=== PATIENT | male | born 1955 | race Caucasian/White ===

== ENCOUNTER → 2016-12-30 | Outpatient (CLI) | payer MEDICARE ==
[~2016-12-30] MED LIST: ACHYD1T PO; CEFD300C3 PO; CEPH500C PO; CIPR500T4 PO; CIPR500T78 PO; CITA20TA4; CITA20TA4 PO; CLIN-81 PO; CYAN10006 PO; GABA-486 PO; GLIP10TA13 PO; GLIP5TAB13 PO; HYOS0.1216 PO; IBUP200C PO; LACT1CAP62 PO; LEVO500T2 PO; LISI-556 PO; LISI5TAB PO; MELO-195 PO; MELO15TA39 PO; METF-380 PO; METF1000 PO; NITR-33 PO; ONDA4TAB11 PO; OXYC-12 PO; OXYC1TAB25 PO; PHEN200T27 PO; POTA10CA43 PO; POTA10TA17 PO; TMSL.4C PO
--- NOTE | 2016-12-30 12:54 | Diagnostic Imaging Report ---
INDICATION: Feels a bulge medial to a stoma in the right lower quadrant with pain when lifting. TECHNIQUE: Multiple real time werner scale sonographic images were obtained of the abdominal wall. CORRELATION STUDY: None FINDINGS: Imaging of the abdominal wall in and around the area of concern and stoma was performed. There does appear to be a focal defect in the abdominal wall approximately 4 cm medial to the stoma. There is presence of omental fat. No definitive bowel echotexture. IMPRESSION: Findings suggestive of a peristomal hernia which currently contains fat. No definitive bowel involvement at this time. Dictated by: Dictated on workstation # [id number]
== END ==
LOC: RAD 11:24
PROVIDERS: ATTEND Nurse Practitioner Family
DX: K43.5 Parastomal hernia without obstruction or gangrene (principal)
CPT/HCPCS: 76705

== ENCOUNTER → 2017-05-30 | Outpatient (CLI) | payer MEDICARE ==
[~2017-05-30] MED LIST changes: +IOHEXOL 350 MG/ML 100 ML (OMNIPAQUE 350) VIAL IV ONE; +NS 100 ML (IVPB) BAG IV ONE
[2017-05-30 11:20] LABS: CREATININE SERUM 1.38 MG/DL (0.60-1.30)
--- NOTE | 2017-05-30 12:02 | Diagnostic Imaging Report ---
PROCEDURE: CT abdomen and pelvis with contrast. TECHNIQUE: Multiple contiguous axial images were obtained through the abdomen and pelvis after administration of intravenous contrast. INDICATION: Abdominal wall hernia. Patient has history of bladder carcinoma. Comparison is made with prior CT from 06/21/2015. FINDINGS: The lung bases are clear. The liver demonstrates diffuse low density consistent with hepatic steatosis. No discrete liver mass is identified. The gallbladder is unremarkable. Pancreas and spleen are unremarkable. No adrenal mass is seen. The kidneys appear stable with left renal atrophy similar to prior exam. The aorta is nonaneurysmal. Postsurgical changes of cystectomy and prostatectomy are again noted. Patient does have an ileal conduit with right lower quadrant ileostomy, similar to prior exam. The degree of fat at the ostomy site is stable when compared to prior study. Bowel loops are normal caliber. No obstruction is seen. There is no ascites. No inflammatory process is seen. IMPRESSION: Stable CT of the abdomen and pelvis when compared with prior CT from 06/21/2015. No acute feature is detected. Dictated by: Dictated on workstation # [id number]
== END ==
LOC: RAD 10:54
PROVIDERS: ATTEND Surgery
DX: K43.9 Ventral hernia without obstruction or gangrene (principal); Z85.51 Personal history of malignant neoplasm of bladder
CPT/HCPCS: 36415; 74177; 82565; 84520

== ENCOUNTER 2017-06-09 10:09 | Outpatient (CLI) | payer MEDICARE ==
[~2017-06-09] VITALS: Ht 165.1 cm; Wt 78.9 kg
[~2017-06-09 10:09] MED LIST changes: -IOHEXOL 350 MG/ML 100 ML (OMNIPAQUE 350) VIAL IV ONE; -NS 100 ML (IVPB) BAG IV ONE
[2017-06-09 10:19] VITALS: BP 128/78
[2017-06-09 10:43] LABS: BASOPHILS % (AUTO) 0 % (0-10); EOSINOPHILS # (AUTO) 0.1 10^3/uL (0.0-0.3); EOSINOPHILS % (AUTO) 3 % (0-10); HEMATOCRIT 34 % (40-54); HEMOGLOBIN 11.2 G/DL (13.3-17.7); LYMPHOCYTES # (AUTO) 1.1 X 10^3 (1.0-4.0); LYMPHOCYTES % (AUTO) 26 % (12-44); MEAN CORPUSCULAR HEMOGLOBIN 28 PG (25-34); MEAN CORPUSCULAR HGB CONC 33 G/DL (32-36); MEAN CORPUSCULAR VOLUME 85 FL (80-99); MEAN PLATELET VOLUME 10.5 FL (7.4-10.4); MONOCYTES # (AUTO) 0.3 X 10^3 (0.0-1.0); MONOCYTES % (AUTO) 7 % (0-12); NEUTROPHILS # (AUTO) 2.6 X 10^3 (1.8-7.8); NEUTROPHILS % (AUTO) 63 % (42-75); PLATELET COUNT 198 10^3/uL (130-400); RED CELL DISTRIBUTION WIDTH 14.2 % (10.0-14.5); WHITE BLOOD COUNT 4.1 10^3/uL (4.3-11.0)
[2017-06-09] MEDS ORDERED: METF1000 PO ×2 (10:48)
[2017-06-09] MEDS ORDERED: GLIP10TA13 PO (10:48)
[2017-06-09] MEDS ORDERED: LISI-556 PO (10:48)
[2017-06-09] MEDS ORDERED: BUSP15TA60 PO (10:48)
[2017-06-09] MEDS ORDERED: ATOR20TA66 PO (10:48)
[2017-06-09] MEDS ORDERED: CETI10TA17 PO (10:48)
[2017-06-09] MEDS ORDERED: DICL50TA6 PO (10:48)
[2017-06-09] MEDS ORDERED: GABA-486 PO (10:48)
[2017-06-09] MEDS ORDERED: CITA40TA11 PO (10:48)
[2017-06-09 11:00] LABS: CALCIUM 8.8 MG/DL (8.5-10.1); CREATININE SERUM 1.34 MG/DL (0.60-1.30); POTASSIUM 5.2 MMOL/L (3.6-5.0)
== END 2017-06-09 10:35 | disposition home or self-care (01) ==
LOC: PREOP 10:09
PROVIDERS: ATTEND Surgery
DX: Z01.812 Encounter for preprocedural laboratory examination (principal); Z11.2 Encounter for screening for other bacterial diseases; K43.5 Parastomal hernia without obstruction or gangrene
CPT/HCPCS: 36415; 80048; 85025; 87081

== ENCOUNTER 2017-06-16 06:00 | Day surgery (SDC) | payer MEDICARE ==
[~2017-06-16] VITALS: Ht 165.1 cm; Wt 78.9 kg
[~2017-06-16 06:00] MED LIST changes: +ATOR20TA66 PO; +BUSP15TA60 PO; +CETI10TA17 PO; +CITA40TA11 PO; +DICL50TA6 PO
[2017-06-16 06:20] VITALS: BP 133/92
[2017-06-16] MEDS: LACTATED RINGERS 1,000 ML IV PRN ×2 (06:20→09:08)
[2017-06-16] MEDS ORDERED: FAMOTIDINE 20MG/2ML IV (PEPCID) IV ONE (06:45)
[2017-06-16] MEDS ORDERED: ceFAZolin 2 GM IV Premixed 50 ML IV ONE (06:45)
[2017-06-16] MEDS ORDERED: LIDOCAINE/EPI 1%-1:200,000 (XYLOCAINE) 10 ML VIAL ONE (06:59)
[2017-06-16] MEDS ORDERED: fentaNYL INJECTION 100 MCG/2 ML AMP ONE ×2 (07:14→10:37)
[2017-06-16] MEDS ORDERED: MIDAZOLAM 2 MG/2 ML (VERSED) VIAL ONE (07:14)
[2017-06-16] MEDS ORDERED: ONDANSETRON 4 MG/2 ML (SDV) Z0FRAN ONE (07:14)
[2017-06-16] MEDS ORDERED: SEVOFLURANE (ULTANE) 15 ML INHAL SOLN ONE ×8 (07:14→10:19)
[2017-06-16] MEDS ORDERED: ROCURONIUM 10 MG/ML 5 ML SYRINGE IV ONE ×2 (07:14→09:45)
--- NOTE | 2017-06-16 08:11 | Progress Note-Pre Operative ---
Pre-Operative Progress Note H&P Reviewed The H&P was reviewed, patient examined and no changes noted. Time Seen by Provider: 08:01 Date H&P Reviewed: Jun 16, 2017 Time H&P Reviewed: 08:04 Pre-Operative Diagnosis: Parastomal hernia, incarcerated ALLISON MACEDO DO Jun 16, 2017 08:10
[2017-06-16] MEDS ORDERED: LIDOCAINE PF 2% 5 ML (XYLOCAINE) VIAL ONE (08:41)
[2017-06-16] MEDS ORDERED: proPOfol 200 MG/20 ML (DIPRIVAN) VIAL IV ONE (08:41)
[2017-06-16] MEDS ORDERED: PHENYLEPHRINE INJ 10 MG/ML (NEO-SYNEPHRINE 1%) ONE (08:42)
[2017-06-16] MEDS ORDERED: PHENYLEPHRINE 100 MCG/ML 10 ML (ANESTHESIA) SYR ONE (08:42)
[2017-06-16] MEDS ORDERED: GLYCOPYRROLATE 0.2 MG/ML (ROBINUL) 2 ML VIAL ONE (10:10)
[2017-06-16] MEDS ORDERED: NEOSTIGMINE (BLOXIVERZ ) 1 MG/1ML 10 ML VIAL ONE (10:10)
--- NOTE | 2017-06-16 10:25 | Progress Note-Post Operative ---
Post-Operative Progess Note Surgeon (s)/Fire Control Officer (s) Surgeon ALLISON MACEDO DO Fire Control Officer: [place] Pre-Operative Diagnosis Parastomal hernia, incarcerated Post-Operative Diagnosis Same Procedure & Operative Findings Date of Procedure 06/16/17 Procedure Performed/Findings Parastomal hernia repair with mesh placement Anesthesia Type GET Estimated Blood Loss Estimated blood loss (mL): less than 10ml Specimens/Packing Specimens Removed none ALLISON MACEDO DO Jun 16, 2017 10:25
[2017-06-16] MEDS ORDERED: HYDR-3820 PO (10:26)
--- NOTE | 2017-06-16 10:28 | Discharge Inst-Surgical ---
Discharge Inst-Surgical Depart Medication/Instructions New, Converted or Re-Newed RX: RX Given to Pt/Family Patient Instructions Follow up Appt: Make appointment for 1 week. Instructions: No lifting greater than 10 pounds. No strenuous activity. May shower in 24 hours, no tub bath or soaking. Use incentive spirometer at home as directed. No Smoking Skin/Wound Care: May remove bandages. You need to leave the Dermabond on over incision it will fall off on its own. Symptoms to Report: Appetite Changes, Extremity Discoloration, Numbness/Tingling, Swelling Increased , Bleeding Excessive, Eyesight Changes, Pain Increased, Urine Color Change, Constipation(Persistent), Fever over 101 degree F, Pain/Pressure in chest, Urinating Difficulty, Cough Up/Vomit Blood, Heart Beat Irreg/Pounding, Pain/ Pressure in jaw, Cramps in feet or legs, Lightheadedness, Pain/Pressure in shoulder, Diarrhea(Persistent), Memory Changes Suddenly, Questions/Concerns, Weight gain consecutive days, Dizziness/Fainting, Nausea/Vomiting, Shortness of Breath, Weight gain over 2 pounds If questions or concerns contact your physician Or seek help at emergency department. Activity Activity Instructions: Avoid Pulling & Pushing Driving Instructions: No Driving/Refer to Dr. Jaquez Discharge Diet: No Restrictions Diet After 24 Hours: Clear Liquid if Nauseous If Any Problems/Questions/Issu: Contact Your Physician, Go to Emergency Room Skin/Wound Care Infection Signs and Symptoms: Increased Redness, Foul Odor of Wound, Increased Drainage, Skin Itchy or Has a Rash, Increased Swelling, Temperature Above 101 F Bathing Instructions: Shower Stitches/[place]/Dermabond Dis: Dermabond Ice Pack: Ice On and Off Site ALLISON MACEDO DO Jun 16, 2017 10:28
[2017-06-16 11:40] VITALS: BP 147/92
[2017-06-16] MEDS ORDERED: HYDROcodone/APAP 10 MG/325 MG (LORTAB) TAB PO ONE ×2 (11:40→12:00)
[2017-06-16 12:10] VITALS: BP 149/93
[2017-06-16 12:40] VITALS: BP 148/97
[2017-06-16 13:30] VITALS: BP 148/97
--- NOTE | 2017-06-16 14:26 | Anesthesia-General Post-Op ---
General Patient Condition Mental Status/LOC: Same as Preop Cardiovascular: Satisfactory Nausea/Vomiting: Absent Respiratory: Satisfactory Pain: Controlled Complications: Absent Post Op Complications Complications None Follow Up Care/Instructions Patient Instructions None needed. Anesthesia/Patient Condition Patient Condition Patient was doing well prior to discharge. He had minimal nausea but was tolerating crackers, stable vital signs, no apparent adverse anesthesia problems. ADELAIDE BUSTILLO DO Jun 16, 2017 14:26
--- NOTE | 2017-06-17 05:07 | OPERATIVE REPORT ---
DATE OF SERVICE: PREOPERATIVE DIAGNOSIS: Incarcerated parastomal hernia. POSTOPERATIVE DIAGNOSIS: Incarcerated parastomal hernia. PROCEDURE: Parastomal hernia repair with mesh placement. SURGEON: Dr. White. LANDSCAPE ARTIST: Dr. Dahl. ANESTHESIA: General endotracheal tube. SPECIMENS: None. BLOOD LOSS: Less than 10 mL. FLUIDS: Per anesthesia. POSTOPERATIVE CONDITION: Stable. INDICATION FOR PROCEDURE: The patient is a 61-year-old male who has a bulging around the urostomy and had a CAT scan performed, which had diagnosed incarcerated parastomal hernia. FINDINGS: The patient had an incarcerated parastomal hernia just with some fat in there removed and then repaired. PROCEDURE NOTE: After informed consent was obtained, the patient was brought to the operating room, placed in supine position, slightly bumped on the left and the bed was broken a little bit. After sterilely prepping and draping the patient, we made an incision in left upper quadrant for making a first infiltrating the skin with local and then made incision with #11 blade, carried down through skin into the subcutaneous tissue, then deepened down through subcutaneous tissue with Bovie electrocautery down to the fascia. Fascia incised with electrocautery and then moved the muscle out of the way, went to the posterior fascia and then again move muscle and then able to grasp the peritoneum with hemostats, cut with Metzenbaum scissors and then placed the 11 mm trocar port held in place the balloon. Pneumoperitoneum was created. Then placed 2 more 8 mm ports about 10 cm away from this left upper quadrant, one more laterally and then one down towards the ASIS. Using local lidocaine, 11 blade for stab incision and then advancing the trocar under direct visualization. Once this was done, we then docked the robot and placed one more port in between the left upper quadrant and the midline one. With a #11 blade, local lidocaine, a stab incision and the VersaStep system, all done under direct visualization. Able to see some adhesions from previous surgery and the parastomal area. Took down, there were some adhesions on the left side. These were taken down with Bovie electrocautery and scissors. Then, went over to the stoma and started taking the omentum that was incarcerated in this area out carefully pulling and then using the Bovie scissors to cauterize and remove attachments in a careful stepwise fashion, continuing to pull the omentum out finally, able to get all the omentum out of this opening. Once it was freed up circumferentially around the stoma, I made sure to stay very far away from this urostomy. Then noted adhesions from his previous umbilical hernia repair, could actually see some exposed mesh from this hernia repair. These adhesions were also taken down with blunt dissection as well as with the Bovie electrocautery and the scissors. Once everything was taken down then elected to close the fascial defect with an 0 Vicryl V-Loc absorbable suture, suturing just superiorly to the urostomy and ileal conduit going through the fascia with a V-Loc and then tightened this down, but not too tight, so that the ileal conduit easily moved in and out and then tightened this in closing this fascial defect. Once this fascial defect was then closed then we elected to use a Phasix ST mesh, cut a keyhole in it. A 5 cm proximal to the distal edge, we then placed this into the abdomen, then able to pull this mesh around the parastomal and then using a secure strap tacking just proximal to the ileal conduit on the fascia tacking this close to close this incision that we used to be able to get around the stoma thereby then closing this, so that was just in a circular opening and then tacking around the edges of the mesh with the SecureStrap at 0.5 cm to 1 cm distance. Going all the way around and then tacked in the middle to hold the mesh up. Once this was done, appear to be in good position. There was no bleeding at the end of the case. There was a little bit of bleeding from one of the SecureStrap tacks and then from some of the omentum, but less than 10 mL and no active bleeding at the end of the case placed the mesh and sutured with little bit less insufflation to be able to close this. It closed nicely. At this point, then removed all ports under direct visualization allowed pneumoperitoneum to escape. Closed the left upper quadrant incision, closing the peritoneum with a 3-0 Vicryl hghzsa-mj-cebal suture then closed the fascia with 0 Vicryl jhymuz-jk-gdnle suture. Incisions were then carefully irrigated with normal saline and dried and then closed all incisions with 4-0 undyed Monocryl subcuticular stitches on the left upper quadrant incision. The two 8 mm incisions were closed with 2 interrupted 4-0 undyed Monocryl subcuticular stitches and small 5 mm incision was closed with a single interrupted 4-0 undyed Monocryl subcuticular stitch. Area was cleaned and dried and Dermabond placed. The patient tolerated this procedure well. Sponge, instruments and needle count correct at the end of the case. Dr. Dahl assisted in this case with making incisions helping to identify anatomy, helping to hold tissue and some intestine out of the way and then helped to closed all the incisions. Job ID: [id number] DocumentID: [id number] Dictated Date: 06/16/2017 18:16:59 Power Originator Date: 06/17/2017 05:06:28 Dictated By: ALLISON WHITE DO
== END 2017-06-16 13:40 | disposition home or self-care (01) ==
LOC: SDC 06:00
PROVIDERS: ATTEND Surgery
DX: K43.3 Parastomal hernia with obstruction, without gangrene (principal); I10 Essential (primary) hypertension; E78.5 Hyperlipidemia, unspecified; F41.9 Anxiety disorder, unspecified; F32.9 Major depressive disorder, single episode, unspecified; E11.40 Type 2 diabetes mellitus with diabetic neuropathy, unspecified; E66.9 Obesity, unspecified; K21.9 Gastro-esophageal reflux disease without esophagitis; Z79.899 Other long term (current) drug therapy; Z85.51 Personal history of malignant neoplasm of bladder
CPT/HCPCS: 82962; 94664

== ENCOUNTER → 2017-07-25 | Outpatient (CLI) | payer MEDICARE, OTHER ==
[~2017-07-25] MED LIST changes: +CATHETER FLUSH 10 ML SYR IV PRN; +HYDR-3820 PO; +IOHEXOL 350 MG/ML 100 ML (OMNIPAQUE 350) VIAL IV ONE; +METF10002 PO; +NS 250 ML (IVPB) BAG IV ONE; +RECEIVED CONTRAST (Hold Metformin) IV SCH
[2017-07-25 14:07] LABS: CREATININE SERUM 1.31 MG/DL (0.60-1.30)
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
== END ==
LOC: RAD 13:41
PROVIDERS: ATTEND Surgery
DX: C67.9 Malignant neoplasm of bladder, unspecified (principal); K76.0 Fatty (change of) liver, not elsewhere classified; Z93.2 Ileostomy status
CPT/HCPCS: 36415; 74160; 82565; 84520

== ENCOUNTER → 2017-10-13 | Outpatient (CLI) | payer MEDICARE ==
[~2017-10-13] MED LIST changes: -CATHETER FLUSH 10 ML SYR IV PRN; -IOHEXOL 350 MG/ML 100 ML (OMNIPAQUE 350) VIAL IV ONE; -NS 250 ML (IVPB) BAG IV ONE; -RECEIVED CONTRAST (Hold Metformin) IV SCH
--- NOTE | 2017-10-13 10:40 | Diagnostic Imaging Report ---
PROCEDURE: US carotid duplex, bilateral. TECHNIQUE: Multiple real-time grayscale images were obtained over the carotid arteries in various projections, bilaterally. Additional duplex Doppler and color Doppler images were also obtained. DATE: October 13, 2017. INDICATION: 62-year-old male, syncope and collapse. COMPARISON: None. FINDINGS: Peak systolic velocity in the left mid common carotid artery measures 61 cm/s. Peak systolic velocity in the left proximal internal carotid artery measures 42 cm/s, 57 cm/s in the mid left internal carotid artery, and 48 cm/s distally. Peak systolic velocity in the left external carotid artery measures 57 cm/s. There is patent antegrade flow in the left vertebral artery. Peak systolic velocity in the right mid common carotid artery measures 78 cm/s. Peak systolic velocity in the right proximal internal carotid artery measures 79 cm/s, 79 cm/s in the mid right internal carotid artery, and 63 cm/s distally. Peak systolic velocity in the right external carotid artery measures 80 cm/s. There is patent antegrade flow in the right vertebral artery. There is plaque formation in the right and left proximal internal carotid arteries. IMPRESSION: 1. Negative for hemodynamically significant right or left internal carotid artery stenosis. 2. Patent antegrade flow in the bilateral vertebral arteries. Parameters based on the consensus panel Richardson-Scale and Doppler ultrasound criteria published February 2003, Radiology, Volume 229. DOPPLER (peak systolic velocity M/S Right Left CCA .78 .61 ICA Proximal .79 .42 ICA Mid .79 .57 ICA Distal .63 .48 RATIO 1.0 .9 ECA .80 .57 VERT .36 .48 Dictated by: Dictated on workstation # [id number]
--- NOTE | 2017-10-13 11:12 | Diagnostic Imaging Report ---
INDICATION: Syncope, atherosclerosis Abdominal aortic ultrasound. Duplex ultrasound of the abdominal aorta was done with grayscale and color Doppler flow analysis. Proximal abdominal aorta is obscured by bowel gas. The mid abdominal aorta measures 16 x 20 mm. Distal abdominal aorta is obscured by bowel gas. Right iliac artery measures 8 x 9 mm. Left iliac artery measures 7 x 9 mm. IMPRESSION: Limited visualization of the abdominal aorta because of overlying bowel gas. No aneurysm seen in the visualized segment. Dictated by: Dictated on workstation # [id number]
== END ==
LOC: RAD 08:55
PROVIDERS: ATTEND Nurse Practitioner Family
DX: R55 Syncope and collapse (principal); I70.0 Atherosclerosis of aorta
CPT/HCPCS: 76775; 93880

== ENCOUNTER 2017-11-19 05:38 | Outpatient (CLI) | payer MEDICARE ==
[~2017-11-19] VITALS: Ht 165.1 cm; Wt 74.4 kg
[2017-11-19] MEDS ORDERED: HYDR-3820 PO (14:15)
== END 2017-11-19 14:48 ==
LOC: PREOP 05:38
PROVIDERS: ATTEND Surgery
DX: Z01.818 Encounter for other preprocedural examination (principal); Z12.11 Encounter for screening for malignant neoplasm of colon

== ENCOUNTER 2017-11-26 12:09 | Day surgery (SDC) | payer MEDICARE ==
[~2017-11-26] VITALS: Ht 165.1 cm; Wt 74.4 kg
--- OUTSIDE RECORDS SUMMARY | 2017-11-26 12:13 | XMS REPORT | Clinical Summary ---
Author Author [facility] Organization [facility] Address Unknown Phone Unavailable Care Team Providers Care News Intern Name Role Phone John Zuleta NP PCP Efrain Garber MD Unavailable Unavailable Mildred Zhang RN Unavailable Unavailable Ben Bocanegra MD Unavailable Christina Rosado RN Unavailable Unavailable Rachael Leah Unavailable Bib Still PA-C Unavailable Source Comments Some departments are not documenting in the electronic medical record. If you do not see the information that you expected, contact Release of Information in the Health Information Management department at [phone] for further assistance in locating additional records.[facility] Allergies No Known Allergies Current Medications Prescription Sig. Disp. Refills Start End Date Status Date tamsulosin (FLOMAX) 0.4 Take 0.4 mg by mouth Active mg capsule daily. lisinopril (PRINIVIL; Take 5 mg by mouth daily. Active ZESTRIL) 5 mg tablet glipiZIDE (GLUCOTROL) 5 Take 2.5 mg by mouth Active mg tablet twice daily with meals. citalopram (CELEXA) 20 mg Take 40 mg by mouth Active tablet daily. potassium citrate(+) Take 10 mEq by mouth Active (UROCIT-K) 10 mEq tablet daily. metformin-ER(+) Take 1,000 mg by mouth Active (FORTAMET) 1,000 mg twice daily. tablet cyanocobalamin (vitamin Place 5,000 mcg under Active B-12) (VITAMIN B-12) tongue daily. 5,000 mcg subl fish oil /omega-3 fatty Take 1 Cap by mouth Active acids (SEA-OMEGA) daily. 340/1000 mg capsule HYDROcodone/acetaminophen Take 1 Tab by mouth every Active (+) (VICODIN 10/650) 6 hours as needed. 10/650 mg tablet Yezelhntwyhcf-Lpvikszp-Xx Take 1 Tab by mouth Active tein (CENTRUM SILVER) tab daily. polyethylene glycol 3350 Take 17 g by mouth daily. 3 Bottle 0 Active (GLYCOLAX; MIRALAX) 17 14 gram/dose powder tadalafil (CIALIS) 20 mg 1/2 - 1 tab po prn 1 - 4 10 Tab 11 01/15/20 Active tablet hrs prior to sexual 14 activity Vacuum Erection Device Use as directed prn ED. 1 Kit 0 06/10/19 Active System kitIndications: 15 Erectile dysfunction Active Problems Problem Noted Date Erectile dysfunction 06/10/2014 Overview: 06/10/2014: Post-[facility] ED. No improvement with Cialis. L ast Assessment & Plan: Plan: 1. Alprostadil injections prescribed today for ED 2. Teaching done in clinic. S/P ileal conduit (HCC) 09/21/2013 Bladder cancer (HCC) 07/20/2013 Overview: TURBT -- 07/20/2013; cT2, high grade; Dr. Zamorano. Radical Cystoprostatectomy w/ Ileal Conduit -- 09/21/2013; Dr. Bocanegra. pTis N0 Mx 01/14/2014: no evidence of recurrence on imaging - patient doing well 06/10/2014: KAITLYN on imaging today. Doing well. 06/16/15: KAITLYN on our review of imaging today. Final radiology reads pending. Cr. and Hgb stable. Bothered by parastomal hernia. L ast Assessment & Plan: No evidence of recurrence on our review of imaging today. Labs are stable. He is bothered by his parastomal hernia. - Continue surveillance. Return to clinic one year with CXR and labs. - Will try hernia belt for his parastomal hernia. - Will discuss checking testosterone with his PCP. Family History Medical History Relation Name Comments Cancer-Prostate Father Asthma Stroke Relation Name Status Comments Father Social History Tobacco Use Types Packs/Day Years Used Date Never Smoker Smokeless Tobacco: Never Used Alcohol Use Drinks/Week oz/Week Comments Yes 6 Cans of 3.6 6 per week beer Sex Assigned at Date Recorded Not on file Last Filed Vital Signs Vital Sign Reading Time Taken Blood Pressure 158/92 06/16/2015 1:05 PM EMERGENCY MEDICAL SERVICE COORDINATOR Pulse 92 06/16/2015 1:05 PM EMERGENCY MEDICAL SERVICE COORDINATOR Temperature 36.9 C (98.4 F) 09/25/2013 7:23 AM CDT Respiratory Rate - - Oxygen Saturation 97% 09/25/2013 7:23 AM CDT Inhaled Oxygen - - Concentration Weight 81.6 kg (180 lb) 06/16/2015 1:05 PM EMERGENCY MEDICAL SERVICE COORDINATOR Height 162.6 cm (5' 4") 06/16/2015 1:05 PM EMERGENCY MEDICAL SERVICE COORDINATOR Body Mass Index 30.9 06/16/2015 1:05 PM EMERGENCY MEDICAL SERVICE COORDINATOR Plan of Treatment Health Maintenance Due Date Last Done Comments HEPATITIS C SCREENING 1955 PHYSICAL (COMPREHENSIVE) 07/07/1962 EXAM PERTUSSIS VACCINE 07/07/1966 HIV SCREENING 07/07/1970 TETANUS VACCINE 07/07/1972 COLORECTAL CANCER 07/07/2005 SCREENING SHINGLES RECOMBINANT 07/07/2005 VACCINE (1 of 2) INFLUENZA VACCINE 01/12/2018 Results Not on filefrom Last 3 Months
--- OUTSIDE RECORDS SUMMARY | 2017-11-26 12:14 | XMS REPORT ---
Author Author ERIN MAYES [facility] eClinicalWorks Address Unknown Phone Unavailable Care Team Providers Care Mainstreaming Facilitator Name Role Phone ERIN MAYES CP Unavailable Allergies, Adverse Reactions, Alerts Substance Reaction Event Type Cefdinir dizziness, clammy, trouble breathing Drug Allergy Bactrim caused blood in urine Drug Allergy Problems Problem Type Condition Code Onset Dates Condition Status Problem 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 Problem Diabetes mellitus without mention of complication, type II or unspecified type, uncontrolled 250.02 Active Problem 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 Problem DM w/o complication type II E11.9 Active Problem Hyperkalemia 276.7 Active Problem Depressive disorder, not elsewhere classified F32.9 Active Problem DM (diabetes mellitus) type II controlled, neurological manifestation 250.60 Active Problem Depressive disorder, not elsewhere classified 311 Active Problem Gout 274.9 Active Problem UTI (urinary tract infection) 599.0 Active Assessment Acute gout of right ankle, unspecified cause M10.9 Active Problem Unspecified arthropathy, site unspecified 716.90 Active Problem Diabetes mellitus without mention of complication, type II or unspecified type, not stated as uncontrolled 250.00 Active Medications Medication Code System Code Instructions Start Date End Date Status Dosage Allopurinol [facility] [address]-88 100 MG Orally Once a day Nov 24, 2014 1 tablet Viagra [facility] [address]-08 50 mg Dec 16, 2012 0.5-1 tablet by Oral route 1 time per day take 30-45 m before intercourse GlipiZIDE [facility] [address]-87 10 MG Orally 2 times a day 1 tab with AM meal, 1 /2 tab with pm meal June 16, 2014 1 tablet Indomethacin [facility] [address]-52 50 MG Orally Twice a day Apr 05, 2015 1 capsule with food or milk Gabapentin [facility] [address]-26 100 MG Orally Three times a day November 03, 2014 1 tablet Vitamin B-12 [facility] 54043-[address]148 Jun 07, 2013 by oral route Take one tablet daily metformin [facility] [address]-58 1,000 mg June 16, 2014 take 1 tablet by Oral route with morning and evening meals 2 times per day citalopram NDC 0 20 mg June 16, 2014 Take 1 tablet by Oral route 1 time per day Procedures Procedure Coding System Code Date Office Visit, Est Pt., Level 3 CPT-4 71526 Apr 05, 2015 VENIPUNCT, ROUTINE* CPT-4 71692 Apr 05, 2015 ASSAY OF BLOOD/URIC ACID CPT-4 79425 Apr 05, 2015 Vital Signs Date/Time: Apr 05, 2015 Temperature 98.2 F Weight 184 lbs Height 65 in BMI 30.62 Index Blood Pressure Diastolic 70 mmHg Blood Pressure Systolic 130 mmHg Cardiac Monitoring Heart Rate 102 bpm Results Name Result Date Reference Range Unit Abnormality Flag ROUTINE VENIPUNCTURE URIC ACID, SERUM ----Uric Acid, Serum 5.7 [id number] 3.7-8.6 mg/dL Summary Purpose eClinicalWorks Submission
--- OUTSIDE RECORDS SUMMARY | 2017-11-26 12:14 | XMS REPORT ---
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 [address]-26 500 MG Orally Twice a day October 31, 2015 November 07, 2015 1 tablet Results No Known Results Summary Purpose eClinicalWorks Submission
--- OUTSIDE RECORDS SUMMARY | 2017-11-26 12:14 | XMS REPORT ---
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 Problem Unspecified arthropathy, site unspecified 716.90 Active Problem Diabetes mellitus without mention of complication, type II or unspecified type, not stated as uncontrolled 250.00 Active Problem DM w/o complication type II E11.9 Active Problem Hyperkalemia 276.7 Active Problem Depressive disorder, not elsewhere classified F32.9 Active Problem DM (diabetes mellitus) type II controlled, 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
--- OUTSIDE RECORDS SUMMARY | 2017-11-26 12:14 | XMS REPORT ---
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 Problem Diabetes mellitus without mention of complication, type II or unspecified type, not stated as uncontrolled 250.00 Active Problem Gout 274.9 Active Problem UTI (urinary tract infection) 599.0 Active Problem Hyperkalemia 276.7 Active Problem Diabetes mellitus without mention of complication, type II or unspecified type, uncontrolled 250.02 Active Problem 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
--- OUTSIDE RECORDS SUMMARY | 2017-11-26 12:14 | XMS REPORT ---
Author Author ERIN MAYES Organization [employer] Address Unknown Phone Unavailable Care Team Providers Care Brake Operator Helper Name Role Phone ERIN MAYES CP Unavailable [...] disorder, not elsewhere classified 311 Active Medications Medication Code System Code Instructions Start Date End Date Status Dosage Meloxicam [facility] [address]-00 15 MG Orally 2 times a day Apr 25, 2014 take .5 tablet by Oral route 2 times per day anti-inflammatory med Results No Known Results Summary Purpose [employer] Submission
--- OUTSIDE RECORDS SUMMARY | 2017-11-26 12:14 | XMS REPORT ---
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 615148572838660 Problem 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, 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 Active 86522874 Problem History of gout Z87.39 Active 928151985 Problem Arthropathy M12.9 Active 707975386 Problem Depressive disorder, not elsewhere classified F32.9 Active 05382750 Problem Shoulder bursitis, right M75.51 Active 746465954 Problem Urinary tract infection, site not specified N39.0 Active 92432379 ALLERGIES Substance Reaction Event Type Date Status Cefdinir dizziness, clammy, trouble breathing Drug Allergy Mar, Active Bactrim caused blood in urine Drug Allergy Mar, Active SOCIAL HISTORY No smoking Hx information available PLAN OF CARE VITAL SIGNS Height 65 in 2016-03-21 Weight 173.6 lbs 2016-03-21 Heart Rate 97 bpm 2016-03-21 Respiratory Rate 18 2016-03-21 BMI 28.89 kg/m2 2016-03-21 Blood pressure systolic 116 mmHg 2016-03-21 Blood pressure diastolic 58 mmHg 2016-03-21 MEDICATIONS Medication Instructions Dosage Frequency Start Date End Date Duration Status metformin 1,000 mg by oral route 2 times a day take 1 tablet in am 1.5 pm 12h Jun, Active GlipiZIDE 10 mg Orally 2 times a day 2 tab 12h Active Gabapentin 100 MG Orally Three times a day 1 tablet 8h Active Albuterol Sulfate HFA 108 MCG/ACT Inhalation 4 times a day prn 2 puffs as needed Mar, Active Allopurinol 100 MG Orally Once a day 1.5 tablet 24h Active Promethazine-Codeine 6.25-10 MG/5ML Orally 2 times a day severe cough 5 ml as needed Mar, Active citalopram 40 mg orally Once a day Take 1 table 24h Jun, Active Diclofenac Sodium 50 mg Orally 2 times a day 1 tablet with food or milk 12h Jan, Active Lisinopril 5 MG TAKE ONE (1) TABLET BY MOUTH DAILY... Active Benzonatate 100 MG Orally Three times a day 1 capsule as needed 8h Mar, Active Cipro 500 MG Orally Twice a day 1 tablet 12h Mar, Mar, 10 day(s) Active Atorvastatin Calcium 20 mg Orally Once a day 1 tablet 24h Jan, Active RESULTS Name Result Date Reference Range UA LONG DIP (IN HOUSE) 2016-03-21 Lot # [id number] Exp date 03/29 Clarity cloudy Color yellow Odor yes GLU neg CL neg KET trace SG 1.025 BLO 3+ pH 6.0 Protein 2+ URO 0.2 NIT positive SOFIYA 3+ Lot # Exp date PROCEDURES Procedure Date Ordered Related Diagnosis Body Site Office Visit, Est Pt., Level 3 Mar 21, 2016 URINALYSIS, AUTO, W/O SCOPE Mar 21, 2016 IMMUNIZATIONS No Known Immunizations
--- OUTSIDE RECORDS SUMMARY | 2017-11-26 12:14 | XMS REPORT ---
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 Active 17605662 Problem Pain in right shoulder M25.511 Active 35953866 Problem 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, 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 Active 36942350 Problem History of gout Z87.39 Active 884843030 Problem Non-seasonal allergic rhinitis due to other allergic trigger J30.89 Active 53565684 Problem Flexural eczema L20.82 Active 50774664 Problem Hyperkalemia 276.7 Active 27363850 Problem Gout 274.9 Active 21408798 Problem 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 [id number] Problem DM w/o complication type II E11.9 Active 57251339 Problem 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 19810793 Problem Depressive disorder, not elsewhere classified F32.9 Active 60203376 ALLERGIES No Information ENCOUNTERS Encounter Location Date Diagnosis [facility] [address] [facility] [id number][place] [id number] Jul, [facility] [address] [facility] [id number], [place] [id number] Sep, DM w/o complication type II E11.9 and Arthrosis of shoulder region, 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 [facility] [address] [facility] [id number] LAKES[place] [address]50[address] August, [place] [id number] [place] [address] [id number] August, [place] [id number] [place] [address] [id number] August, DM w/o complication type II E11.9 and Pain in right shoulder M25.511 [place] [id number] [place] [address] [id number] Jul, DM w/o complication type II E11.[address] [id number] Jun, Non-seasonal allergic rhinitis due to other allergic trigger J30.89 and Bronchitis J40 [address] [id number] Apr, Acute pharyngitis due to other specified organisms J02.8 ; 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, subsequent encounter T83.510D and Urinary tract infection, site not specified N39.0 [place] [id number] [place] [address] [phone] Apr, DM w/o complication type II E11.9 ; Bronchitis J40 and Flexural eczema L20.82 [place] [address] [place] [address] [phone] Mar, Upper respiratory tract infection, unspecified type J06.9 and 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, 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 [place] [address] [place] [address] [id number] Jan, DM w/o complication type II E11.9 ; History of gout Z87.39 and Arthropathy M12.[address] [place] [address] [id number] Jan, DM w/o complication type II E11.9 ; Hx of gout Z87.39 and Screening for prostate cancer Z12.5 [place] [address] [place] [id number] [place] [address] [id number] Dec, DM w/o complication type II E11.9 ; Depressive disorder, not elsewhere classified F32.9 and Hx of gout Z87.39 [id number] [id number] Oct, Encounter for immunization Z23 [facility] [place] [place] [address] [place] [id number], [place] [id number] Oct, [facility] [place] [id number] [place] [address] [id number] August, DM w/o complication type II E11.9 [facility] [place] [id number] [place] [address] [id number] August, DM w/o complication type II E11.9 ; Shoulder bursitis, right M75.51 and Urinary tract infection, site not specified N39.0 [facility] [place] [id number] [place] [address] [id number] Jul, Urinary tract infection N39.0 [facility] [address] [place] [id number] [place] [address] [id number] Jun, Infection and inflammatory reaction due to indwelling urinary catheter, subsequent encounter T83.51XD [facility] [place] [place] [id number] [place] [address] [id number] Jun, Infection and inflammatory reaction due to indwelling urinary catheter, subsequent encounter T83.51XD ; DM w/o complication type II E11.9 and Acute gout of foot, unspecified cause, unspecified laterality M10.9 [facility] [place] [id number], [place] [id number] May, DM w/o complication type II E11.9 ; Depressive disorder, not elsewhere classified F32.9 and Acute upper respiratory infection, unspecified J06.9 [facility] [address] [facility] [id number], [place] [id number] May, Dental caries, unspecified K02.9 [facility] [address] [id number][place] [id number] Apr, Dental examination Z01.20 [facility] [id number] [place] [address] [id number] Apr, DM w/o complication type II E11.9 ; Depressive disorder, not elsewhere classified F32.9 and Arthropathy M12.9 [facility] [place] [address] [id number] Apr, Ankle pain, right M25.571 and Left elbow pain M25.522 [place] [address] [place] [address] [id number] Mar, Acute gout of right ankle, unspecified cause M10.9 [place] [address] [facility] [id number], [place] [phone] Feb, [place] [address] [place] [address] [id number] Jan, Depressive disorder, not elsewhere classified F32.9 ; Encounter for immunization Z23 and DM w/o complication type II E11.9 [facility] [address] [address] Jan, [place] [address] [place] [address] [id number] Nov, Hyperkalemia 276.7 ; Diabetes mellitus without mention of complication, type II or unspecified type, uncontrolled 250.02 and Gout 274.9 [facility] [address] [address] Nov, [address] [id number] Oct, Pelvic pain in male 789.09 and Hyperkalemia 276.7 [place] [address] [place] [address] [id number] Oct, [place] [address] [place] [address] [id number] Oct, [place] [address] [place] [address] [id number] Oct, UTI (urinary tract infection) 599.0 and DM (diabetes mellitus) type II controlled, neurological manifestation 250.60 [place] [address] [place] [address] [id number] Oct, Diabetes mellitus without mention of complication, type II or unspecified type, not stated as uncontrolled 250.00 [place] [address] [place] [address] [id number] Sep, [facility] [address] [id number], [place] [id number] Sep, [facility] [address] [id number], [place] [id number] Sep, Diabetes mellitus without mention of complication, type II or unspecified type, not stated as uncontrolled 250.00 and Unspecified arthropathy, site unspecified 716.90 [facility] [place] [address] [id number], [place] [id number] August, Dental examination V72.2 [facility] [place] [address] [id number], [place] [phone] August, [facility] [address] [id number], [place] [phone] August, [facility] [address] [id number], [place] [id number] August, Urinary tract infection, site not specified 599.0 and Abdominal pain 789.00 [facility] [place] [address] [id number], [place] [id number] August, [facility] [place] [address] [id number], [place] [phone] August, [facility] [place] [address] [facility] [id number], [place] [id number] August, Dental examination V72.2 [facility] [place] [address] [id number], [place] [phone] August, [facility] [place] [address] [id number], [place] [id number] August, Dental examination V72.2 [facility] [place] [address] [id number], [place] [id number] Jul, Dental examination V72.2 [facility] [place] [address] [id number], [place] [id number] Jul, Encounter for dental examination V72.2 [facility] [place] [address] [id number], [place] [id number] Jul, [facility] [place] [address] [id number], [place] [id number] Jul, Urinary tract infection, site not specified 599.0 [facility] [place] [facility] [address] [facility] [id number] [place] [address] Jul, [facility] [place] [facility] [address] [facility] [id number] [place] [address] Jul, [facility] [place] [facility] [address] [facility] [id number] [place] [address] Jun, [facility] [place] [facility] [address] [facility] [id number] [place] [address] Jun, [facility] [place] [address] [facility] [id number], [place] [id number] Jun, [facility] [place] [address] [facility] [id number], [place] [id number] Jun, [facility] [place] [facility] [address]00565100[place] [address] Jun, [facility] [place] [facility] [address] [facility] [id number] [place] [address]- [address] Jun, [facility] [place] [address] [facility] [id number], [place] [id number] Apr, [facility] [place] [address] [facility] [id number], [place] [id number] Apr, [facility] [place] [facility] [address]00565100[place] [address] Apr, [facility] [place] [facility] [address] [facility] [id number] [place] [address]- [address] Apr, [facility] [address] [facility] [id number], [place] [id number] Apr, [facility] [place] [facility] [address] [facility] [id number] [place] [address]60[place]- [address] Apr, [facility] [place] [facility] [address] [place] [id number] [address] Apr, [facility] [place] [facility] [address] [facility] [id number] [place] [address]- [address] Apr, [facility] [address] [id number] [place] [id number] Mar, [facility] [place] [facility] [address] [facility] [id number] [place] [address]- [address] Mar, [facility] [address] [id number] [place] [id number] Mar, [facility] [place] [facility] [address] [facility] [id number] [place] [address] Mar, [facility] [address] [id number] [place] [id number] Mar, [facility] [place] [facility] [address] [facility] [id number] [place] [address]- [address] Mar, [facility] [address] [facility] [id number], [place] [id number] Mar, [facility] [place] [facility] [address]00565100[place] [address] Mar, [facility] [address] [facility] [id number], [place] [id number] Mar, [facility] [place] [facility] [address] [facility] [id number] [place] [address] Mar, [facility] [address] [facility] [id number], [place] 679281482 Feb, [facility] [place] [facility] [address] [facility] [id number] [place] [address] Feb, [facility] [address] [facility] [id number], [place] [id number] Jan, [facility] [place] [facility] [address] [facility] [id number] [place] [address] Jan, [facility] [address] [id number], [place] 858171892 Dec, [facility] [place] [facility] [address] [facility] [id number] [place] [address]- [address] Dec, [facility] [address] [id number], [place] 9940136[address] Nov, [facility] [address] [id number] [place] [address]- [address] Nov, [facility] [address] [id number] [place] [id number] Nov, [facility] [place] [facility] [address] [facility] [id number] [place] [address]- 164[address] Nov, [facility] [place] [facility] [address] [id number] [place] [address]- 9266 Nov, [facility] [place] [facility] [address] [id number] [place] [address]- 5[address] Nov, [facility] [address] [facility] [id number] [place] [id number] Oct, [facility] [place] [facility] [address] [facility] [id number] [place] [address]- 1499 Oct, [facility] [address] [facility] [id number], [place] [id number] Oct, [facility] [place] [facility] [address] [facility] [id number] [place] [address]- 28[address] Oct, [facility] [address] [facility] [id number], [place] [id number] Sep, [facility] [place] [facility] [address] [facility] [id number] [place] [address]- 59[address] Sep, [facility] [place] [facility] [address] [facility] [id number] [place] [address]- 2846 August, [facility] [place] [facility] [address] [id number] [place] [address]- 7[address] August, [facility] [place] [address] [id number] [place] [id number] August, [facility] [place] [facility] [address] [id number] [place] [address]- 6[address] August, [facility] [address] [facility] [id number], [place] [id number] Jul, [facility] [place] [facility] [address] [facility] [id number] [place] [address]- [address] Jul, [facility] [address] [facility] [id number], [place] [id number] Jun, [facility] [place] [facility] [address] [facility] [id number] [place] [address]- 3[address] Jun, [facility] [address] [facility] [id number], [place] [id number] Jun, [facility] [place] [facility] [address] [facility] [id number] [place] [address]- 39[address] Jun, [facility] [place] [facility] [address] [facility] [id number] [place] [address]- 9[address] Jun, [facility] [address] [facility] [id number], [place] [id number] Jun, [facility] [place] [facility] [address]00565100[place] [address] Jun, [facility] [address] [facility] [id number], [place] 155620751 Jun, [facility] [place] [facility] [address] [facility] [id number] [place] [address]- 12[address] Jun, [facility] [address] [facility] [id number], [place] 169950348 Jun, [facility] [place] [facility] [address] [facility] [id number] [place] [address]- 5[address] Jun, [facility] [address] [facility] [id number], [place] 650235816 Jun, [facility] [place] [facility] [address] [facility] [id number] [place] [address]- 59[address] Jun, [facility] [address] [facility] [id number], [place] 895253550 May, [facility] [place] [facility] [address] [facility] [id number] [place] [address]- 12[address] May, [facility] [address] [facility] [id number], [place] 990376987 May, [facility] [address] [facility] [id number] [place] [address]- [address] May, [facility] [address] [id number] [place] [id number] Apr, [facility] [address] [facility] [id number] [place] [address]- 78[address] Apr, [facility] [address] [id number] [place] [id number] Mar, [facility] [address] [facility] [id number] [place] [address]- 1342 Mar, [facility] [address] [id number], [place] 802995310 Mar, [facility] [address]00565100[place] [address]- [address] Mar, [facility] [address] [id number], [place] [id number] Mar, [facility] [address]00565100[place] [address]- 38[address] Mar, [facility] [place] [address] [id number], [place] [id number] Feb, [facility] [address] [place] [id number] [address]- 1036 Feb, [facility] [place] [address] [id number], [place] [id number] Jan, [facility] [address] [facility] [id number] [place] [address]- 7726 Jan, [facility] [place] [address] [id number] [place] [id number] Jan, [facility] [address] [id number] [place] [id number] Dec, [facility] [address] [id number] [place] [id number] Dec, [facility] [address] [id number], [place] 3[address]26308 Nov, [facility] [address] [id number] [place] [address] Nov, [facility] 120 [facility] [id number], [place] [address]7 Oct, [facility] [address] [facility] [id number] [place] [address]- [address] Oct, [facility] 120 [facility] [id number], [place] 086209726 Oct, [facility] [address] [facility] [id number] [place] [address] Oct, [address] [id number], [place] [address]80738178 Oct, IMMUNIZATIONS No Known Immunizations SOCIAL HISTORY Never Assessed REASON FOR VISIT scheduling an appt PLAN OF CARE VITAL SIGNS MEDICATIONS Unknown Medications RESULTS No Results PROCEDURES No Known procedures INSTRUCTIONS MEDICATIONS ADMINISTERED No Known Medications MEDICAL (GENERAL) HISTORY Type Description Date Medical History hypertension Medical History hernia Medical History type II diabetes Medical History 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
--- OUTSIDE RECORDS SUMMARY | 2017-11-26 12:14 | XMS REPORT ---
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 421848303473749 Assessment Hx of gout Z87.39 Dec, Active 615496250 Assessment DM w/o complication type II E11.9 Dec, Active 837142908 Problem Shoulder bursitis, right M75.51 Active 005800572 Problem Urinary tract infection, site not specified N39.0 Active 73428706 Problem DM w/o complication type II E11.9 Active 02710248 Problem Hyperkalemia 276.7 Active 68554731 Problem Arthropathy M12.9 Active 113231495 Problem Depressive disorder, not elsewhere classified F32.9 Active 23016921 ALLERGIES Substance Reaction Event Type Date Status Cefdinir dizziness, clammy, trouble breathing Drug Allergy Dec, Active Bactrim caused blood in urine Drug Allergy Dec, Active SOCIAL HISTORY No smoking Hx information available PLAN OF CARE VITAL SIGNS Height 65 in 2015-12-21 Weight 173.0 lbs 2015-12-21 Heart Rate 100 bpm 2015-12-21 Respiratory Rate 12 2015-12-21 BMI 28.79 kg/m2 2015-12-21 Blood pressure systolic 110 mmHg 2015-12-21 Blood pressure diastolic 70 mmHg 2015-12-21 MEDICATIONS Medication Instructions Dosage Frequency Start Date End Date Duration Status Ibuprofen 800 MG Orally Three times a day 1 tablet 8h Jun, Active Gabapentin 100 MG Orally Three times a day 1 tablet 8h Active Lisinopril 5 MG Orally Once a day 1 tablet 24h Active Allopurinol 100 MG Orally Once a day 1 tablet 24h Active GlipiZIDE 10 mg Orally 2 times a day 2 tab 12h Active metformin 1,000 mg by oral route 2 times a day take 1 tablet in am 1.5 pm 12h Jun, Active citalopram 40 mg orally Once a day Take 1 table 24h Jun, Active RESULTS Name Result Date Reference Range A1C (IN HOUSE) 2015-12-21 A1C IN HOUSE 7.9 4.3 - 5.6 % Previous A1c 8.4 Lot [id number] Exp date 09/29 PROCEDURES Procedure Date Ordered Related Diagnosis Body Site GLYCATED HEMOGLOBIN TEST Dec 21, 2015 Office Visit, Est Pt., Level 3 Dec 21, 2015 IMMUNIZATIONS No Known Immunizations
--- OUTSIDE RECORDS SUMMARY | 2017-11-26 12:15 | XMS REPORT ---
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 Active 54928439 Problem Pain in right shoulder M25.511 Active 30441140 Problem 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, 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 Active 33593686 Problem History of gout Z87.39 Active 041258379 Problem Non-seasonal allergic rhinitis due to other allergic trigger J30.89 Active 66105461 Problem Flexural eczema L20.82 Active 16504441 Problem Hyperkalemia 276.7 Active 99965854 Problem Gout 274.9 Active 93818713 Problem 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 [id number] Problem DM w/o complication type II E11.9 Active 81596136 Problem 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 73549216 Problem Depressive disorder, not elsewhere classified F32.9 Active 32596552 ALLERGIES No Information SOCIAL HISTORY Never Assessed PLAN OF CARE VITAL SIGNS MEDICATIONS Medication Instructions Dosage Frequency Start Date End Date Duration Status Nitrofurantoin Monohyd Macro 100 mg Orally every 12 hrs 1 capsule with food 12h August, August, 7 day(s) Active RESULTS No Results PROCEDURES No Known procedures IMMUNIZATIONS No Known Immunizations MEDICAL (GENERAL) HISTORY Type Description Date Medical History hypertension Medical History hernia Medical History type II diabetes Medical History urologic disorder -- blader removed 08/25 permanent urostomy Medical History psychiatric disorders -- depression Surgical History Genito - urinary tract --- bladder/ prostate removed, permanent urostomy 08/2013 Surgical History Kidney stones 04/2012 Hospitalization History pancreatitis, acute renal failure 08/2014 Hospitalization History [facility] for dehydration and UTI when he went for his urostomy check 06/2015
--- OUTSIDE RECORDS SUMMARY | 2017-11-26 12:15 | XMS REPORT ---
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 Problem Shoulder bursitis, right M75.51 Active Problem Urinary tract infection, site not specified N39.0 Active Problem History of gout Z87.39 Active Problem DM w/o complication type II E11.9 Active Problem Hyperkalemia 276.7 Active Problem Arthropathy M12.9 Active Problem Depressive disorder, not elsewhere classified F32.9 Active Assessment Screening for prostate cancer Z12.5 Active Assessment Hx of gout Z87.39 Active Assessment DM w/o complication type II E11.9 Active Medications No Known Medications Procedures Procedure Coding System Code Date ASSAY THYROID STIM HORMONE CPT-4 56513 Jan 15, 2016 COMPLETE CBC W/AUTO DIFF WBC CPT-4 38015 Jan 15, 2016 ASSAY OF BLOOD/URIC ACID CPT-4 86854 Jan 15, 2016 COMPREHEN METABOLIC PANEL CPT-4 50123 Jan 15, 2016 LIPID PANEL CPT-4 61544 Jan 15, 2016 VENIPUNCT, ROUTINE* CPT-4 17282 Jan 15, 2016 ASSAY OF PSA, TOTAL CPT-4 03978 Jan 15, 2016 Results Name Result Date Reference Range Unit Abnormality Flag TSH ----TSH 1.840 [id number] 0.450-4.500 uIU/mL CBC ----Basos 0 72445431 % ----MCV 84 86867299 79-97 fL ----Hematocrit 35.8 51780560 37.5-51.0 % L ----Eos 2 14022985 % ----MCHC 33.0 07255489 31.5-35.7 g/dL ----Monocytes 6 05055594 % ----MCH 27.8 77430735 26.6-33.0 pg ----Lymphs 18 02042232 % ----Eos (Absolute) 0.1 12882389 0.0-0.4 x10E3/uL ----WBC 6.4 00028522 3.4-10.8 x10E3/uL ----Monocytes(Absolute) 0.4 [id number] 0.1-0.9 x10E3/uL ----Lymphs (Absolute) 1.2 82715125 0.7-3.1 x10E3/uL ----Hemoglobin 11.8 12574289 12.6-17.7 g/dL L ----Neutrophils (Absolute) 4.7 [id number] 1.4-7.0 x10E3/uL ----RBC 4.24 80670551 4.14-5.80 x10E6/uL ----Immature Grans (Abs) 0.0 79920854 0.0-0.1 x10E3/uL ----Immature Granulocytes 0 02477316 % ----Neutrophils 74 78455111 % ----Baso (Absolute) 0.0 10431884 0.0-0.2 x10E3/uL ----RDW 14.2 82048661 12.3-15.4 % ----Platelets 237 [id number] 150-379 x10E3/uL ROUTINE VENIPUNCTURE URIC ACID, SERUM ----Uric Acid, Serum 7.3 23941361 3.7-8.6 mg/dL CMP ----BUN/Creatinine Ratio 16 20160115-22 ----eGFR If Africn Am 66 [id number] >59 mL/min/1.73 ----eGFR If NonAfricn Am 57 44229465 >59 mL/min/1.73 L ----Creatinine, Serum 1.35 76595147 0.76-1.27 mg/dL H ----Chloride, Serum 101 05844013 97-108 mmol/L ----Potassium, Serum 5.0 89398514 3.5-5.2 mmol/L ----Sodium, Serum 139 16421518 134-144 mmol/L ----Protein, Total, Serum 7.0 05070042 6.0-8.5 g/dL ----Albumin, Serum 4.6 66529268 3.6-4.8 g/dL ----Globulin, Total 2.4 82448773 1.5-4.5 g/dL ----A/G Ratio 1.9 41725753 1.1-2.5 ----BUN 22 09646152 8-27 mg/dL ----Glucose, Serum 170 75773530 65-99 mg/dL H ----Carbon Dioxide, Total 21 70133402 18-29 mmol/L ----Calcium, Serum 9.3 73317227 8.6-10.2 mg/dL ----AST (SGOT) 32 84392803 0-40 IU/L ----ALT (SGPT) 47 65549924 0-44 IU/L H ----Bilirubin, Total 0.6 63453504 0.0-1.2 mg/dL ----Alkaline Phosphatase, S 47 46704655 39-117 IU/L PSA ----Prostate Specific Ag, Serum <0.1 14685770 0.0-4.0 ng/mL LIPID PANEL ----HDL Cholesterol 33 47127002 >39 mg/dL L ----Triglycerides 359 71747641 0-149 mg/dL H ----LDL Cholesterol Calc 90 75554008 0-99 mg/dL ----VLDL Cholesterol Mark 72 73232553 5-40 mg/dL H ----Cholesterol, Total 195 65135473 100-199 mg/dL Summary Purpose eClinicalWorks Submission
--- OUTSIDE RECORDS SUMMARY | 2017-11-26 12:15 | XMS REPORT ---
Author Author ERIN MAYES Organization eClinicalWorks Address Unknown Phone Unavailable Care Team Providers Care Rubber Compounder Name Role Phone ERIN MAYES CP Unavailable Allergies No Known Allergies Problems Problem Type Condition Code Onset Dates Condition Status Assessment Encounter for immunization Z23 Active Problem Psychosexual dysfunction with inhibited sexual [...] Medications Procedures Procedure Coding System Code Date SINGLE IMMUNIZATION ADMIN CPT-4 36027 November 02, 2015 TDAP (BOOSTRIX) CPT-4 88456 November 02, 2015 Results No Known Results Immunizations Vaccine Administration Date TDAP (BOOSTRIX) November 02, 2015 Summary Purpose eClinicalWorks Submission
--- OUTSIDE RECORDS SUMMARY | 2017-11-26 12:15 | XMS REPORT ---
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 Problem Depressive disorder, not elsewhere classified 311 Active Problem Diabetes mellitus without mention of complication, type II or unspecified type, uncontrolled 250.02 Active Problem Depressive disorder, not elsewhere classified F32.9 Active Problem DM w/o complication type II E11.9 Active Problem Arthropathy M12.9 Active Problem UTI (urinary tract infection) 599.0 Active Problem DM (diabetes mellitus) type II controlled, neurological manifestation 250.60 Active Problem Hyperkalemia 276.7 Active Problem Gout 274.9 Active Assessment DM w/o complication type II E11.9 Active Problem Unspecified arthropathy, site unspecified 716.90 Active Assessment Arthropathy M12.9 Active Problem Diabetes mellitus without mention of complication, type II or unspecified type, not stated as uncontrolled 250.00 Active Assessment Depressive disorder, not elsewhere classified F32.9 Active Problem 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 Medications Medication Code System Code Instructions Start Date End Date Status Dosage Gabapentin [facility] [address]-44 100 MG Orally Three times a day November 03, 2014 2 tablet GlipiZIDE [facility] [address]-74 10 MG Orally 2 times a day June 16, 2014 1.5 tab am .5 tab pm citalopram [facility] 0 40 mg orally Once a day June 16, 2014 Take 1 table Ibuprofen [facility] [address]-99 800 MG Orally Three times a day Apr 19, 2015 1 tablet Lisinopril [facility] [address]-37 5 MG Orally Once a day May 09, 2015 1 tablet Acetaminophen [facility] [address]-64 500 MG Orally 3 times a day May 09, 2015 1-2 capsule as needed Allopurinol [facility] [address]-16 100 MG Orally Once a day Nov 24, 2014 1 tablet metformin [facility] [address]-88 1,000 mg June 16, 2014 take 1 tablet by Oral route with morning and evening meals 2 times per day Procedures Procedure Coding System Code Date Office Visit, Est Pt., Level 3 CPT-4 10195 May 09, 2015 GLYCATED HEMOGLOBIN TEST CPT-4 36324 May 09, 2015 Vital Signs Date/Time: May 09, 2015 Temperature 96.7 F Weight 179.2 lbs Height 65 in BMI 29.82 Index Blood Pressure Diastolic 82 mmHg Blood Pressure Systolic 134 mmHg Cardiac Monitoring Heart Rate 91 bpm Results Name Result Date Reference Range Unit Abnormality Flag A1C (IN HOUSE) ----A1C IN HOUSE 8.4 [id number] 4.3 - 5.6 % ----Previous A1c 6.8 20150509 ----Lot [id number] ----Exp date [id number] Summary Purpose eClinicalWorks Submission
--- OUTSIDE RECORDS SUMMARY | 2017-11-26 12:15 | XMS REPORT ---
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 Active 07818383 Problem Pain in right shoulder M25.511 Active 55575695 Problem 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, 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 Active 86335488 Problem History of gout Z87.39 Active 867621771 Problem Non-seasonal allergic rhinitis due to other allergic trigger J30.89 Active 41333007 Problem Flexural eczema L20.82 Active 81042974 Problem Hyperkalemia 276.7 Active 90216554 Problem Gout 274.9 Active 68416753 Problem 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 889420088516105 Problem DM w/o complication type II E11.9 Active 59537667 Problem 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 15984901 Problem Depressive disorder, not elsewhere classified F32.9 Active 47419348 ALLERGIES Substance Reaction Event Type Date Status Cefdinir dizziness, clammy, trouble breathing Drug Allergy Apr, Active Bactrim caused blood in urine Drug Allergy Apr, Active SOCIAL HISTORY No smoking Hx information available PLAN OF CARE Activity Details Follow Up 2 - 3 Days with PCP Reason:if s/s not improving VITAL SIGNS Height 65 in 2016-05-07 Weight 171.4 lbs 2016-05-07 Temperature 98.5 degrees Fahrenheit 2016-05-07 Heart Rate 92 bpm 2016-05-07 Respiratory Rate 16 2016-05-07 BMI 28.52 kg/m2 2016-05-07 Blood pressure systolic 130 mmHg 2016-05-07 Blood pressure diastolic 76 mmHg 2016-05-07 MEDICATIONS Medication Instructions Dosage Frequency Start Date End Date Duration Status citalopram 40 mg orally Once a day Take 1 table 24h Jun, Active Gabapentin 100 MG Orally Three times a day 1 tablet 8h Active GlipiZIDE 10 mg Orally 2 times a day 2 tab 12h Active Cetirizine HCl 10 mg Orally Once a day 1 tablet 24h Apr, Apr, 0 days Active Augmentin 875-125 MG Orally every 12 hrs 1 tablet 12h Apr, May, 10 day(s) Active Lisinopril 5 MG TAKE ONE (1) TABLET BY MOUTH DAILY... Active Albuterol Sulfate HFA 108 MCG/ACT Inhalation 4 times a day prn 2 puffs as needed Mar, Active Benzonatate 100 MG Orally Three times a day 1 capsule as needed 8h Apr, Active Atorvastatin Calcium 20 mg Orally Once a day 1 tablet 24h Jan, Active Diclofenac Sodium 50 mg Orally 2 times a day 1 tablet with food or milk 12h Jan, Active metformin 1,000 mg by oral route 2 times a day take 1 tablet in am 1.5 pm 12h Jun, Active Triamcinolone Acetonide 0.1 % Externally Twice a day 1 application to affected area 12h Apr, Active Allopurinol 100 MG Orally Once a day 1.5 tablet 24h Active RESULTS Name Result Date Reference Range UA LONG DIP (IN HOUSE) 2016-05-07 Lot # [id number] Exp date 02/2017 Clarity cloudy Color yellow Odor no GLU trace CL neg KET neg SG 1.020 BLO 3+ pH 5.0 Protein 1+ URO 0.2 NIT psoitive SOFIYA 1+ Lot # Exp date CULTURE, URINE 2016-05-07 Urine Culture, Routine Final report Result 1 Escherichia coli Antimicrobial Susceptibility PROCEDURES Procedure Date Ordered Related Diagnosis Body Site Office Visit, Est Pt., Level 3 May 07, 2016 URINE CULTURE/COLONY COUNT May 07, 2016 URINALYSIS, AUTO, W/O SCOPE May 07, 2016 IMMUNIZATIONS No Known Immunizations
--- OUTSIDE RECORDS SUMMARY | 2017-11-26 12:15 | XMS REPORT ---
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 Active 28957055 Problem Pain in right shoulder M25.511 Active 51265467 Problem 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, 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 Active 50978218 Problem History of gout Z87.39 Active 586539950 Problem Non-seasonal allergic rhinitis due to other allergic trigger J30.89 Active 01524850 Problem Flexural eczema L20.82 Active 04949461 Problem Hyperkalemia 276.7 Active 69833399 Problem Gout 274.9 Active 23728132 Problem 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 627242299043250 Problem DM w/o complication type II E11.9 Active 02246377 Problem 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 50828531 Problem Depressive disorder, not elsewhere classified F32.9 Active 49931650 ALLERGIES Substance Reaction Event Type Date Status Cefdinir dizziness, clammy, trouble breathing Drug Allergy Apr, Active Bactrim caused blood in urine Drug Allergy Apr, Active SOCIAL HISTORY No smoking Hx information available PLAN OF CARE Activity Details Follow Up 3 Months Reason:dm VITAL SIGNS Height 65 in 2016-04-17 Weight 177.2 lbs 2016-04-17 Heart Rate 78 bpm 2016-04-17 Respiratory Rate 18 2016-04-17 BMI 29.48 kg/m2 2016-04-17 Blood pressure systolic 120 mmHg 2016-04-17 Blood pressure diastolic 60 mmHg 2016-04-17 MEDICATIONS Medication Instructions Dosage Frequency Start Date End Date Duration Status Albuterol Sulfate HFA 108 MCG/ACT Inhalation 4 times a day prn 2 puffs as needed Mar, Active Lisinopril 5 MG TAKE ONE (1) TABLET BY MOUTH DAILY... Active Diclofenac Sodium 50 mg Orally 2 times a day 1 tablet with food or milk 12h Jan, Active Gabapentin 100 MG Orally Three times a day 1 tablet 8h Active PredniSONE 10 MG Orally 2 per day 1 tablet with food or milk Apr, Apr, 05 days Active GlipiZIDE 10 mg Orally 2 times a day 2 tab 12h Active metformin 1,000 mg by oral route 2 times a day take 1 tablet in am 1.5 pm 12h Jun, Active Allopurinol 100 MG Orally Once a day 1.5 tablet 24h Active Atorvastatin Calcium 20 mg Orally Once a day 1 tablet 24h Jan, Active citalopram 40 mg orally Once a day Take 1 table 24h Jun, Active Triamcinolone Acetonide 0.1 % Externally Twice a day 1 application to affected area 12h Apr, Active Benzonatate 100 MG Orally Three times a day 1 capsule as needed 8h Apr, Active RESULTS Name Result Date Reference Range A1C (IN HOUSE) 2016-04-17 A1C IN HOUSE 8.1 4.3 - 5.6 % Previous A1c 7.9 Lot [id number] Exp date 01/29 PROCEDURES Procedure Date Ordered Related Diagnosis Body Site GLYCATED HEMOGLOBIN TEST Apr 17, 2016 Office Visit, Est Pt., Level 3 Apr 17, 2016 IMMUNIZATIONS No Known Immunizations
--- OUTSIDE RECORDS SUMMARY | 2017-11-26 12:15 | XMS REPORT ---
Author Author ERIN MAYES 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 Active 35803122 Problem Pain in right shoulder M25.511 Active 23943486 Problem 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, 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 Active 29076552 Problem History of gout Z87.39 Active 575296168 Problem Non-seasonal allergic rhinitis due to other allergic trigger J30.89 Active 86091850 Problem Flexural eczema L20.82 Active 87604382 Problem Hyperkalemia 276.7 Active 64211502 Problem Gout 274.9 Active 61875259 Problem 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
--- OUTSIDE RECORDS SUMMARY | 2017-11-26 12:15 | XMS REPORT ---
Author Author ERIN MAYES [facility] eClinicalWorks Address Unknown Phone Unavailable Care Team Providers Care Rotary Planer Set Up Operator Name Role Phone ERIN MAYES CP [...] UTI (urinary tract infection) 599.0 Active Assessment Encounter for immunization Z23 Active Assessment Depressive disorder, not elsewhere classified F32.9 Active Problem Unspecified arthropathy, site unspecified 716.90 Active Assessment DM w/o complication type II E11.9 Active Problem Diabetes mellitus without mention of complication, type II or unspecified type, not stated as uncontrolled 250.00 Active Medications Medication Code System Code Instructions Start Date End Date Status Dosage Meloxicam [facility] [address]-44 15 MG Orally 2 times a day Apr 25, 2014May take .5 tablet by Oral route 2 times per day anti-inflammatory med Viagra [facility] [address]-33 50 mg Dec 16, 2012 0.5-1 tablet by Oral route 1 time per day take 30-45 m before intercourse Allopurinol [facility] [address]-11 100 MG Orally Once a day Nov 24, 2014 1 tablet citalopram [place] 0 20 mg June 16, 2014 Take 1 tablet by Oral route 1 time per day Gabapentin [facility] [address]-68 100 MG Orally Three times a day November 03, 2014 1 tablet GlipiZIDE [facility] [address]-54 10 MG Orally 2 times a day 1 tab with AM meal, 1 /2 tab with pm meal June 16, 2014 1 tablet metformin [facility] [address]-24 1,000 mg June 16, 2014 take 1 tablet by Oral route with morning and evening meals 2 times per day Vitamin B-12 [facility] [address] Jun 07, 2013 by oral route Take one tablet daily Procedures Procedure Coding System Code Date GLYCATED HEMOGLOBIN TEST CPT-4 51587 Feb 06, 2015 FLUARIX QUAD (3 & UP)-GSK-2014 CPT-4 52023 Feb 06, 2015 Office Visit, Est Pt., Level 3 CPT-4 88446 Feb 06, 2015 SINGLE IMMUNIZATION ADMIN CPT-4 46434 Feb 06, 2015 Vital Signs Date/Time: Feb 06, 2015 Temperature 98 F Weight 167 lbs Height 65 in BMI 27.79 Index Blood Pressure Diastolic 70 mmHg Blood Pressure Systolic 120 mmHg Cardiac Monitoring Heart Rate 70 bpm Results Name Result Date Reference Range Unit Abnormality Flag A1C (IN HOUSE) Immunizations Vaccine Administration Date FLUARIX QUAD (3 & UP)-GSK-2014Feb 06, 2015 Summary Purpose eClinicalWorks Submission
--- OUTSIDE RECORDS SUMMARY | 2017-11-26 12:15 | XMS REPORT ---
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 Medications Medication Code System Code Instructions Start Date End Date Status Dosage Amoxicillin [facility] [address]-74 500 MG Orally Three times a day May 11, 2015 May 18, 2015 1 capsule citalopram [facility] 0 40 mg orally Once a day June 16, 2014 Take 1 table Ibuprofen [facility] [address]-30 800 MG Orally Three times a day Apr 19, 2015 1 tablet Acetaminophen [facility] [address]-68 500 MG Orally 3 times a day May 09, 2015 1-2 capsule as needed GlipiZIDE [facility] [address]-40 10 MG Orally 2 times a day June 16, 2014 1.5 tab am .5 tab pm Gabapentin [facility] [address]-21 100 MG Orally Three times a day November 03, 2014 2 tablet Lisinopril [facility] [address]-33 5 MG Orally Once a day May 09, 2015 1 tablet Allopurinol [facility] [address]-73 100 MG Orally Once a day Nov 24, 2014 1 tablet metformin [facility] [address]-95 1,000 mg June 16, 2014 take 1 tablet by Oral route with morning and evening meals 2 times per day [place] [facility] [address]-73 5-325 MG Orally every 6 hrs May 11, 2015 1 tablet as needed Procedures Procedure Coding System Code Date INTRAORL-PERIAPICAL 1 FILM 98414 CPT-4 D0220 May 11, 2015 LTD ORAL EVALUATION - PROBLEM FOCUS CPT-4 D0140 May 11, 2015 Vital Signs Date/Time: May 11, 2015 Blood Pressure Diastolic 80 mmHg Blood Pressure Systolic 128 mmHg Results No Known Results Summary Purpose eClinicalWorks Submission
--- OUTSIDE RECORDS SUMMARY | 2017-11-26 12:15 | XMS REPORT ---
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 Active 49419913 Problem Pain in right shoulder M25.511 Active 89557750 Problem 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, 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 Active 81622436 Problem History of gout Z87.39 Active 115128413 Problem Non-seasonal allergic rhinitis due to other allergic trigger J30.89 Active 50719513 Problem Flexural eczema L20.82 Active 15926406 Problem Hyperkalemia 276.7 Active 58227682 Problem Gout 274.9 Active 10616316 Problem 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 111840780093884 Problem DM w/o complication type II E11.9 Active 25835251 Problem 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 84036512 Problem Depressive disorder, not elsewhere classified F32.9 Active 67056107 ALLERGIES Substance Reaction Event Type Date Status Cefdinir dizziness, clammy, trouble breathing Drug Allergy August, Active Bactrim caused blood in urine Drug Allergy August, Active SOCIAL HISTORY Never Assessed PLAN OF CARE Activity Details Follow Up 4 Weeks Reason:dm VITAL SIGNS Height 65 in 2016-08-15 Weight 171.1 lbs 2016-08-15 Temperature 98.0 degrees Fahrenheit 2016-08-15 Heart Rate 82 bpm 2016-08-15 Respiratory Rate 16 2016-08-15 BMI 28.47 kg/m2 2016-08-15 Blood pressure systolic 128 mmHg 2016-08-15 Blood pressure diastolic 70 mmHg 2016-08-15 MEDICATIONS Medication Instructions Dosage Frequency Start Date End Date Duration Status Albuterol Sulfate HFA 108 MCG/ACT Inhalation 4 times a day prn 2 puffs as needed Mar, Active Diclofenac Sodium 50 mg Orally 2 times a day 1 tablet with food or milk 12h 10 Jan, 2016 Active ZyrTEC 10 mg Orally Once a day 1 tablet 24h Jun, Active GlipiZIDE 10 mg Orally 2 times a day 2 tab 12h Active Trulicity 0.75 MG/0.5ML Subcutaneous once weekly 0.5 ml August, Sep, 30 day(s) Active Allopurinol 100 MG Orally Once a day 1.5 tablet 24h Active Lisinopril 5 MG TAKE ONE (1) TABLET BY MOUTH DAILY... Active Test strips ... as directed 24h August, Active metformin 1,000 mg by oral route 2 times a day take 1 tablet in am 1.5 pm 12h Jun, Active Gabapentin 100 MG Orally Three times a day 1 tablet 8h Active Flonase 50 MCG/DOSE Nasally twice a day 2 spray in each nostril 12h Jun Active Atorvastatin Calcium 20 mg Orally Once a day 1 tablet 24h Jan, Active citalopram 40 mg orally Once a day Take 1 table 24h Jun, Active RESULTS Name Result Date Reference Range GLUCOSE FINGERSTICK (IN HOUSE) 2016-08-15 GLU FINGERSTICK 403 PC Lot # [id number] Exp date 12/20/06 PROCEDURES Procedure Date Ordered Result Body Site [facility] VISIT ESTABLISHED PATIENT August 15, 2016 GLUCOSE BLOOD TEST August 15, 2016 IMMUNIZATIONS No Known Immunizations MEDICAL (GENERAL) HISTORY [...]
--- OUTSIDE RECORDS SUMMARY | 2017-11-26 12:15 | XMS REPORT ---
Author Author ERIN MAYES [facility] eClinicalWorks Address Unknown Phone Unavailable Care Team Providers Care Personnel Adviser Name Role Phone ERIN MAYES CP Unavailable [...] disorder, not elsewhere classified F32.9 Active Assessment Arthropathy M12.9 Active Assessment History of gout Z87.39 Active Assessment DM w/o complication type II E11.9 Active Medications Medication Code System Code Instructions Start Date End Date Status Dosage Gabapentin [facility] 10593913926 100 MG Orally Three times a day 1 tablet GlipiZIDE [facility] [address]-28 10 mg Orally 2 times a day 2 tab citalopram [facility] 0 40 mg orally Once a day June 16, 2014 Take 1 table Allopurinol [facility] 76056615109 100 MG Orally Once a day 1.5 tablet metformin [facility] [address]-36 1,000 mg by oral route 2 times a day June 16, 2014 take 1 tablet in am 1.5 pm Lisinopril [facility] 05465902577 5 MG Orally Once a day 1 tablet Atorvastatin Calcium [facility] [address]-43 20 mg Orally Once a day Jan 22, 2016 1 tablet Celexa [facility] 45190488369 40 MG TAKE ONE (1) TABLET BY MOUTH ONCE DAILY... Diclofenac Sodium [facility] [address]-48 50 mg Orally 2 times a day Jan 22, 2016 1 tablet with food or milk Procedures Procedure Coding System Code Date Office Visit, Est Pt., Level 3 CPT-4 46390 Jan 22, 2016 Vital Signs Date/Time: Jan 22, 2016 Cardiac Monitoring Heart Rate 99 bpm Weight 172.6 lbs Height 65 in BMI 28.72 Index Blood Pressure Diastolic 70 mmHg Blood Pressure Systolic 112 mmHg Results No Known Results Summary Purpose eClinicalWorks Submission
--- OUTSIDE RECORDS SUMMARY | 2017-11-26 12:16 | XMS REPORT ---
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 Active 05212271 Problem Pain in right shoulder M25.511 Active 04814114 Problem 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, 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 Active 42586607 Problem History of gout Z87.39 Active 593424897 Problem Non-seasonal allergic rhinitis due to other allergic trigger J30.89 Active 04973282 Problem Flexural eczema L20.82 Active 79422974 Problem Hyperkalemia 276.7 Active 33335806 Problem Gout 274.9 Active 93270227 Problem 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 688655798445344 Problem DM w/o complication type II E11.9 Active 46482426 Problem 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 24231580 Problem Depressive disorder, not elsewhere classified F32.9 Active 62503565 ALLERGIES Substance Reaction Event Type Date Status Cefdinir dizziness, clammy, trouble breathing Drug Allergy Jun, Active Bactrim caused blood in urine Drug Allergy Jun, Active SOCIAL HISTORY Never Assessed PLAN OF CARE Activity Details Follow Up as schd Reason:dm VITAL SIGNS Height 65 in 2016-06-27 Weight 176.1 lbs 2016-06-27 Temperature 98.3 degrees Fahrenheit 2016-06-27 Heart Rate 80 bpm 2016-06-27 Respiratory Rate 16 2016-06-27 BMI 29.30 kg/m2 2016-06-27 Blood pressure systolic 126 mmHg 2016-06-27 Blood pressure diastolic 70 mmHg 2016-06-27 MEDICATIONS Medication Instructions Dosage Frequency Start Date End Date Duration Status Diclofenac Sodium 50 mg Orally 2 times a day 1 tablet with food or milk 12h Active Lisinopril 5 MG TAKE ONE (1) TABLET BY MOUTH DAILY... Active Albuterol Sulfate HFA 108 MCG/ACT Inhalation 4 times a day prn 2 puffs as needed Mar, Active ZyrTEC 10 mg Orally Once a day 1 tablet 24h Jun, Active Allopurinol 100 MG Orally Once a day 1.5 tablet 24h Active GlipiZIDE 10 mg Orally 2 times a day 2 tab 12h Active Flonase 50 MCG/DOSE Nasally twice a day 2 spray in each nostril 12h Jun Active Diclofenac Sodium 50 mg Orally 2 times a day 1 tablet with food or milk 12h Jan, Active Gabapentin 100 MG Orally Three times a day 1 tablet 8h Active metformin 1,000 mg by oral route 2 times a day take 1 tablet in am 1.5 pm 12h Jun, Active citalopram 40 mg orally Once a day Take 1 table 24h Jun, Active Atorvastatin Calcium 20 mg Orally Once a day 1 tablet 24h Jan, Active RESULTS No Results PROCEDURES No Known [...]
--- OUTSIDE RECORDS SUMMARY | 2017-11-26 12:16 | XMS REPORT ---
Author Author ERIN MAYES [facility] eClinicalWorks Address Unknown Phone Unavailable Care Team Providers Care Fire Regulator Name Role Phone ERIN MAYES CP Unavailable [...] UTI (urinary tract infection) 599.0 Active Assessment Left elbow pain M25.522 Active Assessment Ankle pain, right M25.571 Active Problem Unspecified arthropathy, site unspecified 716.90 Active Problem Diabetes mellitus without mention of complication, type II or unspecified type, not stated as uncontrolled 250.00 Active Medications Medication Code System Code Instructions Start Date End Date Status Dosage Gabapentin [facility] [address]-59 100 MG Orally Three times a day November 03, 2014 1 tablet Ibuprofen [facility] [address]-95 800 MG Orally Three times a day Apr 19, 2015 1 tablet Allopurinol [facility] [address]-00 100 MG Orally Once a day Nov 24, 2014 1 tablet metformin [facility] [address]-58 1,000 mg June 16, 2014 take 1 tablet by Oral route with morning and evening meals 2 times per day citalopram [facility] 0 20 mg June 16, 2014 Take 1 tablet by Oral route 1 time per day GlipiZIDE [facility] [address]-10 10 MG Orally 2 times a day 1 tab with AM meal, 1 /2 tab with pm meal June 16, 2014 1 tablet Procedures Procedure Coding System Code Date Office Visit, Est Pt., Level 3 CPT-4 97693 Apr 19, 2015 Vital Signs Date/Time: Apr 19, 2015 Temperature 97.9 F Weight 180.0 lbs Height 65 in BMI 29.95 Index Blood Pressure Diastolic 88 mmHg Blood Pressure Systolic 128 mmHg Cardiac Monitoring Heart Rate 96 bpm Results No Known Results Summary Purpose eClinicalWorks Submission
--- OUTSIDE RECORDS SUMMARY | 2017-11-26 12:17 | XMS REPORT | Continuity of Care Document ---
Author Author Formerly [facility], Later [facility] Address Unknown Phone Unavailable Allergies Active Description Code Type Severity Reaction Onset Reported/Identified Relationship to Patient Clinical Status Yes Bactrim Drug Allergy N/A N/A 06/16/2013 Yes No Known Drug Allergies [id number] Drug Allergy Unknown N/A 12/21/2014 Medications There is no data. Problems Date Dx Coded Attending Type Code Diagnosis Diagnosed By 10/12/2012 250.02 DIABETES II UNCONTROLLED (UNCOMPLICATED) 10/12/2012 311 DEPRESSIVE DISORDER NOS 10/12/2012 250.02 DIABETES II UNCONTROLLED (UNCOMPLICATED) 10/12/2012 311 DEPRESSIVE DISORDER NOS 10/12/2012 ERIN MAYES APRN 250.02 DIABETES II UNCONTROLLED (UNCOMPLICATED) 10/12/2012 ERIN MAYES APRN 311 DEPRESSIVE DISORDER NOS 10/12/2012 ANABEL MCDANIEL DO 250.02 DIABETES II UNCONTROLLED (UNCOMPLICATED) 10/12/2012 ANABEL MCDANIEL DO 311 DEPRESSIVE DISORDER NOS 10/12/2012 ANABEL MCDANIEL DO 250.02 DIABETES II UNCONTROLLED (UNCOMPLICATED) 10/12/2012 ANABEL MCDANIEL DO 311 DEPRESSIVE DISORDER NOS 10/12/2012 MY MCDANIEL DOA K 250.02 DIABETES II UNCONTROLLED (UNCOMPLICATED) 10/12/2012 ANABEL MCDANIEL DO K 311 DEPRESSIVE DISORDER NOS 10/12/2012 ANABEL MCDANIEL DO K 250.02 DIABETES II UNCONTROLLED (UNCOMPLICATED) 10/12/2012 MY MCDANIEL DOA K 311 DEPRESSIVE DISORDER NOS 10/12/2012 MY MCDANIEL DOA K 250.02 DIABETES II UNCONTROLLED (UNCOMPLICATED) 10/12/2012 ANABEL MCDANIEL DO 311 DEPRESSIVE DISORDER NOS 10/12/2012 ANABEL MCDANIEL DO K 250.02 DIABETES II UNCONTROLLED (UNCOMPLICATED) 10/12/2012 ANABEL MCDANIEL DO 311 DEPRESSIVE DISORDER NOS 10/12/2012 HELEN LOUISE MD 250.02 DIABETES II UNCONTROLLED (UNCOMPLICATED) 10/12/2012 HELEN LOUISE MD 311 DEPRESSIVE DISORDER NOS 10/12/2012 MCDANIEL DO, ANABEL K 250.02 DIABETES II UNCONTROLLED (UNCOMPLICATED) 10/12/2012 MCDANIEL DO, ANABEL K 311 DEPRESSIVE DISORDER NOS 10/12/2012 MCDANIEL DO, ANABEL K 250.02 DIABETES II UNCONTROLLED (UNCOMPLICATED) 10/12/2012 MCDANIEL DO, ANABEL K 311 DEPRESSIVE DISORDER NOS 10/12/2012 ERIN MAYES APRN 250.02 DIABETES II UNCONTROLLED (UNCOMPLICATED) 10/12/2012 ERIN MAYES APRN 311 DEPRESSIVE DISORDER NOS 10/12/2012 MCDANIEL DO, ANABEL K 250.02 DIABETES II UNCONTROLLED (UNCOMPLICATED) 10/12/2012 MDCANIEL DO, ANABEL K 311 DEPRESSIVE DISORDER NOS 10/12/2012 MCDANIEL DO, ANABEL K 250.02 DIABETES II UNCONTROLLED (UNCOMPLICATED) 10/12/2012 MCDANIEL DO, ANABEL K 311 DEPRESSIVE DISORDER NOS 10/12/2012 ERIN MAYES APRN 250.02 DIABETES II UNCONTROLLED (UNCOMPLICATED) 10/12/2012 ERIN MAYES APRN 311 DEPRESSIVE DISORDER NOS 10/12/2012 MCDANIEL DO, ANABEL K 250.02 DIABETES II UNCONTROLLED (UNCOMPLICATED) 10/12/2012 MCDANIEL DO, ANABEL K 311 DEPRESSIVE DISORDER NOS 10/12/2012 MCDANIEL DO, ANABEL K 250.02 DIABETES II UNCONTROLLED (UNCOMPLICATED) 10/12/2012 MCDANIEL DO, ANABEL K 311 DEPRESSIVE DISORDER NOS 10/12/2012 MCDANIEL DO, ANABEL K 250.02 DIABETES II UNCONTROLLED (UNCOMPLICATED) 10/12/2012 MCDANIEL DO, ANABEL K 311 DEPRESSIVE DISORDER NOS 10/12/2012 MCDANIEL DO, ANABEL K 250.02 DIABETES II UNCONTROLLED (UNCOMPLICATED) 10/12/2012 MCDANIEL DO, ANABEL K 311 DEPRESSIVE DISORDER NOS 10/12/2012 MÓNICA HAWTHORNE APRN 250.02 DIABETES II UNCONTROLLED (UNCOMPLICATED) 10/12/2012 MÓNICA HAWTHORNE APRN 311 DEPRESSIVE DISORDER NOS 10/28/2012 250.00 DIABETES MELLITUS TYPE 2 10/28/2012 250.00 DIABETES MELLITUS TYPE 2 10/28/2012 ERIN MAYES APRN 250.00 DIABETES MELLITUS TYPE 2 10/28/2012 MCDANIEL DO, ANABEL K 250.00 DIABETES MELLITUS TYPE 2 10/28/2012 MCDANIEL DO, ANABEL K 250.00 DIABETES MELLITUS TYPE 2 10/28/2012 MCDANIEL DO, ANABEL K 250.00 DIABETES MELLITUS TYPE 2 10/28/2012 MCDANIEL DO, ANABEL K 250.00 DIABETES MELLITUS TYPE 2 10/28/2012 MCDANIEL DO, ANABEL K 250.00 DIABETES MELLITUS TYPE 2 10/28/2012 MCDANIEL DO, ANABEL K 250.00 DIABETES MELLITUS TYPE 2 10/28/2012 HELEN LOUISE MD 250.00 DIABETES MELLITUS TYPE 2 10/28/2012 MCDANIEL DO, ANABEL K 250.00 DIABETES MELLITUS TYPE 2 10/28/2012 MCDANIEL DO, ANABEL K 250.00 DIABETES MELLITUS TYPE 2 10/28/2012 ERIN MAYES APRN 250.00 DIABETES MELLITUS TYPE 2 10/28/2012 MCDANIEL DO, ANABEL K 250.00 DIABETES MELLITUS TYPE 2 10/28/2012 MCDANIEL DO, ANABEL K 250.00 DIABETES MELLITUS TYPE 2 10/28/2012 ERIN MAYES APRN 250.00 DIABETES MELLITUS TYPE 2 10/28/2012 MCDANIEL DO, ANABEL K 250.00 DIABETES MELLITUS TYPE 2 10/28/2012 MCDANIEL DO, ANABEL K 250.00 DIABETES MELLITUS TYPE 2 10/28/2012 MCDANIEL DO, ANABEL K 250.00 DIABETES MELLITUS TYPE 2 10/28/2012 MCDANIEL DO, ANABEL K 250.00 DIABETES MELLITUS TYPE 2 10/28/2012 MÓNICA HAWTHORNE APRN 250.00 DIABETES MELLITUS TYPE 2 12/02/2012 599.70 HEMATURIA 12/02/2012 ERIN MAYES APRN 599.70 HEMATURIA 12/02/2012 MCDANIEL DO, ANABEL K 599.70 HEMATURIA 12/02/2012 MCDANIEL DO, ANABEL K 599.70 HEMATURIA 12/02/2012 MCDANIEL DO, ANABEL K 599.70 HEMATURIA 12/02/2012 MCDANIEL DO, ANABEL K 599.70 HEMATURIA 12/02/2012 MCDANIEL DO, ANABEL K 599.70 HEMATURIA 12/02/2012 MCDANIEL DO, ANABEL K 599.70 HEMATURIA 12/02/2012 HELEN LOUISE MD 599.70 HEMATURIA 12/02/2012 MCDANIEL DO, ANABEL K 599.70 HEMATURIA 12/02/2012 MCDANIEL DO, ANABEL K 599.70 HEMATURIA 12/02/2012 ERIN MAYES APRN 599.70 HEMATURIA 12/02/2012 MCDANIEL DO, ANABEL K 599.70 HEMATURIA 12/02/2012 MCDANIEL DO, ANABEL K 599.70 HEMATURIA 12/02/2012 ERIN MAYES APRN 599.70 HEMATURIA 12/02/2012 MDCANIEL DO, ANABEL K 599.70 HEMATURIA 12/02/2012 MCDANIEL DO, ANABEL K 599.70 HEMATURIA 12/02/2012 MCDANIEL DO, ANABEL K 599.70 HEMATURIA 12/02/2012 MCDANIEL DO, ANABEL K 599.70 HEMATURIA 12/02/2012 MÓNICA HAWTHORNE APRN 599.70 HEMATURIA 12/16/2012 302.72 ERECTILE DISORDER 12/16/2012 ERIN MAYES APRN 302.72 ERECTILE DISORDER 12/16/2012 MCDANIEL DO, ANABEL K 302.72 ERECTILE DISORDER 12/16/2012 MCDANIEL DO, ANABEL K 302.72 ERECTILE DISORDER 12/16/2012 MCDANIEL DO, ANABEL K 302.72 ERECTILE DISORDER 12/16/2012 MCDANIEL DO, ANABEL K 302.72 ERECTILE DISORDER 12/16/2012 MCDANIEL DO, ANABEL K 302.72 ERECTILE DISORDER 12/16/2012 MCDANIEL DO, ANABEL K 302.72 ERECTILE DISORDER 12/16/2012 DANI URIARTE, HELEN 302.72 ERECTILE DISORDER 12/16/2012 MCDANIEL DO, ANABEL K 302.72 ERECTILE DISORDER 12/16/2012 MCDANIEL DO, ANABEL K 302.72 ERECTILE DISORDER 12/16/2012 ERIN MAYES APRN 302.72 ERECTILE DISORDER 12/16/2012 MCDANIEL DO, ANABEL K 302.72 ERECTILE DISORDER 12/16/2012 MCDANIEL DO, ANABEL K 302.72 ERECTILE DISORDER 12/16/2012 ERIN MAYES APRN 302.72 ERECTILE DISORDER 12/16/2012 MCDANIEL DO, ANABEL K 302.72 ERECTILE DISORDER 12/16/2012 MCDANIEL DO, ANABEL K 302.72 ERECTILE DISORDER 12/16/2012 MCDANIEL DO, ANABEL K 302.72 ERECTILE DISORDER 12/16/2012 MCDANIEL DO, ANABEL K 302.72 ERECTILE DISORDER 12/16/2012 MÓNICA HAWTHORNE APRN 302.72 ERECTILE DISORDER 04/01/2013 MCDANIEL DO, ANABEL K 008.8 INTESTINAL INFECTION DUE TO OTHER ORGANISM NOT ELSEWHERE CLASSIFIED 04/01/2013 MCDANIEL DO, ANABEL K 373.11 HORDEOLUM EXTERNUM 04/01/2013 MCDANIEL DO, ANABEL K 008.8 INTESTINAL INFECTION DUE TO OTHER ORGANISM NOT ELSEWHERE CLASSIFIED 04/01/2013 MCDANIEL DO, ANABEL K 373.11 HORDEOLUM EXTERNUM 04/01/2013 MCDANIEL DO, ANABEL K 008.8 INTESTINAL INFECTION DUE TO OTHER ORGANISM NOT ELSEWHERE CLASSIFIED 04/01/2013 MCDANIEL DO, ANABEL K 373.11 HORDEOLUM EXTERNUM 04/01/2013 MCDANIEL DO, ANABEL K 008.8 INTESTINAL INFECTION DUE TO OTHER ORGANISM NOT ELSEWHERE CLASSIFIED 04/01/2013 MCDANIEL DO, ANABEL K 373.11 HORDEOLUM EXTERNUM 04/01/2013 MCDANIEL DO, ANABEL K 008.8 INTESTINAL INFECTION DUE TO OTHER ORGANISM NOT ELSEWHERE CLASSIFIED 04/01/2013 MCDANIEL DO, ANABEL K 373.11 HORDEOLUM EXTERNUM 04/01/2013 HELEN LOUISE MD 008.8 INTESTINAL INFECTION DUE TO OTHER ORGANISM NOT ELSEWHERE CLASSIFIED 04/01/2013 HELEN LOUISE MD 373.11 HORDEOLUM EXTERNUM 04/01/2013 MCDANIEL DO, ANABEL K 008.8 INTESTINAL INFECTION DUE TO OTHER ORGANISM NOT ELSEWHERE CLASSIFIED 04/01/2013 MCDANIEL DO, ANABEL K 373.11 HORDEOLUM EXTERNUM 04/01/2013 MCDANIEL DO, ANABEL K 008.8 INTESTINAL INFECTION DUE TO OTHER ORGANISM NOT ELSEWHERE CLASSIFIED 04/01/2013 MCDANIEL DO, ANABEL K 373.11 HORDEOLUM EXTERNUM 04/01/2013 ERIN MAYES APRN 008.8 INTESTINAL INFECTION DUE TO OTHER ORGANISM NOT ELSEWHERE CLASSIFIED 04/01/2013 ERIN MAYES APRN 373.11 HORDEOLUM EXTERNUM 04/01/2013 MCDANIEL DO, ANABEL K 008.8 INTESTINAL INFECTION DUE TO OTHER ORGANISM NOT ELSEWHERE CLASSIFIED 04/01/2013 MCDANIEL DO, ANABEL K 373.11 HORDEOLUM EXTERNUM 04/01/2013 MCDANIEL DO, ANABEL K 008.8 INTESTINAL INFECTION DUE TO OTHER ORGANISM NOT ELSEWHERE CLASSIFIED 04/01/2013 MCDANIEL DO, ANABEL K 373.11 HORDEOLUM EXTERNUM 04/01/2013 ERIN MAYES APRN 008.8 INTESTINAL INFECTION DUE TO OTHER ORGANISM NOT ELSEWHERE CLASSIFIED 04/01/2013 ERIN MAYES APRN 373.11 HORDEOLUM EXTERNUM 04/01/2013 MCDANIEL DO, ANABEL K 008.8 INTESTINAL INFECTION DUE TO OTHER ORGANISM NOT ELSEWHERE CLASSIFIED 04/01/2013 MCDANIEL DO, ANABEL K 373.11 HORDEOLUM EXTERNUM 04/01/2013 MCDANIEL DO, ANABEL K 008.8 INTESTINAL INFECTION DUE TO OTHER ORGANISM NOT ELSEWHERE CLASSIFIED 04/01/2013 MCDANIEL DO, ANABEL K 373.11 HORDEOLUM EXTERNUM 04/01/2013 MCDANIEL DO, ANABEL K 008.8 INTESTINAL INFECTION DUE TO OTHER ORGANISM NOT ELSEWHERE CLASSIFIED 04/01/2013 MCDANIEL DO, ANABEL K 373.11 HORDEOLUM EXTERNUM 04/01/2013 MCDANIEL DO, ANABEL K 008.8 INTESTINAL INFECTION DUE TO OTHER ORGANISM NOT ELSEWHERE CLASSIFIED 04/01/2013 MCDANIEL DO, ANABEL K 373.11 HORDEOLUM EXTERNUM 04/01/2013 EATON OUTDOOR FITNESS TRAINERMÓNICA Merrill L 008.8 INTESTINAL INFECTION DUE TO OTHER ORGANISM NOT ELSEWHERE CLASSIFIED 04/01/2013 EAT[employer] FITNESS TRAINERMÓNICA Merrill L 373.11 HORDEOLUM EXTERNUM 06/01/2013 MCDANIEL DO, ANABEL K 682.9 CELLULITIS AND ABSCESS OF UNSPECIFIED SITES 06/01/2013 MCDANIEL DO, ANABEL K 682.9 CELLULITIS AND ABSCESS OF UNSPECIFIED SITES 06/01/2013 MCDANIEL DO, ANABEL K 682.9 CELLULITIS AND ABSCESS OF UNSPECIFIED SITES 06/01/2013 MCDANIEL DO, ANABEL K 682.9 CELLULITIS AND ABSCESS OF UNSPECIFIED SITES 06/01/2013 HELEN LOUISE MD 682.9 CELLULITIS AND ABSCESS OF UNSPECIFIED SITES 06/01/2013 MCDANIEL DO, ANABEL K 682.9 CELLULITIS AND ABSCESS OF UNSPECIFIED SITES 06/01/2013 MCDANIEL DO, ANABEL K 682.9 CELLULITIS AND ABSCESS OF UNSPECIFIED SITES 06/01/2013 ERIN MAYES APRN 682.9 CELLULITIS AND ABSCESS OF UNSPECIFIED SITES 06/01/2013 MCDANIEL DO, ANABEL K 682.9 CELLULITIS AND ABSCESS OF UNSPECIFIED SITES 06/01/2013 MCDANIEL DO, ANABEL K 682.9 CELLULITIS AND ABSCESS OF UNSPECIFIED SITES 06/01/2013 ERIN MAYES APRN 682.9 CELLULITIS AND ABSCESS OF UNSPECIFIED SITES 06/01/2013 MCDANIEL DO, ANABEL K 682.9 CELLULITIS AND ABSCESS OF UNSPECIFIED SITES 06/01/2013 MCDANIEL DO, ANABEL K 682.9 CELLULITIS AND ABSCESS OF UNSPECIFIED SITES 06/01/2013 MCDANIEL DO, ANABEL K 682.9 CELLULITIS AND ABSCESS OF UNSPECIFIED SITES 06/01/2013 MCDANIEL DO, ANABEL K 682.9 CELLULITIS AND ABSCESS OF UNSPECIFIED SITES 06/01/2013 MÓNICA HAWTHORNE APRN 682.9 CELLULITIS AND ABSCESS OF UNSPECIFIED SITES 06/07/2013 MCDANIEL DO, ANABEL K 599.0 URINARY TRACT INFECTION 06/07/2013 MCDANIEL DO, ANABEL K 599.0 URINARY TRACT INFECTION 06/07/2013 MCDANIEL DO, ANABEL K 599.0 URINARY TRACT INFECTION 06/07/2013 HELEN LOUISE MD 599.0 URINARY TRACT INFECTION 06/07/2013 MCDANIEL DO, ANABEL K 599.0 URINARY TRACT INFECTION 06/07/2013 MCDANIEL DO, ANABEL K 599.0 URINARY TRACT INFECTION 06/07/2013 ERIN MAYES APRN 599.0 URINARY TRACT INFECTION 06/07/2013 MCDANIEL DO, ANABEL K 599.0 URINARY TRACT INFECTION 06/07/2013 MCDANIEL DO, ANABEL K 599.0 URINARY TRACT INFECTION 06/07/2013 MAYESERIN COOK APRN 599.0 URINARY TRACT INFECTION 06/07/2013 MCDANIEL DO, ANABEL K 599.0 URINARY TRACT INFECTION 06/07/2013 MCDANIEL DO, ANABEL K 599.0 URINARY TRACT INFECTION 06/07/2013 MCDANIEL DO, ANABEL K 599.0 URINARY TRACT INFECTION 06/07/2013 MCDANIEL DO, ANABEL K 599.0 URINARY TRACT INFECTION 06/07/2013 MÓNICA HAWTHORNE APRN 599.0 URINARY TRACT INFECTION 07/02/2013 MALCOLM ZHU MD Ot 599.70 HEMATURIA, UNSPECIFIED 07/02/2013 MALCOLM ZHU MD Ot 788.20 RETENTION OF URINE NOS 07/04/2013 HELEN LOUISE MD Ot 250.00 DIAB GRETCHEN WO COMPL, TYPE II OR UNSPEC TY 07/04/2013 HELEN LOUISE MD Ot 401.9 HYPERTENSION NOS 07/04/2013 HELEN LOUISE MD Ot 592.0 CALCULUS OF KIDNEY 07/04/2013 HELEN LOUISE MD Ot 592.1 CALCULUS OF URETER 07/04/2013 HELEN LOUISE MD Ot 596.7 BLADDER WALL HEMORRHAGE 07/04/2013 HELEN LOUISE MD Ot 600.01 HYPERTROPHY (BENIGN) OF PROSTATE W URINA 07/04/2013 HELEN LOUISE MD Ot 788.20 RETENTION OF URINE NOS 07/20/2013 MAI URIARTE, JESSEE Mahoney Ot 188.9 MALIG NATY BLADDER NOS 07/20/2013 MAI URIARTE, JESSEE Mahoney Ot 596.7 BLADDER WALL HEMORRHAGE 07/20/2013 MAI URIARTE, JESSEE Mahoney Ot 599.71 GROSS HEMATURIA 07/20/2013 JESSEE ONEILL MD Ot 600.00 HYPERTROPHY (BENIGN) OF PROSTATE W/O URI 10/26/2013 MCDANIEL DO, ANABEL K 233.7 CARCINOMA IN SITU OF BLADDER 10/26/2013 MCDANIEL DO, ANABEL K 233.7 CARCINOMA IN SITU OF BLADDER 10/26/2013 ERIN MAYES APRN 233.7 CARCINOMA IN SITU OF BLADDER 10/26/2013 MCDANIEL DO, ANABEL K 233.7 CARCINOMA IN SITU OF BLADDER 10/26/2013 MCDANIEL DO, ANABEL K 233.7 CARCINOMA IN SITU OF BLADDER 10/26/2013 ERIN MAYES APRN 233.7 CARCINOMA IN SITU OF BLADDER 10/26/2013 MCDANIEL DO, ANABEL K 233.7 CARCINOMA IN SITU OF BLADDER 10/26/2013 MCDANIEL DO, ANABEL K 233.7 CARCINOMA IN SITU OF BLADDER 10/26/2013 MCDANIEL DO, ANABEL K 233.7 CARCINOMA IN SITU OF BLADDER 10/26/2013 MCDANIEL DO, ANABEL K 233.7 CARCINOMA IN SITU OF BLADDER 10/26/2013 MÓNICA HAWTHORNE APRN 233.7 CARCINOMA IN SITU OF BLADDER 11/09/2013 MCDANIEL DO, ANABEL K 716.90 ARTHRITIS/ ARTHROPATHY, UNSPECIFIED 11/09/2013 ERIN MAYES APRN 716.90 ARTHRITIS/ ARTHROPATHY, UNSPECIFIED 11/09/2013 MCDANIEL DO, ANABEL K 716.90 ARTHRITIS/ ARTHROPATHY, UNSPECIFIED 11/09/2013 MCDANIEL DO, ANABEL K 716.90 ARTHRITIS/ ARTHROPATHY, UNSPECIFIED 11/09/2013 ERIN MAYES APRN 716.90 ARTHRITIS/ ARTHROPATHY, UNSPECIFIED 11/09/2013 MCDANIEL DO, ANABEL K 716.90 ARTHRITIS/ ARTHROPATHY, UNSPECIFIED 11/09/2013 MCDANIEL DO, ANABEL K 716.90 ARTHRITIS/ ARTHROPATHY, UNSPECIFIED 11/09/2013 MCDANIEL DO, ANABEL K 716.90 ARTHRITIS/ ARTHROPATHY, UNSPECIFIED 11/09/2013 MCDANIEL DO, ANABEL K 716.90 ARTHRITIS/ ARTHROPATHY, UNSPECIFIED 11/09/2013 MÓNICA HAWTHORNE APRN L 716.90 ARTHRITIS/ ARTHROPATHY, UNSPECIFIED 04/04/2014 MAYESERIN COOK APRN 079.99 VIRAL SYNDROME 04/04/2014 MCDANIEL DO, ANABEL K 079.99 VIRAL SYNDROME 04/04/2014 MCDANIEL DO, ANABEL K 079.99 VIRAL SYNDROME 04/04/2014 MCDANIEL DO, ANABEL K 079.99 VIRAL SYNDROME 04/04/2014 MCDANIEL DO, ANABEL K 079.99 VIRAL SYNDROME 04/04/2014 CHRISTOPH ROMERO, MÓNICA L 079.99 VIRAL SYNDROME 04/11/2014 MCADNIEL DO, ANABEL K 466.0 BRONCHITIS, ACUTE 04/11/2014 MCDANIEL DO, ANABEL K 466.0 BRONCHITIS, ACUTE 04/11/2014 MCDANIEL DO, ANABEL K 466.0 BRONCHITIS, ACUTE 04/11/2014 MCDANIEL DO, ANABEL K 466.0 BRONCHITIS, ACUTE 04/11/2014 CHRISTOPH NARANJON, MÓNICA L 466.0 BRONCHITIS, ACUTE 07/09/2014 MCDANIEL DO, ANABEL K 787.91 DIARRHEA 07/09/2014 MCDANIEL DO, ANABEL K 787.91 DIARRHEA 07/09/2014 CIPRIANO HAWTHORNE APRNSON L 787.91 DIARRHEA 08/24/2014 ERIN MAYES CFNP Ot 587 08/24/2014 ERIN MAYES CFNP Ot 592.0 08/24/2014 ERIN MAYES CFNP Ot 599.70 08/24/2014 MAI URIARTE, JESSEE Mahoney Ot 239.4 08/24/2014 MAI URIARTE, JESSEE A Ot V72.61 08/24/2014 MAI URIARTE, JESSEE A Ot V72.63 08/24/2014 MAI URIARTE, JESSEE A Ot V72.83 08/24/2014 MAI URIARTE, JESSEE A Ot V72.84 08/24/2014 MAI URIARTE, JESSEE A Ot 185 08/24/2014 MAI URIARTE, JESSEE A Ot 793.5 08/24/2014 GENNY URIARTE, JOSE CARLOS Bender Ot V72.84 08/27/2014 DANI URIARTE, HELEN Goldberg Ot 250.00 DIAB GRETCHEN WO COMPL, TYPE II OR UNSPEC TY 08/27/2014 DANI URIARTE, HELEN Goldberg Ot 272.0 PURE HYPERCHOLESTEROLEM 08/27/2014 HELEN LOUISE MD Ot 276.1 HYPOSMOLALITY 08/27/2014 HELEN LOUISE MD Ot 276.52 HYPOVOLEMIA 08/27/2014 HELEN LOUISE MD Ot 276.7 HYPERPOTASSEMIA 08/27/2014 HELEN LOUISE MD Ot 303.91 ALCOH DEP NEC/NOS-CONTIN 08/27/2014 HELEN LOUISE MD Ot 401.9 HYPERTENSION NOS 08/27/2014 HELEN LOUISE MD Ot 577.0 ACUTE PANCREATITIS 08/27/2014 HELEN LOUISE MD Ot 584.9 ACUTE RENAL FAILURE, UNSPECIFIED 08/27/2014 HELEN LOUISE MD Ot E947.8 ADV EFF MEDICINAL NEC 08/27/2014 HELEN LOUISE MD Ot V10.51 HX OF BLADDER MALIGNANCY 08/27/2014 HELEN LOUISE MD Ot V44.6 URINOSTOMY STATUS NEC 10/31/2014 JOSE MANUEL RUSS MD Ot 276.51 DEHYDRATION 10/31/2014 JOSE MANUEL RUSS MD Ot 599.0 URIN TRACT INFECTION NOS 10/31/2014 JEB URIARTE, JOSE MANUEL Garcia Ot 787.01 NAUSEA WITH VOMITING 11/08/2014 VIOLETA RHODES, ANABEL K Ot 250.00 DIAB GRETCHEN WO COMPL, TYPE II OR UNSPEC TY 11/08/2014 VIOLETA RHODES ANABEL K Ot 272.0 PURE HYPERCHOLESTEROLEM 11/08/2014 MCDANIEL , ANABEL K Ot 274.9 GOUT NOS 11/08/2014 VIOLETA RHODES ANABEL K Ot 276.7 HYPERPOTASSEMIA 11/08/2014 VIOLETA RHODES ANABEL K Ot 285.9 ANEMIA NOS 11/08/2014 VIOLETA RHODES ANABEL K Ot 300.00 ANXIETY STATE NOS 11/08/2014 MCDANIEL , NAABEL K Ot 311 DEPRESSIVE DISORDER NEC 11/08/2014 VIOLETA RHODES ANABEL K Ot 401.9 HYPERTENSION NOS 11/08/2014 VIOLETA RHODES ANABEL K Ot 567.22 PERITONEAL ABSCESS 11/08/2014 VIOLETA RHODES ANABEL K Ot 584.9 ACUTE RENAL FAILURE, UNSPECIFIED 11/08/2014 MCDANIEL DO ANABEL K Ot 599.0 URIN TRACT INFECTION NOS 11/08/2014 VIOLETA RHODES ANABEL K Ot 998.13 SEROMA COMPLICAT A PROC 11/08/2014 MCDANIEL ANABEL Gautam Ot V12.79 PERSONAL HISTORY OTH SPEC DIGESTIVE SYST 11/08/2014 ANABEL MCDANIEL DO Gautam Ot V13.01 PERSONAL HISTORY OF URINARY CALCULI 12/21/2014 JAYME URIARTE, LUIS Ot 455.0 INT HEMORRHOID W/O COMPL 12/21/2014 JAYME URIARTE, LUIS Ot 562.10 DIVERTICULOSIS COLON (W/O MENT OF HEMORR 06/21/2015 ERIN MAYES CFNP Ot 587 06/21/2015 ERIN MAYES CFNP Ot 592.0 06/21/2015 ERIN MAYES CFNP Ot 599.70 06/21/2015 MAI URIARTE, JESSEE A Ot 239.4 06/21/2015 MAI URIARTE, JESSEE A Ot V72.61 06/21/2015 MAI URIARTE, JESSEE A Ot V72.63 06/21/2015 MIA URIARTE, JESSEE A Ot V72.83 06/21/2015 MAI URIARTE, JESSEE A Ot V72.84 06/21/2015 MAI URIARTE, JESSEE A Ot 185 06/21/2015 MAI URIARTE, JESSEE A Ot 793.5 06/21/2015 GENNY URIARTE, JOSE CARLOS Bender Ot V72.84 06/21/2015 JAYME URIARTE, LUIS Ot 562.11 06/21/2015 JAYME URIARTE, LUIS Ot V72.84 06/21/2015 RODDY WRIGHT DO Ot E11.9 TYPE 2 DIABETES MELLITUS WITHOUT COMPLIC 06/21/2015 RODDY WRIGHT DO Ot N39.0 URINARY TRACT INFECTION, SITE NOT SPECIF 06/21/2015 RODDY WRIGHT DO Ot R11.2 NAUSEA WITH VOMITING, UNSPECIFIED 06/21/2015 RODDY WRIGHT DO Ot R19.7 DIARRHEA, UNSPECIFIED 06/21/2015 RODDY WRIGHT DO Ot Z79.899 OTHER LONGTERM (CURRENT) DRUG THERAPY 06/21/2015 RODDY WRIGHT DO Ot Z85.51 PERSONAL HISTORY OF MALIGNANT NEOPLASM O 06/21/2015 RODDY WRIGHT DO Ot Z93.6 OTHER ARTIFICIAL OPENINGS OF URINARY TRA 07/19/2015 RODDY WRIGHT DO Ot E11.9 07/19/2015 ADRIANA DO, RODDY Florez Ot N39.0 07/19/2015 ADRIANA DO, RODDY Florez Ot R11.2 07/19/2015 ADRIANA DO, RODDY K Ot R19.7 07/19/2015 ADRIANA DO, RODDY Florez Ot Z79.899 07/19/2015 ADRIANA DO, RODDY K Ot Z85.51 07/19/2015 ADRIANA DO, RODDY K Ot Z93.6 12/27/2016 ERIN MAYES CFNP Ot 587 RENAL SCLEROSIS NOS 12/27/2016 ERIN MAYES CFNP Ot 592.0 CALCULUS OF KIDNEY 12/27/2016 ERIN MAYES CFNP Ot 599.70 HEMATURIA, UNSPECIFIED 12/27/2016 JESSEE ONEILL MD Ot 239.4 BLADDER NEOPLASM NOS 12/27/2016 JESSEE ONEILL MD Ot V72.61 ANTIBODY RESPONSE EXAMINATION 12/27/2016 JESSEE ONEILL MD Ot V72.63 PRE-PROCEDURAL LABORATORY EXAMINATION 12/27/2016 JESSEE ONEILL MD Ot V72.83 EXAM PRE-OPERATIVE NEC 12/27/2016 JESSEE ONEILL MD Ot V72.84 EXAM PRE-OPERATIVE NOS 12/27/2016 JESSEE ONEILL MD Ot 185 MALIGN NEOPL PROSTATE 12/27/2016 JESSEE ONEILL MD Ot 793.5 NOSP (ABN) FINDINGS ON RADIOLOGICAL OT 12/27/2016 GENNY URIARTE, JOSE CARLOS Bender Ot V72.84 EXAM PRE-OPERATIVE NOS 12/27/2016 LUIS DELACRUZ MD Ot 562.11 DIVERTICULITIS COLON (W/O MENT OF HEMORR 12/27/2016 LUIS DELACRUZ MD Ot V72.84 EXAM PRE-OPERATIVE NOS 12/30/2016 ERIN MAYES CFNP Ot 587 RENAL SCLEROSIS NOS 12/30/2016 ERIN MAYES CFNP Ot 592.0 CALCULUS OF KIDNEY 12/30/2016 ERIN MAYES CFNP Ot 599.70 HEMATURIA, UNSPECIFIED 12/30/2016 JESSEE ONEILL MD Ot 239.4 BLADDER NEOPLASM NOS 12/30/2016 JESSEE ONEILL MD, Ot V72.61 ANTIBODY RESPONSE EXAMINATION 12/30/2016 MAI URIARTE, JESSEE Mahoney Ot V72.63 PRE-PROCEDURAL LABORATORY EXAMINATION 12/30/2016 MAI URIARTE, JESSEE Mahoney Ot V72.83 EXAM PRE-OPERATIVE NEC 12/30/2016 MAI URIARTE, JESSEE Mahoney Ot V72.84 EXAM PRE-OPERATIVE NOS 12/30/2016 MAI URIARTE, JESSEE Mahoney Ot 185 MALIGN NEOPL PROSTATE 12/30/2016 MAI URIARTE, JESSEE Mahoney Ot 793.5 NOSP (ABN) FINDINGS ON RADIOLOGICAL OT 12/30/2016 GENNY URIARTE, JOSE CARLOS Bender Ot V72.84 EXAM PRE-OPERATIVE NOS 12/30/2016 JAYME URIARTE, LUIS Ot 562.11 DIVERTICULITIS COLON (W/O MENT OF HEMORR 12/30/2016 LUIS DELACRUZ MD Ot V72.84 EXAM PRE-OPERATIVE NOS 12/31/2016 GAEL MILLER OUTDOOR FITNESS TRAINER Ot K43.5 PARASTOMAL HERNIA WITHOUT OBSTRUCTION OR 01/23/2017 GAEL MILLER OUTDOOR FITNESS TRAINER Ot K43.5 PARASTOMAL HERNIA WITHOUT OBSTRUCTION OR 06/02/2017 HELLEN DO, ALLISON B Ot K43.9 VENTRAL HERNIA WITHOUT OBSTRUCTION OR GA 06/02/2017 HELLEN RHODES ALLISON B Ot Z85.51 PERSONAL HISTORY OF MALIGNANT NEOPLASM O 06/09/2017 HELLEN DO ALLISON B Ot K43.5 PARASTOMAL HERNIA WITHOUT OBSTRUCTION OR 06/09/2017 HELLEN DO, ALLISON B Ot Z01.812 ENCOUNTER FOR PREPROCEDURAL LABORATORY E 06/09/2017 HELLEN RHDOES ALLISON B Ot Z11.2 ENCOUNTER FOR SCREENING FOR OTHER BACTER 06/10/2017 HELLEN DO, ALLISON B Ot K43.5 PARASTOMAL HERNIA WITHOUT OBSTRUCTION OR 06/10/2017 DELELISHA DO, ALLISON B Ot Z01.812 ENCOUNTER FOR PREPROCEDURAL LABORATORY E 06/10/2017 HELLEN RHODES ALLISON B Ot Z11.2 ENCOUNTER FOR SCREENING FOR OTHER BACTER 06/12/2017 GAEL MILLER OUTDOOR FITNESS TRAINER Ot K43.5 PARASTOMAL HERNIA WITHOUT OBSTRUCTION OR 06/12/2017 HELLEN DO, ALLISON B Ot K43.9 VENTRAL HERNIA WITHOUT OBSTRUCTION OR GA 06/12/2017 HELLEN RHODES ALLISON B Ot Z85.51 PERSONAL HISTORY OF MALIGNANT NEOPLASM O 06/12/2017 ERIN MAYES KUN Ot 587 RENAL SCLEROSIS NOS 06/12/2017 ERIN MAYES KUN Ot 592.0 CALCULUS OF KIDNEY 06/12/2017 ERIN MAYES KUN Ot 599.70 HEMATURIA, UNSPECIFIED 06/12/2017 MAI URIARTE, JESSEE Mahoney Ot 239.4 BLADDER NEOPLASM NOS 06/12/2017 MAI URIARTE, JESSEE Mahoney Ot V72.61 ANTIBODY RESPONSE EXAMINATION 06/12/2017 MAI URIARTE, JESSEE Mahoney Ot V72.63 PRE-PROCEDURAL LABORATORY EXAMINATION 06/12/2017 JESSEE ONEILL MD Ot V72.83 EXAM PRE-OPERATIVE NEC 06/12/2017 MAI URIARTE, JESSEE Mahoney Ot V72.84 EXAM PRE-OPERATIVE NOS 06/12/2017 MAI URIARTE, JESSEE Mahoney Ot 185 MALIGN NEOPL PROSTATE 06/12/2017 JESSEE ONEILL MD Ot 793.5 NOSP (ABN) FINDINGS ON RADIOLOGICAL OT 06/12/2017 GENNY URIARTE, JOSE CARLOS Bender Ot V72.84 EXAM PRE-OPERATIVE NOS 06/12/2017 JAYME URIARTE, LUIS Ot 562.11 DIVERTICULITIS COLON (W/O MENT OF HEMORR 06/12/2017 LUIS DELACRUZ MD Ot V72.84 EXAM PRE-OPERATIVE NOS 06/12/2017 GAEL MILLER APRN Ot K43.5 PARASTOMAL HERNIA WITHOUT OBSTRUCTION OR 06/12/2017 ALLISON MACEDO DO Ot K43.9 VENTRAL HERNIA WITHOUT OBSTRUCTION OR GA 06/12/2017 ALLISON MACEDO DO Ot Z85.51 PERSONAL HISTORY OF MALIGNANT NEOPLASM O 06/16/2017 ALLISON MACEDO DO Ot E11.40 TYPE 2 DIABETES MELLITUS WITH DIABETIC N 06/16/2017 ALLISON MACEDO DO Ot E66.9 OBESITY, UNSPECIFIED 06/16/2017 ALLISON MACEDO DO Ot E78.5 HYPERLIPIDEMIA, UNSPECIFIED 06/16/2017 ALLISON MACEDO DO Ot F32.9 MAJOR DEPRESSIVE DISORDER, SINGLE EPISOD 06/16/2017 ALLISON MACEDO DO Ot F41.9 ANXIETY DISORDER, UNSPECIFIED 06/16/2017 ALLISON MACEDO DO Ot I10 ESSENTIAL (PRIMARY) HYPERTENSION 06/16/2017 HELLEN DO, ALLISON B Ot K21.9 GASTRO-ESOPHAGEAL REFLUX DISEASE WITHOUT 06/16/2017 DELMAN DO, ALLISON B Ot K43.3 PARASTOMAL HERNIA WITH OBSTRUCTION, WITH 06/16/2017 DELELISHA DO, ALLISON B Ot Z79.899 OTHER MEDIA OPERATOR (CURRENT) DRUG THERAPY 06/16/2017 DELELISHA DO, ALLISON B Ot Z85.51 PERSONAL HISTORY OF MALIGNANT NEOPLASM O 06/17/2017 HELLEN DO, ALLISON B Ot E11.40 TYPE 2 DIABETES MELLITUS WITH DIABETIC N 06/17/2017 HELLEN DO, ALLISON B Ot E66.9 OBESITY, UNSPECIFIED 06/17/2017 DELELISHA DO, ALLISON B Ot E78.5 HYPERLIPIDEMIA, UNSPECIFIED 06/17/2017 DELELISHA DO, ALLISON B Ot F32.9 MAJOR DEPRESSIVE DISORDER, SINGLE EPISOD 06/17/2017 HELLEN DO, ALLISON B Ot F41.9 ANXIETY DISORDER, UNSPECIFIED 06/17/2017 DELELISHA DO, ALLISON B Ot I10 ESSENTIAL (PRIMARY) HYPERTENSION 06/17/2017 HELLEN DO, ALLISON B Ot K21.9 GASTRO-ESOPHAGEAL REFLUX DISEASE WITHOUT 06/17/2017 DELMAN DO, ALLISON B Ot K43.3 PARASTOMAL HERNIA WITH OBSTRUCTION, WITH 06/17/2017 DELELISHA DO, ALLISON B Ot Z79.899 OTHER MEDIA OPERATOR (CURRENT) DRUG THERAPY 06/17/2017 DELELISHA DO, ALLISON B Ot Z85.51 PERSONAL HISTORY OF MALIGNANT NEOPLASM O 06/19/2017 HELLEN DO, ALLISON B Ot K43.9 VENTRAL HERNIA WITHOUT OBSTRUCTION OR GA 06/19/2017 DELELISHA RHODES, ALLISON B Ot Z85.51 PERSONAL HISTORY OF MALIGNANT NEOPLASM O 07/23/2017 ERIN MAYES CFNP Ot 587 RENAL SCLEROSIS NOS 07/23/2017 ERIN MAYES CFNP Ot 592.0 CALCULUS OF KIDNEY 07/23/2017 ERIN MAYES CFNP Ot 599.70 HEMATURIA, UNSPECIFIED 07/23/2017 MAI URIARTE, JESSEE Mahoney Ot 239.4 BLADDER NEOPLASM NOS 07/23/2017 MAI URIARTE, JESSEE Mahoney Ot V72.61 ANTIBODY RESPONSE EXAMINATION 07/23/2017 JESSEE ONEILL MD, Ot V72.63 PRE-PROCEDURAL LABORATORY EXAMINATION 07/23/2017 JESSEE ONEILL MD Ot V72.83 EXAM PRE-OPERATIVE NEC 07/23/2017 JESSEE ONEILL MD Ot V72.84 EXAM PRE-OPERATIVE NOS 07/23/2017 JESSEE ONEILL MD Ot 185 MALIGN NEOPL PROSTATE 07/23/2017 JESSEE ONEILL MD Ot 793.5 NOSP (ABN) FINDINGS ON RADIOLOGICAL OT 07/23/2017 JOSE CARLOS ROYAL MD Ot V72.84 EXAM PRE-OPERATIVE NOS 07/23/2017 LUIS DELACRUZ MD Ot 562.11 DIVERTICULITIS COLON (W/O MENT OF HEMORR 07/23/2017 LUIS DELACRUZ MD Ot V72.84 EXAM PRE-OPERATIVE NOS 07/23/2017 GAEL MILLER APRN Ot K43.5 PARASTOMAL HERNIA WITHOUT OBSTRUCTION OR 07/23/2017 ALLISON MACEDO DO Ot K43.9 VENTRAL HERNIA WITHOUT OBSTRUCTION OR GA 07/23/2017 ALLISON MACEDO DO Ot Z85.51 PERSONAL HISTORY OF MALIGNANT NEOPLASM O 07/23/2017 ERIN MAYES CFNP Ot 587 RENAL SCLEROSIS NOS 07/23/2017 ERIN MAYES CFNP Ot 592.0 CALCULUS OF KIDNEY 07/23/2017 ERIN MAYES CFNP Ot 599.70 HEMATURIA, UNSPECIFIED 07/23/2017 JESSEE ONEILL MD Ot 239.4 BLADDER NEOPLASM NOS 07/23/2017 JESSEE ONEILL MD Ot V72.61 ANTIBODY RESPONSE EXAMINATION 07/23/2017 JESSEE ONEILL MD Ot V72.63 PRE-PROCEDURAL LABORATORY EXAMINATION 07/23/2017 JESSEE ONEILL MD Ot V72.83 EXAM PRE-OPERATIVE NEC 07/23/2017 JESSEE ONEILL MD Ot V72.84 EXAM PRE-OPERATIVE NOS 07/23/2017 JESSEE ONEILL MD Ot 185 MALIGN NEOPL PROSTATE 07/23/2017 JESSEE ONEILL MD Ot 793.5 NOSP (ABN) FINDINGS ON RADIOLOGICAL OT 07/23/2017 JOSE CARLOS ROYAL MD Ot V72.84 EXAM PRE-OPERATIVE NOS 07/23/2017 LUIS DELACRUZ MD Ot 562.11 DIVERTICULITIS COLON (W/O MENT OF HEMORR 07/23/2017 JAYME URIARTE, LUIS Ot V72.84 EXAM PRE-OPERATIVE NOS 07/23/2017 GAEL MILLER OUTDOOR FITNESS TRAINER Ot K43.5 PARASTOMAL HERNIA WITHOUT OBSTRUCTION OR 07/23/2017 ALLISON MACEDO DO B Ot K43.9 VENTRAL HERNIA WITHOUT OBSTRUCTION OR GA 07/23/2017 HELLEN RHODES ALLISON B Ot Z85.51 PERSONAL HISTORY OF MALIGNANT NEOPLASM O 07/25/2017 MAYESERIN COOK CFNP Ot 587 RENAL SCLEROSIS NOS 07/25/2017 MAYESERIN COOK CFNP Ot 592.0 CALCULUS OF KIDNEY 07/25/2017 MAYES, ERIN Mata CFNP Ot 599.70 HEMATURIA, UNSPECIFIED 07/25/2017 MAI URIARTE, JESSEE Mahoney Ot 239.4 BLADDER NEOPLASM NOS 07/25/2017 JESSEE ONEILL MD Ot V72.61 ANTIBODY RESPONSE EXAMINATION 07/25/2017 JESSEE ONEILL MD Ot V72.63 PRE-PROCEDURAL LABORATORY EXAMINATION 07/25/2017 JESSEE ONELIL MD Ot V72.83 EXAM PRE-OPERATIVE NEC 07/25/2017 JESSEE ONEILL MD Ot V72.84 EXAM PRE-OPERATIVE NOS 07/25/2017 JESSEE ONEILL MD Ot 185 MALIGN NEOPL PROSTATE 07/25/2017 JESSEE ONEILL MD Ot 793.5 NOSP (ABN) FINDINGS ON RADIOLOGICAL OT 07/25/2017 GENNY URIARTE, JOSE CARLOS Bender Ot V72.84 EXAM PRE-OPERATIVE NOS 07/25/2017 JAYME URIARTE, LUIS Ot 562.11 DIVERTICULITIS COLON (W/O MENT OF HEMORR 07/25/2017 LUIS DELACRUZ MD Ot V72.84 EXAM PRE-OPERATIVE NOS 07/25/2017 GAEL MILLER APRN Ot K43.5 PARASTOMAL HERNIA WITHOUT OBSTRUCTION OR 07/25/2017 ALLISON MACEDO DO B Ot K43.9 VENTRAL HERNIA WITHOUT OBSTRUCTION OR GA 07/25/2017 BECKA MACEDO DOIC B Ot Z85.51 PERSONAL HISTORY OF MALIGNANT NEOPLASM O 07/28/2017 HELLEN DO ALLISON B Ot C67.9 MALIGNANT NEOPLASM OF BLADDER, UNSPECIFI 07/28/2017 BECKA MACEDO DOIC B Ot K76.0 FATTY (CHANGE OF) LIVER, NOT ELSEWHERE C 07/28/2017 HELLEN DO, ALLISON B Ot Z93.2 ILEOSTOMY STATUS 08/06/2017 HELLEN RHODES, ALLISON B Ot C67.9 MALIGNANT NEOPLASM OF BLADDER, UNSPECIFI 08/06/2017 BECKA MACEDO DOIC B Ot K76.0 FATTY (CHANGE OF) LIVER, NOT ELSEWHERE C 08/06/2017 HELLEN DOBECKAIC B Ot Z93.2 ILEOSTOMY STATUS 08/07/2017 HELLEN DO, ALLISON B Ot K43.9 VENTRAL HERNIA WITHOUT OBSTRUCTION OR GA 08/07/2017 HELLEN DO, ALLISON B Ot Z85.51 PERSONAL HISTORY OF MALIGNANT NEOPLASM O 08/07/2017 ERIN MAYES CFNP Ot 587 RENAL SCLEROSIS NOS 08/07/2017 ERIN MAYES CFNP Ot 592.0 CALCULUS OF KIDNEY 08/07/2017 ERIN MAYES CFNP Ot 599.70 HEMATURIA, UNSPECIFIED 08/07/2017 MAI URIARTE, JESSEE Mahoney Ot 239.4 BLADDER NEOPLASM NOS 08/07/2017 MAI URIARTE, JESSEE Mahoney Ot V72.61 ANTIBODY RESPONSE EXAMINATION 08/07/2017 JESSEE ONEILL MD Ot V72.63 PRE-PROCEDURAL LABORATORY EXAMINATION 08/07/2017 JESSEE ONEILL MD Ot V72.83 EXAM PRE-OPERATIVE NEC 08/07/2017 JESSEE ONEILL MD, Ot V72.84 EXAM PRE-OPERATIVE NOS 08/07/2017 JESSEE ONEILL MD Ot 185 MALIGN NEOPL PROSTATE 08/07/2017 JESSEE ONEILL MD Ot 793.5 NOSP (ABN) FINDINGS ON RADIOLOGICAL OT 08/07/2017 JOSE CARLOS ROYAL MD Ot V72.84 EXAM PRE-OPERATIVE NOS 08/07/2017 LUIS DELACRUZ MD Ot 562.11 DIVERTICULITIS COLON (W/O MENT OF HEMORR 08/07/2017 LUIS DELACRUZ MD Ot V72.84 EXAM PRE-OPERATIVE NOS 08/07/2017 GAEL MILLER APRN Ot K43.5 PARASTOMAL HERNIA WITHOUT OBSTRUCTION OR 08/07/2017 ALLISON MACEDO DO B Ot K43.9 VENTRAL HERNIA WITHOUT OBSTRUCTION OR GA 08/07/2017 JARRETTELISHA DO ALLISON B Ot Z85.51 PERSONAL HISTORY OF MALIGNANT NEOPLASM O 08/07/2017 ALLISON MACEDO DO B Ot C67.9 MALIGNANT NEOPLASM OF BLADDER, UNSPECIFI 08/07/2017 ALLISON MACEDO DO B Ot K76.0 FATTY (CHANGE OF) LIVER, NOT ELSEWHERE C 08/07/2017 ALLISON MACEDO DO Ot Z93.2 ILEOSTOMY STATUS 10/13/2017 MAYESERIN COOK CFNP Ot 587 RENAL SCLEROSIS NOS 10/13/2017 MAYESERIN COOK CFNP Ot 592.0 CALCULUS OF KIDNEY 10/13/2017 MAYESERIN COOK CFNP Ot 599.70 HEMATURIA, UNSPECIFIED 10/13/2017 MAI URIARTE, JESSEE Mahoney Ot 239.4 BLADDER NEOPLASM NOS 10/13/2017 MAI URIARTE, JESSEE Mahoney Ot V72.61 ANTIBODY RESPONSE EXAMINATION 10/13/2017 JESSEE ONEILL MD, Ot V72.63 PRE-PROCEDURAL LABORATORY EXAMINATION 10/13/2017 JESSEE ONEILL MD Ot V72.83 EXAM PRE-OPERATIVE NEC 10/13/2017 MAI URIARTE, JESSEE Mahoney Ot V72.84 EXAM PRE-OPERATIVE NOS 10/13/2017 MAI URIARTE, JESSEE Mahoney Ot 185 MALIGN NEOPL PROSTATE 10/13/2017 MAI URIARTE, JESSEE Mahoney Ot 793.5 NOSP (ABN) FINDINGS ON RADIOLOGICAL OT 10/13/2017 JOSE CARLOS ROYAL MD Ot V72.84 EXAM PRE-OPERATIVE NOS 10/13/2017 LUIS DELACRUZ MD Ot 562.11 DIVERTICULITIS COLON (W/O MENT OF HEMORR 10/13/2017 LUIS DELACRUZ MD Ot V72.84 EXAM PRE-OPERATIVE NOS 10/13/2017 GAEL MILLER APRN Ot K43.5 PARASTOMAL HERNIA WITHOUT OBSTRUCTION OR 10/13/2017 ALLISON MACEDO DO Ot K43.9 VENTRAL HERNIA WITHOUT OBSTRUCTION OR GA 10/13/2017 ALLISON MACEDO DO Ot Z85.51 PERSONAL HISTORY OF MALIGNANT NEOPLASM O 10/13/2017 ALLISON MACEDO DO Ot C67.9 MALIGNANT NEOPLASM OF BLADDER, UNSPECIFI 10/13/2017 ALLISON MACEDO DO Ot K76.0 FATTY (CHANGE OF) LIVER, NOT ELSEWHERE C 10/13/2017 ALLISON MACEDO DO, Ot Z93.2 ILEOSTOMY STATUS 10/13/2017 GAEL MILLER APRN Ot R55 SYNCOPE AND COLLAPSE 10/13/2017 GAEL MILLER APRN Ot R55 SYNCOPE AND COLLAPSE 10/13/2017 GAEL MILLER APRN Ot R55 SYNCOPE AND COLLAPSE 10/13/2017 GAEL MILLER APRN Ot R55 SYNCOPE AND COLLAPSE 10/14/2017 GAEL MILLER APRN Ot I70.0 ATHEROSCLEROSIS OF AORTA 10/14/2017 GAEL MILLER APRN Ot R55 SYNCOPE AND COLLAPSE 10/24/2017 GAEL MILLER APRN Ot I70.0 ATHEROSCLEROSIS OF AORTA 10/24/2017 GAEL MILLER APRN Ot R55 SYNCOPE AND COLLAPSE 11/10/2017 ALLISON MACEDO DO, Ot C67.9 MALIGNANT NEOPLASM OF BLADDER, UNSPECIFI 11/10/2017 ALLISON MACEDO DO, Ot K76.0 FATTY (CHANGE OF) LIVER, NOT ELSEWHERE C 11/10/2017 ALLISON MACEDO DO, Ot Z93.2 ILEOSTOMY STATUS Procedures Code Description [place] [address] UA LONG DIP 12/02/2012 90026 UA LONG DIP 12/16/2012 25682 A1C (IN-HOUSE) 03/23/2013 J2550 PHENERGAN INJECTION UP TO 50 MG 04/01/2013 28906 UA LONG DIP 06/16/[address] ABDOMEN & PELVIS W/O CONTRAST 06/28/2013 36544 UA LONG DIP 06/28/2013 09588 URINE MICROSCOPIC EXAM 06/28/2013 09424 CULTURE URINE 06/29/2013 43868 UA LONG DIP 10/26/2013 13595 A1C (IN-HOUSE) 10/26/2013 36834 UA LONG DIP 11/09/2013 00262 A1C (IN-HOUSE) 03/15/2014 35249 UA LONG DIP 07/09/2014 50269 UA LONG DIP 07/20/2014 54.91 PERCUTANEOUS ABDOMINAL DRAINAGE 11/07/2014 Results Test Result Range [id number] - 05/30/17 11:01 Serum or plasma urea nitrogen measurement (mass/volume) 24 mg/dL 7-18 Serum or plasma creatinine measurement (mass/volume) 1.38 mg/dL 0.60-1.30 Serum or plasma urea nitrogen/creatinine mass ratio 17 NRG Serum or plasma creatinine measurement with calculation of estimated glomerular filtration rate 52 NRG Complete blood count (CBC) with automated white blood cell (WBC) differential - 06/09/17 10:30 Blood leukocytes automated count (number/volume) 4.1 10*3/uL 4.3-11.0 Blood erythrocytes automated count (number/volume) 4.00 10*6/uL 4.35-5.85 Venous blood hemoglobin measurement (mass/volume) 11.2 g/dL 13.3-17.7 Blood hematocrit (volume fraction) 34 % 40-54 Automated erythrocyte mean corpuscular volume 85 [foz_us] 80-99 Automated erythrocyte mean corpuscular hemoglobin (mass per erythrocyte) 28 pg 25-34 Automated erythrocyte mean corpuscular hemoglobin concentration measurement ( mass/volume) 33 g/dL 32-36 Automated erythrocyte distribution width ratio 14.2 % 10.0-14.5 Automated blood platelet count (count/volume) 198 10*3/uL 130-400 Automated blood platelet mean volume measurement 10.5 [foz_us] 7.4-10.4 Automated blood neutrophils/100 leukocytes 63 % 42-75 Automated blood lymphocytes/100 leukocytes 26 % 12-44 Blood monocytes/100 leukocytes 7 % 0-12 Automated blood eosinophils/100 leukocytes 3 % 0-10 Automated blood basophils/100 leukocytes 0 % 0-10 Blood neutrophils automated count (number/volume) 2.6 10*3 1.8-7.8 Blood lymphocytes automated count (number/volume) 1.1 10*3 1.0-4.0 Blood monocytes automated count (number/volume) 0.3 10*3 0.0-1.0 Automated eosinophil count 0.1 10*3/uL 0.0-0.3 Automated blood basophil count (count/volume) 0.0 10*3/uL 0.0-0.1 Whole blood basic metabolic panel - 06/09/17 10:30 Serum or plasma sodium measurement (moles/volume) 136 mmol/L 135-145 Serum or plasma potassium measurement (moles/volume) 5.2 mmol/L 3.6-5.0 Serum or plasma chloride measurement (moles/volume) 104 mmol/L 98-107 Carbon dioxide 20 mmol/L 21-32 Serum or plasma anion gap determination (moles/volume) 12 mmol/L 5-14 Serum or plasma urea nitrogen measurement (mass/volume) 24 mg/dL 7-18 Serum or plasma creatinine measurement (mass/volume) 1.34 mg/dL 0.60-1.30 Serum or plasma urea nitrogen/creatinine mass ratio 18 NRG Serum or plasma creatinine measurement with calculation of estimated glomerular filtration rate 54 NRG Serum or plasma glucose measurement (mass/volume) 333 mg/dL 70-105 Serum or plasma calcium measurement (mass/volume) 8.8 mg/dL 8.5-10.1 Methicillin resistant Staphylococcus aureus (MRSA) screening culture - 10:30 Methicillin resistant Staphylococcus aureus (MRSA) screening culture NEG NRG Capillary blood glucose measurement by glucometer (mass/volume) - 06/16/17 06: 21 Capillary blood glucose measurement by glucometer (mass/volume) 147 mg/dL 70-110 [id number] - 07/25/17 13:51 Serum or plasma urea nitrogen measurement (mass/volume) 29 mg/dL 7-18 Serum or plasma creatinine measurement (mass/volume) 1.31 mg/dL 0.60-1.30 Serum or plasma urea nitrogen/creatinine mass ratio 22 NRG Serum or plasma creatinine measurement with calculation of estimated glomerular filtration rate 55 NRG Encounters ACCT No. Visit Date/Time Discharge Status Pt. Type Provider Facility Loc./Unit Complaint [id number] 07/13/2014 16:43:00 07/13/2014 23:59:59 CLS Outpatient ANABEL MCDANIEL DO [id number] 07/09/2014 10:18:00 07/09/2014 23:59:59 CLS Outpatient ANABEL MCDANIEL DO [id number] 07/09/2014 10:18:00 07/09/2014 23:59:59 CLS Outpatient MÓNICA HAWTHORNE APRN [id number] 04/16/2014 08:47:00 04/16/2014 23:59:59 CLS Outpatient ANABEL MCDANIEL DO [id number] 04/11/2014 15:40:00 04/11/2014 23:59:59 CLS Outpatient ANABEL MCDANIEL DO [id number] 03/15/2014 16:16:00 03/15/2014 23:59:59 CLS Outpatient ERIN MAYES APRN [id number] 03/15/2014 16:16:00 03/15/2014 23:59:59 CLS Outpatient ANABEL MCDANIEL DO [id number] 01/10/2014 13:28:00 01/10/2014 23:59:59 CLS Outpatient MCDANIEL DOANABEL [id number] 11/09/2013 13:55:00 11/09/2013 23:59:59 CLS Outpatient MCDANIEL DOANABEL [id number] 11/09/2013 13:55:00 11/09/2013 23:59:59 CLS Outpatient ERIN MAYES APRN [id number] 10/26/2013 14:16:00 10/26/2013 23:59:59 CLS Outpatient MCDANIEL DOANABEL [id number] 07/21/2013 15:54:00 07/21/2013 23:59:59 CLS Outpatient HELEN LOUISE MD [id number] 06/28/2013 11:01:00 06/28/2013 23:59:59 CLS Outpatient MCDANIEL DOANABEL [id number] 06/16/2013 16:17:00 06/16/2013 23:59:59 CLS Outpatient MCDANIEL DOANABEL [id number] 06/07/2013 09:21:00 06/07/2013 23:59:59 CLS Outpatient MCDANIEL DOANABEL [id number] 06/01/2013 14:08:00 06/01/2013 23:59:59 CLS Outpatient MCDANIEL DOANABEL [id number] 04/01/2013 10:06:00 04/01/2013 23:59:59 CLS Outpatient MCDANIEL DOANABEL [id number] 03/23/2013 16:23:00 03/23/2013 23:59:59 CLS Outpatient ANABEL MCDANIEL DO [id number] 12/25/2012 15:21:00 12/25/2012 23:59:59 CLS Outpatient ERIN MAYES APRN [id number] 12/16/2012 15:23:00 Document Registration [id number] 10/21/2012 14:01:00 Document Registration [id number] 12/22/2014 04:07:45 ACT Document Registration [id number] 10/13/2017 08:55:00 10/13/2017 23:59:59 CLS Outpatient GAEL MILLER APRN [facility] RAD SYNCOPE AND COLLAPSE, ENCOUNTER FOR GENERAL ADULT [id number] 10/07/2017 13:16:00 10/07/2017 23:59:59 CLS Preadmit GAEL MILLER APRN [facility] RAD CHEST PAIN ON BREATHING [id number] 07/25/2017 13:41:00 07/25/2017 23:59:59 CLS Outpatient ALLISON MACEDO DO [facility] RAD R10.31 RLQ ABDOMINAL PAIN [id number] 06/16/2017 06:00:00 06/16/2017 13:40:00 DIS Outpatient ALLISON MACEDO DO [facility] SDC PARASTOMAL HERNIA [id number] 06/09/2017 10:09:00 06/09/2017 10:35:00 DIS Outpatient ALLISON MACEDO DO [facility] PREOP PARASTOMAL HERNIA [id number] 05/30/2017 10:54:00 05/30/2017 23:59:59 CLS Outpatient ALLISON MACEDO DO [facility] RAD K43.9 HERNIA OF ABDOMINAL WALL [id number] 12/30/2016 11:24:00 12/30/2016 23:59:59 CLS Outpatient GAEL MILLER OUTDOOR FITNESS TRAINER [facility] RAD VENTRAL HERNIA W/O OBSTRUCTION OR GANGRENE K43.9 [id number] 06/21/2015 07:44:00 06/21/2015 11:45:00 DIS Emergency RODDY WRIGHT DO [facility] ER VOMITING/ABD CRAMPS LETHARGIC [id number] 12/21/2014 07:56:00 12/21/2014 11:00:00 DIS Outpatient LUIS DELACRUZ MD [facility] SDC DIVERTICULITIS [id number] 12/15/2014 06:59:00 12/15/2014 23:59:59 CLS Outpatient LUIS DELACRUZ MD [facility] PREOP DIVERTICULITIS [id number] 11/06/2014 11:18:00 11/08/2014 15:37:00 DIS Inpatient ANABEL MCDANIEL DO [facility] SURGICAL INTRAABDOMINAL ABSCESS [id number] 10/30/2014 21:54:00 10/31/2014 01:01:00 DIS Emergency JOSE MANUEL RUSS MD [facility] ER VOMITING [id number] 08/24/2014 11:09:00 08/27/2014 12:30:00 DIS Inpatient HELEN LOUISE MD [facility] 4TH ACUTE RENAL FAILURE PANCREATITIS HYPERKALEMIA [id number] 09/14/2013 13:08:00 09/14/2013 23:59:59 CLS Outpatient JOSE CARLOS ROYAL MD [facility] CARD PREOPERATIVE EXAMINATION,BLADDER CA [id number] 08/02/2013 11:40:00 08/02/2013 23:59:59 CLS Outpatient JESSEE ONEILL MD [facility] RAD PROSTATE CANCER [id number] 07/20/2013 06:49:00 07/20/2013 12:07:00 DIS [facility];HEMATURIA; CLOTS; POSSIBLE LEFT STONE [id number] 07/16/2013 08:22:00 07/16/2013 23:59:59 CLS Outpatient JESSEE ONEILL MD [facility] PREOP BLADDER TUMOR;HEMATURIA ;CLOTS;POSSIBLE LEFT STONE [id number] 07/03/2013 01:13:00 07/04/2013 12:15:00 DIS Inpatient HELEN LOUISE MD [facility] 4TH UTI;HEMATURIA;BLADDER OUTLET OBSTRUCTION;URINARY R [id number] 07/02/2013 16:15:00 07/02/2013 18:25:00 DIS Emergency MALCOLM ZHU MD [facility] ER UNABLE TO URINATE; BLOOD IN URINE [id number] 06/30/2013 10:42:00 06/30/2013 23:59:59 CLS Outpatient ERIN MAYES [facility] RAD HEMATURIA [id number] 11/26/2017 14:20:00 PEN Preadmit ALLISON MACEDO DO [facility] ENDO SCREENING
[2017-11-26] MEDS ORDERED: LACTATED RINGERS 1,000 ML IV ONE (12:18)
[2017-11-26] MEDS ORDERED: LACTATED RINGERS 1,000 ML IV STA (12:22)
[2017-11-26 12:27] VITALS: BP 133/100
--- NOTE | 2017-11-26 12:55 | Progress Note-Pre Operative ---
Pre-Operative Progress Note H&P Reviewed The H&P was reviewed, patient examined and no changes noted. Time Seen by Provider: 12:46 Date H&P Reviewed: Nov 26, 2017 Time H&P Reviewed: 12:47 Pre-Operative Diagnosis: screening colonoscopy ALLISON MACEDO DO Nov 26, 2017 12:55
[2017-11-26] MEDS ORDERED: PROPOFOL INJECTION 50 ML IV ONE (14:04)
[2017-11-26] MEDS ORDERED: proPOfol 200 MG/20 ML (DIPRIVAN) VIAL IV ONE (14:47)
--- NOTE | 2017-11-26 15:02 | Anesthesia-General Post-Op ---
MAC Patient Condition Mental Status/LOC: Same as Preop Cardiovascular: Satisfactory Nausea/Vomiting: Absent Respiratory: Satisfactory Pain: Controlled Complications: Absent Post Op Complications Complications None Follow Up Care/Instructions Patient Instructions None needed. Anesthesiology Discharge Order Discharge Order Patient is doing well, no complaints, stable vital signs, no apparent adverse anesthesia problems. No complications reported per nursing. LINDY CREWS CRNA Nov 26, 2017 15:02
[2017-11-26 15:15] VITALS: BP 88/54
--- NOTE | 2017-11-26 15:26 | Progress Note-Post Operative ---
Post-Operative Progess Note Surgeon (s)/Cardiac Rehabilitation Program Director (s) Surgeon ALLISON MACEDO DO Cardiac Rehabilitation Program Director: Alejandro Pruett MSIII Pre-Operative Diagnosis screening colonoscopy Post-Operative Diagnosis Poor prep Int hemorrhoid Procedure & Operative Findings Date of Procedure 11/26/17 Procedure Performed/Findings colonoscopy Anesthesia Type IV sedation by MOTOR COACH CHAUFFEUR Estimated Blood Loss Estimated blood loss (mL): none Specimens/Packing Specimens Removed none ALLISON MACEDO DO Nov 26, 2017 15:26
--- NOTE | 2017-11-26 15:28 | Endoscopy Discharge Instruct ---
Endo Procedure/Findings Findings 1.: Internal Hemorrhoids Discharge Instructions - Activity: You might feel a little sleepy until tomorrow. This is due to the medicine you received to relax you. Until tomorrow, you should: NOT drive a car, operate machinery or power tools. NOT drink any alcoholic beverages. NOT make any important decisions or sign importortant papers. Do not return to work until tomorrow, unless otherwise instructed. Resume previous activities tomorrow. Diet: Start by taking liquids. If you tolerate liquids, advance to solid food. make an appointment for one week Notify Physician - If you experience excessive bleeding, unusual abdominal pain, fever, or chest pain, contact your doctor immediately. Follow-Up: - I have received and understand the above instructions and will call my doctor if I have any further questions. Patient Signature Date Nurse Signature Other (Relationship) ALLISON MACEDO DO Nov 26, 2017 15:28
[2017-11-26 15:55] VITALS: BP 112/76
[2017-11-26 16:03] VITALS: BP 112/76
--- NOTE | 2017-11-27 08:57 | OPERATIVE REPORT ---
DATE OF SERVICE: 11/26/2017 PREOPERATIVE DIAGNOSIS: Screening colonoscopy. POSTOPERATIVE DIAGNOSES: Internal hemorrhoids, poor prep, melanosis coli. PROCEDURE: Colonoscopy. SURGEON: Joe White DO. SUSTAINABLE SYSTEMS ANALYST: julia Nye student level 3. ANESTHESIA: IV sedation by the COOK BOX FILLER. SPECIMENS: None. BLOOD LOSS: None. FLUIDS: Per anesthesia. POSTOPERATIVE CONDITION: Stable. INDICATION FOR PROCEDURE: The patient is a 62-year-old male who never had a colonoscopy and needs one for screening. FINDINGS: The patient unfortunately had a little bit of a poor prep, a lot of stool covering the bowers, also may have had some melanosis coli and he had some internal hemorrhoids, but no obvious large polyp seen. PROCEDURE NOTE: After informed consent was obtained, the patient was brought to the endoscopy suite and placed in the left lateral decubitus position. He was administered IV sedation by the COOK BOX FILLER who then monitored his vitals the entire time, heart rate, blood pressure and pulse ox and the scope was inserted, pushed all the way about 150 cm. Unfortunately, on the way we noted a lot of retained liquid fecal material as well, it was covering the bowers. Pushed in, got to the cecum, took a picture of appendiceal orifice, noted the ileocecal valve and then slowly withdrew the scope insufflating to look circumferentially at the bowers. Also while doing this, I was trying to flush off the bowers with water. I was able to get some of it off, but not all of it, pulled back from the cecum insufflating, look circumferentially at the bowers from the cecum up the ascending colon to hepatic flexure, then down to the transverse colon, splenic flexure, into the descending colon down into the sigmoid and finally into the rectum. All throughout here, the bowers were covered with orangish liquid stool. I was able to get some of this off, but not all of it, could not completely clear the colon. This was a poor prep. Retroflexed in the rectal vault, saw some internal hemorrhoids, took a picture of this and then removed the scope. The patient tolerated the procedure and he was recovered in the endoscopy suite. Job ID: [id number] DocumentID: [id number] Dictated Date: 11/26/2017 15:46:27 Central Melt Specialist Date: 11/27/2017 01:43:01 Dictated By: JOE WHITE DO
== END 2017-11-26 16:05 | disposition home or self-care (01) ==
LOC: ENDO 12:09
PROVIDERS: ATTEND Surgery
DX: Z12.11 Encounter for screening for malignant neoplasm of colon (principal); K64.8 Other hemorrhoids; K63.89 Other specified diseases of intestine; I10 Essential (primary) hypertension; E78.5 Hyperlipidemia, unspecified; E11.42 Type 2 diabetes mellitus with diabetic polyneuropathy; M06.9 Rheumatoid arthritis, unspecified; F32.9 Major depressive disorder, single episode, unspecified; F41.9 Anxiety disorder, unspecified; Z79.84 Long term (current) use of oral hypoglycemic drugs; Z79.899 Other long term (current) drug therapy; Z96.611 Presence of right artificial shoulder joint
CPT/HCPCS: 82962

== ENCOUNTER → 2017-11-27 | Outpatient (CLI) | payer MEDICARE ==
--- NOTE | 2017-11-27 15:40 | Diagnostic Imaging Report ---
EXAMINATION: Left knee radiographs, 3 views. Right knee radiographs, 3 views. COMPARISON: None. HISTORY: 62-year-old male, bilateral knee pain. FINDINGS: There is moderate right medial and patellofemoral compartment joint space loss. There is no large right or left knee joint effusion. The joint spaces of the left knee are well preserved. There is no identified acute fracture. Bone mineralization appears within normal limits. IMPRESSION: 1. Moderate medial and patellofemoral compartment osteoarthritis of the right knee. No knee joint effusion. 2. Unremarkable radiographs of the left knee. Dictated by: Dictated on workstation # [id number]
== END ==
LOC: RAD 11:48
PROVIDERS: ATTEND Nurse Practitioner Family
DX: M17.11 Unilateral primary osteoarthritis, right knee (principal); M25.562 Pain in left knee

== ENCOUNTER → 2017-12-16 | Outpatient (CLI) | payer MEDICARE ==
[~2017-12-16] MED LIST changes: +METF-399 PO; -METF10002 PO
== END ==
LOC: CARD 11:47
PROVIDERS: ATTEND Internal Medicine Interventional Cardiology
DX: R00.2 Palpitations (principal); R07.9 Chest pain, unspecified; R06.02 Shortness of breath; E11.9 Type 2 diabetes mellitus without complications; E78.5 Hyperlipidemia, unspecified; I10 Essential (primary) hypertension; M79.604 Pain in right leg
CPT/HCPCS: 93225; 93226

== ENCOUNTER 2018-01-07 10:10 | Outpatient (RCR) | payer MEDICARE ==
[2018-01-01 09:11] VITALS: BP 141/87
[2018-01-01 09:17] VITALS: BP 147/86
--- NOTE | 2018-01-03 10:13 | Cardiology Stress Test Report ---
Stress Test Report Type of NM Stress Test: Test Type: LEXISCAN 0.4MG/5ML Date of Procedure/Referring: Date of Procedure: Jan 01, 2018 PCP Darline Balderrama MD Admitting Physician Damian Allen MD Indications: Shortness of breath, chest pain Baseline Heart Rate: 86 Baseline Blood Pressure: Blood Pressure Systolic: 147 Blood Pressure Diastolic: 86 Baseline EKG: Baseline EKG: sinus rhythm Summary & Conclusion: Summary: The patient was brought to the stress lab after informed consent was taken. Stress test was performed according to the Lexiscan protocol. 0.4 mg of IV Lexiscan was given. Low-grade exercise was performed. Baseline EKG showed sinus rhythm at 86 BPM. Initial blood pressure was 141/87 mmHg. Maximum heart rate was 94 bpm and blood pressure 162/90 mmHg. Patient did not have any chest pain, arrhythmias or ST segment changes during the stress test. 10.92 mCi of Myoview were given for rest imaging and 32.2 mCi of Myoview given for stress imaging. Transient ischemic dilatation score 0.98, EF 62 percent. Normal wall motion. Normal myocardial perfusion imaging during rest and stress. Conclusion: Pharmacological stress test was negative for ischemia. Normal LV function with no wall motion abnormalities. Normal myocardial perfusion imaging during rest and stress. Darline BALDERRAMA MD Jan 03, 2018 10:13
[~2018-01-07 10:10] MED LIST changes: +CATHETER FLUSH 10 ML SYR IV PRN; +REGADENOSON 0.4 MG/5 ML SYR (LEXISCAN) IV ONE
== END 2018-01-11 | disposition home or self-care (01) ==
LOC: CARD 10:10
PROVIDERS: ATTEND Internal Medicine Interventional Cardiology
DX: R07.9 Chest pain, unspecified (principal); R06.02 Shortness of breath; E13.9 Other specified diabetes mellitus without complications; E78.5 Hyperlipidemia, unspecified; I10 Essential (primary) hypertension; M79.604 Pain in right leg; R00.2 Palpitations
CPT/HCPCS: 93270; 93306

== ENCOUNTER 2018-01-26 14:00 | Outpatient (RCR) | payer MEDICARE, OTHER ==
[~2018-01-26 14:00] MED LIST changes: -CATHETER FLUSH 10 ML SYR IV PRN; -REGADENOSON 0.4 MG/5 ML SYR (LEXISCAN) IV ONE
== END 2018-04-13 | disposition home or self-care (01) ==
LOC: CARD 14:00
PROVIDERS: ATTEND Internal Medicine Interventional Cardiology
DX: R07.9 Chest pain, unspecified (principal); R06.02 Shortness of breath; E13.9 Other specified diabetes mellitus without complications; E78.5 Hyperlipidemia, unspecified; I10 Essential (primary) hypertension; M79.604 Pain in right leg; R00.2 Palpitations

== ENCOUNTER → 2018-03-23 | Outpatient (CLI) | payer MEDICARE, OTHER ==
--- NOTE | 2018-03-23 09:50 | Diagnostic Imaging Report ---
EXAMINATION: Magnetic resonance imaging of the right knee without intravenous contrast DATE: March 23, 2018. COMPARISON: Knee radiographs November 27, 2017. INDICATION: 62-year-old male, right knee pain. TECHNIQUE: Multiplanar, multisequence non contrast enhanced MR imaging was accomplished. FINDINGS: MENISCI: There is prominent volume loss of the free edge of the body of the medial meniscus. There is tearing of the free edge of the body and posterior horn of the medial meniscus with additional oblique tears of the anterior horn, body, and posterior horn of the medial meniscus. There is approximately 4 mm medial meniscal extrusion. There is a longitudinal horizontal type tear involving the antral horn, body, and posterior horn of the lateral meniscus. There is an additional oblique tear involving the free edge of the body of the lateral meniscus. This is perhaps best illustrated on coronal PD sequence image 11. LIGAMENTS AND TENDONS: The anterior and posterior cruciate ligaments are intact. The medial collateral ligament is intact. The iliotibial band, mid third lateral capsular ligament, fibular collateral ligament, biceps femoris tendon and conjoined tendon are intact. The quadriceps tendon and patella ligament are intact. JOINT: There is mild thinning and superficial irregularity of the cartilage of the medial patellar facet. There is minimal underlying degenerative related subchondral edema. There are broad areas of full-thickness cartilage loss of the weightbearing portions of the medial femoral condyle and medial tibial plateau. The lateral compartment cartilage appears grossly intact. There is a small knee joint effusion. There is no identified intra-articular body or prominent synovitis. BONE: There is degenerative related marrow edema in the medial femoral condyle. There is no acute fracture, bone contusion, or evidence of osteonecrosis. BURSAE AND SOFT TISSUES: There is minimal fluid in the popliteal fossa without sizable Snyder's cyst. IMPRESSION: 1. Extensive tear of the medial meniscus with 4 mm medial meniscal extrusion. Volume loss involving the free edge of the body of the medial meniscus. 2. Longitudinal horizontal type tear involving the anterior horn, body, and posterior horn of the lateral meniscus with additional oblique free edge tear involving the body of the lateral meniscus. 3. Intact anterior and posterior cruciate ligaments. Additional ligaments and tendons are intact. 4. Severe medial and very mild patellofemoral compartment osteoarthritis. Small knee joint effusion without intra-articular body or prominent synovitis. 5. No acute fracture, bone contusion, or evidence of osteonecrosis. Dictated by: Dictated on workstation # [id number]
== END ==
LOC: RAD 08:22
PROVIDERS: ATTEND Nurse Practitioner Family
DX: S83.241A Other tear of medial meniscus, current injury, right knee, initial encounter (principal); M17.11 Unilateral primary osteoarthritis, right knee
CPT/HCPCS: 73721

== ENCOUNTER → 2018-04-16 | Outpatient (CLI) | payer MEDICARE, OTHER ==
[2018-04-16 09:15] LABS: BASOPHILS % (AUTO) 0 % (0-10); EOSINOPHILS # (AUTO) 0.1 10^3/uL (0.0-0.3); EOSINOPHILS % (AUTO) 2 % (0-10); HEMATOCRIT 38 % (40-54); HEMOGLOBIN 12.2 G/DL (13.3-17.7); LYMPHOCYTES # (AUTO) 1.5 X 10^3 (1.0-4.0); LYMPHOCYTES % (AUTO) 19 % (12-44); MEAN CORPUSCULAR HEMOGLOBIN 28 PG (25-34); MEAN CORPUSCULAR HGB CONC 33 G/DL (32-36); MEAN CORPUSCULAR VOLUME 86 FL (80-99); MONOCYTES # (AUTO) 0.4 X 10^3 (0.0-1.0); MONOCYTES % (AUTO) 6 % (0-12); NEUTROPHILS # (AUTO) 5.5 X 10^3 (1.8-7.8); NEUTROPHILS % (AUTO) 73 % (42-75); PLATELET COUNT 310 10^3/uL (130-400); RED BLOOD COUNT 4.37 10^6/uL (4.35-5.85); RED CELL DISTRIBUTION WIDTH 14.4 % (10.0-14.5); WHITE BLOOD COUNT 7.5 10^3/uL (4.3-11.0)
[2018-04-16 09:40] LABS: ALANINE AMINOTRANSFERASE 36 U/L (0-55); ALBUMIN 4.8 GM/DL (3.2-4.5); ALKALINE PHOSPHATASE 60 U/L (40-136); BILIRUBIN,TOTAL 0.7 MG/DL (0.1-1.0); BUN/CREATININE RATIO 17; CALCIUM 10.1 MG/DL (8.5-10.1); CARBON DIOXIDE 21 MMOL/L (21-32); CHLORIDE 103 MMOL/L (98-107); CHOLESTEROL 158 MG/DL (< 200); CREATININE SERUM 1.33 MG/DL (0.60-1.30); GFR ESTIMATED 54; GLUCOSE 242 MG/DL (70-105); HDL CHOLESTEROL 30 MG/DL (40-60); SODIUM 138 MMOL/L (135-145); TOTAL PROTEIN 7.7 GM/DL (6.4-8.2); TRIGLYCERIDES 398 MG/DL (<150); VLDL CHOLESTEROL 80 MG/DL (5-40)
--- NOTE | 2018-04-16 09:59 | Diagnostic Imaging Report ---
INDICATION: Preop screening and cough. Comparison is made with prior examination from 12/11/17. PA and lateral views were obtained. FINDINGS: The heart size, mediastinal configuration, and pulmonary vascularity are within normal limits. There is no pleural effusion, pneumothorax, or pneumonia. The osseous structures are unremarkable. IMPRESSION: No acute cardiopulmonary abnormality. Dictated by: Dictated on workstation # [id number]
== END ==
LOC: RAD 08:39
PROVIDERS: ATTEND Nurse Practitioner Family
DX: Z01.818 Encounter for other preprocedural examination (principal); R05 Cough; E55.9 Vitamin D deficiency, unspecified; E11.65 Type 2 diabetes mellitus with hyperglycemia; E78.5 Hyperlipidemia, unspecified
CPT/HCPCS: 36415; 71046; 80053; 80061; 82306; 83036; 84443; 85025

== ENCOUNTER 2018-05-20 09:53 | Outpatient (CLI) | payer MEDICARE ==
[~2018-05-20] VITALS: Ht 165.1 cm; Wt 76.2 kg
[2018-05-20 10:08] VITALS: BP 135/71
[2018-05-20 10:54] LABS: BILIRUBIN,URINE NEGATIVE (NEGATIVE); CLARITY,URINE SLIGHTLY CLOUDY; COLOR,URINE YELLOW; GLUCOSE, URINE (UA) NEGATIVE (NEGATIVE); KETONES,URINE 2+ (NEGATIVE); LEUKOCYTE ESTERASE ,URINE 3+ (NEGATIVE); NITRITE,URINE POSITIVE (NEGATIVE); PH,URINE 7 (5-9); PROTEIN,URINE 3+ (NEGATIVE); UROBILINOGEN,URINE NORMAL (NORMAL)
[2018-05-20 10:55] LABS: BASOPHILS % (AUTO) 0 % (0-10); EOSINOPHILS # (AUTO) 0.1 10^3/uL (0.0-0.3); EOSINOPHILS % (AUTO) 1 % (0-10); HEMATOCRIT 35 % (40-54); HEMOGLOBIN 11.2 G/DL (13.3-17.7); LYMPHOCYTES # (AUTO) 1.1 X 10^3 (1.0-4.0); LYMPHOCYTES % (AUTO) 13 % (12-44); MEAN CORPUSCULAR HEMOGLOBIN 28 PG (25-34); MEAN CORPUSCULAR HGB CONC 32 G/DL (32-36); MEAN CORPUSCULAR VOLUME 87 FL (80-99); MONOCYTES # (AUTO) 0.9 X 10^3 (0.0-1.0); MONOCYTES % (AUTO) 11 % (0-12); NEUTROPHILS # (AUTO) 6.4 X 10^3 (1.8-7.8); NEUTROPHILS % (AUTO) 76 % (42-75); PLATELET COUNT 238 10^3/uL (130-400); WHITE BLOOD COUNT 8.4 10^3/uL (4.3-11.0)
[2018-05-20 11:06] LABS: INR 1.1 (0.8-1.4)
[2018-05-20 11:14] LABS: ALBUMIN 4.5 GM/DL (3.2-4.5); BILIRUBIN,TOTAL 1.3 MG/DL (0.1-1.0); CALCIUM 9.7 MG/DL (8.5-10.1); CREATININE SERUM 1.48 MG/DL (0.60-1.30); POTASSIUM 4.9 MMOL/L (3.6-5.0); TOTAL PROTEIN 7.4 GM/DL (6.4-8.2)
[2018-05-20 11:14] LABS: BACTERIA,URINE MODERATE /HPF; WBC,URINE TNTC /HPF
[2018-05-20 11:33] LABS: ERYTHROCYTE SEDIMENTATION RATE 45 MM/HR (0-30)
[2018-05-20] MEDS ORDERED: ALLO100T PO (16:15)
[2018-05-20] MEDS ORDERED: LACT460C PO (16:15)
== END 2018-05-20 10:45 | disposition home or self-care (01) ==
LOC: PREOP 09:53
PROVIDERS: ATTEND Orthopaedic Surgery
DX: Z01.812 Encounter for preprocedural laboratory examination (principal); Z11.2 Encounter for screening for other bacterial diseases; M17.11 Unilateral primary osteoarthritis, right knee; R53.83 Other fatigue; R82.90 Unspecified abnormal findings in urine
CPT/HCPCS: 36415; 80053; 81000; 85025; 85610; 85652; 86850; 86900; 86901; 87081; 87088

== ENCOUNTER 2018-05-27 07:54 | Inpatient (IN) | payer MEDICARE ==
--- NOTE | 2018-05-18 10:16 | HISTORY AND PHYSICAL ---
DATE OF SERVICE: DATE OF ADMISSION: 05/27/2018. This will be for inpatient admission on 05/27/2018 for right total knee arthroplasty. The patient will require regular inpatient admission due to pain management, physical therapy, and gait abnormalities. HISTORY OF PRESENT ILLNESS: The patient is a 62-year-old gentleman with progressive worsening right knee pain. He reports a 4-year history of pain. He has undergone treatment with injections as well as activity modifications without relief. He reports functional impairment in the knee and because of this, he elected to proceed with surgical intervention. REVIEW OF SYSTEMS: No chest pain, no shortness of breath, no dysuria. PAST MEDICAL HISTORY: Diabetes and bladder cancer. PAST SURGICAL HISTORY: Prostatectomy, bladder removal, kidney stone, right total shoulder arthroplasty. FAMILY HISTORY: Significant for diabetes, prostate cancer. PRIMARY CARE PHYSICIAN: Dr. Gill in [place]. ALLERGIES: No known drug allergies. SOCIAL HISTORY: The patient drinks alcohol occasionally. Denies tobacco use. RADIOGRAPHS; Reveal complete loss of medial and patellofemoral joint space. PHYSICAL EXAMINATION: The patient ambulates with an antalgic gait. GENERAL: He is in no acute distress. HEENT: Normocephalic, atraumatic. Pupils equal, round, react to light. Oropharynx is clear. NECK: Supple, no lymphadenopathy. LUNGS: Clear to auscultation bilaterally. HEART: Regular rate and rhythm. ABDOMEN: Soft, nontender, nondistended. EXTREMITIES: The right knee demonstrates slight effusion. He is markedly tender along his medial joint line and has pain medially with Babak. There is patellofemoral crepitus and pain with patellar loading. Range of motion is 0/0/120. There is no varus valgus laxity. Negative anterior and posterior drawer. Ambulates with an antalgic gait. IMPRESSION: Severe right knee osteoarthritis, unresponsive to conservative measures. PLAN: Right total knee arthroplasty. The risks, benefits, options, ramifications and recovery were discussed at length with the patient. He understands and wishes to proceed. Job ID: [id number] DocumentID: [id number] Dictated Date: 05/18/2018 09:58:29 First Leveler Date: 05/18/2018 10:15:40 Dictated By: ERIN OLIVIA MD
--- NOTE | 2018-05-20 16:15 | NUR ---
HAD A MEDICATION LIST FAXED OVER FROM [facility] TO COMPARE WITH WHAT WAS ENTERED BY PREOP NURSE. I CALLED THE PATIENT TO VERIFY A FEW MEDICATIONS THAT WERE FILLED RECENTLY THAT WERE NOT ON THE LIST. HE VERIFIED HE IS TAKING ALLOPURINOL AND FLORAJEN. HIS BUSPIRONE WAS WRITTEN TO TAKE 2 BID HOWEVER HE DID NOT REALIZE THAT UNTIL I ASKED HIM ABOUT IT, HE HAS ONLY BEEN TAKING 1 TAB BID. HE STATES HE DOES NOT TAKE ANYTHING OTC. [facility] FILLED: 05-20-18 BUSPIRONE 15MG 2 BID #120 (ONLY TAKES 1 BID) 05-19-18 LISINOPRIL 5MG DAILY #90 05-19-18 GLIPIZIDE 10MG DAILY #90 05-11-18 CITALOPRAM 40MG DAILY #90 05-04-18 HYDROCODONE 10-325 1 Q4-6H PRN #150 05-04-18 ALLOPURINOL 100MG BID #180 05-04-18 ATORVASTATIN 20MG DAILY #90 05-04-18 FLORAJEN 3 1 DAILY #60 04-15-18 DICLOFENAC 50MG BID #180 04-15-18 ZYRTEC 10MG DAILY #90 03-25-18 METFORMIN 1000MG #225 1 AM 1.5 EVENING 03-11-18 GABAPENTIN 100MG TID #270 02-04-18 ALAWAY DROPS (NO LONGER TAKING) 02-04-18 AZELASTINE SPRAY (NO LONGER TAKING)
[~2018-05-27 07:54] MED LIST changes: +ALLO100T PO; +LACT460C PO
[2018-05-27 07:55] VITALS: BP 146/74
[2018-05-27] MEDS ORDERED: LACTATED RINGERS 1,000 ML IV PRN (08:02)
[2018-05-27] MEDS ORDERED: INTRA-ARTICULAR IU ONE ×4 (08:15)
[2018-05-27] MEDS ORDERED: CEFUROXIME INJECTION 1,500 MG in WATER (STERILE) FOR INJECTION 15 ML IV ONE (08:15)
--- NOTE | 2018-05-27 08:20 | NUR ---
FSBS 368 MG/DL. DR BUSTILLO TO ROOM TO INFORM PT THAT SURGERY WILL BE CANCELLED TODAY PER DR OLIVIA DUE TO CHRONICALLY ELEVATED BLOOD SUGAR R/T POST OP RECOVERY AND HEALING. INSTRUCTED PT TO CONTACT HIS PRIMARY CARE PHYSICIAN FOR DIABETIC FOLLOW UP. PT VERBALIZED UNDERSTANDING.
== END 2018-05-27 09:00 | disposition home or self-care (01) | DRG 554 ==
LOC: 4TH 07:54 → SURG 07:55
PROVIDERS: ADMIT Orthopaedic Surgery; ATTEND Orthopaedic Surgery
DX: M17.11 Unilateral primary osteoarthritis, right knee (principal); Z53.09 Procedure and treatment not carried out because of other contraindication; E11.9 Type 2 diabetes mellitus without complications; Z85.51 Personal history of malignant neoplasm of bladder; Z79.84 Long term (current) use of oral hypoglycemic drugs
CPT/HCPCS: 82962

== ENCOUNTER 2018-06-16 13:02 | Outpatient (RCR) | payer MEDICARE | END 2018-09-14 | disposition home or self-care (01) | LOC: DSME 13:02 | PROVIDERS: ATTEND Nurse Practitioner Family | DX: E11.65 Type 2 diabetes mellitus with hyperglycemia (principal) ==

== ENCOUNTER → 2018-08-18 | Outpatient (CLI) | payer MEDICARE ==
--- NOTE | 2018-08-18 09:32 | Diagnostic Imaging Report ---
PROCEDURE: MRI right joint lower extremity without contrast. TECHNIQUE: Multiplanar, multisequence non contrast-enhanced MRI of the right lower extremity was accomplished. INDICATION: Right ankle pain. COMPARISONS: None available. FINDINGS: Multiple sequences are mildly compromised due to patient motion artifact. TENDONS: Achilles tendon is normal. Peroneus longus and brevis tendons are normal in position and without tear. The posterior tibialis, flexor digitorum longus and flexor hallucis longus are normal. Anterior tibialis, extensor hallucis longus and extensor digitorum longus are normal. LIGAMENTS: Anterior and posterior distal tibiofibular ligaments are intact. The anterior talofibular, calcaneofibular and posterior talofibular joints are normal. Medial deltoid ligamentous complex is grossly intact allowing for fairly extensive motion artifact at this site. BONES AND CARTILAGE: Large subchondral cyst is present in the posterior and medial aspect of the tibial plafond. This dominant bilobed cystic focus measures approximately 1.9 x 1.7 x 1.3 cm. Overlying subchondral bone plate appears to remain intact without depression. No osteochondral lesion of the opposing talar dome. No bone marrow edema to indicate stress fracture. Patient motion limits evaluation of the articular cartilage, but there is likely areas of full-thickness articular cartilage loss in the medial tibial plafond. SOFT TISSUES: No evidence of plantar fasciitis. No abnormal soft tissue scar/fibrosis within the tarsal canal/sinus tarsi or tarsal tunnel. No ankle joint effusion. IMPRESSION: 1. 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 While patient motion does limit evaluation of the articular cartilages of this level, there is presumed full-thickness chondromalacia at this site. 2. No tendon tear. 3. No ligamentous injury. Dictated by: Dictated on workstation # [id number]
== END ==
LOC: RAD 07:40
PROVIDERS: ATTEND Nurse Practitioner Family
DX: M85.661 Other cyst of bone, right lower leg (principal); L03.115 Cellulitis of right lower limb; Z98.890 Other specified postprocedural states
CPT/HCPCS: 73721

== ENCOUNTER 2018-11-17 15:35 | Outpatient (CLI) | payer MEDICARE ==
[~2018-11-17] VITALS: Ht 165.1 cm; Wt 76.2 kg
== END 2018-11-17 15:50 | disposition home or self-care (01) ==
LOC: PREOP 15:35
PROVIDERS: ATTEND Surgery
DX: Z01.818 Encounter for other preprocedural examination (principal)

== ENCOUNTER 2018-11-23 06:51 | Day surgery (SDC) | payer MEDICARE ==
[~2018-11-23] VITALS: Ht 165.1 cm; Wt 76.2 kg
[2018-11-23] VITALS (7 sets, daily range): BP systolic 114–149; BP diastolic 66–90
[2018-11-23] MEDS ORDERED: LACTATED RINGERS 1,000 ML IV ONE (06:54)
--- OUTSIDE RECORDS SUMMARY | 2018-11-23 06:55 | XMS REPORT | Clinical Summary ---
Author Author [facility] Address Unknown Phone Unavailable Care Team Providers Care Warranty Clerk Name Role Phone John Zuleta NP PCP Efrain Garber MD Unavailable Unavailable Mildred Zhang RN Unavailable Unavailable Ben Bocanegra MD Unavailable Christina Rosado RN Unavailable Unavailable Leah Cano Unavailable Bib Still PA-C Unavailable Source Comments Some departments are not documenting in the electronic medical record. If you d o not see the information that you expected, contact Release of Information in located within [facility] Information Management department at [phone] for further assistan ce in locating additional records.[facility] Allergies No Known Allergies Medications End Date Status Medication Sig Dispensed Refills Start Date Active tamsulosin (FLOMAX) 0.4 Take 0.4 mg 0 mg capsule by mouth daily. Active lisinopril (PRINIVIL; Take 5 mg by 0 ZESTRIL) 5 mg tablet mouth daily. Active glipiZIDE (GLUCOTROL) 5 Take 2.5 mg 0 mg tablet by mouth twice daily with meals. Active citalopram (CELEXA) 20 mg Take 40 mg by 0 tablet mouth daily. Active potassium citrate(+) Take 10 mEq 0 (UROCIT-K) 10 mEq tablet by mouth daily. Active metformin-ER(+) Take 1,000 mg 0 (FORTAMET) 1,000 mg by mouth tablet twice daily. Active cyanocobalamin (vitamin Place 5,000 0 B-12) (VITAMIN B-12) mcg under 5,000 mcg subl tongue daily. Active fish oil /omega-3 fatty Take 1 Cap by 0 acids (SEA-OMEGA) mouth daily. 340/1000 mg capsule Active HYDROcodone/acetaminophen Take 1 Tab by 0 (+) (VICODIN 10/650) mouth every 6 10/650 mg tablet hours as needed. Active Nkkxaltxpmmoh-Doyufall-Ak Take 1 Tab by 0 tein (CENTRUM SILVER) tab mouth daily. Active polyethylene glycol 3350 Take 17 g by 3 Bottle 0 (GLYCOLAX; MIRALAX) 17 mouth daily. 4 gram/dose powder Active tadalafil (CIALIS) 20 mg 1/2 - 1 tab 10 Tab 11 tablet po prn 1 - 4 4 hrs prior to sexual activity Active Vacuum Erection Device Use as 1 Kit 0 System kitIndications: directed prn 5 Erectile dysfunction ED. Active Problems Problem Noted Date Erectile dysfunction 06/10/2014 Overview: 06/10/2014: [facility] ED. No improvement with Cialis. L ast Assessment & Plan: Plan: 1. Alprostadil injections prescribed today for ED 2. Teaching done in clinic. S/P ileal conduit 09/21/2013 Bladder cancer 07/20/2013 Overview: TURBT -- 07/20/2013; cT2, high [...] Relation Name Status Comments Father Social History Date Tobacco Use Types Packs/Day Years Used Never Smoker Smokeless Tobacco: Never Used Drinks/Week oz/Week Comments Alcohol Use 6 Cans of beer 3.6 6 per week Yes Sex Assigned at Date Recorded Not on file Industry Job Start Date Occupation Not on file Not on file Not on file Travel End Travel History Travel Start No recent travel history available. Last Filed Vital Signs Reading Time Taken Comments Vital Sign 158/92 06/16/2015 1:05 PM [employer] Blood Pressure 92 06/16/2015 1:05 PM [employer] Pulse 36.9 C (98.4 F) 09/25/2013 7:23 AM CDT Temperature - - Respiratory Rate 97% 09/25/2013 7:23 AM CDT Oxygen Saturation - - Inhaled Oxygen Concentration 81.6 kg (180 lb) 06/16/2015 1:05 PM [employer] Weight 162.6 cm (5' 4") 06/16/2015 1:05 PM [employer] Height 30.9 06/16/2015 1:05 PM [employer] Body Mass Index Plan of Treatment Health Maintenance Due Date Last Done Comments HEPATITIS C SCREENING 1955 PHYSICAL (COMPREHENSIVE) 07/07/1962 EXAM HIV SCREENING 07/07/1970 DTAP/TDAP VACCINES (1 - 07/07/1973 Tdap) COLORECTAL CANCER 07/07/2005 SCREENING SHINGLES RECOMBINANT 07/07/2005 VACCINE (1 of 2) INFLUENZA VACCINE 01/12/2019 Results Not on filefrom Last 3 Months Advance Directives Patient Medical Office Clerk Explanation Type Date Recorded Advance 09/21/2013 6:11 AM Directive/DPOA Date Inactivated Comments Code Status Date Activated 09/25/2013 2:43 PM Full Code 09/21/2013 2:13 PM Provider has discussed Code Status No, discussion not w/Patient or Family? necessary based on Dx
--- OUTSIDE RECORDS SUMMARY | 2018-11-23 06:56 | XMS REPORT ---
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 69234616 Problem 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 [id number] Problem Gout 274.9 Active 50915416 Problem Hyperkalemia 276.7 Active 15957369 Problem Arthropathy M12.9 Active 858950875 Problem Urinary tract infection, site not specified N39.0 Active 81472107 Problem Shoulder bursitis, right M75.51 Active 296898448 Problem Pain in right shoulder M25.511 Active 77115819 Problem Depressive disorder, not elsewhere classified F32.9 Active 32073794 Problem Arthrosis of shoulder region, 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 Active 28002572 Problem DM w/o complication type II E11.9 Active 91076987 Problem History of gout Z87.39 Active 690916001 Problem 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, 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 Active 96945267 Problem Flexural eczema L20.82 Active 93140187 Problem Non-seasonal allergic rhinitis due to other allergic trigger J30.89 Active 44063705 ALLERGIES No Information ENCOUNTERS Encounter Location Date Diagnosis [facility] [address] [id number] [place] [id number] Apr, Dental examination Z01.20 and Caries K02.9 [facility] [address] [id number] [place] [id number] Jul, [facility] [address] [facility] [id number][place] [id number] Sep, DM w/o complication type II E11.9 and Arthrosis of shoulder region, 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 [facility] [address] [address] August, [id number] [place] [address] [id number] August, [address] [place] [address] [id number] August, DM w/o complication type II E11.9 and Pain in right shoulder M25.511 [place] [id number] [place] [address] [id number] Jul, DM w/o complication type II E11.9 [address] [place] [address] [id number] Jun, Non-seasonal allergic rhinitis due to other allergic trigger J30.89 and Bronchitis J40 [address] [place] [address] [id number] Apr, Acute pharyngitis due to other specified organisms J02.8 ; 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, subsequent encounter T83.510D and Urinary tract infection, site not specified N39.0 [address] [place] [address] [id number] Apr, DM w/o complication type II E11.9 ; Bronchitis J40 and Flexural eczema L20.82 [address] [place] [address] [id number] Mar, Upper respiratory tract infection, unspecified type J06.9 and 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, 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 [address] [place] [address] [id number] Jan, DM w/o complication type II E11.9 ; History of gout Z87.39 and Arthropathy M12.9 [place] [id number] [place] [address] [id number] Jan, DM w/o complication type II E11.9 ; Hx of gout Z87.39 and Screening for prostate cancer Z12.5 [address] [place] [address] [id number] Dec, DM w/o complication type II E11.9 ; Depressive disorder, not elsewhere classified F32.9 and Hx of gout Z87.39 [facility] [place] [id number] [place] [address] [id number] Oct, Encounter for immunization Z23 [facility] [place] [id number] [place] [address] [id number] Oct, [facility] [place] [address] [place] [id number] [place] [address] [id number] August, DM w/o complication type II E11.9 [facility] [place] [address] [id number] [place] [address] [id number] August, DM w/o complication type II E11.9 ; Shoulder bursitis, right M75.51 and Urinary tract infection, site not specified N39.0 [facility] [place] [address] [id number] [place] [address] [id number] Jul, Urinary tract infection N39.0 [facility] [place] [address] [place] [address] [id number] [place] [address] [id number] Jun, Infection and inflammatory reaction due to indwelling urinary catheter, subsequent encounter T83.51XD [facility] [place] [id number] [place] [address] [id number] Jun, Infection and inflammatory reaction due to indwelling urinary catheter, subsequent encounter T83.51XD ; DM w/o complication type II E11.9 and Acute gout of foot, unspecified cause, unspecified laterality M10.9 [facility] [address] [place] [address] [id number] May, DM w/o complication type II E11.9 ; Depressive disorder, not elsewhere classified F32.9 and Acute upper respiratory infection, unspecified J06.9 [facility] [address] [facility] [facility] [address] [id number] [place] [id number] May, Dental caries, unspecified K02.9 [facility] [address] [id number] [place] [id number] Apr, Dental examination Z01.20 [facility] [place] [id number] [place] [address] [id number] Apr, DM w/o complication type II E11.9 ; Depressive disorder, not elsewhere classified F32.9 and Arthropathy M12.9 [address] [place] [address] [id number] Apr, Ankle pain, right M25.571 and Left elbow pain M25.522 [facility] [id number] [place] [address] [id number] Mar, Acute gout of right ankle, unspecified cause M10.[address] [place] [id number] [place] [id number] Feb, [address] [place] [address] [id number] Jan, Depressive disorder, not elsewhere classified F32.9 ; Encounter for immunization Z23 and DM w/o complication type II E11.9 [facility] [address] [address] Jan, [place] [id number] [place] [address] [id number] Nov, Hyperkalemia 276.7 ; Diabetes mellitus without mention of complication, type II or unspecified type, uncontrolled 250.02 and Gout 274.9 [facility] [address] [address] Nov, [place] [id number] [place] [address] [id number] Oct, Pelvic pain in male 789.09 and Hyperkalemia 276.7 [place] [id number] [place] [address] [id number] Oct, [place] [id number] [place] [address] [id number] Oct, [address] [id number] Oct, UTI (urinary tract infection) 599.0 and DM (diabetes mellitus) type II controlled, neurological manifestation 250.60 [place] [id number] [place] [address] [id number] Oct, Diabetes mellitus without mention of complication, type II or unspecified type, not stated as uncontrolled 250.00 [facility] [place] [address] [id number], [place] [id number] Sep, [facility] [place] [address] [id number], [place] [id number] Sep, [facility] [place] [address] [id number], [place] [id number] Sep, Diabetes mellitus without mention of complication, type II or unspecified type, not stated as uncontrolled 250.00 and Unspecified arthropathy, site unspecified 716.90 [facility] [address] [id number] [place] [id number] August, Dental examination V72.2 [facility] [place] [address] [id number], [place] [id number] August, [facility] [place] [address] [id number], [place] [id number] August, [facility] [place] [address] [id number], [place] [id number] August, Urinary tract infection, site not specified 599.0 and Abdominal pain 789.00 [facility] [place] [address] [id number], [place] [id number] August, [facility] [place] [address] [id number], [place] [id number] August, [facility] [address] [id number] [place] [id number] August, Dental examination V72.2 [facility] [place] [address] [id number], [place] [id number] August, [facility] [address] [id number] [place] [id number] August, Dental examination V72.[address] [facility] [address] [id number] [place] [address] Jul, Dental examination V72.2 [facility] [address] [id number] [place] [id number] Jul, Encounter for dental examination V72.2 [facility] [place] [address] [id number], [place] [id number] Jul, [facility] [place] [address] [facility] [id number][place] [id number] Jul, Urinary tract infection, site not specified 599.0 [facility] [place] [facility] [address] [facility] [id number][place] [address] Jul, [facility] [place] [facility] [address] [facility] [id number], [place] [address] Jul, [facility] [place] [facility] [address] [facility] [id number], [place] [address] Jun, [facility] [place] [facility] [address], [place] [address] Jun, [facility] [place] [address] [facility] [id number], [place] [address] Jun, [facility] [place] [address] [place] [address] [id number], [place] [id number] Jun, [facility] [place] [facility] [address], [place] [address] Jun, [facility] [place] [facility] [address], [place] [address] Jun, [facility] [place] [address] [place] [id number], [place] [address] Apr, [facility] [place] [address] [facility] [id number], [place] [address] Apr, [facility] [place] [facility] [address] [facility] [id number][place] [address] Apr, [facility] [place] [facility] [address] [facility] [id number], [place] [address] Apr, [facility] [place] [address] [facility] [id number], [place] [address] Apr, [facility] [place] [facility] [address], [place] [address] Apr, [facility] [place] [facility] [address], [place] [address] Apr, [facility] [place] [facility] [address] [id number], [place] [address] Apr, [facility] [place] [address] [facility] [id number], [place] [id number] Mar, [facility] [place] [facility] [address] [facility] [id number], [place] [address] Mar, [facility] [place] [address] [id number], [place] [address] Mar, [facility] [place] [facility] [address] [id number], [place] [address] Mar, [facility] [place] [address] [facility] [id number], [place] [address] Mar, [facility] [place] [facility] [address], [place] [address] Mar, [facility] [place] [address] [facility] [id number], [place] [address] Mar, [facility] [place] [facility] [address] [facility] [id number], [place] [address] Mar, [facility] [place] [address] [facility] [id number], [place] [id number] Mar, [facility] [place] [facility] [address] [place] [id number], [place] [address] Mar, [facility] [place] [address] [facility] [id number], [place] [address] Feb, [facility] [place] [facility] [address] [facility] [id number], [place] [address] Feb, [facility] [place] [address] [facility] [id number], [place] [address] Jan, [facility] [place] [facility] [address] [facility] [id number], [place] [address] Jan, [facility] [place] [address] [id number], [place] [address]93[address] Dec, [facility] [place] [facility] [address] [facility] [id number], [place] [address] Dec, [facility] [place] [address] [id number] [place] [id number] Nov, [facility] [place] [facility] [address] [facility] [id number] [place] [address] Nov, [facility] [place] [address] [facility] [id number] [place] [address] Nov, [facility] [place] [facility] [address] [id number] [place] [address] Nov, [facility] [place] [facility] [address] [facility] [id number] [place] [address] Nov, [facility] [place] [facility] [address] [facility] [id number] [place] [address] Nov, [facility] [place] [address] [facility] [id number] [place] [address] Oct, [facility] [place] [facility] [address] [facility] [id number], [place] [address] Oct, [facility] [place] [address] [facility] [id number] [place] [id number] Oct, [facility] [place] [facility] [address] [facility] [id number], [place] [address] Oct, [facility] [place] [address] [facility] [id number] [place] [id number] Sep, [facility] [place] [facility] [address] [facility] [id number], [place] [address] Sep, [facility] [place] [facility] [address] [facility] [id number] [place] [address] August, [facility] [place] [facility] [address] [facility] [id number] [place] [address] August, [facility] [place] [address] [facility] [id number] [place] [address] August, [facility] [place] [facility] [address] [facility] [id number] [place] [address] August, [facility] [place] [address] [id number] [place] [id number] Jul, [facility] [place] [facility] [address] [facility] [id number] [place] [address] Jul, [facility] [place] [address] [id number] [place] [id number] Jun, [facility] [place] [facility] [address] [facility] [id number] [place] [address] Jun, [facility] [place] [address] [id number] [place] [id number] Jun, [facility] [place] [facility] [address] [facility] [id number] [place] [address] Jun, [facility] [place] [facility] [address] [facility] [id number] [place] [address] Jun, [facility] [place] [address] [facility] [id number] [place] [id number] Jun, [facility] [place] [facility] [address] [facility] [id number], [place] [address] Jun, [facility] [place] [address] [facility] [id number], [place] 747331906 Jun, [facility] [place] [facility] [address] [facility] [id number], [place] [address] Jun, [facility] [place] [address] [id number], [place] [address]184246[address] Jun, [facility] [place] [facility] [address] [facility] [id number], [place] [address] Jun, [facility] [place] [address] [id number] [place] [address] Jun, [facility] [place] [facility] [address] [facility] [id number] [place] [address] Jun, [facility] [place] [address] [id number] [place] [address]98[address] May, [facility] [place] [facility] [address] [facility] [id number] [place] [address] May, [facility] [place] [address] [id number] [place] 1000[address]395 May, [facility] [address] [facility] [id number], [place] [address] May, [facility] [place] [address] [id number] [place] [id number] Apr, [facility] [address] [facility] [id number], [place] [address] Apr, [facility] [place] [address] [id number], [place] 764689[address] Mar, [facility] [address] [facility] [id number], [place] [address] Mar, [facility] [place] [address] [facility] [id number], [place] [address] Mar, [facility] [address], [place] [address] Mar, [facility] [place] [address] [facility] [id number], [place] 260[address] Mar, [facility] [address], [place] [address] Mar, [facility] [place] [address] [place] [id number], [place] 365[address]239 Feb, [facility] [address] [id number], [place] [address] Feb, [facility] [place] [address] [id number], [place] 444717576 Jan, [facility] [address] [facility] [id number], [place] [address] Jan, [facility] [place] [address] [id number], [place] 968738283 Jan, [facility] [place] [address] [id number] [place] 013976576 Dec, [facility] [place] [address] [id number], [place] 83[address] Dec, [facility] [address] [facility] [id number] [place] [id number] Nov, [address] [id number], [place] [id number] Nov, [facility] [address] [id number], [place] [address]38[address] Oct, [facility] [address], [place] [address] Oct, [place] [id number], [place] [address] Oct, [facility] [address], [place] [address] Oct, [address] [id number], [place] [address]88146392 Oct, IMMUNIZATIONS No Known Immunizations SOCIAL HISTORY Never Assessed REASON FOR VISIT PLAN OF CARE VITAL SIGNS MEDICATIONS Unknown [...] urostomy 08/2013 Surgical History Kidney stones 04/2012 Surgical History Right shoulder replaced 2018 Hospitalization History pancreatitis, acute renal failure 08/2014 Hospitalization History ER for dehydration and UTI when he went for his urostomy check 06/2015
--- OUTSIDE RECORDS SUMMARY | 2018-11-23 06:56 | XMS REPORT ---
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 96293202 Problem 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 291964738524602 Problem Gout 274.9 Active 42941043 Problem Hyperkalemia 276.7 Active 91597336 Problem Arthropathy M12.9 Active 622278220 Problem Urinary tract infection, site not specified N39.0 Active 56735851 Problem Shoulder bursitis, right M75.51 Active 221177802 Problem Pain in right shoulder M25.511 Active 26184765 Problem Depressive disorder, not elsewhere classified F32.9 Active 40668259 Problem Arthrosis of shoulder region, 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 [address] [id number] [place] [id number] Apr, Dental examination Z01.[address] 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 [facility] [address] [address] August, [facility] [id number] [place] [address] [id number] August, [facility] [id number] [place] [address] [id number] August, DM w/o complication type II E11.9 and Pain in right shoulder M25.511 [facility] [id number] [place] [address] [id number] Jul, DM w/o complication type II E11.9 [place] [id number] [place] [address] [id number] Jun, Non-seasonal allergic rhinitis due to other allergic trigger J30.89 and Bronchitis J40 [place] [id number] [place] [address] [id number] Apr, Acute pharyngitis due to other specified organisms J02.8 ; 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, subsequent encounter T83.510D and Urinary tract infection, site not specified N39.0 [address] [place] [address] [id number] Apr, DM w/o complication type II E11.9 ; Bronchitis J40 and Flexural eczema L20.[address] [place] [address] [id number] Mar, Upper respiratory tract infection, unspecified type J06.9 and 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, 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 [facility] [id number] [place] [address] [id number] Jan, DM w/o complication type II E11.9 ; History of gout Z87.39 and Arthropathy M12.9 [place] [id number] [place] [address] [id number] Jan, DM w/o complication type II E11.9 ; Hx of gout Z87.39 and Screening for prostate cancer Z12.5 [place] [id number] [place] [address] [id number] Dec, DM w/o complication type II E11.9 ; Depressive disorder, not elsewhere classified F32.9 and Hx of gout Z87.39 [facility] [id number] [place] [address] [id number] Oct, Encounter for immunization Z23 [facility] [id number] [place] [address] [id number] Oct, [facility] [id number] [place] [address] [id number] August, DM w/o complication type II E11.9 [facility] [id number] [place] [address] [id number] August, DM w/o complication type II E11.9 ; Shoulder bursitis, right M75.51 and Urinary tract infection, site not specified N39.0 [facility] [id number] [place] [address] [id number] Jul, Urinary tract infection N39.0 [facility] [address] [id number] Jun, Infection and inflammatory reaction due to indwelling urinary catheter, subsequent encounter T83.51XD [facility] [id number] [place] [address] [id number] Jun, Infection and inflammatory reaction due to indwelling urinary catheter, subsequent encounter T83.51XD ; DM w/o complication type II E11.9 and Acute gout of foot, unspecified cause, unspecified laterality M10.9 [facility] [id number] [place] [address] [id number] May, DM w/o complication type II E11.9 ; Depressive disorder, not elsewhere classified F32.9 and Acute upper respiratory infection, unspecified J06.9 [facility] [address] [id number] [id number] May, Dental caries, unspecified K02.9 [facility] [address] [id number], [place] [id number] Apr, Dental examination Z01.20 [facility] [id number] [place] [address] [id number] Apr, DM w/o complication type II E11.9 ; Depressive disorder, not elsewhere classified F32.9 and Arthropathy M12.9 [place] [id number] [place] [address] [id number] Apr, Ankle pain, right M25.571 and Left elbow pain M25.522 [place] [address] [place] [address] [id number] Mar, Acute gout of right ankle, unspecified cause M10.[address] [id number] [id number] Feb, [place] [id number] [place] [address] [id number] Jan, Depressive disorder, not elsewhere classified F32.9 ; Encounter for immunization Z23 and DM w/o complication type II E11.9 [facility] [address] [address] Jan, [place] [id number] [place] [address] [id number] Nov, Hyperkalemia 276.7 ; Diabetes mellitus without mention of complication, type II or unspecified type, uncontrolled 250.02 and Gout 274.9 [facility] [address] [address] Nov, [place] [id number] [place] [address] [id number] Oct, Pelvic pain in male 789.09 and Hyperkalemia 276.7 [place] [id number] [place] [address] [id number] Oct, [place] [address] [place] [address] [id number] Oct, [address] [id number] Oct, UTI (urinary tract infection) 599.0 and DM (diabetes mellitus) type II controlled, neurological manifestation 250.60 [place] [address] [place] [address] [id number] Oct, Diabetes mellitus without mention of complication, type II or unspecified type, not stated as uncontrolled 250.00 [facility] [address] [id number] [id number] Sep, [facility] [address] [id number][place] [id number] Sep, [facility] [address] [id number][place] [id number] Sep, Diabetes mellitus without mention of complication, type II or unspecified type, not stated as uncontrolled 250.00 and Unspecified arthropathy, site unspecified 716.90 [facility] [address] [id number], [place] [id number] August, Dental examination V72.2 [facility] [address] [id number], [place] [id number] August, [facility] [address] [id number], [place] [id number] August, [facility] [address] [id number], [place] [id number] August, Urinary tract infection, site not specified 599.0 and Abdominal pain 789.00 [facility] [address] [id number][place] [id number] August, [facility] [address] [id number], [place] [id number] August, [facility] [address] [id number], [place] [id number] August, Dental examination V72.2 [facility] [address] [id number], [place] [id number] August, [facility] [address] [id number], [place] [id number] August, Dental examination V72.[address] [facility] [address] [id number], [place] [id number] Jul, Dental examination V72.2 [facility] [address] [id number][place] [id number] Jul, Encounter for dental examination V72.2 [facility] [address] [id number], [place] [id number] Jul, [facility] [address] [facility] [id number], [place] [id number] Jul, Urinary tract infection, site not specified 599.0 [facility] [place] [facility] [address] [facility] [id number], [place] [address] Jul, [facility] [address] [facility] [id number], [place] [address] Jul, [facility] [place] [facility] [address] [facility] [id number], [place] [address] Jun, [facility] [place] [facility] [address] [facility] [id number], [place] [address] Jun, [facility] [address] [facility] [id number], [place] [id number] Jun, [facility] [address] [facility] [id number], [place] [id number] Jun, [facility] [place] [address] [facility] [id number], [place] [address] Jun, [facility] [address] [id number], [place] [address] Jun, [facility] [address] [facility] [id number], [place] [id number] Apr, [facility] [address] [facility] [id number], [place] [id number] Apr, [facility] [address] [facility] [id number], [place] [address] Apr, [facility] [address] [facility] [id number], [place] [address] Apr, [facility] [address] [facility] [id number], [place] [address]52[address] Apr, [facility] [place] [address] [id number], [place] [address] Apr, [facility] [place] [address], [place] [address] Apr, [facility] [address] [facility] [id number], [place] [address] Apr, [facility] [address] [facility] [id number], [place] [id number] Mar, [facility] [address] [facility] [id number], [place] [address] Mar, [facility] [address] [facility] [id number], [place] [id number] Mar, [facility] [place] [facility] [address] [facility] [id number] [place] [address] Mar, [facility] [address] [facility] [id number], [place] 825[address]38[address] Mar, [facility] [address] [id number], [place] [address] Mar, [facility] [address] [facility] [id number], [place] [id number] Mar, [facility] [address] [facility] [id number], [place] [address] Mar, [facility] [address] [facility] [id number], [place] 937[address]23[address] Mar, [facility] [address] [facility] [id number], [place] [address] Mar, [facility] [address] [facility] [id number], [place] [id number] Feb, [facility] [address] [facility] [id number], [place] [address] Feb, [facility] [address] [facility] [id number], [place] [address]38[address] Jan, [facility] [address] [facility] [id number], [place] [address] Jan, [facility] [address] [facility] [id number], [place] [id number] Dec, [facility] [address] [id number], [place] [address] Dec, [facility] [address] [id number], [place] [id number] Nov, [facility] [address] [facility] [id number], [place] [address] Nov, [facility] [address] [facility] [id number] [place] [id number] Nov, [facility] [place] [facility] [address] [facility] [id number] [place] [address] Nov, [facility] [place] [facility] [address] [facility] [id number] [place] [address] Nov, [facility] [place] [facility] [address] [facility] [id number], [place] [address] Nov, [facility] [address] [facility] [id number], [place] [id number] Oct, [facility] [place] [facility] [address] [facility] [id number], [place] [address] Oct, [facility] [address] [facility] [id number], [place] 678010881 Oct, [facility] [place] [facility] [address] [facility] [id number], [place] [address] Oct, [facility] [address] [facility] [id number], [place] 600119245 Sep, [facility] [facility] [address] [facility] [id number], [place] [address] Sep, [facility] [address] [facility] [id number], [place] [address] August, [facility] [facility] [address] [facility] [id number], [place] [address] August, [facility] [address] [id number], [place] [id number] August, [facility] [address] [facility] [id number][place] [address] August, [facility] [address] [id number] [place] [id number] Jul, [facility] [address] [facility] [id number][place] [address] Jul, [facility] [address] [id number], [place] 34[address]14815 Jun, [facility] [address] [facility] [id number], [place] [address] Jun, [facility] [address] [id number], [place] 638848577 Jun, [facility] [facility] [address] [facility] [id number], [place] [address] Jun, [facility] [facility] [address] [facility] [id number], [place] [address] Jun, [facility] [address] [facility] [id number], [place] 075918485 Jun, [facility] [facility] [address] [facility] [id number], [place] [address] Jun, [facility] [address] [facility] [id number], [place] 754590697 Jun, [facility] [facility] [address] [id number], [place] [address] Jun, [facility] [address] [id number], [place] 520190984 Jun, [facility] [place] [facility] [address] [facility] [id number], [place] [address] Jun, [facility] [address] [id number], [place] 788633138 Jun, [facility] [facility] [address] [facility] [id number], [place] [address] Jun, [facility] [address] [facility] [id number], [place] 827650309 May, [facility] [address] [facility] [id number], [place] [address] May, [facility] [address] [id number] [place] [id number] May, [facility] [address] [facility] [id number], [place] [address] May, [facility] [address] [id number] [place] [id number] Apr, [facility] [address] [facility] [id number], [place] [address] Apr, [facility] [address] [id number], [place] 445652744 Mar, [facility] [address] [facility] [id number], [place] [address] Mar, [facility] [address] [id number], [place] 9387[address]66 Mar, [facility] [address]65[address], [place] [address] Mar, [facility] [address] [facility] [id number], [place] 519365531 Mar, [facility] [address]65[address], [place] [address] Mar, [facility] [address] [facility] [id number], [place] 687849633 Feb, [facility] [address] [id number], [place] [address] Feb, [facility] [address] [id number], [place] [id number] Jan, [facility] [address] [facility] [id number], [place] [address] Jan, [facility] [address] [id number], [place] 306099930 Jan, [facility] [address] [id number], [place] 4326230[address] Dec, [facility] [address] [id number], [place] 437082816 Dec, [facility] [address] [facility] [id number] [place] [address] Nov, [facility] [address] [facility] [id number] [place] [address] Nov, [facility] [address] [facility] [id number], [place] 430735316 Oct, [facility] [address] [facility] [id number], [place] [address] Oct, [facility] [address] [facility] [id number], [place] 144382379 Oct, [facility] [address] [facility] [id number], [place] [address] Oct, [facility] [address] [facility] [id number], [place] [id number] Oct, IMMUNIZATIONS No Known Immunizations SOCIAL HISTORY Never Assessed REASON FOR VISIT PLAN OF CARE VITAL SIGNS Height 65 in 2014-07-09 Weight 174.12 lbs 2014-07-09 Temperature 97.2 degrees Fahrenheit 2014-07-09 Heart Rate 88 bpm 2014-07-09 Respiratory Rate 18 2014-07-09 Blood pressure systolic 102 mmHg 2014-07-09 Blood pressure diastolic 70 mmHg 2014-07-09 MEDICATIONS Unknown Medications RESULTS No Results PROCEDURES Procedure Date Ordered Result Body Site URINALYSIS, AUTO, W/O SCOPE July 09, 2014 INSTRUCTIONS MEDICATIONS ADMINISTERED No Known Medications MEDICAL [...]
--- OUTSIDE RECORDS SUMMARY | 2018-11-23 06:56 | XMS REPORT ---
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 92555667 Problem 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 [id number] Problem Gout 274.9 Active 01637201 Problem Hyperkalemia 276.7 Active 16311633 Problem Arthropathy M12.9 Active 270243860 Problem Urinary tract infection, site not specified N39.0 Active 56215905 Problem Shoulder bursitis, right M75.51 Active 612965971 Problem Pain in right shoulder M25.511 Active 54682681 Problem Depressive disorder, not elsewhere classified F32.9 Active 95613635 Problem Arthrosis of shoulder region, 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 [facility] [address], [place] [address] August, [address] [place] [address] [id number] August, [address] [place] [address] [id number] August, DM w/o complication type II E11.9 and Pain in right shoulder M25.511 [place] [id number] [place] [address] [id number] Jul, DM w/o complication type II E11.9 [address] [place] [address] [id number] Jun, Non-seasonal allergic rhinitis due to other allergic trigger J30.89 and Bronchitis J40 [address] [place] [address] [id number] Apr, Acute pharyngitis due to other specified organisms J02.8 ; 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, subsequent encounter T83.510D and Urinary tract infection, site not specified N39.[address] [place] [address] [id number] Apr, DM w/o complication type II E11.9 ; Bronchitis J40 and Flexural eczema L20.[address] [place] [address] [id number] Mar, Upper respiratory tract infection, unspecified type J06.9 and 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, 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 [address] [place] [address] [id number] Jan, DM w/o complication type II E11.9 ; History of gout Z87.39 and Arthropathy M12.9 [place] [id number] [place] [address] [id number] Jan, DM w/o complication type II E11.9 ; Hx of gout Z87.39 and Screening for prostate cancer Z12.[address] [place] [address] [id number] Dec, DM w/o complication type II E11.9 ; Depressive disorder, not elsewhere classified F32.9 and Hx of gout Z87.39 [facility] [place] [id number] [place] [address] [id number] Oct, Encounter for immunization Z23 [facility] [place] [id number] [place] [address] [id number] Oct, [facility] [place] [id number] [place] [address] [id number] August, DM w/o complication type II E11.9 [facility] [place] [id number] [place] [address] [id number] August, DM w/o complication type II E11.9 ; Shoulder bursitis, right M75.51 and Urinary tract infection, site not specified N39.0 [facility] [place] [id number] [place] [address] [id number] Jul, Urinary tract infection N39.0 [facility] [place] [id number] [place] [address] [id number] Jun, Infection and inflammatory reaction due to indwelling urinary catheter, subsequent encounter T83.51XD [facility] [place] [id number] [place] [address] [id number] Jun, Infection and inflammatory reaction due to indwelling urinary catheter, subsequent encounter T83.51XD ; DM w/o complication type II E11.9 and Acute gout of foot, unspecified cause, unspecified laterality M10.9 [facility] [address] [place] [address] [id number] May, DM w/o complication type II E11.9 ; Depressive disorder, not elsewhere classified F32.9 and Acute upper respiratory infection, unspecified J06.9 [facility] [facility] [address] [id number][place] [id number] May, Dental caries, unspecified K02.9 [facility] [address] [id number][place] [id number] Apr, Dental examination Z01.20 [facility] [place] [id number] [place] [address] [id number] Apr, DM w/o complication type II E11.9 ; Depressive disorder, not elsewhere classified F32.9 and Arthropathy M12.[address] [place] [address] [id number] Apr, Ankle pain, right M25.571 and Left elbow pain M25.522 [facility] [id number] [place] [address] [id number] Mar, Acute gout of right ankle, unspecified cause M10.[address] [id number][place] [id number] Feb, [address] [place] [address] [id number] Jan, Depressive disorder, not elsewhere classified F32.9 ; Encounter for immunization Z23 and DM w/o complication type II E11.9 [facility] [address] [address] Jan, [place] [id number] [place] [address] [id number] Nov, Hyperkalemia 276.7 ; Diabetes mellitus without mention of complication, type II or unspecified type, uncontrolled 250.02 and Gout 274.9 [facility] [address] [address] Nov, [place] [id number] [place] [address] [id number] Oct, Pelvic pain in male 789.09 and Hyperkalemia 276.7 [place] [id number] [place] [address] [id number] Oct, [place] [id number] [place] [address] [id number] Oct, [address] [id number] Oct, UTI (urinary tract infection) 599.0 and DM (diabetes mellitus) type II controlled, neurological manifestation 250.60 [place] [id number] [place] [address] [id number] Oct, Diabetes mellitus without mention of complication, type II or unspecified type, not stated as uncontrolled 250.00 [facility] [place] [address] [id number], [place] [id number] Sep, [facility] [place] [address] [id number], [place] [id number] Sep, [facility] [place] [address] [id number], [place] [id number] Sep, Diabetes mellitus without mention of complication, type II or unspecified type, not stated as uncontrolled 250.00 and Unspecified arthropathy, site unspecified 716.90 [facility] [address] [id number], [place] [id number] August, Dental examination V72.2 [facility] [place] [address] [id number], [place] [id number] August, [facility] [place] [address] [id number], [place] [id number] August, [facility] [place] [address] [id number], [place] [id number] August, Urinary tract infection, site not specified 599.0 and Abdominal pain 789.00 [facility] [place] [address] [id number], [place] [id number] August, [facility] [place] [address] [id number], [place] [id number] August, [facility] [address] [id number], [place] [id number] August, Dental examination V72.2 [facility] [place] [address] [id number], [place] [id number] August, [facility] [address] [id number], [place] [id number] August, Dental examination V72.[address] [facility] [address] [id number], [place] [id number] Jul, Dental examination V72.2 [facility] [address] [id number], [place] [id number] Jul, Encounter for dental examination V72.2 [facility] [place] [address] [id number], [place] [id number] Jul, [facility] [place] [address] [facility] [id number], [place] [id number] Jul, Urinary tract infection, site not specified 599.0 [facility] [place] [facility] [address] [facility] [id number], [place] [address] Jul, [facility] [place] [facility] [address] [facility] [id number], [place] [address] Jul, [facility] [place] [facility] [address] [facility] [id number], [place] [address] Jun, [facility] [place] [facility] [address], [place] [address] Jun, [facility] [place] [address] [facility] [id number], [place] [id number] Jun, [facility] [place] [address] [place] [address] [id number], [place] [id number] Jun, [facility] [place] [facility] [address]65[address], [place] [address] Jun, [facility] [place] [facility] [address], [place] [address] Jun, [facility] [place] [address] [place] [address] [id number], [place] [id number] Apr, [facility] [place] [address] [facility] [id number], [place] [id number] Apr, [facility] [place] [facility] [address] [facility] [id number], [place] [address] Apr, [facility] [place] [facility] [address] [facility] [id number], [place] [address] Apr, [facility] [place] [address] [facility] [id number], [place] [id number] Apr, [facility] [place] [facility] [address], [place] [address] Apr, [facility] [place] [facility] [address]65[address], [place] [address] Apr, [facility] [place] [facility] [address] [id number], [place] [address] Apr, [facility] [place] [address] [facility] [id number], [place] [id number] Mar, [facility] [place] [facility] [address] [facility] [id number], [place] [address] Mar, [facility] [place] [address] [id number], [place] [id number] Mar, [facility] [place] [facility] [address] [id number], [place] [address] Mar, [facility] [place] [address] [facility] [id number], [place] [id number] Mar, [facility] [place] [facility] [address]65[address], [place] [address] Mar, [facility] [place] [address] [facility] [id number], [place] [id number] Mar, [facility] [place] [facility] [address] [facility] [id number], [place] [address] Mar, [facility] [place] [address] [facility] [id number], [place] [id number] Mar, [facility] [place] [facility] [address] [place] [address] [id number], [place] [address] Mar, [facility] [place] [address] [facility] [id number], [place] 744408364 Feb, [facility] [place] [facility] [address] [facility] [id number], [place] [address] Feb, [facility] [place] [address] [facility] [id number], [place] [id number] Jan, [facility] [place] [facility] [address] [facility] [id number], [place] [address] Jan, [facility] [place] [address] [id number], [place] 21676[address] Dec, [facility] [place] [facility] [address] [facility] [id number], [place] [address] Dec, [facility] [place] [address] [id number] [place] [id number] Nov, [facility] [place] [facility] [address] [facility] [id number] [place] [address] Nov, [facility] [place] [address] [facility] [id number] [place] [id number] Nov, [facility] [place] [facility] [address] [id number] [place] [address] Nov, [facility] [place] [facility] [address] [facility] [id number] [place] [address] Nov, [facility] [place] [facility] [address] [facility] [id number] [place] [address] Nov, [facility] [place] [address] [facility] [id number] [place] [id number] Oct, [facility] [place] [facility] [address] [facility] [id number], [place] [address] Oct, [facility] [place] [address] [facility] [id number] [place] [id number] Oct, [facility] [place] [facility] [address] [facility] [id number], [place] [address] Oct, [facility] [place] [address] [facility] [id number] [place] [id number] Sep, [facility] [place] [facility] [address] [facility] [id number], [place] [address] Sep, [facility] [place] [facility] [address] [facility] [id number] [place] [address] August, [facility] [place] [facility] [address] [facility] [id number] [place] [address] August, [facility] [place] [address] [facility] [id number] [place] 943305260 August, [facility] [place] [facility] [address] [facility] [id number] [place] [address] August, [facility] [place] [address] [id number] [place] [id number] Jul, [facility] [place] [facility] [address] [facility] [id number] [place] [address] Jul, [facility] [place] [address] [id number] [place] [id number] Jun, [facility] [place] [facility] [address] [facility] [id number] [place] [address] Jun, [facility] [place] [address] [id number] [place] [id number] Jun, [facility] [place] [facility] [address] [facility] [id number] [place] [address] Jun, [facility] [place] [facility] [address] [facility] [id number] [place] [address] Jun, [facility] [place] [address] [facility] [id number] [place] 9426489[address] Jun, [facility] [place] [facility] [address] [facility] [id number], [place] [address] Jun, [facility] [place] [address] [facility] [id number], [place] 716571746 Jun, [facility] [place] [facility] [address] [facility] [id number], [place] [address] Jun, [facility] [place] [address] [id number], [place] 019987033 Jun, [facility] [place] [facility] [address] [facility] [id number], [place] [address] Jun, [facility] [place] [address] [id number] [place] 049860118 Jun, [facility] [place] [facility] [address] [facility] [id number] [place] [address] Jun, [facility] [place] [address] [id number] [place] [id number] May, [facility] [place] [facility] [address] [facility] [id number] [place] [address] May, [facility] [place] [address] [id number] [place] [id number] May, [facility] [address] [facility] [id number], [place] [address] May, [facility] [place] [address] [id number] [place] [id number] Apr, [facility] [address] [facility] [id number], [place] [address] Apr, [facility] [place] [address] [id number], [place] 501796266 Mar, [facility] [address] [facility] [id number], [place] [address] Mar, [facility] [place] [address] [facility] [id number], [place] 955680213 Mar, [facility] [address], [place] [address] Mar, [facility] [place] [address] [facility] [id number], [place] 039621477 Mar, [facility] [address], [place] [address] Mar, [facility] [place] [address] [place] [address] [id number], [place] 354631720 Feb, [facility] [address] [place] [id number], [place] [address] Feb, [facility] [place] [address] [id number], [place] 151167500 Jan, [facility] [address] [facility] [id number], [place] [address] Jan, [facility] [place] [address] [id number], [place] [id number] Jan, [facility] [place] [address] [id number] [place] 916[address]20[address] Dec, [facility] [place] [address] [id number], [place] 102[address]4220 Dec, [facility] [address] [facility] [id number] [place] [id number] Nov, [facility] [address] [facility] [id number] [place] [id number] Nov, [facility] [address] [facility] [id number] [place] [id number] Oct, [facility] [address] [facility] [id number], [place] [address] Oct, [facility] [address] [facility] [id number], [place] [id number] Oct, [facility] [address] [facility] [id number], [place] [address] Oct, [facility] [address] [facility] [id number] [place] [address] Oct, IMMUNIZATIONS No Known Immunizations SOCIAL HISTORY Never Assessed REASON FOR VISIT PLAN OF CARE VITAL SIGNS Height 65 in 2014-06-16 Weight 179.38 lbs 2014-06-16 Temperature 97.7 degrees Fahrenheit 2014-06-16 Heart Rate 92 bpm 2014-06-16 Respiratory Rate 16 2014-06-16 Blood pressure systolic 130 mmHg 2014-06-16 Blood pressure diastolic 70 mmHg 2014-06-16 MEDICATIONS Unknown Medications RESULTS No Results PROCEDURES Procedure Date Ordered Result Body Site GLYCATED HEMOGLOBIN TEST June 16, 2014 INSTRUCTIONS MEDICATIONS ADMINISTERED No Known Medications [...]
--- OUTSIDE RECORDS SUMMARY | 2018-11-23 06:57 | XMS REPORT ---
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 81974258 Problem 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 [id number] Problem Gout 274.9 Active 69534424 Problem Hyperkalemia 276.7 Active 37505425 Problem Arthropathy M12.9 Active 203714955 Problem Urinary tract infection, site not specified N39.0 Active 26218463 Problem Shoulder bursitis, right M75.51 Active 600404881 Problem Pain in right shoulder M25.511 Active 11390630 Problem Depressive disorder, not elsewhere classified F32.9 Active 72510780 Problem Arthrosis of shoulder region, 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 Active 06867709 Problem DM w/o complication type II E11.9 Active 10954255 Problem History of gout Z87.39 Active 787999133 Problem 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 [facility] [place] [address]005[address] [address] August, [address] [place] [address] [id number] August, [address] [place] [address] [id number] August, DM w/o complication type II E11.9 and Pain in right shoulder M25.511 [place] [id number] [place] [address] [id number] Jul, DM w/o complication type II E11.9 [address] [place] [address] [id number] Jun, Non-seasonal allergic rhinitis due to other allergic trigger J30.89 and Bronchitis J40 [address] [place] [address] [id number] Apr, Acute pharyngitis due to other specified organisms J02.8 ; 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, subsequent encounter T83.510D and Urinary tract infection, site not specified N39.0 [address] [place] [address] [id number] Apr, DM w/o complication type II E11.9 ; Bronchitis J40 and Flexural eczema L20.82 [address] [place] [address] [id number] Mar, Upper respiratory tract infection, unspecified type J06.9 and 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, 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 [address] [place] [address] [id number] Jan, DM w/o complication type II E11.9 ; History of gout Z87.39 and Arthropathy M12.9 [place] [id number] [place] [address] [id number] Jan, DM w/o complication type II E11.9 ; Hx of gout Z87.39 and Screening for prostate cancer Z12.5 [address] [place] [address] [id number] Dec, DM w/o complication type II E11.9 ; Depressive disorder, not elsewhere classified F32.9 and Hx of gout Z87.39 [facility] [place] [id number] [place] [address] [id number] Oct, Encounter for immunization Z23 [facility] [id number] [place] [address] [id number] Oct, [facility] [place] [id number] [place] [address] [id number] August, DM w/o complication type II E11.9 [facility] [place] [id number] [place] [address] [id number] August, DM w/o complication type II E11.9 ; Shoulder bursitis, right M75.51 and Urinary tract infection, site not specified N39.0 [facility] [place] [id number] [place] [address] [id number] Jul, Urinary tract infection N39.0 [facility] [place] [id number] [place] [address] [id number] Jun, Infection and inflammatory reaction due to indwelling urinary catheter, subsequent encounter T83.51XD [facility] [place] [id number] [place] [address] [id number] Jun, Infection and inflammatory reaction due to indwelling urinary catheter, subsequent encounter T83.51XD ; DM w/o complication type II E11.9 and Acute gout of foot, unspecified cause, unspecified laterality M10.9 [facility] [address] [place] [address] [id number] May, DM w/o complication type II E11.9 ; Depressive disorder, not elsewhere classified F32.9 and Acute upper respiratory infection, unspecified J06.9 [facility] [address] [facility] [facility] [address] [id number], [place] [address] May, Dental caries, unspecified K02.9 [facility] [address] [id number], [place] [id number] Apr, Dental examination Z01.20 [facility] [place] [id number] [place] [address] [id number] Apr, DM w/o complication type II E11.9 ; Depressive disorder, not elsewhere classified F32.9 and Arthropathy M12.9 [address] [place] [address] [id number] Apr, Ankle pain, right M25.571 and Left elbow pain M25.522 [facility] [id number] [place] [address] [id number] Mar, Acute gout of right ankle, unspecified cause M10.[address] [place] [id number][place] [id number] Feb, [address] [place] [address] [id number] Jan, Depressive disorder, not elsewhere classified F32.9 ; Encounter for immunization Z23 and DM w/o complication type II E11.9 [facility] [place] [address] [address] Jan, [place] [id number] [place] [address] [id number] Nov, Hyperkalemia 276.7 ; Diabetes mellitus without mention of complication, type II or unspecified type, uncontrolled 250.02 and Gout 274.9 [facility] [place] [address] [address] Nov, [place] [id number] [place] [address] [id number] Oct, Pelvic pain in male 789.09 and Hyperkalemia 276.7 [place] [id number] [place] [address] [id number] Oct, [place] [id number] [place] [address] [id number] Oct, [address] [id number] Oct, UTI (urinary tract infection) 599.0 and DM (diabetes mellitus) type II controlled, neurological manifestation 250.60 [place] [id number] [place] [address] [id number] Oct, Diabetes mellitus without mention of complication, type II or unspecified type, not stated as uncontrolled 250.00 [facility] [place] [address] [id number], [place] [address] Sep, [facility] [place] [address] [id number], [place] [id number] Sep, [facility] [place] [address] [id number], [place] [id number] Sep, Diabetes mellitus without mention of complication, type II or unspecified type, not stated as uncontrolled 250.00 and Unspecified arthropathy, site unspecified 716.90 [facility] [address] [id number], [place] 150[address]159[address] August, Dental examination V72.2 [facility] [place] [address] [id number], [place] [id number] August, [facility] [place] [address] [id number], [place] [address]6078[address] August, [facility] [place] [address] [id number], [place] [id number] August, Urinary tract infection, site not specified 599.0 and Abdominal pain 789.00 [facility] [place] [address] [id number], [place] [id number] August, [facility] [place] [address] [id number], [place] [id number] August, [facility] [address] [id number], [place] 902127097 August, Dental examination V72.2 [facility] [place] [address] [id number], [place] [id number] August, [facility] [address] [id number], [place] [id number] August, Dental examination V72.[address] [facility] [address] [id number], [place] 864197810 Jul, Dental examination V72.2 [facility] [address] [id number], [place] [id number] Jul, Encounter for dental examination V72.2 [facility] [place] [address] [id number], [place] [id number] Jul, [facility] [place] [address] [facility] [id number], [place] [id number] Jul, Urinary tract infection, site not specified 599.0 [facility] [place] [facility] [address] [facility] [id number] [address] Jul, [facility] [place] [facility] [address] [facility] [facility] [id number], [place] [address] Jul, [facility] [place] [facility] [address] [facility] [facility] [id number][place] [address] Jun, [facility] [place] [facility] [address], [place] [address] Jun, [facility] [place] [address] [facility] [id number], [place] [id number] Jun, [facility] [place] [address] [place] [address] [id number], [place] [id number] Jun, [facility] [place] [facility] [address] [address] Jun, [facility] [place] [facility] [address] [address] Jun, [facility] [place] [address] [id number], [place] [id number] Apr, [facility] [place] [address] [facility] [id number], [place] [id number] Apr, [facility] [place] [facility] [address] [facility] [facility] [id number][place] [address] Apr, [facility] [place] [facility] [address] [facility] [facility] [id number] [address] Apr, [facility] [place] [address] [facility] [id number], [place] [id number] Apr, [facility] [place] [facility] [address], [place] [address] Apr, [facility] [place] [facility] [address] [address] Apr, [facility] [place] [facility] [address] [id number], [place] [address] Apr, [facility] [place] [address] [facility] [id number], [place] [id number] Mar, [facility] [place] [facility] [address] [facility] [id number][place] [address] Mar, [facility] [address] [id number], [place] 718174601 Mar, [facility] [place] [facility] [address] [id number], [place] [address] Mar, [facility] [address] [facility] [id number], [place] [id number] Mar, [facility] [place] [facility] [address] [address] Mar, [facility] [address] [facility] [id number], [place] [id number] Mar, [facility] [place] [facility] [address] [facility] [id number], [place] [address] Mar, [facility] [address] [facility] [id number], [place] [id number] Mar, [facility] [place] [facility] [address] [id number] [address] Mar, [facility] [address] [facility] [id number], [place] [id number] Feb, [facility] [place] [facility] [address] [facility] [id number] [address] Feb, [facility] [place] [address] [facility] [id number], [place] [id number] Jan, [facility] [place] [facility] [address] [facility] [id number], [place] [address] Jan, [facility] [address] [id number], [place] 864141825 Dec, [facility] [place] [facility] [address] [facility] [id number][place] [address] Dec, [facility] [address] [id number] [place] [id number] Nov, [facility] [place] [facility] [address] [facility] [id number] [place] [address] Nov, [facility] [address] [facility] [id number] [place] [id number] Nov, [facility] [place] [facility] [address] [id number] [place] [address] Nov, [facility] [place] [facility] [address] [facility] [id number] [place] [address] Nov, [facility] [place] [facility] [address] [facility] [facility] [id number] [place] [address] Nov, [facility] [place] [address] [facility] [id number] [place] [id number] Oct, [facility] [place] [facility] [address] [facility] [id number], [place] [address] Oct, [facility] [address] [facility] [id number] [place] [id number] Oct, [facility] [place] [facility] [address] [facility] [id number] [address] Oct, [facility] [address] [facility] [id number] [place] [id number] Sep, [facility] [place] [facility] [address] [facility] [id number], [place] [address] Sep, [facility] [place] [facility] [address] [facility] [id number] [place] [address] August, [facility] [place] [facility] [address] [facility] [id number] [place] [address] August, [facility] [address] [facility] [id number] [place] [id number] August, [facility] [place] [facility] [address] [facility] [id number] [place] [address] August, [facility] [address] [id number] [place] [id number] Jul, [facility] [place] [facility] [address] [facility] [id number] [place] [address] Jul, [facility] [address] [id number] [place] [id number] Jun, [facility] [place] [facility] [address] [facility] [id number] [place] [address] Jun, [facility] [address] [id number] [place] [id number] Jun, [facility] [place] [facility] [address] [facility] [id number] [place] [address] Jun, [facility] [place] [facility] [address] [facility] [id number] [place] [address] Jun, [facility] [address] [facility] [id number] [place] [id number] Jun, [facility] [place] [facility] [address] [facility] [id number], [place] [address] Jun, [facility] [address] [facility] [id number], [place] 614980454 Jun, [facility] [place] [facility] [address] [facility] [id number] [address] Jun, [facility] [address] [id number], [place] 366413186 Jun, [facility] [place] [facility] [address] [facility] [id number][place] [address] Jun, [facility] [address] [id number] [place] 4724744[address] Jun, [facility] [place] [facility] [address] [facility] [id number] [place] [address] Jun, [facility] [address] [id number] [place] [id number] May, [facility] [place] [facility] [address] [facility] [id number] [place] [address] May, [facility] [place] [address] [id number] [place] 874884585 May, [facility] [address] [facility] [id number], [place] [address] May, [facility] [place] [address] [id number] [place] [id number] Apr, [facility] [address] [facility] [id number] [address] Apr, [facility] [place] [address] [id number], [place] [id number] Mar, [facility] [address] [facility] [id number], [place] [address] Mar, [facility] [place] [address] [facility] [id number], [place] 935622256 Mar, [facility] [address] [address] Mar, [facility] [place] [address] [facility] [id number], [place] [id number] Mar, [facility] [address] [address] Mar, [facility] [place] [address] [id number], [place] 990377561 Feb, [facility] [address] [id number] [address] Feb, [facility] [place] [address] [id number], [place] 370720249 Jan, [facility] [address] [facility] [id number][place] [address] Jan, [facility] [place] [address] [id number], [place] 860936284 Jan, [facility] [place] [address] [id number] [place] 895223281 Dec, [facility] [address] [id number], [place] 461725745 Dec, [facility] [address] [facility] [id number] [place] [id number] Nov, [address] [id number], [place] 881369190 Nov, [facility] [address] [id number], [place] 527158807 Oct, [facility] [place] [address]005[address] [address] Oct, [place] [id number], [place] [id number] Oct, [facility] [place] [address]00565100[place], [place] [address] Oct, [address] [id number], [place] [id number] Oct, IMMUNIZATIONS No Known Immunizations SOCIAL HISTORY [...]
--- OUTSIDE RECORDS SUMMARY | 2018-11-23 06:57 | XMS REPORT ---
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 53838613 Problem 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 399885088138912 Problem Gout 274.9 Active 60068394 Problem Hyperkalemia 276.7 Active 27697939 Problem Arthropathy M12.9 Active 821173551 Problem Urinary tract infection, site not specified N39.0 Active 88544230 Problem Shoulder bursitis, right M75.51 Active 199408396 Problem Pain in right shoulder M25.511 Active 98202947 Problem Depressive disorder, not elsewhere classified F32.9 Active 23987551 Problem Arthrosis of shoulder region, 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 Active 32136409 Problem DM w/o complication type II E11.9 Active 07906115 Problem History of gout Z87.39 Active 984166987 Problem 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, 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 Active 22648056 Problem Flexural eczema L20.82 Active 99149300 Problem Non-seasonal allergic rhinitis due to other allergic trigger J30.89 Active 02260995 ALLERGIES Substance Reaction Event Type Date Status Bactrim caused blood in urine Drug Allergy Jul, Active ENCOUNTERS Encounter Location Date Diagnosis [facility] [address] [id number] [place] [id number] Apr, Dental examination Z01.20 and Caries K02.[address] [id number] [place] [id number] Jul, [facility] [address] 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 [facility] [address] [facility] [id number] [place] [address] August, [address] [id number] August, [place] [id number] [place] [address] [id number] August, DM w/o complication type II E11.9 and Pain in right shoulder M25.511 [place] [id number] [place] [address] [id number] Jul, DM w/o complication type II E11.9 [address] [place] [address] [id number] Jun, Non-seasonal allergic rhinitis due to other allergic trigger J30.89 and Bronchitis J40 [address] [place] [address] [id number] Apr, Acute pharyngitis due to other specified organisms J02.8 ; 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, subsequent encounter T83.510D and Urinary tract infection, site not specified N39.0 [address] [id number] Apr, DM w/o complication type II E11.9 ; Bronchitis J40 and Flexural eczema L20.[address] [place] [address] [id number] Mar, Upper respiratory tract infection, unspecified type J06.9 and 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, 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 [address] [place] [address] [id number] Jan, DM w/o complication type II E11.9 ; History of gout Z87.39 and Arthropathy M12.9 [place] [id number] [place] [address] [id number] Jan, DM w/o complication type II E11.9 ; Hx of gout Z87.39 and Screening for prostate cancer Z12.[address] [place] [address] [id number] Dec, DM w/o complication type II E11.9 ; Depressive disorder, not elsewhere classified F32.9 and Hx of gout Z87.39 [facility] [place] [id number] [place] [address] [id number] Oct, Encounter for immunization Z23 [facility] [place] [id number] [place] [address] [id number] Oct, [facility] [place] [id number] [place] [address] [id number] August, DM w/o complication type II E11.9 [facility] [place] [address] [place] [id number] [place] [address] [id number] August, DM w/o complication type II E11.9 ; Shoulder bursitis, right M75.51 and Urinary tract infection, site not specified N39.0 [facility] [place] [address] [place] [id number] [place] [address] [id number] Jul, Urinary tract infection N39.0 [facility] [place] [address] [place] [id number] [place] [address] [id number] Jun, Infection and inflammatory reaction due to indwelling urinary catheter, subsequent encounter T83.51XD [facility] [place] [id number] [place] [address] [id number] Jun, Infection and inflammatory reaction due to indwelling urinary catheter, subsequent encounter T83.51XD ; DM w/o complication type II E11.9 and Acute gout of foot, unspecified cause, unspecified laterality M10.9 [facility] [place] [id number] [place] [address] [id number] May, DM w/o complication type II E11.9 ; Depressive disorder, not elsewhere classified F32.9 and Acute upper respiratory infection, unspecified J06.9 [facility] [place] [address] [id number] [place] [id number] May, Dental caries, unspecified K02.9 [facility] [place] [address] [id number] [place] [id number] Apr, Dental examination Z01.20 [facility] [place] [id number] [place] [address] [id number] Apr, DM w/o complication type II E11.9 ; Depressive disorder, not elsewhere classified F32.9 and Arthropathy M12.9 [facility] [id number] [place] [address] [id number] Apr, Ankle pain, right M25.571 and Left elbow pain M25.522 [facility] [address] [place] [id number] [place] [address] [id number] Mar, Acute gout of right ankle, unspecified cause M10.9 [facility] [address] [id number] [place] [id number] Feb, [facility] [address] [place] [id number] [place] [address] [id number] Jan, Depressive disorder, not elsewhere classified F32.9 ; Encounter for immunization Z23 and DM w/o complication type II E11.9 [facility] [address] [address] Jan, [address] [id number] Nov, Hyperkalemia 276.7 ; Diabetes mellitus without mention of complication, type II or unspecified type, uncontrolled 250.02 and Gout 274.9 [facility] [address] [address] Nov, [place] [id number] [place] [address] [id number] Oct, Pelvic pain in male 789.09 and Hyperkalemia 276.7 [place] [id number] [place] [address] [id number] Oct, [place] [id number] [place] [address] [id number] Oct, [address] [id number] Oct, UTI (urinary tract infection) 599.0 and DM (diabetes mellitus) type II controlled, neurological manifestation 250.60 [place] [id number] [place] [address] [id number] Oct, Diabetes mellitus without mention of complication, type II or unspecified type, not stated as uncontrolled 250.00 [facility] [place] [address] [id number], [place] [id number] Sep, [facility] [place] [address] [id number], [place] [id number] Sep, [facility] [place] [address] [id number][place] [id number] Sep, Diabetes mellitus without mention of complication, type II or unspecified type, not stated as uncontrolled 250.00 and Unspecified arthropathy, site unspecified 716.[address] [facility] [place] [address] [id number] [place] [id number] August, Dental examination V72.2 [facility] [place] [address] [id number], [place] [id number] August, [facility] [place] [address] [id number], [place] [id number] August, [facility] [place] [address] [id number], [place] [id number] August, Urinary tract infection, site not specified 599.0 and Abdominal pain 789.00 [facility] [place] [address] [id number], [place] [id number] August, [facility] [place] [address] [id number], [place] [id number] August, [facility] [place] [address] [id number] [place] [id number] August, Dental examination V72.2 [facility] [place] [address] [id number], [place] [id number] August, [facility] [place] [address] [id number] [place], [place] [id number] August, Dental examination V72.[address] [facility] [place] [address] [id number] [place], [place] [id number] Jul, Dental examination V72.[address] [facility] [place] [address] [id number] [place], [place] [id number] Jul, Encounter for dental examination V72.2 [facility] [place] [address] [id number], [place] [id number] Jul, [facility] [place] [address] [facility] [id number], [place] [id number] Jul, Urinary tract infection, site not specified 599.0 [facility] [place] [facility] [address] [facility] [id number] [place] [address] 14 Jul, 2014 [facility] [place] [facility] [address] [facility] [id number], [place] [address] Jul, [facility] [place] [facility] [address] [facility] [id number], [place] [address] Jun, [facility] [place] [facility] [address]100[place], [place] [address] Jun, [facility] [place] [address] [facility] [id number], [place] [id number] Jun, [facility] [place] [address] [facility] [id number], [place] [id number] Jun, [facility] [place] [facility] [address] [facility] [id number], [place] [address] Jun, [facility] [place] [facility] [address], [place] [address] Jun, [facility] [place] [address] [facility] [id number], [place] [id number] Apr, [facility] [place] [address] [facility] [id number], [place] [id number] Apr, [facility] [place] [facility] [address] [facility] [id number], [place] [address] Apr, [facility] [place] [facility] [address] [facility] [id number], [place] [address] Apr, [facility] [place] [address] [facility] [id number], [place] [id number] Apr, [facility] [place] [facility] [address] [place] [id number], [place] [address] Apr, [facility] [place] [facility] [address], [place] [address] Apr, [facility] [place] [facility] [address] [id number] [place] [address] Apr, [facility] [place] [address] [id number] [place] [id number] Mar, [facility] [place] [facility] [address] [facility] [id number] [place] [address] Mar, [facility] [place] [address] [id number] [place] [id number] Mar, [facility] [place] [facility] [address] [id number] [place] [address] Mar, [facility] [place] [address] [facility] [id number] [place] [id number] Mar, [facility] [place] [facility] [address], [place] [address] Mar, [facility] [place] [address] [facility] [id number], [place] [id number] Mar, [facility] [place] [facility] [address] [facility] [id number], [place] [address] Mar, [facility] [place] [address] [facility] [id number] [place] [id number] Mar, [facility] [place] [facility] [address] [facility] [id number], [place] [address] Mar, [facility] [place] [address] [facility] [id number] [place] [id number] Feb, [facility] [place] [facility] [address] [facility] [id number], [place] [address] Feb, [facility] [place] [address] [id number] [place] [id number] Jan, [facility] [place] [facility] [address] [facility] [id number], [place] [address] Jan, [facility] [place] [address] [facility] [id number] [place] [id number] Dec, [facility] [place] [facility] [address] [facility] [id number], [place] [address] Dec, [facility] [place] [address] [id number] [place] [id number] Nov, [facility] [place] [facility] [address] [id number] [place] [address] Nov, [facility] [place] [address] [id number] [place] [id number] Nov, [facility] [place] [facility] [address] [id number] [place] [address] Nov, [facility] [place] [facility] [address] [id number] [place] [address] Nov, [facility] [place] [facility] [address] [id number] [place] [address] Nov, [facility] [place] [address] [facility] [id number] [place] [id number] Oct, [facility] [place] [facility] [address] [id number], [place] [address] Oct, [facility] [place] [address] [facility] [id number] [place] [id number] Oct, [facility] [place] [facility] [address] [facility] [id number], [place] [address] Oct, [facility] [place] [address] [facility] [id number] [place] [id number] Sep, [facility] [place] [facility] [address] [facility] [id number], [place] [address] Sep, [facility] [place] [facility] [address] [id number] [place] [address] August, [facility] [place] [facility] [address] [id number] [place] [address] August, [facility] [place] [address] [facility] [id number] [place] [id number] August, [facility] [place] [facility] [address] [id number], [place] [address] August, [facility] [place] [address] [id number] [place] [id number] Jul, [facility] [place] [facility] [address] [facility] [id number] [place] [address] Jul, [facility] [place] [address] [id number] [place] [id number] Jun, [facility] [place] [facility] [address] [facility] [id number], [place] [address] Jun, [facility] [place] [address] [facility] [id number] [place] [address] Jun, [facility] [place] [facility] [address] [facility] [id number] [place] [address] Jun, [facility] [place] [facility] [address] [facility] [id number], [place] [address] Jun, [facility] [place] [address] [facility] [id number] [place] [id number] Jun, [facility] [place] [facility] [address] [facility] [id number], [place] [address] Jun, [facility] [place] [address] [facility] [id number] [place] [id number] Jun, [facility] [place] [facility] [address] [facility] [id number], [place] [address] Jun, [facility] [place] [address] [facility] [id number] [place] 867445[address] Jun, [facility] [place] [facility] [address] [facility] [id number], [place] [address] Jun, [facility] [place] [address] [facility] [id number] [place] [id number] Jun, [facility] [place] [facility] [address] [facility] [id number], [place] [address] Jun, [facility] [place] [address] [id number] [place] [id number] May, [facility] [place] [facility] [address] [facility] [id number], [place] [address] May, [facility] [place] [address] [id number] [place] 824[address] May, [facility] [address] [facility] [id number], [place] [address] May, [facility] [place] [address] [id number], [place] 486961450 Apr, [facility] [address] [facility] [id number], [place] [address] Apr, [facility] [place] [address] [id number], [place] 598980188 Mar, [facility] [address], [place] [address] Mar, [facility] [place] [address] [facility] [id number], [place] 597704761 Mar, [facility] [address], [place] [address] Mar, [facility] [place] [address] [place] [id number], [place] 12[address]16354 Mar, [facility] [address], [place] [address] Mar, [facility] [place] [id number], [place] 8[address] Feb, [facility] [address] [place] [id number], [place] [address] Feb, [facility] [place] [address] [facility] [id number], [place] 335834632 Jan, [facility] [address] [facility] [id number], [place] [address] Jan, [facility] [place] [address] [id number], [place] 229829607 Jan, [facility] [place] [address] [id number], [place] 970768836 Dec, [facility] [place] [address] [id number], [place] 029236715 Dec, [facility] [place] [address] [facility] [id number] [place] [address]697[address] Nov, [facility] [place] [address] [facility] [id number] [place] [address] Nov, [facility] [place] [address] [facility] [id number] [place] 2648[address] Oct, [facility] [address] [facility] [id number], [place] [address] Oct, [facility] [address] [facility] [id number], [place] 7529975[address] Oct, [facility] [address] [facility] [id number], [place] [address] Oct, [facility] [place] [address] [facility] [id number], [place] [id number] Oct, IMMUNIZATIONS No Known Immunizations SOCIAL HISTORY Never Assessed REASON FOR VISIT EMR-[facility] [place] PLAN OF CARE VITAL SIGNS MEDICATIONS Medication Instructions Dosage Frequency Start Date End Date Duration Status Meloxicam 7.5 mg take 1 tablet by Oral route 2 times per day anti-inflammatory med Apr, Active Vitamin B-12 by oral route Take one tablet daily May, Active citalopram 20 mg Take 1 tablet by Oral route 1 time per day Jun, Active GlipiZIDE 10 mg 0.5-1 tablet by Oral route 2 times per day for diabetes- take 1 tab with am meal and 0.5 tab with pm meal Jun, Active Zithromax Z-Gerry 250 mg 2 tablet by Oral route 1 time per day for 1 days then take 1 tab daily on days 2-5 Mar, Active Lisinopril 5 mg Take 1 tablet by Oral route 1 time per day Apr, Active Cipro 500 mg 1 tablet by Oral route every 12 hours for 14 day(s) Nov, Active PredniSONE 20 mg 2 tablet by Oral route 1 time per day for 5 day(s) Mar, Active metformin 1,000 mg take 1 tablet by Oral route with morning and evening meals 2 times per day Jun, Active Potassium Citrate 10 mEq take 1 Tablet by Oral route 1 time per day for prevention of kidney stones Mar, Active Viagra 50 mg 0.5-1 tablet by Oral route 1 time per day take 30-45 m before intercourse Dec, Active RESULTS No Results PROCEDURES No Known [...] stones 04/2012 Surgical History Right shoulder replaced 2017 Hospitalization History pancreatitis, acute renal failure 08/2014 Hospitalization History [facility] for dehydration and UTI when he went for his urostomy check 06/2015
--- OUTSIDE RECORDS SUMMARY | 2018-11-23 06:57 | XMS REPORT ---
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 12499270 Problem 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 [id number] Problem Gout 274.9 Active 30156767 Problem Hyperkalemia 276.7 Active 74124846 Problem Arthropathy M12.9 Active 722467418 Problem Urinary tract infection, site not specified N39.0 Active 35340435 Problem Shoulder bursitis, right M75.51 Active 059472356 Problem Pain in right shoulder M25.511 Active 59495933 Problem Depressive disorder, not elsewhere classified F32.9 Active 84062594 Problem Arthrosis of shoulder region, 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 Active 82017279 Problem DM w/o complication type II E11.9 Active 25624897 Problem History of gout Z87.39 Active 313288129 Problem 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, 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 Active 66996599 Problem Flexural eczema L20.82 Active 38726930 Problem Non-seasonal allergic rhinitis due to other allergic trigger J30.89 Active 15147272 ALLERGIES No Information ENCOUNTERS Encounter Location Date Diagnosis [facility] [id number] [place] [id number] Apr, Dental examination Z01.20 and Caries K02.9 [facility] [address] [id number] [place] [id number] Jul, [facility] [address] [facility] [id number] [id number] Sep, DM w/o complication type II E11.9 and Arthrosis of shoulder region, 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 [facility] [address] [address] August, [address] [place] [address] [id number] August, [address] [place] [address] [id number] August, DM w/o complication type II E11.9 and Pain in right shoulder M25.511 [place] [id number] [place] [address] [id number] Jul, DM w/o complication type II E11.9 [address] [place] [address] [id number] Jun, Non-seasonal allergic rhinitis due to other allergic trigger J30.89 and Bronchitis J40 [address] [place] [address] [id number] Apr, Acute pharyngitis due to other specified organisms J02.8 ; 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, subsequent encounter T83.510D and Urinary tract infection, site not specified N39.0 [address] [place] [address] [id number] Apr, DM w/o complication type II E11.9 ; Bronchitis J40 and Flexural eczema L20.82 [address] [place] [address] [id number] Mar, Upper respiratory tract infection, unspecified type J06.9 and 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, 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 [address] [place] [address] [id number] Jan, DM w/o complication type II E11.9 ; History of gout Z87.39 and Arthropathy M12.9 [place] [id number] [place] [address] [id number] Jan, DM w/o complication type II E11.9 ; Hx of gout Z87.39 and Screening for prostate cancer Z12.5 [address] [place] [address] [id number] Dec, DM w/o complication type II E11.9 ; Depressive disorder, not elsewhere classified F32.9 and Hx of gout Z87.39 [facility] [place] [id number] [place] [address] [id number] Oct, Encounter for immunization Z23 [facility] [place] [id number] [place] [address] [id number] Oct, [facility] [place] [id number] [place] [address] [id number] August, DM w/o complication type II E11.9 [facility] [place] [id number] [place] [address] [id number] August, DM w/o complication type II E11.9 ; Shoulder bursitis, right M75.51 and Urinary tract infection, site not specified N39.0 [facility] [place] [id number] [place] [address] [id number] Jul, Urinary tract infection N39.0 [facility] [place] [id number] [place] [address] [id number] Jun, Infection and inflammatory reaction due to indwelling urinary catheter, subsequent encounter T83.51XD [facility] [place] [id number] [place] [address] [id number] Jun, Infection and inflammatory reaction due to indwelling urinary catheter, subsequent encounter T83.51XD ; DM w/o complication type II E11.9 and Acute gout of foot, unspecified cause, unspecified laterality M10.9 [facility] [address] [place] [address] [id number] May, DM w/o complication type II E11.9 ; Depressive disorder, not elsewhere classified F32.9 and Acute upper respiratory infection, unspecified J06.9 [facility] [place] [address] [facility] [facility] [address] [id number] [place] [id number] May, Dental caries, unspecified K02.9 [facility] [address] [id number] [place] [id number] Apr, Dental examination Z01.20 [facility] [place] [id number] [place] [address] [id number] Apr, DM w/o complication type II E11.9 ; Depressive disorder, not elsewhere classified F32.9 and Arthropathy M12.9 [address] [place] [address] [id number] Apr, Ankle pain, right M25.571 and Left elbow pain M25.522 [facility] [id number] [place] [address] [id number] Mar, Acute gout of right ankle, unspecified cause M10.[address] [place] [place] [address] [id number] [id number] Feb, [address] [place] [address] [id number] Jan, Depressive disorder, not elsewhere classified F32.9 ; Encounter for immunization Z23 and DM w/o complication type II E11.9 [facility] [address] [address] Jan, [place] [id number] [place] [address] [id number] Nov, Hyperkalemia 276.7 ; Diabetes mellitus without mention of complication, type II or unspecified type, uncontrolled 250.02 and Gout 274.9 [facility] [address] [address] Nov, [place] [id number] [place] [address] [id number] Oct, Pelvic pain in male 789.09 and Hyperkalemia 276.7 [place] [id number] [place] [address] [id number] Oct, [place] [id number] [place] [address] [id number] Oct, [address] [id number] Oct, UTI (urinary tract infection) 599.0 and DM (diabetes mellitus) type II controlled, neurological manifestation 250.60 [place] [id number] [place] [address] [id number] Oct, Diabetes mellitus without mention of complication, type II or unspecified type, not stated as uncontrolled 250.00 [facility] [place] [address] [id number], [place] [id number] Sep, [facility] [place] [address] [id number], [place] [id number] Sep, [facility] [place] [address] [id number], [place] [id number] Sep, Diabetes mellitus without mention of complication, type II or unspecified type, not stated as uncontrolled 250.00 and Unspecified arthropathy, site unspecified 716.90 [facility] [address] [id number] [place] [id number] August, Dental examination V72.2 [facility] [place] [address] [id number], [place] [id number] August, [facility] [place] [address] [id number], [place] [id number] August, [facility] [place] [address] [id number], [place] [id number] August, Urinary tract infection, site not specified 599.0 and Abdominal pain 789.00 [facility] [place] [address] [id number], [place] [id number] August, [facility] [place] [address] [id number], [place] [id number] August, [facility] [address] [id number] [place] [id number] August, Dental examination V72.2 [facility] [place] [address] [id number], [place] [id number] August, [facility] [address] [id number] [place] [id number] August, Dental examination V72.[address] [facility] [address] [id number] [place] [id number] Jul, Dental examination V72.2 [facility] [address] [id number] [place] [id number] Jul, Encounter for dental examination V72.2 [facility] [place] [address] [id number], [place] [id number] Jul, [facility] [place] [address] [facility] [id number], [place] [id number] Jul, Urinary tract infection, site not specified 599.0 [facility] [place] [facility] [address] [facility] [id number] [address] Jul, [facility] [place] [facility] [address] [facility] [id number] [place] [address] Jul, [facility] [place] [facility] [address] [facility] [id number] [place] [address] Jun, [facility] [place] [facility] [address] [address] Jun, [facility] [place] [address] [facility] [id number], [place] [id number] Jun, [facility] [place] [address] [place] [address] [id number], [place] [id number] Jun, [facility] [place] [facility] [address] [address] Jun, [facility] [place] [facility] [address] [address] Jun, [facility] [place] [address] [place] [address] [id number], [place] [id number] Apr, [facility] [place] [address] [facility] [id number], [place] [id number] Apr, [facility] [place] [facility] [address] [facility] [id number] [place] [address] Apr, [facility] [place] [facility] [address] [facility] [id number] [place] [address] Apr, [facility] [place] [address] [facility] [id number], [place] [id number] Apr, [facility] [place] [facility] [address] [address] Apr, [facility] [place] [facility] [address] [address] Apr, [facility] [place] [facility] [address] [id number] [place] [address] Apr, [facility] [place] [address] [facility] [id number], [place] [id number] Mar, [facility] [place] [facility] [address] [facility] [id number] [place] [address] Mar, [facility] [place] [address] [id number], [place] [id number] Mar, [facility] [place] [facility] [address] [id number] [place] [address] Mar, [facility] [place] [address] [facility] [id number], [place] [id number] Mar, [facility] [place] [facility] [address] [address] Mar, [facility] [place] [address] [facility] [id number], [place] [id number] Mar, [facility] [place] [facility] [address] [facility] [id number] [place] [address] Mar, [facility] [place] [address] [facility] [id number], [place] [id number] Mar, [facility] [place] [facility] [address] [place] [address] [id number] [address] Mar, [facility] [place] [address] [facility] [id number], [place] [id number] Feb, [facility] [place] [facility] [address] [facility] [id number] [place] [address] Feb, [facility] [place] [address] [facility] [id number], [place] 437[address] Jan, [facility] [place] [facility] [address] [facility] [id number] [place] [address] Jan, [facility] [place] [address] [id number], [place] [id number] Dec, [facility] [place] [facility] [address] [facility] [id number] [place] [address] Dec, [facility] [place] [address] [id number] [place] [id number] Nov, [facility] [place] [facility] [address] [facility] [id number] [place] [address] Nov, [facility] [place] [address] [facility] [id number] [place] [id number] Nov, [facility] [place] [facility] [address] [id number] [place] [address] Nov, [facility] [place] [facility] [address] [facility] [id number] [place] [address] Nov, [facility] [place] [facility] [address] [facility] [id number] [place] [address] Nov, [facility] [place] [address] [facility] [id number] [place] [id number] Oct, [facility] [place] [facility] [address] [facility] [id number] [place] [address] Oct, [facility] [place] [address] [facility] [id number] [place] [id number] Oct, [facility] [place] [facility] [address] [facility] [id number] [place] [address] Oct, [facility] [place] [address] [facility] [id number] [place] [id number] Sep, [facility] [place] [facility] [address] [facility] [id number] [place] [address] Sep, [facility] [place] [facility] [address] [facility] [id number] [place] [address] August, [facility] [place] [facility] [address] [facility] [id number] [place] [address] August, [facility] [place] [address] [facility] [id number] [place] [id number] August, [facility] [place] [facility] [address] [facility] [id number] [place] [address] August, [facility] [place] [address] [id number] [place] [id number] Jul, [facility] [place] [facility] [address] [facility] [id number] [place] [address] Jul, [facility] [place] [address] [id number] [place] [id number] Jun, [facility] [place] [facility] [address] [facility] [id number] [place] [address] Jun, [facility] [place] [address] [id number] [place] [id number] Jun, [facility] [place] [facility] [address] [facility] [id number] [place] [address] Jun, [facility] [place] [facility] [address] [facility] [id number] [place] [address] Jun, [facility] [place] [address] [facility] [id number] [place] [id number] Jun, [facility] [place] [facility] [address] [facility] [id number] [place] [address] Jun, [facility] [place] [address] [facility] [id number], [place] 875313933 Jun, [facility] [place] [facility] [address] [facility] [id number] [place] [address] Jun, [facility] [place] [address] [id number], [place] 127673180 Jun, [facility] [place] [facility] [address] [facility] [id number] [place] [address] Jun, [facility] [place] [address] [id number] [place] [id number] Jun, [facility] [place] [facility] [address] [facility] [id number] [place] [address] Jun, [facility] [place] [address] [id number] [place] [address] May, [facility] [place] [facility] [address] [facility] [id number] [place] [address] May, [facility] [place] [address] [id number] [place] [id number] May, [facility] [address] [facility] [id number] [place] [address] May, [facility] [place] [address] [id number] [place] [id number] Apr, [facility] [address] [facility] [id number] [place] [address] Apr, [facility] [place] [address] [id number], [place] 734875355 Mar, [facility] [address] [facility] [id number] [place] [address] Mar, [facility] [place] [address] [facility] [id number], [place] 704735379 Mar, [facility] [address] [address] Mar, [facility] [place] [address] [facility] [id number], [place] [id number] Mar, [facility] [address] [address] Mar, [facility] [place] [address] [id number], [place] 7[address]94[address] Feb, [facility] [address] [id number] [address] Feb, [facility] [place] [address] [id number], [place] [id number] Jan, [facility] [address] [facility] [id number] [place] [address] Jan, [facility] [place] [address] [id number], [place] [id number] Jan, [facility] [place] [address] [id number] [place] [id number] Dec, [facility] [place] [address] [id number], [place] [id number] Dec, [facility] [address] [facility] [id number] [place] [id number] Nov, [address] [id number], [place] [address]604[address] Nov, [facility] [address] [place] [id number], [place] 494[address]88[address] Oct, [facility] [address] [address] Oct, [id number] [id number] Oct, [facility] [address] [address] Oct, [address] [id number], [place] [id number] Oct, IMMUNIZATIONS No Known Immunizations SOCIAL HISTORY [...]
--- OUTSIDE RECORDS SUMMARY | 2018-11-23 06:58 | XMS REPORT ---
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 85510886 Problem 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 [id number] Problem Gout 274.9 Active 40764461 Problem Hyperkalemia 276.7 Active 31714445 Problem Arthropathy M12.9 Active 613694167 Problem Urinary tract infection, site not specified N39.0 Active 11759559 Problem Shoulder bursitis, right M75.51 Active 768190691 Problem Pain in right shoulder M25.511 Active 18305389 Problem Depressive disorder, not elsewhere classified F32.9 Active 33602549 Problem Arthrosis of shoulder region, 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 Active 09594545 Problem DM w/o complication type II E11.9 Active 95697620 Problem History of gout Z87.39 Active 992486189 Problem 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, 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 Active 93316533 Problem Flexural eczema L20.82 Active 76795516 Problem Non-seasonal allergic rhinitis due to other allergic trigger J30.89 Active 71792681 ALLERGIES No Information ENCOUNTERS Encounter Location Date Diagnosis [facility] [id number] [id number] [id number] Apr, Dental examination Z01.20 and Caries K02.9 [place] [address] [id number][place] [id number] Jul, [facility] [address] [facility] [id number][place] [id number] Sep, DM w/o complication type II E11.9 and Arthrosis of shoulder region, 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 [facility] [address] [id number] [address] August, [address] [place] [id number] August, [address] [id number] August, DM w/o complication type II E11.9 and Pain in right shoulder M25.[address] [id number] Jul, DM w/o complication type II E11.[address] [id number] Jun, Non-seasonal allergic rhinitis due to other allergic trigger J30.89 and Bronchitis J40 [address] [id number] Apr, Acute pharyngitis due to other specified organisms J02.8 ; 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, subsequent encounter T83.510D and Urinary tract infection, site not specified N39.0 [id number] [place] [address] [id number] Apr, DM w/o complication type II E11.9 ; Bronchitis J40 and Flexural eczema L20.[address] [id number] Mar, Upper respiratory tract infection, unspecified type J06.9 and 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, 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 [place] [id number] [place] [address] [id number] Jan, DM w/o complication type II E11.9 ; History of gout Z87.39 and Arthropathy M12.9 [place] [id number] [place] [address] [id number] Jan, DM w/o complication type II E11.9 ; Hx of gout Z87.39 and Screening for prostate cancer Z12.5 [place] [id number] [place] [address] [id number] Dec, DM w/o complication type II E11.9 ; Depressive disorder, not elsewhere classified F32.9 and Hx of gout Z87.39 [facility] [id number], [place] [id number] Oct, Encounter for immunization Z23 [facility] [id number] [place] [address] [id number] Oct, [facility] [id number] [place] [address] [id number] August, DM w/o complication type II E11.9 [facility] [id number] [place] [address] [id number] August, DM w/o complication type II E11.9 ; Shoulder bursitis, right M75.51 and Urinary tract infection, site not specified N39.0 [facility] [id number] [place] [address] [id number] Jul, Urinary tract infection N39.0 [facility] [id number] [place] [address] [id number] Jun, Infection and inflammatory reaction due to indwelling urinary catheter, subsequent encounter T83.51XD [facility] [id number] [place] [address] [id number] Jun, Infection and inflammatory reaction due to indwelling urinary catheter, subsequent encounter T83.51XD ; DM w/o complication type II E11.9 and Acute gout of foot, unspecified cause, unspecified laterality M10.9 [facility] [id number], [place] [id number] May, DM w/o complication type II E11.9 ; Depressive disorder, not elsewhere classified F32.9 and Acute upper respiratory infection, unspecified J06.9 [facility] [address] [address] [id number], [place] [id number] May, Dental caries, unspecified K02.9 [facility] [address] [id number], [place] [id number] Apr, Dental examination Z01.20 [facility] [address] [facility] [id number], [place] [id number] Apr, DM w/o complication type II E11.9 ; Depressive disorder, not elsewhere classified F32.9 and Arthropathy M12.9 [address] [place] [address] [id number] Apr, Ankle pain, right M25.571 and Left elbow pain M25.522 [address] [id number] [place] [address] [id number] Mar, Acute gout of right ankle, unspecified cause M10.[address] [id number][place] [id number] Feb, [place] [id number] [place] [address] [id number] Jan, Depressive disorder, not elsewhere classified F32.9 ; Encounter for immunization Z23 and DM w/o complication type II E11.9 [facility] [address] [address] Jan, [address] [id number] Nov, Hyperkalemia 276.7 ; Diabetes mellitus without mention of complication, type II or unspecified type, uncontrolled 250.02 and Gout 274.9 [facility] [address] [address] Nov, [place] [id number] [place] [address] [id number] Oct, Pelvic pain in male 789.09 and Hyperkalemia 276.7 [place] [address] [place] [address] [id number] Oct, [place] [id number] [place] [address] [id number] Oct, [place] [address] [place] [address] [id number] Oct, UTI (urinary tract infection) 599.0 and DM (diabetes mellitus) type II controlled, neurological manifestation 250.60 [place] [id number] [place] [address] [id number] Oct, Diabetes mellitus without mention of complication, type II or unspecified type, not stated as uncontrolled 250.00 [place] [id number] Sep, [facility] [address] [id number], [place] [id number] Sep, [facility] [address] [id number], [place] [id number] Sep, Diabetes mellitus without mention of complication, type II or unspecified type, not stated as uncontrolled 250.00 and Unspecified arthropathy, site unspecified 716.90 [facility] [address] [id number], [place] [id number] August, Dental examination V72.2 [facility] [address] [id number], [place] [id number] August, [facility] [address] [id number], [place] [id number] August, [facility] [address] [id number], [place] [id number] August, Urinary tract infection, site not specified 599.0 and Abdominal pain 789.00 [facility] [place] [address] [id number][place] [id number] August, [facility] [address] [id number], [place] [address] August, [facility] [address] [id number], [place] [id number] August, Dental examination V72.2 [facility] [place] [address] [id number], [place] [id number] August, [facility] [address] [id number], [place] [id number] August, Dental examination V72.2 [facility] [address] [id number], [place] [id number] Jul, Dental examination V72.2 [facility] [address] [id number], [place] [id number] Jul, Encounter for dental examination V72.2 [facility] [place] [address] [id number], [place] [id number] Jul, [facility] [place] [address] [id number], [place] [id number] Jul, Urinary tract infection, site not specified 599.0 [facility] [place] [facility] [address] [id number] [place] [address] 14 Jul, 2014 [facility] [place] [facility] [address] [facility] [id number] [place] [address] Jul, [facility] [place] [facility] [address] [facility] [id number] [place] [address] Jun, [facility] [place] [facility] [address] [facility] [id number] [place] [address] Jun, [facility] [place] [address] [id number], [place] [id number] Jun, [facility] [place] [address] [facility] [id number] [place] [id number] Jun, [facility] [place] [facility] [address] [facility] [id number] [place] [address] Jun, [facility] [place] [facility] [address] [facility] [id number] [place] [address] Jun, [facility] [place] [address] [id number], [place] [id number] Apr, [facility] [place] [address] [id number], [place] [id number] Apr, [facility] [place] [facility] [address]00565100[place] [address] Apr, [facility] [place] [facility] [address] [facility] [id number] [place] [address] Apr, [facility] [place] [address] [facility] [id number], [place] [id number] Apr, [facility] [place] [facility] [address] [facility] [id number] [place] [address] Apr, [facility] [place] [facility] [address] [facility] [id number] [place] [address] Apr, [facility] [place] [facility] [address] [facility] [id number] [place] [address] Apr, [facility] [place] [address] [id number] [place] [id number] Mar, [facility] [place] [facility] [address] [facility] [id number] [place] [address] Mar, [facility] [place] [address] [facility] [id number] [place] [id number] Mar, [facility] [place] [facility] [address] [facility] [id number] [place] [address] Mar, [facility] [place] [address] [facility] [id number] [place] [id number] Mar, [facility] [place] [facility] [address] [facility] [id number] [place] [address] Mar, [facility] [place] [address] [facility] [id number] [place] [id number] Mar, [facility] [place] [facility] [address] [facility] [id number] [place] [address] Mar, [facility] [place] [address] [facility] [id number] [place] [id number] Mar, [facility] [place] [facility] [address] [facility] [id number] [place] [address] Mar, [facility] [address] [facility] [id number] [place] [id number] Feb, [facility] [place] [facility] [address] [facility] [id number] [place] [address] Feb, [facility] [place] [address] [facility] [id number], [place] [id number] Jan, [facility] [place] [facility] [address] [facility] [id number] [place] [address] Jan, [facility] [place] [address] [facility] [id number] [place] [id number] Dec, [facility] [place] [facility] [address] [facility] [id number] [place] [address] Dec, [facility] [place] [address] [id number] [place] [id number] Nov, [facility] [place] [facility] [address] [id number] [place] [address] Nov, [facility] [place] [address] [id number] [place] [id number] Nov, [facility] [place] [facility] [address] [id number] [place] [address] Nov, [facility] [place] [facility] [address] [id number] [place] [address] Nov, [facility] [place] [facility] [address] [id number] [place] [address] Nov, [facility] [address] [facility] [id number] [place] [id number] Oct, [facility] [place] [facility] [address] [facility] [id number] [place] [address] Oct, [facility] [place] [address] [facility] [id number] [place] [id number] Oct, [facility] [place] [facility] [address] [id number] [place] [address] Oct, [facility] [place] [address] [facility] [id number], [place] 866[address]135 Sep, [facility] [place] [facility] [address] [id number] [place] [address] Sep, [facility] [place] [facility] [address] [facility] [id number] [place] [address] August, [facility] [place] [facility] [address] [id number] [place] [address] August, [facility] [place] [address] [facility] [id number] [place] [id number] August, [facility] [place] [facility] [address] [id number] [place] [address] August, [facility] [place] [address] [facility] [id number], [place] [id number] Jul, [facility] [place] [facility] [address] [facility] [id number] [place] [address] Jul, [facility] [place] [address] [facility] [id number], [place] 832878920 Jun, [facility] [place] [facility] [address] [facility] [id number] [place] [address] Jun, [facility] [place] [address] [facility] [id number], [place] [id number] Jun, [facility] [place] [facility] [address] [facility] [id number] [place] [address] Jun, [facility] [place] [facility] [address] [facility] [id number] [place] [address] Jun, [facility] [place] [address] [facility] [id number], [place] 879049830 Jun, [facility] [place] [facility] [address] [facility] [id number] [place] [address] Jun, [facility] [place] [address] [facility] [id number], [place] [id number] Jun, [facility] [place] [facility] [address] [facility] [id number] [place] [address] Jun, [facility] [place] [address] [facility] [id number], [place] [id number] Jun, [facility] [place] [facility] [address] [facility] [id number] [place] [address] Jun, [facility] [place] [address] [facility] [id number], [place] 398225456 Jun, [facility] [place] [facility] [address] [facility] [id number] [place] [address] Jun, [facility] [place] [address] [facility] [id number], [place] [id number] May, [facility] [place] [facility] [address] [facility] [id number] [place] [address] May, [facility] [place] [address] [facility] [id number], [place] [id number] May, [facility] [address] [facility] [id number] [place] [address] May, [facility] [place] [address] [id number], [place] [id number] Apr, [facility] [address]00565100[place] [address] Apr, [facility] [place] [address] [id number], [place] [id number] Mar, [facility] [address] [facility] [id number] [place] [address] Mar, [facility] [place] [address] [id number], [place] [id number] Mar, [facility] [address]00565100[place] [address] Mar, [facility] [place] [address] [id number], [place] 287[address]19893 Mar, [facility] [address] [place] [id number] [address] Mar, [facility] [place] [address] [id number], [place] 776656896 Feb, [facility] [place] [facility] [address]00565100[place] [address] Feb, [facility] [place] [address] [id number], [place] [id number] Jan, [facility] [place] [facility] [address] [facility] [id number] [place] [address] Jan, [facility] [place] [address] [id number], [place] 410516603 Jan, [facility] [place] [address] [id number], [place] 360770693 Dec, [facility] [place] [address] [id number], [place] 643658532 Dec, [facility] [place] [address] [id number], [place] 093013792 Nov, [facility] [address] [facility] [id number] [place] [id number] Nov, [facility] [address] [id number], [place] [id number] Oct, [facility] [address]00565100[place] [address] Oct, [facility] [address] [id number], [place] [id number] Oct, [facility] [address]00565100[place] [address] Oct, [place] [id number] 940572385 Oct, IMMUNIZATIONS No Known Immunizations SOCIAL HISTORY Never Assessed REASON FOR VISIT [place] [place] VITAL SIGNS MEDICATIONS Unknown [...]
--- OUTSIDE RECORDS SUMMARY | 2018-11-23 06:58 | XMS REPORT ---
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 37016513 Problem 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 231287648469898 Problem Gout 274.9 Active 10087308 Problem Hyperkalemia 276.7 Active 23627857 Problem Arthropathy M12.9 Active 186846752 Problem Urinary tract infection, site not specified N39.0 Active 84187138 Problem Shoulder bursitis, right M75.51 Active 797751923 Problem Pain in right shoulder M25.511 Active 60612139 Problem Depressive disorder, not elsewhere classified F32.9 Active 20035451 Problem Arthrosis of shoulder region, 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 Active 28424703 Problem DM w/o complication type II E11.9 Active 83766174 Problem History of gout Z87.39 Active 735908774 Problem 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, 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 Active 04888721 Problem Flexural eczema L20.82 Active 50303422 Problem Non-seasonal allergic rhinitis due to other allergic trigger J30.89 Active 27489046 ALLERGIES No Information ENCOUNTERS Encounter Location Date Diagnosis [facility] [id number] [id number] [id number] Apr, Dental examination Z01.20 and Caries K02.9 [place] [address] [facility] [address] [id number] [id number] Jul, [facility] [address] [facility] [id number] [place] [id number] Sep, DM w/o complication type II E11.9 and Arthrosis of shoulder region, 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 [facility] [address] [id number], [place] [address] August, [id number] [place] [id number] August, [address] [id number] August, DM w/o complication type II E11.9 and Pain in right shoulder M25.[address] [id number] Jul, DM w/o complication type II E11.[address] [id number] Jun, Non-seasonal allergic rhinitis due to other allergic trigger J30.89 and Bronchitis J40 [address] [id number] Apr, Acute pharyngitis due to other specified organisms J02.8 ; 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, subsequent encounter T83.510D and Urinary tract infection, site not specified N39.0 [place] [id number] [place] [address] [id number] Apr, DM w/o complication type II E11.9 ; Bronchitis J40 and Flexural eczema L20.[address] [id number] Mar, Upper respiratory tract infection, unspecified type J06.9 and 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, 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 [place] [id number] [place] [address] [id number] Jan, DM w/o complication type II E11.9 ; History of gout Z87.39 and Arthropathy M12.9 [place] [id number] [place] [address] [id number] Jan, DM w/o complication type II E11.9 ; Hx of gout Z87.39 and Screening for prostate cancer Z12.5 [place] [address] [place] [address] [id number] Dec, DM w/o complication type II E11.9 ; Depressive disorder, not elsewhere classified F32.9 and Hx of gout Z87.39 [facility] [id number] [place] [id number] Oct, Encounter for immunization Z23 [facility] [id number] [place] [address] [id number] Oct, [facility] [id number] [place] [address] [id number] August, DM w/o complication type II E11.9 [facility] [id number] [place] [address] [id number] August, DM w/o complication type II E11.9 ; Shoulder bursitis, right M75.51 and Urinary tract infection, site not specified N39.0 [facility] [address] [id number] [place] [address] [id number] Jul, Urinary tract infection N39.0 [facility] [id number] [place] [address] [id number] Jun, Infection and inflammatory reaction due to indwelling urinary catheter, subsequent encounter T83.51XD [facility] [id number] [place] [address] [id number] Jun, Infection and inflammatory reaction due to indwelling urinary catheter, subsequent encounter T83.51XD ; DM w/o complication type II E11.9 and Acute gout of foot, unspecified cause, unspecified laterality M10.9 [facility] [id number] [place] [id number] May, DM w/o complication type II E11.9 ; Depressive disorder, not elsewhere classified F32.9 and Acute upper respiratory infection, unspecified J06.9 [facility] [address] [facility] [address] [id number][place] [id number] May, Dental caries, unspecified K02.9 [facility] [address] [id number], [place] [id number] Apr, Dental examination Z01.20 [facility] [address] [facility] [id number] [place] [id number] Apr, DM w/o complication type II E11.9 ; Depressive disorder, not elsewhere classified F32.9 and Arthropathy M12.[address] [place] [address] [id number] Apr, Ankle pain, right M25.571 and Left elbow pain M25.522 [place] [address] [place] [address] [id number] Mar, Acute gout of right ankle, unspecified cause M10.[address] [id number][place] [id number] Feb, [place] [address] [place] [address] [id number] Jan, Depressive disorder, not elsewhere classified F32.9 ; Encounter for immunization Z23 and DM w/o complication type II E11.9 [facility] [address] [address] Jan, [address] [id number] Nov, Hyperkalemia 276.7 ; Diabetes mellitus without mention of complication, type II or unspecified type, uncontrolled 250.02 and Gout 274.9 [facility] [address] [address] Nov, [place] [address] [place] [address] [id number] Oct, Pelvic pain in male 789.09 and Hyperkalemia 276.7 [place] [address] [place] [address] [id number] Oct, [place] [id number] [place] [address] [id number] Oct, [place] [address] [place] [address] [id number] Oct, UTI (urinary tract infection) 599.0 and DM (diabetes mellitus) type II controlled, neurological manifestation 250.60 [place] [address] [place] [address] [id number] Oct, Diabetes mellitus without mention of complication, type II or unspecified type, not stated as uncontrolled 250.00 [place] [id number] [id number] Sep, [facility] [address] [id number] [place] [id number] Sep, [facility] [address] [id number] [place] [id number] Sep, Diabetes mellitus without mention of complication, type II or unspecified type, not stated as uncontrolled 250.00 and Unspecified arthropathy, site unspecified 716.90 [facility] [address] [id number], [place] [address] August, Dental examination V72.2 [facility] [address] [id number] [place] [id number] August, [facility] [address] [id number] [place] [id number] August, [facility] [address] [id number] [place] [id number] August, Urinary tract infection, site not specified 599.0 and Abdominal pain 789.00 [facility] [address] [id number] [place] [id number] August, [facility] [address] [id number] [place] [id number] August, [facility] [address] [id number], [place] [id number] August, Dental examination V72.2 [facility] [address] [id number] [place] [id number] August, [facility] [address] [id number], [place] [id number] August, Dental examination V72.2 [facility] [address] [id number], [place] [address] Jul, Dental examination V72.2 [facility] [address] [id number], [place] [id number] Jul, Encounter for dental examination V72.2 [facility] [address] [id number] [place] [id number] Jul, [facility] [address] [id number] [place] [id number] Jul, Urinary tract infection, site not specified 599.0 [facility] [place] [facility] [address] [id number] [place] [address] 14 Jul, 2014 [facility] [place] [facility] [address] [facility] [id number] [place] [address] Jul, [facility] [place] [facility] [address] [facility] [id number], [place] [address] Jun, [facility] [place] [facility] [address] [facility] [id number] [place] [address] Jun, [facility] [place] [address] [id number] [place] [id number] Jun, [facility] [place] [address] [facility] [id number] [place] [id number] Jun, [facility] [place] [facility] [address] [facility] [id number], [place] [address] Jun, [facility] [place] [facility] [address] [facility] [id number], [place] [address] Jun, [facility] [place] [address] [id number] [place] [id number] Apr, [facility] [address] [id number] [place] [id number] Apr, [facility] [place] [facility] [address]005[address], [place] [address] Apr, [facility] [place] [facility] [address] [facility] [id number], [place] [address] Apr, [facility] [address] [facility] [id number] [place] 7183528[address] Apr, [facility] [place] [facility] [address] [facility] [id number], [place] [address] Apr, [facility] [place] [facility] [address] [facility] [id number], [place] [address] Apr, [facility] [place] [facility] [address] [facility] [id number] [place] [address] Apr, [facility] [place] [address] [id number] [place] [address] Mar, [facility] [place] [facility] [address] [facility] [id number] [place] [address] Mar, [facility] [place] [address] [facility] [id number] [place] [id number] Mar, [facility] [place] [facility] [address] [facility] [id number] [place] [address] Mar, [facility] [place] [address] [facility] [id number] [place] [id number] Mar, [facility] [place] [facility] [address] [facility] [id number] [place] [address] Mar, [facility] [place] [address] [facility] [id number] [place] [address] Mar, [facility] [place] [facility] [address] [facility] [id number], [place] [address] Mar, [facility] [address] [facility] [id number] [place] [address] Mar, [facility] [place] [facility] [address] [facility] [id number], [place] [address] Mar, [facility] [address] [facility] [id number] [place] 945[address] Feb, [facility] [place] [facility] [address] [facility] [id number], [place] [address] Feb, [facility] [address] [facility] [id number] [place] 835[address]20[address] Jan, [facility] [place] [facility] [address] [facility] [id number] [place] [address] Jan, [facility] [place] [address] [facility] [id number] [place] [address] Dec, [facility] [place] [facility] [address] [facility] [id number], [place] [address] Dec, [facility] [place] [address] [id number] [place] [id number] Nov, [facility] [place] [facility] [address] [id number] [place] [address] Nov, [facility] [place] [address] [id number] [place] [address]65[address] Nov, [facility] [place] [facility] [address] [id number] [place] [address] Nov, [facility] [place] [facility] [address] [id number] [place] [address] Nov, [facility] [place] [facility] [address] [id number] [place] [address] Nov, [facility] [place] [address] [facility] [id number] [place] [address]1284[address] Oct, [facility] [place] [facility] [address] [facility] [id number], [place] [address] Oct, [facility] [address] [facility] [id number] [place] [address] Oct, [facility] [place] [facility] [address] [id number], [place] [address] Oct, [facility] [address] [facility] [id number] [place] [id number] Sep, [facility] [place] [facility] [address] [id number] [place] [address] Sep, [facility] [place] [facility] [address] [facility] [id number], [place] [address] August, [facility] [place] [facility] [address] [id number] [place] [address] August, [facility] [place] [address] [facility] [id number] [place] [id number] August, [facility] [place] [facility] [address] [id number] [place] [address] August, [facility] [place] [address] [facility] [id number] [place] [id number] Jul, [facility] [place] [facility] [address] [facility] [id number], [place] [address] Jul, [facility] [address] [facility] [id number] [place] 158698614 Jun, [facility] [place] [facility] [address] [facility] [id number], [place] [address] Jun, [facility] [place] [address] [facility] [id number] [place], [place] 136868879 Jun, [facility] [place] [facility] [address] [facility] [id number] [place] [address] Jun, [facility] [place] [facility] [address] [facility] [id number] [place] [address] Jun, [facility] [place] [address] [facility] [id number] [place] 645573643 Jun, [facility] [place] [facility] [address] [facility] [id number], [place] [address] Jun, [facility] [place] [address] [facility] [id number] [place] 490248146 Jun, [facility] [place] [facility] [address] [facility] [id number], [place] [address] Jun, [facility] [place] [address] [facility] [id number] [place] 604541951 Jun, [facility] [place] [facility] [address] [facility] [id number], [place] [address] Jun, [facility] [place] [address] [facility] [id number] [place] 315066644 Jun, [facility] [place] [facility] [address] [facility] [id number], [place] [address] Jun, [facility] [place] [address] [facility] [id number] [place] 024298450 May, [facility] [place] [facility] [address] [facility] [id number], [place] [address] May, [facility] [place] [address] [facility] [id number] [place] 674409524 May, [facility] [address] [facility] [id number], [place] [address] May, [facility] [place] [address] [id number] [place], [place] 146856933 Apr, [facility] [address]00565100[place], [place] [address] Apr, [facility] [place] [address] [id number] [place] 733857916 Mar, [facility] [address] [facility] [id number], [place] [address] Mar, [facility] [place] [address] [id number] [place] 159598714 Mar, [facility] [address]00565100[place], [place] [address] Mar, [facility] [place] [address] [id number] [place] 861823060 Mar, [facility] [address] [place] [id number], [place] [address] Mar, [facility] [place] [address] [place] [id number] [place] 094777324 Feb, [facility] [place] [facility] [address]00565100[place], [place] [address] Feb, [facility] [place] [address] [id number] [place] 054491417 Jan, [facility] [place] [facility] [address] [facility] [id number], [place] [address] Jan, [facility] [place] [address] [id number] [place] 848470268 Jan, [facility] [place] [address] [id number] [place] 313561165 Dec, [facility] [place] [address] [id number] [place] 049873352 Dec, [facility] [place] [address] [id number] [place] [id number] Nov, [facility] [address] [facility] [id number] [place] [address] Nov, [facility] [address] [place] [id number] [place] 775128178 Oct, [facility] [address]00565100[place], [place] [address] Oct, [facility] [address] [id number] [place] 675506509 Oct, [facility] [address]00565100[place], [place] [address] Oct, [place] [id number] 740297759 Oct, IMMUNIZATIONS No Known Immunizations SOCIAL HISTORY Never Assessed REASON FOR VISIT EMR-[facility] PLAN OF CARE VITAL SIGNS MEDICATIONS Unknown [...]
--- OUTSIDE RECORDS SUMMARY | 2018-11-23 07:03 | XMS REPORT | Continuity of Care Document ---
Author Organization Unknown Address Unknown Phone Unavailable Allergies Active Description Code Type Severity Reaction Onset Reported/Identified Relationship to Patient Clinical Status Yes Bactrim Drug Allergy N/A N/A 06/16/2013 Yes No Known Drug Allergies [id number] Drug Allergy Unknown N/A 12/21/2014 Medications There [...] DO K 311 DEPRESSIVE DISORDER NOS 10/12/2012 MY MCDANIEL DOA K 250.02 DIABETES II UNCONTROLLED (UNCOMPLICATED) 10/12/2012 ANABEL MCDANIEL DO K 311 DEPRESSIVE DISORDER NOS 10/12/2012 ANABEL MCDANIEL DO 250.02 DIABETES II UNCONTROLLED (UNCOMPLICATED) 10/12/2012 MY [...] LOUISE MD 311 DEPRESSIVE DISORDER NOS 10/12/2012 ANABEL MCDANIEL DO 250.02 DIABETES II UNCONTROLLED (UNCOMPLICATED) 10/12/2012 MCDANIEL [...] K 250.02 DIABETES II UNCONTROLLED (UNCOMPLICATED) 10/12/2012 VIOLETA DO, ANABEL K 311 DEPRESSIVE DISORDER NOS [...] DO, ANABEL K 302.72 ERECTILE DISORDER 12/16/2012 HELEN LOUISE MD 302.72 ERECTILE DISORDER 12/16/2012 MCDANIEL DO, ANABEL [...] DO, ANABEL K 373.11 HORDEOLUM EXTERNUM 04/01/2013 MÓNICA HAWTHORNE APRN 008.8 INTESTINAL INFECTION DUE TO OTHER ORGANISM NOT ELSEWHERE CLASSIFIED 04/01/2013 MÓNICA HAWTHORNE APRN 373.11 HORDEOLUM EXTERNUM 06/01/2013 MCDANIEL DO, ANABEL [...] JESSEE Mahoney Ot 599.71 GROSS HEMATURIA 07/20/2013 MAI URIARTE, JESSEE Mahoney Ot 600.00 HYPERTROPHY (BENIGN) OF PROSTATE W/O [...] ARTHRITIS/ ARTHROPATHY, UNSPECIFIED 11/09/2013 MÓNICA HAWTHORNE APRN 716.90 ARTHRITIS/ ARTHROPATHY, UNSPECIFIED 04/04/2014 ERIN MAYES APRN 079.99 VIRAL SYNDROME 04/04/2014 MCDANIEL DO, ANABEL K 079.99 VIRAL SYNDROME 04/04/2014 MCDANIEL DO, ANABEL K 079.99 VIRAL SYNDROME 04/04/2014 MCDANIEL DO, ANABEL K 079.99 VIRAL SYNDROME 04/04/2014 MCDANIEL DO, ANABEL K 079.99 VIRAL SYNDROME 04/04/2014 EATON LINE SUPERVISOR, MÓNICA L 079.99 VIRAL SYNDROME 04/11/2014 MCDANIEL DO, ANABEL K 466.0 BRONCHITIS, ACUTE 04/11/2014 MCDANIEL DO, ANABEL K 466.0 BRONCHITIS, ACUTE 04/11/2014 MCDANIEL DO, ANABEL K 466.0 BRONCHITIS, ACUTE 04/11/2014 MCDANIEL DO, ANABEL K 466.0 BRONCHITIS, ACUTE 04/11/2014 EATON LINE SUPERVISOR, MÓNICA L 466.0 BRONCHITIS, ACUTE 07/09/2014 MCDANIEL DO, ANABEL K 787.91 DIARRHEA 07/09/2014 MCDANIEL DO, ANABEL K 787.91 DIARRHEA 07/09/2014 EATMICAH LINE SUPERVISOR, MÓNICA L 787.91 DIARRHEA 08/24/2014 ERIN MAYES CFNP Ot 587 08/24/2014 ERIN MAYES CFNATIVIDAD Ot 592.0 08/24/2014 ERIN MAYES CFNP Ot 599.70 08/24/2014 MAI URIARTE, JESSEE Mahoney Ot 239.4 08/24/2014 MAI URIARTE, JESSEE Mahoney Ot V72.61 08/24/2014 MAI URIARTE, JESSEE A Ot V72.63 08/24/2014 MAI URIARTE, JESSEE A Ot V72.83 08/24/2014 MAI URIARTE, JESSEE A Ot V72.84 08/24/2014 MAI URIARTE, JESSEE Mahoney Ot 185 08/24/2014 MAI URIARTE, JESSEE A [...] Ot 599.0 URIN TRACT INFECTION NOS 10/31/2014 JOSE MANUEL RUSS MD Ot 787.01 NAUSEA WITH VOMITING 11/08/2014 MCDANIEL DO ANABEL K Ot 250.00 DIAB GRETCHEN WO COMPL, TYPE II OR UNSPEC TY 11/08/2014 VIOLETA RHODES ANABEL K Ot 272.0 PURE HYPERCHOLESTEROLEM 11/08/2014 MY MCDANIEL DOA K Ot 274.9 GOUT NOS 11/08/2014 MCDANIEL DO ANABEL K Ot 276.7 HYPERPOTASSEMIA 11/08/2014 VIOLETA RHODES ANABEL K Ot 285.9 ANEMIA NOS 11/08/2014 VIOLETA RHODES ANABEL K Ot 300.00 ANXIETY STATE NOS 11/08/2014 MCDANIEL DO ANABEL K Ot 311 DEPRESSIVE DISORDER NEC 11/08/2014 MCDANIEL DO ANABEL K Ot 401.9 HYPERTENSION NOS 11/08/2014 VIOLETA RHODES ANABEL K Ot 567.22 PERITONEAL ABSCESS 11/08/2014 VIOLETA RHODES ANABEL K Ot 584.9 ACUTE RENAL FAILURE, UNSPECIFIED 11/08/2014 MCDANIEL DO ANABEL K Ot 599.0 URIN TRACT INFECTION NOS 11/08/2014 VIOLETA RHODES ANABEL K Ot 998.13 SEROMA COMPLICAT A PROC 11/08/2014 VIOLETA RHODES ANABEL K Ot V12.79 PERSONAL HISTORY OTH SPEC DIGESTIVE SYST 11/08/2014 VIOLETA ANABEL Gautam Ot V13.01 PERSONAL HISTORY OF URINARY [...] MAI URIARTE, JESSEE A Ot V72.63 06/21/2015 MAI URIARTE, JESSEE A Ot V72.83 06/21/2015 MAI [...] Ot R19.7 DIARRHEA, UNSPECIFIED 06/21/2015 RODDY WRIGHT DO, Ot Z79.899 OTHER EXCHANGE UNDERWRITING CONSULTANT (CURRENT) DRUG THERAPY 06/21/2015 RODDY WRIGHT DO Ot Z85.51 PERSONAL HISTORY OF MALIGNANT NEOPLASM O 06/21/2015 RODDY WRIGHT DO Ot Z93.6 OTHER ARTIFICIAL OPENINGS OF URINARY TRA 07/19/2015 RODDY WRIGHT DO Ot E11.9 07/19/2015 RODDY WRIGHT DO Ot N39.0 07/19/2015 ADRIANA DO, RODDY Florez Ot R11.2 07/19/2015 ADRIANA DO, ORDDY Florez Ot R19.7 07/19/2015 ADRIANA DO, RODDY Florez Ot Z79.899 07/19/2015 ADRIANA DO, RODDY Florez Ot Z85.51 07/19/2015 ADRIANA DO, RODDY Florez Ot Z93.6 12/27/2016 ERIN MAYES CFNP Ot 587 RENAL SCLEROSIS NOS 12/27/2016 MAYESERIN COOK R CFNP Ot 592.0 CALCULUS OF KIDNEY 12/27/2016 ERIN MAYES CFNP Ot 599.70 HEMATURIA, UNSPECIFIED 12/27/2016 JESSEE ONEILL MD Ot 239.4 BLADDER NEOPLASM NOS 12/27/2016 JESSEE ONEILL MD, Ot V72.61 ANTIBODY RESPONSE EXAMINATION 12/27/2016 JESSEE ONEILL MD, Ot V72.63 PRE-PROCEDURAL LABORATORY EXAMINATION 12/27/2016 JESSEE ONEILL MD Ot V72.83 EXAM PRE-OPERATIVE NEC 12/27/2016 JESSEE ONEILL MD, Ot V72.84 EXAM PRE-OPERATIVE NOS 12/27/2016 JESSEE ONEILL MD Ot 185 MALIGN NEOPL PROSTATE 12/27/2016 JESSEE ONEILL MD Ot 793.5 NOSP (ABN) FINDINGS ON RADIOLOGICAL OT 12/27/2016 GENNY URIARTE, JOSE CARLOS Bender Ot V72.84 EXAM PRE-OPERATIVE NOS 12/27/2016 LUIS DELACRUZ MD Ot 562.11 DIVERTICULITIS COLON (W/O MENT OF HEMORR 12/27/2016 LUIS DELACRUZ MD, Ot V72.84 EXAM PRE-OPERATIVE NOS 12/30/2016 ERIN MAYES CFNP Ot 587 RENAL SCLEROSIS NOS 12/30/2016 ERIN MAYES CFNP Ot 592.0 CALCULUS OF KIDNEY 12/30/2016 ERIN MAYES CFNP Ot 599.70 HEMATURIA, UNSPECIFIED 12/30/2016 JESSEE ONEILL MD Ot 239.4 BLADDER NEOPLASM NOS 12/30/2016 JESSEE ONEILL MD Ot V72.61 ANTIBODY RESPONSE EXAMINATION 12/30/2016 JESSEE ONEILL MD Ot V72.63 PRE-PROCEDURAL LABORATORY EXAMINATION 12/30/2016 JESSEE ONEILL MD Ot V72.83 EXAM PRE-OPERATIVE NEC 12/30/2016 JESSEE ONEILL MD Ot V72.84 EXAM PRE-OPERATIVE NOS 12/30/2016 JESSEE ONEILL MD Ot 185 MALIGN NEOPL PROSTATE 12/30/2016 JESSEE ONEILL MD Ot 793.5 NOSP (ABN) FINDINGS ON RADIOLOGICAL OT 12/30/2016 GENNY URIARTE, JOSE CARLOS Bender Ot V72.84 EXAM PRE-OPERATIVE NOS 12/30/2016 JAYME URIARTE, LUIS Ot 562.11 DIVERTICULITIS COLON (W/O MENT OF HEMORR 12/30/2016 LUIS DELACRUZ MD Ot V72.84 EXAM PRE-OPERATIVE NOS 12/31/2016 GAEL MILLER LINE SUPERVISOR Ot K43.5 PARASTOMAL HERNIA WITHOUT OBSTRUCTION OR 01/23/2017 GAEL MILLER LINE SUPERVISOR Ot K43.5 PARASTOMAL HERNIA WITHOUT OBSTRUCTION OR 06/02/2017 DELELISHA DO, ALLISON B Ot K43.9 VENTRAL HERNIA WITHOUT OBSTRUCTION OR GA 06/02/2017 DELELISHA DO, ALLISON B Ot Z85.51 PERSONAL HISTORY OF MALIGNANT NEOPLASM O 06/09/2017 DELMAN DO, ALLISON B Ot K43.5 PARASTOMAL HERNIA WITHOUT OBSTRUCTION OR 06/09/2017 DELMAN DO, ALLISON B Ot Z01.812 ENCOUNTER FOR PREPROCEDURAL LABORATORY E 06/09/2017 DELMAN DO, ALLISON B Ot Z11.2 ENCOUNTER FOR SCREENING FOR OTHER BACTER 06/10/2017 DELMAN DO, ALLISON B Ot K43.5 PARASTOMAL HERNIA WITHOUT OBSTRUCTION OR 06/10/2017 DELMAN DO, ALLISON B Ot Z01.812 ENCOUNTER FOR PREPROCEDURAL LABORATORY E 06/10/2017 DELMAN DO, ALLISON B Ot Z11.2 ENCOUNTER FOR SCREENING FOR OTHER BACTER 06/12/2017 GAEL MILLER LINE SUPERVISOR Ot K43.5 PARASTOMAL HERNIA WITHOUT OBSTRUCTION OR 06/12/2017 DELMAN DO, ALLISON B Ot K43.9 VENTRAL HERNIA WITHOUT OBSTRUCTION OR GA 06/12/2017 DELELISHA DO, ALLISON B Ot Z85.51 PERSONAL HISTORY OF MALIGNANT NEOPLASM O 06/12/2017 MAYES, ERIN R CFNP Ot 587 RENAL SCLEROSIS NOS 06/12/2017 ERIN MAYES CFNP Ot 592.0 CALCULUS OF KIDNEY 06/12/2017 MAYESERIN Samuels Esperanza CFNP Ot 599.70 HEMATURIA, UNSPECIFIED 06/12/2017 MAI URIARTE, JESSEE Mahoney Ot 239.4 BLADDER NEOPLASM NOS 06/12/2017 MAI URIARTE, JESSEE Mahoney Ot V72.61 ANTIBODY RESPONSE EXAMINATION 06/12/2017 JESSEE ONEILL MD Ot V72.63 PRE-PROCEDURAL LABORATORY EXAMINATION 06/12/2017 JESSEE ONEILL MD, Ot V72.83 EXAM PRE-OPERATIVE NEC 06/12/2017 JESSEE ONEILL MD, Ot V72.84 EXAM PRE-OPERATIVE NOS 06/12/2017 JESSEE ONEILL MD Ot 185 MALIGN NEOPL PROSTATE 06/12/2017 JESSEE [...] DO Ot I10 ESSENTIAL (PRIMARY) HYPERTENSION 06/16/2017 ALLISON MACEDO DO Ot K21.9 GASTRO-ESOPHAGEAL REFLUX DISEASE WITHOUT 06/16/2017 HELLEN RHODES, ALLISON B Ot K43.3 PARASTOMAL HERNIA WITH OBSTRUCTION, WITH 06/16/2017 HELLEN RHODES, ALLISON B Ot Z79.899 OTHER EXCHANGE UNDERWRITING CONSULTANT (CURRENT) DRUG THERAPY 06/16/2017 HELLEN RHODES, ALLISON B Ot Z85.51 PERSONAL HISTORY OF MALIGNANT NEOPLASM O 06/17/2017 EHLLEN RHODES, ALLISON B Ot E11.40 TYPE 2 DIABETES MELLITUS WITH DIABETIC N 06/17/2017 HELLEN RHODES, ALLISON B Ot E66.9 OBESITY, UNSPECIFIED 06/17/2017 HELLEN DO, ALLISON B Ot E78.5 HYPERLIPIDEMIA, UNSPECIFIED 06/17/2017 HELLEN RHODES, ALLISON B Ot F32.9 MAJOR DEPRESSIVE DISORDER, SINGLE EPISOD 06/17/2017 HELLEN RHODES, ALLISON B Ot F41.9 ANXIETY DISORDER, UNSPECIFIED 06/17/2017 HELLEN RHODES, ALLISON B Ot I10 ESSENTIAL (PRIMARY) HYPERTENSION 06/17/2017 HELLEN RHODES, ALLISON B Ot K21.9 GASTRO-ESOPHAGEAL REFLUX DISEASE WITHOUT 06/17/2017 HELLEN RHODES, ALLISON B Ot K43.3 PARASTOMAL HERNIA WITH OBSTRUCTION, WITH 06/17/2017 HELLEN RHODES, ALLISON B Ot Z79.899 OTHER HALF-WAY (CURRENT) DRUG THERAPY 06/17/2017 HELLEN RHODES, ALLISON B Ot Z85.51 PERSONAL HISTORY OF MALIGNANT NEOPLASM O 06/19/2017 HELLEN RHODES, ALLISON B Ot K43.9 VENTRAL HERNIA WITHOUT OBSTRUCTION OR GA 06/19/2017 HELLEN RHODES, ALLISON B Ot Z85.51 PERSONAL HISTORY [...] V72.84 EXAM PRE-OPERATIVE NOS 07/23/2017 GAEL MILLER LINE SUPERVISOR Ot K43.5 PARASTOMAL HERNIA WITHOUT OBSTRUCTION OR 07/23/2017 ALLISON MACEDO DO Ot K43.9 VENTRAL HERNIA WITHOUT OBSTRUCTION OR GA 07/23/2017 ALLISON MACEDO DO B Ot Z85.51 PERSONAL HISTORY OF MALIGNANT NEOPLASM O 07/25/2017 ERIN MAYES CFNP Ot 587 RENAL SCLEROSIS NOS 07/25/2017 MAYES ERIN Mata CFNP Ot 592.0 CALCULUS OF KIDNEY 07/25/2017 MAYESERIN Samuels CFNP Ot 599.70 HEMATURIA, UNSPECIFIED 07/25/2017 MAI URIARTE, JESSEE Mahoney Ot 239.4 BLADDER NEOPLASM NOS 07/25/2017 MAI URIARTE, JESSEE Mahoney Ot V72.61 ANTIBODY RESPONSE EXAMINATION 07/25/2017 JESSEE ONEILL MD Ot V72.63 PRE-PROCEDURAL LABORATORY EXAMINATION 07/25/2017 JESSEE ONEILL MD Ot V72.83 EXAM PRE-OPERATIVE NEC 07/25/2017 JESSEE ONEILL MD Ot V72.84 EXAM PRE-OPERATIVE NOS 07/25/2017 MAI URIARTE, JESSEE Mahoney Ot 185 MALIGN NEOPL PROSTATE 07/25/2017 MAI URIARTE, JESSEE Mahoney Ot 793.5 NOSP (ABN) FINDINGS ON RADIOLOGICAL OT 07/25/2017 JOSE CALROS ROYAL MD Ot V72.84 EXAM PRE-OPERATIVE NOS 07/25/2017 JAYME URIARTE, LUIS Ot 562.11 DIVERTICULITIS COLON (W/O MENT OF HEMORR 07/25/2017 LUIS DELACRUZ MD Ot V72.84 EXAM PRE-OPERATIVE NOS 07/25/2017 GAEL MILLER LINE SUPERVISOR Ot K43.5 PARASTOMAL HERNIA WITHOUT OBSTRUCTION OR 07/25/2017 ALLISON MACEDO DO Ot K43.9 VENTRAL HERNIA WITHOUT OBSTRUCTION OR GA 07/25/2017 ALLISON MACEDO DO Ot Z85.51 PERSONAL HISTORY OF MALIGNANT NEOPLASM O 07/28/2017 ALLISON MACEDO DO Ot C67.9 MALIGNANT NEOPLASM OF BLADDER, UNSPECIFI 07/28/2017 ALLISON MACEDO DO Ot K76.0 FATTY (CHANGE OF) LIVER, NOT ELSEWHERE C 07/28/2017 DELMAN DO, ALLISON B Ot Z93.2 ILEOSTOMY STATUS 08/06/2017 BECKA MACEDO DOIC B Ot C67.9 MALIGNANT NEOPLASM OF BLADDER, UNSPECIFI 08/06/2017 BECKA MACEDO DOIC B Ot K76.0 FATTY (CHANGE OF) LIVER, NOT ELSEWHERE C 08/06/2017 BECKA MACEDO DOIC B Ot Z93.2 ILEOSTOMY STATUS 08/07/2017 HELLEN RHODES ALLISON B Ot K43.9 VENTRAL HERNIA WITHOUT OBSTRUCTION OR GA 08/07/2017 HELLEN RHODES ALLISON B Ot Z85.51 PERSONAL HISTORY OF MALIGNANT NEOPLASM O 08/07/2017 ERIN MAYES CFNATIVIDAD Ot 587 RENAL SCLEROSIS NOS 08/07/2017 ERIN MAYES CFNP Ot 592.0 CALCULUS OF KIDNEY 08/07/2017 ERIN MAYES CFNP Ot 599.70 HEMATURIA, UNSPECIFIED 08/07/2017 MAI URIARTE, JESSEE Mahoney Ot 239.4 BLADDER NEOPLASM NOS 08/07/2017 MAI URIARTE, JESSEE Mahoney Ot V72.61 ANTIBODY RESPONSE EXAMINATION 08/07/2017 JESSEE ONEILL MD Ot V72.63 PRE-PROCEDURAL LABORATORY EXAMINATION 08/07/2017 JESSEE ONEILL MD Ot V72.83 EXAM PRE-OPERATIVE NEC 08/07/2017 JESSEE ONEILL MD Ot V72.84 EXAM PRE-OPERATIVE NOS 08/07/2017 JESSEE [...] WITHOUT OBSTRUCTION OR 08/07/2017 ALLISON MACEDO DO Ot K43.9 VENTRAL HERNIA WITHOUT OBSTRUCTION OR GA 08/07/2017 JARRETTELISHA DO ALLISON B Ot Z85.51 PERSONAL HISTORY OF MALIGNANT NEOPLASM O 08/07/2017 JARRETTELISHA DO, ALLISON B Ot C67.9 MALIGNANT NEOPLASM OF BLADDER, UNSPECIFI 08/07/2017 HELLEN DO, ALLISON B Ot K76.0 FATTY (CHANGE OF) LIVER, NOT ELSEWHERE C 08/07/2017 JARRETTELISHA , ALLISON B Ot Z93.2 ILEOSTOMY STATUS 10/13/2017 ERIN MAYES CFNP Ot 587 RENAL SCLEROSIS NOS 10/13/2017 ERIN MAYES CFNP Ot 592.0 CALCULUS OF KIDNEY 10/13/2017 ERIN MAYES CFNP Ot 599.70 HEMATURIA, UNSPECIFIED 10/13/2017 MAI URIARTE, JESSEE Mahoney Ot 239.4 BLADDER NEOPLASM NOS 10/13/2017 MAI URIARTE, JESSEE Mahoney Ot V72.61 ANTIBODY RESPONSE EXAMINATION 10/13/2017 MAI URIARTE, JESSEE Mahoney Ot V72.63 PRE-PROCEDURAL LABORATORY EXAMINATION 10/13/2017 JESSEE ONEILL MD Ot V72.83 EXAM PRE-OPERATIVE NEC 10/13/2017 MAI URIARTE, JESSEE Mahoney Ot V72.84 EXAM PRE-OPERATIVE NOS 10/13/2017 MAI URIARTE, JESSEE Mahoney Ot 185 MALIGN NEOPL PROSTATE 10/13/2017 MAI URIARTE, JESSEE Mahoney Ot 793.5 NOSP (ABN) FINDINGS ON RADIOLOGICAL OT 10/13/2017 GENNY URIARTE, JOSE CARLOS Bender Ot V72.84 EXAM PRE-OPERATIVE NOS 10/13/2017 JAYME URIARTE, LUIS Ot 562.11 DIVERTICULITIS COLON (W/O MENT OF HEMORR 10/13/2017 LUIS DELACRUZ MD Ot V72.84 EXAM PRE-OPERATIVE NOS 10/13/2017 GAEL MILLER APRN Ot K43.5 PARASTOMAL HERNIA WITHOUT OBSTRUCTION OR 10/13/2017 ALLISON MACEDO DO Ot K43.9 VENTRAL HERNIA WITHOUT OBSTRUCTION OR GA 10/13/2017 ALLISON MACEDO DO B Ot Z85.51 PERSONAL HISTORY OF MALIGNANT NEOPLASM O 10/13/2017 BECKA MACEDO DOIC B Ot C67.9 MALIGNANT NEOPLASM OF BLADDER, UNSPECIFI 10/13/2017 BECKA MACEDO DOIC B Ot K76.0 FATTY (CHANGE OF) LIVER, NOT ELSEWHERE C 10/13/2017 BECKA MACEDO DOIC B Ot Z93.2 ILEOSTOMY STATUS 10/13/2017 GAEL MILLER APRN Ot R55 SYNCOPE AND COLLAPSE 10/13/2017 GAEL MILLER APRN Ot R55 SYNCOPE AND COLLAPSE 10/13/2017 GAEL MILLER LINE SUPERVISOR Ot R55 SYNCOPE AND COLLAPSE 10/13/2017 GAEL MILLER LINE SUPERVISOR Ot R55 SYNCOPE AND COLLAPSE 10/14/2017 GAEL MILLER APRN Ot I70.0 ATHEROSCLEROSIS OF AORTA 10/14/2017 GAEL MILLER LINE SUPERVISOR Ot R55 SYNCOPE AND COLLAPSE 10/24/2017 GAEL MILLER APRN Ot I70.0 ATHEROSCLEROSIS OF AORTA 10/24/2017 GAEL MILLER APRN Ot R55 SYNCOPE AND COLLAPSE 11/10/2017 ALLISON MACEDO DO Ot C67.9 MALIGNANT NEOPLASM OF BLADDER, UNSPECIFI 11/10/2017 ALLISON MACEDO DO Ot K76.0 FATTY (CHANGE OF) LIVER, NOT ELSEWHERE C 11/10/2017 ALLISON MACEDO DO Ot Z93.2 ILEOSTOMY STATUS 11/19/2017 Ot Z01.818 ENCOUNTER FOR OTHER PREPROCEDURAL EXAMIN 11/19/2017 Ot Z12.11 ENCOUNTER FOR SCREENING FOR MALIGNANT NE 11/26/2017 ALLISON MACEDO DO Ot E11.42 TYPE 2 DIABETES MELLITUS WITH DIABETIC P 11/26/2017 ALLISON MACEDO DO Ot E78.5 HYPERLIPIDEMIA, UNSPECIFIED 11/26/2017 ALLISON MACEDO DO Ot F32.9 MAJOR DEPRESSIVE DISORDER, SINGLE EPISOD 11/26/2017 ALLISON MACEDO DO Ot F41.9 ANXIETY DISORDER, UNSPECIFIED 11/26/2017 ALLISON MACEDO DO Ot I10 ESSENTIAL (PRIMARY) HYPERTENSION 11/26/2017 ALLISON MACEDO DO Ot K63.89 OTHER SPECIFIED DISEASES OF INTESTINE 11/26/2017 ALLISON MACEDO DO Ot K64.8 OTHER HEMORRHOIDS 11/26/2017 ALLISON MACEDO DO Ot M06.9 RHEUMATOID ARTHRITIS, UNSPECIFIED 11/26/2017 ALLISON MACEDO DO Ot Z12.11 ENCOUNTER FOR SCREENING FOR MALIGNANT NE 11/26/2017 ALLISON MACEDO DO Ot Z79.84 EXCHANGE UNDERWRITING CONSULTANT (CURRENT) USE OF ORAL HYPOGLYC 11/26/2017 ALLISON MACEDO DO Ot Z79.899 OTHER EXCHANGE UNDERWRITING CONSULTANT (CURRENT) DRUG THERAPY 11/26/2017 BECKA MACEDO DOIC B Ot Z96.611 PRESENCE OF RIGHT ARTIFICIAL SHOULDER TAMMY 12/02/2017 ALLISON MACEDO DO B Ot E11.42 TYPE 2 DIABETES MELLITUS WITH DIABETIC P 12/02/2017 ALLISON MACEDO DO B Ot E78.5 HYPERLIPIDEMIA, UNSPECIFIED 12/02/2017 BECKA MACEDO DOIC B Ot F32.9 MAJOR DEPRESSIVE DISORDER, SINGLE EPISOD 12/02/2017 ALLISON MACEDO DO B Ot F41.9 ANXIETY DISORDER, UNSPECIFIED 12/02/2017 BECKA MACEDO DOIC B Ot I10 ESSENTIAL (PRIMARY) HYPERTENSION 12/02/2017 ALLISON MACEDO DO B Ot K63.89 OTHER SPECIFIED DISEASES OF INTESTINE 12/02/2017 ALLISON MACEDO DO B Ot K64.8 OTHER HEMORRHOIDS 12/02/2017 ALLISON MACEDO DO B Ot M06.9 RHEUMATOID ARTHRITIS, UNSPECIFIED 12/02/2017 ALLISON MACEDO DO B Ot Z12.11 ENCOUNTER FOR SCREENING FOR MALIGNANT NE 12/02/2017 ALLISON MACEDO DO Ot Z79.84 HALF-WAY (CURRENT) USE OF ORAL HYPOGLYC 12/02/2017 BECKA MACEDO DOIC B Ot Z79.899 OTHER EXCHANGE UNDERWRITING CONSULTANT (CURRENT) DRUG THERAPY 12/02/2017 ALLISON MACEDO DO B Ot Z96.611 PRESENCE OF RIGHT ARTIFICIAL SHOULDER TAMMY 12/10/2017 Ot M17.11 UNILATERAL PRIMARY OSTEOARTHRITIS, RIGHT 12/10/2017 Ot M25.562 PAIN IN LEFT KNEE 12/12/2017 GAEL MILLER LINE SUPERVISOR Ot E11.65 TYPE 2 DIABETES MELLITUS WITH HYPERGLYCE 12/12/2017 GAEL MILLER LINE SUPERVISOR Ot E78.5 HYPERLIPIDEMIA, UNSPECIFIED 12/12/2017 GAEL MILLER LINE SUPERVISOR Ot R05 COUGH 12/12/2017 GAEL MILLER LINE SUPERVISOR Ot Z12.5 ENCOUNTER FOR SCREENING FOR MALIGNANT NE 12/12/2017 GAEL MILLER LINE SUPERVISOR Ot Z96.611 PRESENCE OF RIGHT ARTIFICIAL SHOULDER TAMMY 12/16/2017 KANDY URIARTE, Darline MICHEL Ot R00.2 PALPITATIONS 12/18/2017 Darline GAITAN MD Ot E11.9 TYPE 2 DIABETES MELLITUS WITHOUT COMPLIC 12/18/2017 Darline GAITAN MD Ot E78.5 HYPERLIPIDEMIA, UNSPECIFIED 12/18/2017 KANDY URIARTE, Darline MICHEL Ot I10 ESSENTIAL (PRIMARY) HYPERTENSION 12/18/2017 KANDY URIARTE, Darline MICHEL Ot M79.604 PAIN IN RIGHT LEG 12/18/2017 KANDY URIARTE, Darline MICHEL Ot R00.2 PALPITATIONS 12/18/2017 KANDY URIARTE, Darline MICHEL Ot R06.02 SHORTNESS OF BREATH 12/18/2017 KANDY URIARTE, Darline MICHEL Ot R07.9 CHEST PAIN, UNSPECIFIED 12/18/2017 ERIN MAYES Ot 587 RENAL SCLEROSIS NOS 12/18/2017 ERIN MAYES Ot 592.0 CALCULUS OF KIDNEY 12/18/2017 ERIN MAYES Ot 599.70 HEMATURIA, UNSPECIFIED 12/18/2017 MAI URIARTE, JESSEE Mahoney Ot 239.4 BLADDER NEOPLASM NOS 12/18/2017 JESSEE ONEILL MD Ot V72.61 ANTIBODY RESPONSE EXAMINATION 12/18/2017 JESSEE ONEILL MD, Ot V72.63 PRE-PROCEDURAL LABORATORY EXAMINATION 12/18/2017 JESSEE ONEILL MD Ot V72.83 EXAM PRE-OPERATIVE NEC 12/18/2017 JESSEE ONEILL MD, Ot V72.84 EXAM PRE-OPERATIVE NOS 12/18/2017 JESSEE ONEILL MD Ot 185 MALIGN NEOPL PROSTATE 12/18/2017 JESSEE ONEILL MD Ot 793.5 NOSP (ABN) FINDINGS ON RADIOLOGICAL OT 12/18/2017 JOSE CARLOS ROYAL MD Ot V72.84 EXAM PRE-OPERATIVE NOS 12/18/2017 LUIS DELACRUZ MD Ot 562.11 DIVERTICULITIS COLON (W/O MENT OF HEMORR 12/18/2017 LUIS DELACRUZ MD Ot V72.84 EXAM PRE-OPERATIVE NOS 12/18/2017 GAEL MILLER APRN Ot K43.5 PARASTOMAL HERNIA WITHOUT OBSTRUCTION OR 12/18/2017 ALLISON MACEDO DO Ot K43.9 VENTRAL HERNIA WITHOUT OBSTRUCTION OR GA 12/18/2017 ALLISON MACEDO DO Ot Z85.51 PERSONAL HISTORY OF MALIGNANT NEOPLASM O 12/18/2017 DELMAN DO, ALLISON B Ot C67.9 MALIGNANT NEOPLASM OF BLADDER, UNSPECIFI 12/18/2017 ALLISON MACEDO DO Ot K76.0 FATTY (CHANGE OF) LIVER, NOT ELSEWHERE C 12/18/2017 ALLISON MACEDO DO Ot Z93.2 ILEOSTOMY STATUS 12/18/2017 GAEL MILLER APRN Ot I70.0 ATHEROSCLEROSIS OF AORTA 12/18/2017 GAEL MILLER APRN Ot R55 SYNCOPE AND COLLAPSE 12/18/2017 Ot M17.11 UNILATERAL PRIMARY OSTEOARTHRITIS, RIGHT 12/18/2017 Ot M25.562 PAIN IN LEFT KNEE 12/18/2017 KANDY URIARTE, Darline MICHEL Ot E11.9 TYPE 2 DIABETES MELLITUS WITHOUT COMPLIC 12/18/2017 KANDY URIARTE, Darline MICHEL Ot E78.5 HYPERLIPIDEMIA, UNSPECIFIED 12/18/2017 KANDY URIARTE, Darline MICHEL Ot I10 ESSENTIAL (PRIMARY) HYPERTENSION 12/18/2017 KANDY URIARTE, Darline MICHEL Ot M79.604 PAIN IN RIGHT LEG 12/18/2017 KANDY URIARTE, Darline MICHEL Ot R00.2 PALPITATIONS 12/18/2017 KANDY URIARTE, Darline MICHEL Ot R06.02 SHORTNESS OF BREATH 12/18/2017 KANDY URIARTE, Darline MICHEL Ot R07.9 CHEST PAIN, UNSPECIFIED 12/18/2017 GAEL MILLER LINE SUPERVISOR Ot E11.65 TYPE 2 DIABETES MELLITUS WITH HYPERGLYCE 12/18/2017 GAEL MILLER LINE SUPERVISOR Ot E78.5 HYPERLIPIDEMIA, UNSPECIFIED 12/18/2017 GAEL MILLER LINE SUPERVISOR Ot R05 COUGH 12/18/2017 GAEL MILLER LINE SUPERVISOR Ot Z12.5 ENCOUNTER FOR SCREENING FOR MALIGNANT NE 12/18/2017 GALE MILLER LINE SUPERVISOR Ot Z96.611 PRESENCE OF RIGHT ARTIFICIAL SHOULDER TAMMY 12/22/2017 GAEL MILLER LINE SUPERVISOR Ot E11.65 TYPE 2 DIABETES MELLITUS WITH HYPERGLYCE 12/22/2017 GAEL MILLER LINE SUPERVISOR Ot E78.5 HYPERLIPIDEMIA, UNSPECIFIED 12/22/2017 GAEL MILLER LINE SUPERVISOR Ot R05 COUGH 12/22/2017 GAEL MILLER LINE SUPERVISOR Ot Z12.5 ENCOUNTER FOR SCREENING FOR MALIGNANT NE 12/22/2017 GAEL MILLER LINE SUPERVISOR Ot Z96.611 PRESENCE OF RIGHT ARTIFICIAL SHOULDER TAMMY 12/26/2017 Darline GAITAN MD Ot E11.9 TYPE 2 DIABETES MELLITUS WITHOUT COMPLIC 12/26/2017 Darline GAITAN MD Ot E78.5 HYPERLIPIDEMIA, UNSPECIFIED 12/26/2017 Darline GAITAN MD Ot I10 ESSENTIAL (PRIMARY) HYPERTENSION 12/26/2017 Darline GAITAN MD, Ot M79.604 PAIN IN RIGHT LEG 12/26/2017 Darline GAITAN MD Ot R00.2 PALPITATIONS 12/26/2017 Darline GAITAN MD Ot R06.02 SHORTNESS OF BREATH 12/26/2017 Darline GAITAN MD Ot R07.9 CHEST PAIN, UNSPECIFIED 12/30/2017 ERIN MAYES CFNATIVIDAD Ot 587 RENAL SCLEROSIS NOS 12/30/2017 ERIN MAYES CFNP Ot 592.0 CALCULUS OF KIDNEY 12/30/2017 ERIN MAYES CFNP Ot 599.70 HEMATURIA, UNSPECIFIED 12/30/2017 MAI URIARTE, JESSEE Mahoney Ot 239.4 BLADDER NEOPLASM NOS 12/30/2017 JESSEE ONEILL MD Ot V72.61 ANTIBODY RESPONSE EXAMINATION 12/30/2017 JESSEE ONEILL MD Ot V72.63 PRE-PROCEDURAL LABORATORY EXAMINATION 12/30/2017 JESSEE ONEILL MD Ot V72.83 EXAM PRE-OPERATIVE NEC 12/30/2017 JESSEE ONEILL MD, Ot V72.84 EXAM PRE-OPERATIVE NOS 12/30/2017 JESSEE ONEILL MD Ot 185 MALIGN NEOPL PROSTATE 12/30/2017 JESSEE ONEILL MD Ot 793.5 NOSP (ABN) FINDINGS ON RADIOLOGICAL OT 12/30/2017 GENNY URIARTE, JOSE CARLOS Bender Ot V72.84 EXAM PRE-OPERATIVE NOS 12/30/2017 LUIS DELACRUZ MD Ot 562.11 DIVERTICULITIS COLON (W/O MENT OF HEMORR 12/30/2017 LUIS DELACRUZ MD Ot V72.84 EXAM PRE-OPERATIVE NOS 12/30/2017 GAEL MILLER APRN Ot K43.5 PARASTOMAL HERNIA WITHOUT OBSTRUCTION OR 12/30/2017 BECKA MACEDO DOIC Tavo Ot K43.9 VENTRAL HERNIA WITHOUT OBSTRUCTION OR GA 12/30/2017 ALLISON MACEDO DO Ot Z85.51 PERSONAL HISTORY OF MALIGNANT NEOPLASM O 12/30/2017 BECKA MACEDO DOIC Tavo Ot C67.9 MALIGNANT NEOPLASM OF BLADDER, UNSPECIFI 12/30/2017 ALLISON MACEDO DO Ot K76.0 FATTY (CHANGE OF) LIVER, NOT ELSEWHERE C 12/30/2017 BECKA MACEDO DOIC Tavo Ot Z93.2 ILEOSTOMY STATUS 12/30/2017 GAEL MILLER APRN Ot I70.0 ATHEROSCLEROSIS OF AORTA 12/30/2017 GAEL MILLER APRN Ot R55 SYNCOPE AND COLLAPSE 12/30/2017 Ot M17.11 UNILATERAL PRIMARY OSTEOARTHRITIS, RIGHT 12/30/2017 Ot M25.562 PAIN IN LEFT KNEE 12/30/2017 KANDY URIARTE, Darline MICHEL Ot E11.9 TYPE 2 DIABETES MELLITUS WITHOUT COMPLIC 12/30/2017 KANDY URIARTE, Darline MICHEL Ot E78.5 HYPERLIPIDEMIA, UNSPECIFIED 12/30/2017 Darline GAITAN MD Ot I10 ESSENTIAL (PRIMARY) HYPERTENSION 12/30/2017 KANDY URIARTE, Darline MICHEL Ot M79.604 PAIN IN RIGHT LEG 12/30/2017 KANDY URIARTE, Darline MICHEL Ot R00.2 PALPITATIONS 12/30/2017 Darline GAITAN MD Ot R06.02 SHORTNESS OF BREATH 12/30/2017 Darline GAITAN MD Ot R07.9 CHEST PAIN, UNSPECIFIED 12/30/2017 GAEL MILLER LINE SUPERVISOR Ot E11.65 TYPE 2 DIABETES MELLITUS WITH HYPERGLYCE 12/30/2017 GAEL MILLER APRN Ot E78.5 HYPERLIPIDEMIA, UNSPECIFIED 12/30/2017 GAEL MILLER APRN Ot R05 COUGH 12/30/2017 GAEL MILLER APRN Ot Z12.5 ENCOUNTER FOR SCREENING FOR MALIGNANT NE 12/30/2017 GAEL MILLER APRN Ot Z96.611 PRESENCE OF RIGHT ARTIFICIAL SHOULDER TAMMY 01/11/2018 Darline GAITAN MD Ot E13.9 OTHER SPECIFIED DIABETES MELLITUS WITHOU 01/11/2018 Darline GAITAN MD Ot E78.5 HYPERLIPIDEMIA, UNSPECIFIED 01/11/2018 Darline GAITAN MD Ot I10 ESSENTIAL (PRIMARY) HYPERTENSION 01/11/2018 KANDY URIARTE, Darline MICHEL Ot M79.604 PAIN IN RIGHT LEG 01/11/2018 Darline GAITAN MD Ot R00.2 PALPITATIONS 01/11/2018 Darline GAITAN MD Ot R06.02 SHORTNESS OF BREATH 01/11/2018 Darline GAITAN MD Ot R07.9 CHEST PAIN, UNSPECIFIED 01/12/2018 GAEL MILLER LINE SUPERVISOR Ot I70.0 ATHEROSCLEROSIS OF AORTA 01/12/2018 GAEL MILLER LINE SUPERVISOR Ot R55 SYNCOPE AND COLLAPSE 01/14/2018 Darline GAITAN MD Ot E13.9 OTHER SPECIFIED DIABETES MELLITUS WITHOU 01/14/2018 Darline GAITAN MD Ot E78.5 HYPERLIPIDEMIA, UNSPECIFIED 01/14/2018 Darline GAITAN MD Ot I10 ESSENTIAL (PRIMARY) HYPERTENSION 01/14/2018 Darline GAITAN MD Ot M79.604 PAIN IN RIGHT LEG 01/14/2018 Darline GAITAN MD Ot R00.2 PALPITATIONS 01/14/2018 Darline GAITAN MD Ot R06.02 SHORTNESS OF BREATH 01/14/2018 Darline GAITAN MD Ot R07.9 CHEST PAIN, UNSPECIFIED 01/16/2018 Darline GAITAN MD Ot E13.9 OTHER SPECIFIED DIABETES MELLITUS WITHOU 01/16/2018 Darline GAITAN MD Ot E78.5 HYPERLIPIDEMIA, UNSPECIFIED 01/16/2018 Darilne GAITAN MD Ot I10 ESSENTIAL (PRIMARY) HYPERTENSION 01/16/2018 Darline GAITAN MD Ot M79.604 PAIN IN RIGHT LEG 01/16/2018 Darline GAITAN MD Ot R00.2 PALPITATIONS 01/16/2018 Darline GAITAN MD Ot R06.02 SHORTNESS OF BREATH 01/16/2018 Darline GAITAN MD Ot R07.9 CHEST PAIN, UNSPECIFIED 01/17/2018 Darline GAITAN MD Ot E13.9 OTHER SPECIFIED DIABETES MELLITUS WITHOU 01/17/2018 Darline GAITAN MD Ot E78.5 HYPERLIPIDEMIA, UNSPECIFIED 01/17/2018 Darline GAITAN MD Ot I10 ESSENTIAL (PRIMARY) HYPERTENSION 01/17/2018 Darline GAITAN MD Ot M79.604 PAIN IN RIGHT LEG 01/17/2018 Darline GAITAN MD Ot R00.2 PALPITATIONS 01/17/2018 Darline GAITAN MD Ot R06.02 SHORTNESS OF BREATH 01/17/2018 Darline GAITAN MD Ot R07.9 CHEST PAIN, UNSPECIFIED 01/27/2018 Darline GAITAN MD Ot E13.9 OTHER SPECIFIED DIABETES MELLITUS WITHOU 01/27/2018 Darline GAITAN MD Ot E78.5 HYPERLIPIDEMIA, UNSPECIFIED 01/27/2018 Darline GAITAN MD Ot I10 ESSENTIAL (PRIMARY) HYPERTENSION 01/27/2018 Darline GAITAN MD Ot M79.604 PAIN IN RIGHT LEG 01/27/2018 Darline GAITAN MD Ot R00.2 PALPITATIONS 01/27/2018 Darline GAITAN MD Ot R06.02 SHORTNESS OF BREATH 01/27/2018 Darline GAITAN MD Ot R07.9 CHEST PAIN, UNSPECIFIED 01/29/2018 GAEL MILLER LINE SUPERVISOR Ot I70.0 ATHEROSCLEROSIS OF AORTA 01/29/2018 GAEL MILLER LINE SUPERVISOR Ot R55 SYNCOPE AND COLLAPSE 02/05/2018 Darline GAITAN MD Ot E11.9 TYPE 2 DIABETES MELLITUS WITHOUT COMPLIC 02/05/2018 Darline GAITAN MD Ot E78.5 HYPERLIPIDEMIA, UNSPECIFIED 02/05/2018 Darline GAITAN MD Ot I10 ESSENTIAL (PRIMARY) HYPERTENSION 02/05/2018 Darline GAITAN MD Ot M79.604 PAIN IN RIGHT LEG 02/05/2018 Darline GAITAN MD Ot R00.2 PALPITATIONS 02/05/2018 KANDY URIARTE, Darline MICHEL Ot R06.02 SHORTNESS OF BREATH 02/05/2018 KANDY URIARTE, Darline MICHEL Ot R07.9 CHEST PAIN, UNSPECIFIED 03/23/2018 ERIN MAYES Esperanza [facility] Ot 587 RENAL SCLEROSIS NOS 03/23/2018 ERIN MAYES Esperanza [facility] Ot 592.0 CALCULUS OF KIDNEY 03/23/2018 GERBER ERIN Mata [facility] Ot 599.70 HEMATURIA, UNSPECIFIED 03/23/2018 MAI URIARTE, JESSEE Mahoney Ot 239.4 BLADDER NEOPLASM NOS 03/23/2018 MIA URIARTE, JESSEE Mahoney Ot V72.61 ANTIBODY RESPONSE EXAMINATION 03/23/2018 JESSEE ONEILL MD, Ot V72.63 PRE-PROCEDURAL LABORATORY EXAMINATION 03/23/2018 JESSEE ONEILL MD, Ot V72.83 EXAM PRE-OPERATIVE NEC 03/23/2018 JESSEE ONEILL MD Ot V72.84 EXAM PRE-OPERATIVE NOS 03/23/2018 JESSEE ONEILL MD Ot 185 MALIGN NEOPL PROSTATE 03/23/2018 JESSEE ONEILL MD Ot 793.5 NOSP (ABN) FINDINGS ON RADIOLOGICAL OT 03/23/2018 GENNY URIARTE, JOSE CARLOS Bender Ot V72.84 EXAM PRE-OPERATIVE NOS 03/23/2018 JAYME URIARTE, LUIS Ot 562.11 DIVERTICULITIS COLON (W/O MENT OF HEMORR 03/23/2018 LUIS DELACRUZ MD Ot V72.84 EXAM PRE-OPERATIVE NOS 03/23/2018 GAEL MILLER APRN Ot K43.5 PARASTOMAL HERNIA WITHOUT OBSTRUCTION OR 03/23/2018 ALLISON MACEDO DO Ot K43.9 VENTRAL HERNIA WITHOUT OBSTRUCTION OR GA 03/23/2018 ALLISON MACEDO DO Ot Z85.51 PERSONAL HISTORY OF MALIGNANT NEOPLASM O 03/23/2018 ALLISON MACEDO DO Ot C67.9 MALIGNANT NEOPLASM OF BLADDER, UNSPECIFI 03/23/2018 ALLISON MACEDO DO Ot K76.0 FATTY (CHANGE OF) LIVER, NOT ELSEWHERE C 03/23/2018 ALLISON MACEDO DO Ot Z93.2 ILEOSTOMY STATUS 03/23/2018 GAEL MILLER APRN Ot I70.0 ATHEROSCLEROSIS OF AORTA 03/23/2018 GAEL MILLER LINE SUPERVISOR Ot R55 SYNCOPE AND COLLAPSE 03/23/2018 Ot M17.11 UNILATERAL PRIMARY OSTEOARTHRITIS, RIGHT 03/23/2018 Ot M25.562 PAIN IN LEFT KNEE 03/23/2018 Darline GAITAN MD Ot E11.9 TYPE 2 DIABETES MELLITUS WITHOUT COMPLIC 03/23/2018 Darline GAITAN MD Ot E78.5 HYPERLIPIDEMIA, UNSPECIFIED 03/23/2018 Darline GAITAN MD Ot I10 ESSENTIAL (PRIMARY) HYPERTENSION 03/23/2018 Darline GAITAN MD Ot M79.604 PAIN IN RIGHT LEG 03/23/2018 Darline GAITAN MD Ot R00.2 PALPITATIONS 03/23/2018 Darline GAITAN MD Ot R06.02 SHORTNESS OF BREATH 03/23/2018 Darline GAITAN MD Ot R07.9 CHEST PAIN, UNSPECIFIED 03/23/2018 GAEL MILLER LINE SUPERVISOR Ot E11.65 TYPE 2 DIABETES MELLITUS WITH HYPERGLYCE 03/23/2018 GAEL MILLER LINE SUPERVISOR Ot E78.5 HYPERLIPIDEMIA, UNSPECIFIED 03/23/2018 GAEL MILLER LINE SUPERVISOR Ot R05 COUGH 03/23/2018 GAEL MILLER LINE SUPERVISOR Ot Z12.5 ENCOUNTER FOR SCREENING FOR MALIGNANT NE 03/23/2018 GAEL MILLER LINE SUPERVISOR Ot Z96.611 PRESENCE OF RIGHT ARTIFICIAL SHOULDER TAMMY 03/23/2018 Darline GAITAN MD Ot E13.9 OTHER SPECIFIED DIABETES MELLITUS WITHOU 03/23/2018 Darline GAITAN MD Ot E78.5 HYPERLIPIDEMIA, UNSPECIFIED 03/23/2018 Darline GAITAN MD Ot I10 ESSENTIAL (PRIMARY) HYPERTENSION 03/23/2018 Darline GAITAN MD Ot M79.604 PAIN IN RIGHT LEG 03/23/2018 Darline GAITAN MD Ot R00.2 PALPITATIONS 03/23/2018 Darline GAITAN MD Ot R06.02 SHORTNESS OF BREATH 03/23/2018 Darline GAITAN MD Ot R07.9 CHEST PAIN, UNSPECIFIED 03/25/2018 MILLER, GAEL D LINE SUPERVISOR Ot M17.11 UNILATERAL PRIMARY OSTEOARTHRITIS, RIGHT 03/25/2018 GAEL MILLER APRN Ot S83.241A OTH TEAR OF MEDIAL MENISCUS, CURRENT INJ 03/29/2018 GAEL MILLER LINE SUPERVISOR Ot M17.11 UNILATERAL PRIMARY OSTEOARTHRITIS, RIGHT 03/29/2018 GAEL MILLER APRN Ot S83.241A OTH TEAR OF MEDIAL MENISCUS, CURRENT INJ 04/03/2018 GAEL MILLER LINE SUPERVISOR Ot M17.11 UNILATERAL PRIMARY OSTEOARTHRITIS, RIGHT 04/03/2018 GAEL MILLER LINE SUPERVISOR Ot S83.241A OTH TEAR OF MEDIAL MENISCUS, CURRENT INJ 04/13/2018 Darline GAITAN MD Ot E13.9 OTHER SPECIFIED DIABETES MELLITUS WITHOU 04/13/2018 Darline GAITAN MD Ot E78.5 HYPERLIPIDEMIA, UNSPECIFIED 04/13/2018 Darline GAITAN MD Ot I10 ESSENTIAL (PRIMARY) HYPERTENSION 04/13/2018 Darline GAITAN MD Ot M79.604 PAIN IN RIGHT LEG 04/13/2018 Darline GAITAN MD Ot R00.2 PALPITATIONS 04/13/2018 Darline GAITAN MD Ot R06.02 SHORTNESS OF BREATH 04/13/2018 Darline GAITAN MD Ot R07.9 CHEST PAIN, UNSPECIFIED 04/16/2018 GAEL MILLER LINE SUPERVISOR Ot E11.65 TYPE 2 DIABETES MELLITUS WITH HYPERGLYCE 04/16/2018 GAEL MILLER LINE SUPERVISOR Ot E55.9 VITAMIN D DEFICIENCY, UNSPECIFIED 04/16/2018 GAEL MILLER LINE SUPERVISOR Ot E78.5 HYPERLIPIDEMIA, UNSPECIFIED 04/16/2018 GAEL MILLER LINE SUPERVISOR Ot R53.83 OTHER FATIGUE 04/16/2018 Darline GAITAN MD Ot E13.9 OTHER SPECIFIED DIABETES MELLITUS WITHOU 04/16/2018 Darline GAITAN MD Ot E78.5 HYPERLIPIDEMIA, UNSPECIFIED 04/16/2018 Darline GAITAN MD Ot I10 ESSENTIAL (PRIMARY) HYPERTENSION 04/16/2018 Darline GAITAN MD Ot M79.604 PAIN IN RIGHT LEG 04/16/2018 Darline GAITAN MDN Ot R00.2 PALPITATIONS 04/16/2018 Darline GAITAN MD Ot R06.02 SHORTNESS OF BREATH 04/16/2018 Darline GAITAN MD Ot R07.9 CHEST PAIN, UNSPECIFIED 04/17/2018 GAEL MILLER LINE SUPERVISOR Ot E11.65 TYPE 2 DIABETES MELLITUS WITH HYPERGLYCE 04/17/2018 GAEL MILLER LINE SUPERVISOR Ot E55.9 VITAMIN D DEFICIENCY, UNSPECIFIED 04/17/2018 GAEL MILLER LINE SUPERVISOR Ot E78.5 HYPERLIPIDEMIA, UNSPECIFIED 04/17/2018 GAEL MILLER LINE SUPERVISOR Ot R05 COUGH 04/17/2018 GAEL MILLER APRN Ot Z01.818 ENCOUNTER FOR OTHER PREPROCEDURAL EXAMIN 05/12/2018 GAEL MILLER APRN Ot M17.11 UNILATERAL PRIMARY OSTEOARTHRITIS, RIGHT 05/12/2018 GAEL MILLER LINE SUPERVISOR Ot S83.241A OTH TEAR OF MEDIAL MENISCUS, CURRENT INJ 05/20/2018 ERIN OLIVIA MD Ot Z01.812 ENCOUNTER FOR PREPROCEDURAL LABORATORY E 05/21/2018 ERIN OLIVIA MD Ot M17.11 UNILATERAL PRIMARY OSTEOARTHRITIS, RIGHT 05/21/2018 ERIN OLIVIA MD Ot R53.83 OTHER FATIGUE 05/21/2018 ERIN OLIVIA MD Ot R82.90 UNSPECIFIED ABNORMAL FINDINGS IN URINE 05/21/2018 ERIN OLIVIA MD Ot Z01.812 ENCOUNTER FOR PREPROCEDURAL LABORATORY E 05/21/2018 ERIN OLIVIA MD Ot Z11.2 ENCOUNTER FOR SCREENING FOR OTHER BACTER 08/21/2018 GAEL MILLER LINE SUPERVISOR Ot L03.115 CELLULITIS OF RIGHT LOWER LIMB 08/21/2018 GAEL MILLER LINE SUPERVISOR Ot M85.661 OTHER CYST OF BONE, RIGHT LOWER LEG 08/21/2018 GAEL MILLER LINE SUPERVISOR Ot Z98.890 OTHER SPECIFIED POSTPROCEDURAL STATES 09/03/2018 GAEL MILLER LINE SUPERVISOR Ot L03.115 CELLULITIS OF RIGHT LOWER LIMB 09/03/2018 GAEL MILLER LINE SUPERVISOR Ot M85.661 OTHER CYST OF BONE, RIGHT LOWER LEG 09/03/2018 GAEL MILLER LINE SUPERVISOR Ot Z98.890 OTHER SPECIFIED POSTPROCEDURAL STATES 09/14/2018 GAEL MILLER APRN Ot E11.65 TYPE 2 DIABETES MELLITUS WITH HYPERGLYCE 11/17/2018 ALLISON MACEDO DO Ot Z01.818 ENCOUNTER FOR OTHER PREPROCEDURAL EXAMIN 11/17/2018 ALLISON MACEDO DO Ot Z01.818 ENCOUNTER FOR OTHER PREPROCEDURAL EXAMIN 11/17/2018 ALLISON MACEDO DO Ot Z01.818 ENCOUNTER FOR OTHER PREPROCEDURAL EXAMIN 11/19/2018 ALLISON MACEDO DO Ot Z01.818 ENCOUNTER FOR OTHER PREPROCEDURAL EXAMIN Procedures Code [place] [address] UA LONG DIP 12/02/2012 82638 UA LONG DIP 12/16/2012 69855 A1C (IN-HOUSE) 03/23/2013 J2550 PHENERGAN INJECTION UP TO 50 MG 04/01/2013 98932 UA LONG DIP 06/16/[address] ABDOMEN & PELVIS W/O CONTRAST 06/28/2013 46580 UA LONG DIP 06/28/2013 19627 URINE MICROSCOPIC EXAM 06/28/2013 82084 CULTURE URINE 06/29/2013 52183 UA LONG DIP 10/26/2013 80901 A1C (IN-HOUSE) 10/26/2013 41468 UA LONG DIP 11/09/2013 11695 A1C (IN-HOUSE) 03/15/2014 79016 UA LONG DIP 07/09/2014 86640 UA LONG DIP 07/20/2014 54.91 PERCUTANEOUS ABDOMINAL DRAINAGE 11/07/2014 Results Test Result Range [id number] - 05/30/17 11:01 Serum or plasma urea [...] Automated erythrocyte mean corpuscular hemoglobin concentration measurement (mass/volume) 33 g/dL 32-36 Automated erythrocyte distribution width ratio 14.2 % 10.0- 14.5 Automated blood platelet count (count/volume) 198 10*3/uL [...] Blood monocytes automated count (number/volume) 0.3 10*3 0.0- 1.0 Automated eosinophil count 0.1 10*3/uL 0.0-0.3 Automated [...] resistant Staphylococcus aureus (MRSA) screening culture - 06/09/17 10:30 Methicillin resistant Staphylococcus aureus (MRSA) screening culture NEG NRG Capillary blood glucose measurement by glucometer (mass/volume) - 06/16/17 06:21 Capillary blood glucose measurement by glucometer (mass/volume) 147 mg/dL 70-110 [id number] - 07/25/17 13:51 Serum or plasma urea nitrogen measurement (mass/volume) 29 mg/dL 7-18 Serum or plasma creatinine measurement (mass/volume) 1.31 mg/dL 0.60-1.30 Serum or plasma urea nitrogen/creatinine mass ratio 22 NRG Serum or plasma creatinine measurement with calculation of estimated glomerular filtration rate 55 NRG Automated blood complete blood count (hemogram) panel - 12/11/17 11:10 Blood leukocytes automated count (number/volume) 5.7 10*3/uL 4.3-11.0 Blood erythrocytes automated count (number/volume) 4.27 10*6/uL 4.35-5.85 Venous blood hemoglobin measurement (mass/volume) 12.4 g/dL 13.3-17.7 Blood hematocrit (volume fraction) 36 % 40-54 Automated erythrocyte mean corpuscular volume 84 [foz_us] 80-99 Automated erythrocyte mean corpuscular hemoglobin (mass per erythrocyte) 29 pg 25-34 Automated erythrocyte mean corpuscular hemoglobin concentration measurement (mass/volume) 34 g/dL 32-36 Automated erythrocyte distribution width ratio 13.2 % 10.0- 14.5 Automated blood platelet count (count/volume) 237 10*3/uL 130-400 Automated blood platelet mean volume measurement 10.2 [foz_us] 7.4-10.4 Comprehensive metabolic panel - 12/11/17 11:10 Serum or plasma sodium measurement (moles/volume) 138 mmol/L 135-145 Serum or plasma potassium measurement (moles/volume) 4.8 mmol/L 3.6-5.0 Serum or plasma chloride measurement (moles/volume) 105 mmol/L 98-107 Carbon dioxide 20 mmol/L 21-32 Serum or plasma anion gap determination (moles/volume) 13 mmol/L 5-14 Serum or plasma urea nitrogen measurement (mass/volume) 23 mg/dL 7-18 Serum or plasma creatinine measurement (mass/volume) 1.19 mg/dL 0.60-1.30 Serum or plasma urea nitrogen/creatinine mass ratio 19 NRG Serum or plasma creatinine measurement with calculation of estimated glomerular filtration rate > NRG Serum or plasma glucose measurement (mass/volume) 194 mg/dL 70-105 Serum or plasma calcium measurement (mass/volume) 9.8 mg/dL 8.5-10.1 Serum or plasma total bilirubin measurement (mass/volume) 1.1 mg/dL 0.1-1.0 Serum or plasma alkaline phosphatase measurement (enzymatic activity/volume) 55 U/L 40-136 Serum or plasma aspartate aminotransferase measurement (enzymatic activity/volume) 27 U/L 5-34 Serum or plasma alanine aminotransferase measurement (enzymatic activity/volume) 40 U/L 0-55 Serum or plasma protein measurement (mass/volume) 7.4 g/dL 6.4-8.2 Serum or plasma albumin measurement (mass/volume) 4.7 g/dL 3.2-4.5 Lipid 1996 panel - 12/11/17 11:10 Serum or plasma triglyceride measurement (mass/volume) 406 mg/dL <150 Serum or plasma cholesterol measurement (mass/volume) 155 mg/dL < 200 Serum or plasma cholesterol in HDL measurement (mass/volume) 29 mg/dL 40-60 Cholesterol in LDL [mass/volume] in serum or plasma by direct assay 68 mg/dL 1-129 Serum or plasma cholesterol in VLDL measurement (mass/volume) 81 mg/dL 5-40 THYROID STIMULATING HORMONE - 12/11/17 11:10 THYROID STIMULATING HORMONE 0.55 u[iU]/mL 0.35-4.94 Hemoglobin A1c - 12/11/17 11:10 Blood hemoglobin A1C measurement (mass/volume) 8.0 % 4.0-5.6 MEAN BLOOD GLUCOSE 183 % <=126 Semen free prostate specific antigen (PSA) measurement (units/volume) - 12/11/17 11:10 Prostate specific ag [mass/volume] in serum or plasma < % 0.00-4.00 Complete blood count (CBC) with automated white blood cell (WBC) differential - 04/16/18 09:08 Blood leukocytes automated count (number/volume) 7.5 10*3/uL 4.3-11.0 Blood erythrocytes automated count (number/volume) 4.37 10*6/uL 4.35-5.85 Venous blood hemoglobin measurement (mass/volume) 12.2 g/dL 13.3-17.7 Blood hematocrit (volume fraction) 38 % 40-54 Automated erythrocyte mean corpuscular volume 86 [foz_us] 80-99 Automated erythrocyte mean corpuscular hemoglobin (mass per erythrocyte) 28 pg 25-34 Automated erythrocyte mean corpuscular hemoglobin concentration measurement (mass/volume) 33 g/dL 32-36 Automated erythrocyte distribution width ratio 14.4 % 10.0- 14.5 Automated blood platelet count (count/volume) 310 10*3/uL 130-400 Automated blood platelet mean volume measurement 10.0 [foz_us] 7.4-10.4 Automated blood neutrophils/100 leukocytes 73 % 42-75 Automated blood lymphocytes/100 leukocytes 19 % 12-44 Blood monocytes/100 leukocytes 6 % 0-12 Automated blood eosinophils/100 leukocytes 2 % 0-10 Automated blood basophils/100 leukocytes 0 % 0-10 Blood neutrophils automated count (number/volume) 5.5 10*3 1.8-7.8 Blood lymphocytes automated count (number/volume) 1.5 10*3 1.0-4.0 Blood monocytes automated count (number/volume) 0.4 10*3 0.0- 1.0 Automated eosinophil count 0.1 10*3/uL 0.0-0.3 Automated blood basophil count (count/volume) 0.0 10*3/uL 0.0-0.1 Comprehensive metabolic panel - 04/16/18 09:08 Serum or plasma sodium measurement (moles/volume) 138 mmol/L 135-145 Serum or plasma potassium measurement (moles/volume) 5.0 mmol/L 3.6-5.0 Serum or plasma chloride measurement (moles/volume) 103 mmol/L 98-107 Carbon dioxide 21 mmol/L 21-32 Serum or plasma anion gap determination (moles/volume) 14 mmol/L 5-14 Serum or plasma urea nitrogen measurement (mass/volume) 22 mg/dL 7-18 Serum or plasma creatinine measurement (mass/volume) 1.33 mg/dL 0.60-1.30 Serum or plasma urea nitrogen/creatinine mass ratio 17 NRG Serum or plasma creatinine measurement with calculation of estimated glomerular filtration rate 54 NRG Serum or plasma glucose measurement (mass/volume) 242 mg/dL 70-105 Serum or plasma calcium measurement (mass/volume) 10.1 mg/dL 8.5-10.1 Serum or plasma total bilirubin measurement (mass/volume) 0.7 mg/dL 0.1-1.0 Serum or plasma alkaline phosphatase measurement (enzymatic activity/volume) 60 U/L 40-136 Serum or plasma aspartate aminotransferase measurement (enzymatic activity/volume) 27 U/L 5-34 Serum or plasma alanine aminotransferase measurement (enzymatic activity/volume) 36 U/L 0-55 Serum or plasma protein measurement (mass/volume) 7.7 g/dL 6.4-8.2 Serum or plasma albumin measurement (mass/volume) 4.8 g/dL 3.2-4.5 Lipid 1996 panel - 04/16/18 09:08 Serum or plasma triglyceride measurement (mass/volume) 398 mg/dL <150 Serum or plasma cholesterol measurement (mass/volume) 158 mg/dL < 200 Serum or plasma cholesterol in HDL measurement (mass/volume) 30 mg/dL 40-60 Cholesterol in LDL [mass/volume] in serum or plasma by direct assay 73 mg/dL 1-129 Serum or plasma cholesterol in VLDL measurement (mass/volume) 80 mg/dL 5-40 THYROID STIMULATING HORMONE - 04/16/18 09:08 THYROID STIMULATING HORMONE 1.13 u[iU]/mL 0.35-4.94 Hemoglobin A1c - 04/16/18 09:08 Blood hemoglobin A1C measurement (mass/volume) 7.1 % 4.0-5.6 MEAN BLOOD GLUCOSE 157 % <=126 VITAMIN D 25-HYDROXY - 04/16/18 09:08 VITAMIN D 25-HYDROXY (TOTAL) 32.8 % 30.0-100.0 Complete blood count (CBC) with automated white blood cell (WBC) differential - 05/20/18 10:40 Blood leukocytes automated count (number/volume) 8.4 10*3/uL 4.3-11.0 Blood erythrocytes automated count (number/volume) 4.03 10*6/uL 4.35-5.85 Venous blood hemoglobin measurement (mass/volume) 11.2 g/dL 13.3-17.7 Blood hematocrit (volume fraction) 35 % 40-54 Automated erythrocyte mean corpuscular volume 87 [foz_us] 80-99 Automated erythrocyte mean corpuscular hemoglobin (mass per erythrocyte) 28 pg 25-34 Automated erythrocyte mean corpuscular hemoglobin concentration measurement (mass/volume) 32 g/dL 32-36 Automated erythrocyte distribution width ratio 14.0 % 10.0- 14.5 Automated blood platelet count (count/volume) 238 10*3/uL 130-400 Automated blood platelet mean volume measurement 10.0 [foz_us] 7.4-10.4 Automated blood neutrophils/100 leukocytes 76 % 42-75 Automated blood lymphocytes/100 leukocytes 13 % 12-44 Blood monocytes/100 leukocytes 11 % 0-12 Automated blood eosinophils/100 leukocytes 1 % 0-10 Automated blood basophils/100 leukocytes 0 % 0-10 Blood neutrophils automated count (number/volume) 6.4 10*3 1.8-7.8 Blood lymphocytes automated count (number/volume) 1.1 10*3 1.0-4.0 Blood monocytes automated count (number/volume) 0.9 10*3 0.0- 1.0 Automated eosinophil count 0.1 10*3/uL 0.0-0.3 Automated blood basophil count (count/volume) 0.0 10*3/uL 0.0-0.1 PT panel in platelet poor plasma by coagulation assay - 05/20/18 10:40 Prothrombin time (PT) in platelet poor plasma by coagulation assay 14.0 s 12.2-14.7 INR in platelet poor plasma or blood by coagulation assay 1.1 0.8-1.4 Comprehensive metabolic panel - 05/20/18 10:40 Serum or plasma sodium measurement (moles/volume) 137 mmol/L 135-145 Serum or plasma potassium measurement (moles/volume) 4.9 mmol/L 3.6-5.0 Serum or plasma chloride measurement (moles/volume) 100 mmol/L 98-107 Carbon dioxide 23 mmol/L 21-32 Serum or plasma anion gap determination (moles/volume) 14 mmol/L 5-14 Serum or plasma urea nitrogen measurement (mass/volume) 23 mg/dL 7-18 Serum or plasma creatinine measurement (mass/volume) 1.48 mg/dL 0.60-1.30 Serum or plasma urea nitrogen/creatinine mass ratio 16 NRG Serum or plasma creatinine measurement with calculation of estimated glomerular filtration rate 48 NRG Serum or plasma glucose measurement (mass/volume) 218 mg/dL 70-105 Serum or plasma calcium measurement (mass/volume) 9.7 mg/dL 8.5-10.1 Serum or plasma total bilirubin measurement (mass/volume) 1.3 mg/dL 0.1-1.0 Serum or plasma alkaline phosphatase measurement (enzymatic activity/volume) 55 U/L 40-136 Serum or plasma aspartate aminotransferase measurement (enzymatic activity/volume) 24 U/L 5-34 Serum or plasma alanine aminotransferase measurement (enzymatic activity/volume) 32 U/L 0-55 Serum or plasma protein measurement (mass/volume) 7.4 g/dL 6.4-8.2 Serum or plasma albumin measurement (mass/volume) 4.5 g/dL 3.2-4.5 CALCIUM CORRECTED 9.3 mg/dL 8.5-10.1 Erythrocyte sedimentation rate by westergren method - 05/20/18 10:40 Erythrocyte sedimentation rate by westergren method 45 mm 0-30 Blood type T Indirect antibody screen panel - 05/20/18 10:40 ABO+Rh group AN NRG Blood group antibody screen NEGATIVE NRG Methicillin resistant Staphylococcus aureus (MRSA) screening culture - 05/20/18 10:40 Methicillin resistant Staphylococcus aureus (MRSA) screening culture NEG NRG Complete urinalysis with reflex to culture - 05/20/18 10:41 Urine color determination YELLOW NRG Urine clarity determination SLIGHTLY CLOUDY NRG Urine pH measurement by test strip 7 5-9 Specific gravity of urine by test strip 1.010 1.016-1.022 Urine protein assay by test strip, semi-quantitative 3+ NEGATIVE Urine glucose detection by automated test strip NEGATIVE NEGATIVE Erythrocytes detection in urine sediment by light microscopy 3+ NEGATIVE Urine ketones detection by automated test strip 2+ NEGATIVE Urine nitrite detection by test strip POSITIVE NEGATIVE Urine total bilirubin detection by test strip NEGATIVE NEGATIVE Urine urobilinogen measurement by automated test strip (mass/volume) NORMAL NORMAL Urine leukocyte esterase detection by dipstick 3+ NEGATIVE Automated urine sediment erythrocyte count by microscopy (number/high power field) [HPF] NRG Automated urine sediment leukocyte count by microscopy (number/high power field) TNTC NRG Bacteria detection in urine sediment by light microscopy MODERATE NRG Squamous epithelial cells detection in urine sediment by light microscopy NONE NRG Crystals detection in urine sediment by light microscopy NONE NRG Casts detection in urine sediment by light microscopy NONE NRG Mucus detection in urine sediment by light microscopy NEGATIVE NRG Complete urinalysis with reflex to culture YES NRG Bacterial urine culture - 05/20/18 10:41 Bacterial urine culture [id number] NRG COLONY COUNT >100,000/ML NRG FTX;REPORTABLE SENSITIVITY REPORT RECEIVED 05/22 09:05 NRG RML Sensitivity Panel - 05/20/18 10:41 Gentamicin susceptibility test by minimum inhibitory concentration <= NRG Trimethoprim/sulfamethoxazole susceptibility test by minimum inhibitoryconcentration > NRG Levofloxacin susceptibility test by minimum inhibitory concentration > NRG Ampicillin susceptibility test by minimum inhibitory concentration <= NRG Cefazolin susceptibility test by minimum inhibitory concentration 2 NRG Ceftriaxone susceptibility test by minimum inhibitory concentration <= NRG Ciprofloxacin susceptibility test by minimum inhibitory concentration > NRG Meropenem susceptibility test by minimum inhibitory concentration <= NRG Nitrofurantoin susceptibility test by minimum inhibitory concentration <= NRG Amoxicillin and clavulanate potassium susc VASU <= NRG Capillary blood glucose measurement by glucometer (mass/volume) - 05/27/18 08:12 Capillary blood glucose measurement by glucometer (mass/volume) 368 mg/dL 70-110 Encounters ACCT No. Visit Date/Time Discharge Status Pt. Type Provider Facility Loc./Unit Complaint [id number] 07/13/2014 16:43:00 07/13/2014 23:59:59 CLS Outpatient ANABEL MCDANIEL DO [id number] 07/09/2014 10:18:00 07/09/2014 23:59:59 CLS Outpatient ANBAEL MCDANIEL DO [id number] 07/09/2014 10:18:00 07/09/2014 23:59:59 CLS Outpatient CHRISTOPH NARANJODesirae MÓNICA L [id number] 04/16/2014 08:47:00 04/16/2014 23:59:59 CLS Outpatient ANABEL MCDANIEL DO [id number] 04/11/2014 15:40:00 04/11/2014 23:59:59 CLS Outpatient ANABEL MCDANIEL DO [id number] 03/15/2014 16:16:00 03/15/2014 23:59:59 CLS Outpatient ERIN MAYES APRN [id number] 03/15/2014 16:16:00 03/15/2014 23:59:59 CLS Outpatient ANABEL MCDANIEL DO [id number] 01/10/2014 13:28:00 01/10/2014 23:59:59 CLS Outpatient ANABEL MCDANIEL DO [id number] 11/09/2013 13:55:00 11/09/2013 23:59:59 CLS Outpatient MCDANIEL DOANABEL [id number] 11/09/2013 13:55:00 11/09/2013 23:59:59 CLS Outpatient MAYES ERIN ROMERO [id number] 10/26/2013 14:16:00 10/26/2013 23:59:59 CLS Outpatient ANABEL MCDANIEL DO [id number] 07/21/2013 15:54:00 07/21/2013 23:59:59 CLS Outpatient HELEN LOUISE MD [id number] 06/28/2013 11:01:00 06/28/2013 23:59:59 CLS Outpatient MCDANIEL DOANABEL [id number] 06/16/2013 16:17:00 06/16/2013 23:59:59 CLS Outpatient MCDANIEL DOANABEL [id number] 06/07/2013 09:21:00 06/07/2013 23:59:59 CLS Outpatient MCDANIEL DOANABEL [id number] 06/01/2013 14:08:00 06/01/2013 23:59:59 CLS Outpatient VIOLETA DOANABEL [id number] 04/01/2013 10:06:00 04/01/2013 23:59:59 CLS Outpatient MCDANIEL DOANABEL [id number] 03/23/2013 16:23:00 03/23/2013 23:59:59 CLS Outpatient MCDANIEL DOANABEL [id number] 12/25/2012 15:21:00 12/25/2012 23:59:59 CLS Outpatient GERBER ROMEROERIN [id number] 12/16/2012 15:23:00 Document Registration [id number] 10/21/2012 14:01:00 Document Registration [id number] 11/17/2018 15:35:00 11/17/2018 15:50:00 DIS Outpatient ALLISON MACEDO DO [facility] PREOP COLONOSCOPY [id number] 09/15/2018 10:00:00 09/15/2018 23:59:59 CLS Preadmit [facility] DI[facility]ET[facility] [id number] 06/16/2018 13:02:00 09/14/2018 00:01:00 DIS Outpatient [facility] 2 DIABETES [id number] 08/18/2018 07:40:00 08/18/2018 23:59:59 CLS Outpatient GAEL MILLER APRN [facility] RAD CELLULITIS OF RLL [id number] 05/27/2018 07:54:00 05/27/2018 09:00:00 DIS Inpatient ERIN OLIVIA MD [facility] SURG RIGHT KNEE OSTEOARTHRITIS [id number] 05/20/2018 09:53:00 05/20/2018 10:45:00 DIS Outpatient ERIN OLIVIA MD [facility] PREOP RIGHT TOTAL KNEE REPLACEMENT [id number] 04/16/2018 08:39:00 04/16/2018 23:59:59 CLS Outpatient GAEL MILLER APRN [facility] RAD COUGH,FATIGUE,TYPE 2 DIABETES [id number] 04/14/2018 08:15:00 04/14/2018 23:59:59 CLS Preadmit Darline GAITAN MD [facility] CARD PALPITATIONS [id number] 01/26/2018 14:00:00 04/13/2018 00:01:00 DIS Outpatient Darline GAITAN MD [facility] CARD PALPITATIONS [id number] 03/23/2018 08:22:00 03/23/2018 23:59:59 CLS Outpatient GAEL MILLER APRN [facility] RAD PAIN IN RIGHT KNEE [id number] 01/07/2018 10:10:00 01/11/2018 00:01:00 DIS Outpatient Darline GAITAN MD [facility] CARD PALPITATIONS [id number] 12/16/2017 11:47:00 12/16/2017 23:59:59 CLS Outpatient Darline GAITAN MD [facility] CARD PALPITATIONS [id number] 12/11/2017 10:51:00 12/11/2017 23:59:59 CLS Outpatient GAEL MILLER APRN [facility] RAD E11.65,R05 [id number] 12/10/2017 10:50:00 12/10/2017 23:59:59 CLS PreadDarline Hartley MD [facility] RAD CHEST PAIN,SOB,DIABETES MELLITUS,HYPERLIPIDEMIA [id number] 12/10/2017 10:44:00 12/10/2017 23:59:59 CLS Preadmit Darline GAITAN MD [facility] CARD SOB,CHEST PAIN,DIABETES MELLITUS,HYPERLIPIDEMIA [id number] 12/09/2017 11:08:00 12/09/2017 23:59:59 CLS Preadmit GAEL MILLER APRN [facility] CARD R00.2 PALPITATIONS [id number] 11/26/2017 14:20:00 11/26/2017 23:59:59 CLS Outpatient ALLISON MACEDO DO [facility] ENDO SCREENING [id number] 10/13/2017 08:55:00 10/13/2017 23:59:59 CLS Outpatient GAEL MILLER APRN [facility] RAD SYNCOPE AND COLLAPSE,ENCOUNTER FOR GENERAL ADULT [id number] 10/07/2017 13:16:00 10/07/2017 23:59:59 CLS Preadmit GAEL MILLER APRN [facility] RAD CHEST PAIN ON BREATHING [id number] 07/25/2017 13:41:00 07/25/2017 23:59:59 CLS Outpatient ALLISON MACEDO DO [facility] RAD R10.31 RLQ ABDOMINAL PAIN [id number] 06/16/2017 06:00:00 06/16/2017 13:40:00 DIS Outpatient ALLISON MACEDO DO [facility] SDC PARASTOMAL HERNIA [id number] 06/09/2017 10:09:00 06/09/2017 10:35:00 DIS Outpatient ALLISON MACEDO DO [facility] PREOP PARASTOMAL HERNIA [id number] 05/30/2017 10:54:00 05/30/2017 23:59:59 CLS Outpatient ALLISON MACEDO DO [facility] RAD K43.9 HERNIA OF ABDOMINAL WALL [id number] 12/30/2016 11:24:00 12/30/2016 23:59:59 CLS Outpatient GAEL MILLER APRN [facility] RAD VENTRAL HERNIA W/O OBSTRUCTION OR GANGRENE K43.9 [id number] 06/21/2015 07:44:00 06/21/2015 11:45:00 DIS Emergency RODDY WRIGHT DO [facility] ER VOMITING/ABD CRAMPS LETHARGIC [id number] 12/21/2014 07:56:00 12/21/2014 11:00:00 DIS Outpatient LUIS DELACRUZ MD [facility] DIVERTICULITIS [id number] 12/15/2014 06:59:00 12/15/2014 23:59:59 CLS Outpatient LUIS DELACRUZ MD [facility] PREOP DIVERTICULITIS [id number] 11/06/2014 11:18:00 11/08/2014 15:37:00 DIS Inpatient ANABEL MCDANIEL DO [facility] SURGICAL INTRAABDOMINAL ABSCESS [id number] 10/30/2014 21:54:00 10/31/2014 01:01:00 DIS Emergency JOSE MANUEL RUSS MD [facility] ER VOMITING [id number] 08/24/2014 11:09:00 08/27/2014 12:30:00 DIS Inpatient DANI URIARTE, HELEN Goldberg [facility] 4TH ACUTE RENAL FAILURE PANCREATITIS HYPERKALEMIA [id number] 09/14/2013 13:08:00 09/14/2013 23:59:59 CLS Outpatient GENNY URIARTE, JOSE CARLOS Bender [facility] CARD PREOPERATIVE EXAMINATION,BLADDER CA [id number] 08/02/2013 11:40:00 08/02/2013 23:59:59 CLS Outpatient JESSEE ONEILL MD [facility] RAD PROSTATE CANCER [id number] 07/20/2013 06:49:00 07/20/2013 12:07:00 DIS Outpatient JESSEE ONEILL MD [facility] BLADDER TUNOR;HEMATURIA;CLOTS; POSSIBLE LEFT STONE [id number] 07/16/2013 08:22:00 07/16/2013 23:59:59 CLS Outpatient JESSEE ONEILL MD [facility] PREOP BLADDER TUMOR;HEMATURIA;CLOTS;POSSIBLE LEFT STONE [id number] 07/03/2013 01:13:00 07/04/2013 12:15:00 DIS Inpatient DANI URIARTE, HELEN Goldberg [facility] 4TH UTI;HEMATURIA;BLADDER OUTLET OBSTRUCTION;URINARY R [id number] 07/02/2013 16:15:00 07/02/2013 18:25:00 DIS Emergency MALCOLM ZHU MD [facility] ER UNABLE TO URINATE; BLOOD IN URINE [id number] 06/30/2013 10:42:00 06/30/2013 23:59:59 CLS Outpatient ERIN MAYES [facility] RAD HEMATURIA [id number] 11/23/2018 08:00:00 PEN Preadmit ALLISON MACEDO DO [facility] ENDO INTERNAL HEMORRHOIDS [id number] 11/27/2017 11:48:00 Document Registration [id number] 11/19/2017 05:38:00 Document Registration
[2018-11-23] MEDS ORDERED: MIDAZOLAM 2 MG/2 ML (VERSED) VIAL ONE (07:04)
[2018-11-23] MEDS ORDERED: PROPOFOL INJECTION 50 ML IV ONE (07:04)
[2018-11-23] MEDS ORDERED: LACTATED RINGERS 1,000 ML IV STA (07:22)
--- NOTE | 2018-11-23 08:01 | Progress Note-Pre Operative ---
Pre-Operative Progress Note H&P Reviewed The H&P was reviewed, patient examined and no changes noted. Time Seen by Provider: 07:56 Date H&P Reviewed: Nov 23, 2018 Time H&P Reviewed: 07:57 Pre-Operative Diagnosis: screening colonoscopy ALLISON MACEDO DO Nov 23, 2018 08:01
--- NOTE | 2018-11-23 08:34 | Progress Note-Post Operative ---
Post-Operative Progess Note Surgeon (s)/Burnisher And Bumper (s) Surgeon ALLISON MACEDO DO Burnisher And Bumper: none Pre-Operative Diagnosis screening colonoscopy Post-Operative Diagnosis Ascending colon polyp Internal hemorrhoids Procedure & Operative Findings Date of Procedure 11/23/18 Procedure Performed/Findings Colon with hot bx Anesthesia Type IV sedation by UNIT TECHNICIAN Estimated Blood Loss Estimated blood loss (mL): scant Specimens/Packing Specimens Removed asc colon polyp ALLISON MACEDO DO Nov 23, 2018 08:34
--- NOTE | 2018-11-23 08:36 | Endoscopy Discharge Instruct ---
Endo Procedure/Findings Findings 1.: Polyp 2.: Internal Hemorrhoids Discharge Instructions - Activity: You might feel a little sleepy until tomorrow. This is due to the medicine you received to relax you. Until tomorrow, you should: NOT drive a car, operate machinery or power tools. NOT drink any alcoholic beverages. NOT make any important decisions or sign importortant papers. Do not return to work until tomorrow, unless otherwise instructed. Resume previous activities tomorrow. Diet: Start by taking liquids. If you tolerate liquids, advance to solid food. make an appointment for one week Notify Physician - If you experience excessive bleeding, unusual abdominal pain, fever, or chest pain, contact your doctor immediately. Follow-Up: - I have received and understand the above instructions and will call my doctor if I have any further questions. Patient Signature Date Nurse Signature Other (Relationship) ALLISON MACEDO DO Nov 23, 2018 08:36
--- NOTE | 2018-11-23 10:51 | Anesthesia-General Post-Op ---
MAC Patient Condition Mental Status/LOC: Same as Preop Cardiovascular: Satisfactory Nausea/Vomiting: Absent Respiratory: Satisfactory Pain: Controlled Complications: Absent Post Op Complications Complications None Follow Up Care/Instructions Patient Instructions None needed. Anesthesiology Discharge Order Discharge Order Patient is doing well, no complaints, stable vital signs, no apparent adverse anesthesia problems. No complications reported per nursing. LINDY CREWS CRNA Nov 23, 2018 10:51
--- NOTE | 2018-11-25 14:33 | OPERATIVE REPORT ---
DATE OF SERVICE: 11/23/2018 PREOPERATIVE DIAGNOSIS: Screening colonoscopy. POSTOPERATIVE DIAGNOSES: 1. Colon polyp. 2. Internal hemorrhoids. PROCEDURE: Colonoscopy with hot biopsy. SURGEON: Joe White DO MANUFACTURING MANAGEMENT ASSOCIATE: None. ANESTHESIA: IV sedation by TRIM MACHINE OPERATOR. SPECIMEN: Ascending colon polyp in 2 pieces. BLOOD LOSS: Scant. FLUIDS: Per anesthesia. POSTOPERATIVE CONDITION: Stable. INDICATION FOR PROCEDURE: The patient is a 63-year-old male who needed a screening colonoscopy, had a previously attempted one, but was a very poor prep, need a repeat. FINDINGS: The patient had a polyp in the ascending colon, took with hot biopsy in 2 pieces. He also had noted some grade I to II internal hemorrhoids. PROCEDURE NOTE: After informed consent was obtained, the patient was brought to the endoscopy suite and placed in the left lateral decubitus position. He was administered IV sedation by the TRIM MACHINE OPERATOR, who then monitored his vital signs the entire time, heart rate, blood pressure and pulse ox. Inserted the scope, pushed all the way to the cecum about 150 cm in, took a picture of the appendiceal orifice, noted the ileocecal valve and then slowly withdrew the scope, insufflated to look circumferentially at the bowers, looking at the cecum up the ascending colon. In the ascending colon, saw a polyp, took this polyp completely out with 2 hot biopsies and then continued up the colon to the hepatic flexure then down the transverse colon, splenic flexure, into the descending colon then down the sigmoid and finally into the rectum, retroflexed the rectal vault, saw some internal hemorrhoids, took a picture of this and then removed the scope. The patient tolerated the procedure, recovered in endoscopy suite. Job ID: [id number] DocumentID: [id number] Dictated Date: 11/25/2018 09:45:44 Secret Code Expert Date: 11/25/2018 14:31:16 Dictated By: JOE WHITE DO
== END 2018-11-23 09:15 | disposition home or self-care (01) ==
LOC: ENDO 06:51
PROVIDERS: ATTEND Surgery
DX: Z12.11 Encounter for screening for malignant neoplasm of colon (principal); D12.2 Benign neoplasm of ascending colon; K63.89 Other specified diseases of intestine; K64.8 Other hemorrhoids; K64.0 First degree hemorrhoids; K46.0 Unspecified abdominal hernia with obstruction, without gangrene; E11.9 Type 2 diabetes mellitus without complications; E78.5 Hyperlipidemia, unspecified; M79.661 Pain in right lower leg; F32.9 Major depressive disorder, single episode, unspecified; F41.9 Anxiety disorder, unspecified; I10 Essential (primary) hypertension; R06.02 Shortness of breath; R07.9 Chest pain, unspecified; Z85.46 Personal history of malignant neoplasm of prostate; Z87.891 Personal history of nicotine dependence; Z83.3 Family history of diabetes mellitus; Z82.49 Family history of ischemic heart disease and other diseases of the circulatory system
CPT/HCPCS: 82962

== ENCOUNTER → 2019-05-04 | Outpatient (CLI) | payer MEDICARE ==
--- NOTE | 2019-05-04 10:03 | Diagnostic Imaging Report ---
INDICATION: Generalized abdominal pain. FINDINGS: The proximal aorta could not be visualized due to patient body habitus and overlying bowel gas. The mid abdominal aorta measures 1.1 cm AP x 1.6 cm transverse. The distal abdominal aorta measures 1.1 cm AP x 1.4 cm transverse. The right iliac measures 0.8 x 0.9 cm. The left iliac measures 0.7 x 1.0 cm. IMPRESSION: No evidence of abdominal aortic aneurysm. Dictated by: Dictated on workstation # [id number]
--- NOTE | 2019-05-04 10:53 | Diagnostic Imaging Report ---
PROCEDURE: US carotid duplex, bilateral. TECHNIQUE: Multiple real-time grayscale images were obtained over the carotid arteries in various projections, bilaterally. Additional spectral analysis and color Doppler duplex images were also obtained. INDICATION: Dizziness. FINDINGS: There is some plaquing at the carotid bifurcations extending into the proximal internal and external carotid arteries. Velocities are unremarkable bilaterally. No velocity elevation or stenosis is seen. Both vertebral arteries demonstrate antegrade flow. IMPRESSION: Bilateral carotid plaques. There is no evidence of a hemodynamically significant stenosis. Parameters based on the consensus panel Richardson-Scale and Doppler ultrasound criteria published February 2003, Radiology, Volume 229. DOPPLER (peak systolic velocity M/S Right Left CCA .78 .97 ICA Proximal .54 .58 ICA Mid .60 .62 ICA Distal .70 .57 RATIO .9 .6 ECA 1.23 .83 VERT .35 .58 Dictated by: Dictated on workstation # [id number]
--- NOTE | 2019-05-04 13:06 | Diagnostic Imaging Report ---
INDICATION: Screening for osteoporosis, unspecified bone disorder. COMPARISON: None available. FINDINGS: AP Spine L1-L4: [BMD (g/cm2): 1.257] [T-Score: 0.1] [Z-Score: 0.7] [BMD Previous: NA] [BMD % Change: NA] LT Hip Neck: [BMD (g/cm2): 1.190] [T-Score: 0.9] [Z-Score: 2.1] LT Hip Total: [BMD (g/cm2):1.190] [T-Score:0.9] [Z-Score: 2.1] [BMD Previous: NA] [BMD % Change: NA] RT Hip Neck: [BMD (g/cm2):1.213] [T-Score:1.1] [Z-Score:2.2] RT Hip Total: [BMD (g/cm2):1.213] [T-score:1.1] [Z-Score:2.2] [BMD Previous:NA] [BMD % Change:NA] *Indicates significant change from prior examination based on 95% confidence level. World Health Organization criteria for BMD interpretation classify patients as Normal (T-score at or above -1.0), Osteopenic (T-score between -1.0 and -2.5) or Osteoporotic (T-score at or below -2.5). LIMITATIONS AND MODIFICATION: None. IMPRESSION: 1. Normal bone mineral density. 2. Baseline examination. 3. See below National Osteoporosis Foundation guidelines on when to potentially initiate pharmacologic therapy. Based on the National Osteoporosis Foundation Guidelines, pharmacologic treatment should be initiated in any of the following, unless clinical conditions suggest otherwise: * Any patient with prior fragility fracture of the hip or vertebrae. A spine fracture indicates 5X risk for subsequent spine fracture and 2X risk for subsequent hip fracture. * Osteoporosis (T-score <-2.5). * Postmenopausal women and men age 50 and older with low bone mass/osteopenia (T-score between -1.0 and -2.5) by DXA and 10-year major osteoporotic fracture greater than 20% or a 10-year probability of hip fracture greater than 3%. These fracture risks are supplied above in the FRAX score, if applicable. * Clinician judgement and/or patient preferences may indicate treatment for people with 10-year fracture probabilities above or below these levels. Dictated by: Dictated on workstation # [id number]
== END ==
LOC: RAD 08:37
PROVIDERS: ATTEND Nurse Practitioner Family
DX: Z13.820 Encounter for screening for osteoporosis (principal); M81.0 Age-related osteoporosis without current pathological fracture; M85.9 Disorder of bone density and structure, unspecified; I65.23 Occlusion and stenosis of bilateral carotid arteries; R10.84 Generalized abdominal pain
CPT/HCPCS: 76775; 77080; 93880

== ENCOUNTER → 2019-12-21 | Outpatient (CLI) | payer MEDICARE ==
[~2019-12-21] MED LIST changes: +CATHETER FLUSH 10 ML SYR IV PRN; +HOLD METFORMIN - RECEIVED CONTRAST 20 ML VIAL IV SCH; -HYDR-3820 PO; +IOHEXOL 350 MG/ML 100 ML (OMNIPAQUE 350) VIAL IV ONE; +NS 100 ML (IVPB) BAG IV ONE
[2019-12-21 08:58] LABS: CREATININE SERUM 1.45 MG/DL (0.60-1.30)
--- NOTE | 2019-12-21 11:43 | Diagnostic Imaging Report ---
PROCEDURE: CT abdomen and pelvis with contrast. TECHNIQUE: Multiple contiguous axial images were obtained through the abdomen and pelvis after administration of intravenous contrast. Auto Exposure Controls were utilized during the CT exam to meet ALARA standards for radiation dose reduction. INDICATION: Left-sided abdominal pain. COMPARISON: Correlation is made with prior CT from 07/25/2017. FINDINGS: Lung bases are clear. There is generalized low density throughout the liver consistent with hepatic steatosis. No discrete liver mass is detected. Gallbladder is unremarkable. No biliary ductal dilatation is identified. The pancreas and spleen are unremarkable. The right adrenal gland is unremarkable. There is a 9 mm fat-containing adrenal nodule involving the lateral limb of left adrenal gland, stable suggestive of a myelolipoma. Left kidney does show some atrophy, similar to prior exam. Right kidney is unremarkable. Aorta is nonaneurysmal. No central, retroperitoneal or mesenteric lymphadenopathy is detected. There is an ostomy in the right lower quadrant. Previously noted abdominal wall fluid collection is no longer present. Bowel loops are normal caliber. There is no obstruction. There is no free fluid detected. Appendix is unremarkable. Bladder appears to be surgically absent. No pelvic lymphadenopathy is detected. IMPRESSION: 1. Hepatic steatosis. 2. No acute feature in the abdomen or pelvis is identified. Dictated by: Dictated on workstation # [id number]
== END ==
LOC: RAD 13:45
PROVIDERS: ATTEND Surgery
DX: K76.0 Fatty (change of) liver, not elsewhere classified (principal)
CPT/HCPCS: 36415; 74177; 82565; 84520

== ENCOUNTER 2020-02-14 05:25 | Outpatient (RCR) | payer MEDICARE ==
[~2020-02-14] VITALS: Ht 165 cm; Wt 131.0 kg
[~2020-02-14 05:25] MED LIST changes: -CATHETER FLUSH 10 ML SYR IV PRN; -HOLD METFORMIN - RECEIVED CONTRAST 20 ML VIAL IV SCH; +INSU100I34 SQ; +INSU100V5 SQ; -IOHEXOL 350 MG/ML 100 ML (OMNIPAQUE 350) VIAL IV ONE; -NS 100 ML (IVPB) BAG IV ONE
== END 2020-02-14 10:15 | disposition home or self-care (01) ==
LOC: PREOP 05:25
PROVIDERS: ATTEND Surgery
DX: Z01.812 Encounter for preprocedural laboratory examination (principal); Z20.828 Contact with and (suspected) exposure to other viral communicable diseases
CPT/HCPCS: 87635

== ENCOUNTER 2020-02-16 06:48 | Day surgery (SDC) | payer MEDICARE ==
[~2020-02-16] VITALS: Ht 165 cm; Wt 75.9 kg
[2020-02-16] VITALS (11 sets, daily range): BP systolic 113–147; BP diastolic 65–99
[2020-02-16] MEDS ORDERED: LIDOCAINE/EPI 1%-1:100,000 (XYLOCAINE) 20ML ONE (07:17)
[2020-02-16] MEDS ORDERED: ceFAZolin 2 GM IV Premixed 50 ML IV ONE (07:30)
[2020-02-16] MEDS ORDERED: LIDOCAINE PF 2% 5 ML (XYLOCAINE) VIAL ONE (07:34)
[2020-02-16] MEDS ORDERED: SEVOFLURANE (ULTANE) 15 ML INHAL SOLN ONE ×7 (07:34→10:11)
[2020-02-16] MEDS ORDERED: ROCURONIUM 10 MG/ML 5 ML SYRINGE IV ONE (07:34)
[2020-02-16] MEDS ORDERED: proPOfol 200 MG/20 ML (DIPRIVAN) VIAL IV ONE (07:34)
[2020-02-16] MEDS ORDERED: ONDANSETRON 4 MG/2 ML (SDV) Z0FRAN ONE (07:34)
[2020-02-16] MEDS ORDERED: fentaNYL INJECTION 100 MCG/2 ML AMP ONE (07:35)
[2020-02-16] MEDS ORDERED: MIDAZOLAM 2 MG/2 ML (VERSED) VIAL ONE (07:35)
[2020-02-16] MEDS ORDERED: CATHETER FLUSH 10 ML SYR IV PRN (07:45)
[2020-02-16 07:54] LABS: BASOPHILS % (AUTO) 0 % (0-10); EOSINOPHILS # (AUTO) 0.1 10^3/uL (0.0-0.3); EOSINOPHILS % (AUTO) 2 % (0-10); HEMATOCRIT 41 % (40-54); HEMOGLOBIN 13.1 g/dL (13.3-17.7); LYMPHOCYTES # (AUTO) 1.1 10^3/uL (1.0-4.0); LYMPHOCYTES % (AUTO) 14 % (12-44); MEAN CORPUSCULAR HEMOGLOBIN 28 pg (25-34); MEAN CORPUSCULAR HGB CONC 32 g/dL (32-36); MEAN CORPUSCULAR VOLUME 88 fL (80-99); MEAN PLATELET VOLUME 10.5 fL (9.0-12.2); MONOCYTES # (AUTO) 0.6 10^3/uL (0.0-1.0); MONOCYTES % (AUTO) 8 % (0-12); NEUTROPHILS # (AUTO) 5.8 10^3/uL (1.8-7.8); NEUTROPHILS % (AUTO) 76 % (42-75); PLATELET COUNT 241 10^3/uL (130-400); WHITE BLOOD COUNT 7.7 10^3/uL (4.3-11.0)
[2020-02-16] MEDS: LACTATED RINGERS 1,000 ML IV PRN ×3 (07:57→11:21)
--- NOTE | 2020-02-16 08:00 | Progress Note-Pre Operative ---
Pre-Operative Progress Note H&P Reviewed The H&P was reviewed, patient examined and no changes noted. Time Seen by Provider: 07:51 Date H&P Reviewed: Feb 16, 2020 Time H&P Reviewed: 07:52 Pre-Operative Diagnosis: Urostomy with Parastomal hernia ALLISON MACEDO DO Feb 16, 2020 08:00
[2020-02-16] MEDS ORDERED: PHENYLEPHRINE 100 MCG/ML 10 ML (ANESTHESIA) SYR ONE (08:34)
[2020-02-16] MEDS ORDERED: GLYCOPYRROLATE 0.2 MG/ML (ROBINUL) 2 ML VIAL ONE ×2 (08:43→10:19)
[2020-02-16] MEDS ORDERED: HYDROmorphone 2 MG/ML VIAL (DILAUDID) ONE (09:31)
[2020-02-16] MEDS ORDERED: NEOSTIGMINE 3 MG/3 ML VIAL ONE (10:19)
[2020-02-16] MEDS ORDERED: PROMETHAZINE INJ 25 MG/ML (PHENERGAN) AMP IVP ONE (10:45)
[2020-02-16] MEDS ORDERED: ONDANSETRON 4 MG/2 ML (SDV) Z0FRAN IVP PRN (10:45)
[2020-02-16] MEDS ORDERED: morphine INJ 10 MG/ML 1ML (SYR OR VIAL) IVP ONE (10:45)
[2020-02-16] MEDS ORDERED: HYDROmorphone 2 MG/ML VIAL (DILAUDID) IV ONE (10:45)
--- NOTE | 2020-02-16 10:50 | Progress Note-Post Operative ---
Post-Operative Progess Note Surgeon (s)/Ferryboat Captain (s) Surgeon ALLISON MACEDO DO Ferryboat Captain: [place]abil[place] Pre-Operative Diagnosis Urostomy with Parastomal hernia Post-Operative Diagnosis same Procedure & Operative Findings Date of Procedure 02/16/20 Procedure Performed/Findings The patient is a 64-year-old male who has a bulging around the urostomy and had a CAT scan performed, which had diagnosed incarcerated parastomal hernia. It is bothering him because it is causing the bags to fall off. FINDINGS: The patient had an incarcerated parastomal hernia just with some omental fat in there removed and then repaired. PROCEDURE NOTE: After informed consent was obtained, the patient was brought to the operating room, placed in supine position; then sterilely prepped and draped the patient, we made an incision in left upper quadrant, first infiltrating the skin with local and then made incision with #11 blade, carried down through skin into the subcutaneous tissue, then deepened down through subcutaneous tissue with Bovie electrocautery down to the fascia. Fascia incised with electrocautery and then moved the muscle out of the way, went to the posterior fascia and then again move muscle and then able to go through the peritoneum gentrly with hemostat and then placed the 11 mm trocar port held in place the balloon. Pneumoperitoneum was created. Noted adhesions, pictures taken. Then placed 2 more 8 mm ports about 10 cm away from this left upper quadrant, one more laterally and then one down towards the ASIS. Using local lidocaine, 11 blade for stab incision and then advancing the robotic trocar under direct visualization. Once this was done, we then docked the robot. Started to take down the adhesions from previous surgery and the parastomal area. These were taken down with Bovie electrocautery and scissors. As well as sharp dissection, blunt dissection was used to take this down and removed omentum that was incarcerated in this area; carefully pulling and then using the Bovie scissors to cauterize and remove attachments in a careful stepwise fashion, continuing to pull the omentum out, finally able to get all the omentum out of this opening. Once it was freed up circumferentially around the stoma, I made sure to stay very far away from this urostomy. Still noted adhesions from his previous umbilical hernia repair, could actually see some exposed mesh from this hernia repair. These adhesions were also taken down with blunt dissection as well as with the Bovie electrocautery and the scissors. Once everything was taken down then elected to close the fascial defect with an 0 Vicryl V-Loc absorbable suture, suturing just superiorly to the urostomy and ileal conduit going through the fascia with a V-Loc and then tightened this down, but not too tight, so that the ileal conduit easily moved in and out and then tightened this in closing this fascial defect. Once this fascial defect was then closed then we elected to use a Phasix ST mesh, in a SugarBaker technique. A portion of the mesh was cut off and sutured on the opposite side to protect the urostomy with seprafilm. We then placed this into the abdomen, then able to pull this mesh around the urostomy; pulled it down inferiorly and then using a secure strap tacking just proximal to the ileal conduit on the fascia tacking this close. We had to place one more port in between the left upper quadrant and the midline port to be able to use the Secure strap. Placed using local lidocaine, #11 blade for a stab incision and the VersaStep system, all done under direct visualization. Started tacking inferior to stoma at the edges and then worked toward the ileal conduit. Had drawn on mesh to see where the sepra film was protecting bowel on the opposite side. Continued to secure the mesh by tacking around the edges of the mesh with the SecureStrap at 0.5 cm to 1 cm distance. Going all the way around and then tacked in the middle to hold the mesh up. Once this was done, appear to be in good position. We had 5cm of coverage all around the stoma and it went inferiorly approximately 8 cm along the ileum. There was no bleeding at the end of the case. There was no active bleeding at the end of the case. When we placed the mesh and tacked; had used a little bit less insufflation to be able to close this; about 10mm. It closed nicely. At this point, then removed all ports under direct visualization allowed pneumoperitoneum to escape. Closed the left upper quadrant incision, closing the peritoneum with a 3-0 Vicryl xufzbu-[id number] suture then closed the fascia with 0 Vicryl [id number]-vm-qzqbg suture. Incisions were then carefully irrigated with normal saline and dried and then closed all incisions with 4-0 undyed Monocryl subcuticular stitches on the left upper quadrant incision. The two 8 mm incisions were closed with 2 interrupted 4-0 undyed Monocryl subcuticular stitches and small 5 mm incision was closed with a single interrupted 4-0 undyed Monocryl subcuticular stitch. Area was cleaned and dried and Dermabond placed. The patient tolerated this procedure well. Sponge, instruments and needle count correct at the end of the case. Dr. Dahl assisted in this case with making incisions, closing incisions, helping to identify anatomy and helping to hold tissue and some intestine out of the way. Anesthesia Type GET Estimated Blood Loss Estimated blood loss (mL): scant Specimens/Packing Specimens Removed none ALLISON MACEDO DO Feb 16, 2020 10:50
[2020-02-16] MEDS ORDERED: ACHYD1T PO (11:07)
--- NOTE | 2020-02-16 11:08 | Discharge Inst-Surgical ---
Discharge Inst-Surgical Depart Medication/Instructions New, Converted or Re-Newed RX: RX Given to Pt/Family Patient Instructions Follow up Appt: Make appointment for 1 week. [phone] Instructions: No lifting greater than 20 pounds. No strenuous activity. May shower in 24 hours, no tub bath or soaking. Use incentive spirometer at home as directed. No Smoking Skin/Wound Care: May remove bandages in am. You need to leave the Dermabond on incision it will fall off on it's own. Symptoms to Report: Appetite Changes, Extremity Discoloration, Numbness/Tingling, Swelling Increased, Bleeding Excessive, Eyesight Changes, Pain Increased, Urine Color Change, Constipation(Persistent), Fever over 101 degree F, Pain/Pressure in chest, Urinating Difficulty, Cough Up/Vomit Blood, Heart Beat Irreg/Pounding, Pain/Pressure in jaw, Cramps in feet or legs, Lightheadedness, Pain/Pressure in shoulder, Diarrhea(Persistent), Memory Changes Suddenly, Questions/Concerns, Weight gain consecutive days, Dizziness/Fainting, Nausea/Vomiting, Shortness of Breath, Weight gain over 2 pounds If questions or concerns contact your physician Or seek help at emergency department. Activity Activity as Tolerated: Yes Activity Instructions: Avoid Stress to Incision Driving Instructions: No Driving/Refer to Dr. Jaquez Discharge Diet: No Restrictions Diet After 24 Hours: Clear Liquid if Nauseous If Any Problems/Questions/Issu: Contact Your Physician, Go to Emergency Room Skin/Wound Care Infection Signs and Symptoms: Increased Redness, Foul Odor of Wound, Increased Drainage, Skin Itchy or Has a Rash, Increased Swelling, Temperature Above 101 F Wound Care Comment: heating pad to shoulder or neck tonight for pain Bathing Instructions: Shower Stitches/Sean/Dermabond Dis: Dermabond Ice Pack: Ice On and Off Site (at incision sites as needed for pain) ALLISON MACEDO DO Feb 16, 2020 11:08
--- NOTE | 2020-02-16 11:30 | NUR ---
TO AMB SURG FROM PAR PER CART. ALERT, C/O LEFT SIDED ABDOMINAL SURGICAL SITE PAIN RATED 8 ON NUMERIC SCALE. LARGE BANDAIDS X2 AND REGULAR BANDAIDS X2 DRY/INTACT TO X4 LAP ABDOMINAL SURGICAL SITES, ICE PACK ON. PO FLUIDS AND CRACKERS PROVIDED.
[2020-02-16] MEDS ORDERED: HYDROcodone/APAP 10 MG/325 MG (LORTAB) TAB PO ONE (11:39)
[2020-02-16] MEDS ORDERED: HYDROcodone/APAP 10 MG/325 MG (LORTAB) TAB PO PRN (11:45)
--- NOTE | 2020-02-16 11:45 | NUR ---
LORTAB 10/325 MG, ONE TAB, GIVEN PO FOR C/O SURGICAL SITE PAIN RATED 8. TAKING PO FLUIDS WITHOUT PROBLEM. O2 ON AT 2L PER NC.
--- NOTE | 2020-02-16 12:30 | NUR ---
RATES PAIN 5-6, 350 CC CLEAR YELLOW URINE EMPTIED FROM UROSTOMY BAG.
--- NOTE | 2020-02-16 12:45 | NUR ---
SAO2 96-97% WITH O2 AT 2L PER NC. ALERT. O2 DECREASED TO 1L PER NC.
--- NOTE | 2020-02-16 14:00 | NUR ---
HAS BEEN ON ROOM AIR FOR 40 MIN WITH SAO2 95-96%. STATES HE IS "PRETTY COMFORTABLE UNTIL I GO TO MOVE", THEN RATES ABD/SURGICAL SITE PAIN 5. STATES HE IS READY FOR DISMISSAL. NO CHANGE IN SITE ASSESSMENT. UP WITH ASSIST TO DRESS FOR HOME. INSTRUCTED ON INCENTIVE SPIROMETRY WITH RETURN DEMONSTRATION. ADDITIONAL 350 CC CLEAR YELLOW URINE EMPTIED FROM UROSTOMY BAG.
== END 2020-02-16 14:15 | disposition home or self-care (01) ==
LOC: SDC 06:48
PROVIDERS: ATTEND Surgery
DX: N99.523 Herniation of incontinent stoma of urinary tract (principal); I10 Essential (primary) hypertension; F32.9 Major depressive disorder, single episode, unspecified; F41.9 Anxiety disorder, unspecified; E11.9 Type 2 diabetes mellitus without complications; M10.9 Gout, unspecified; D12.2 Benign neoplasm of ascending colon; E78.5 Hyperlipidemia, unspecified; K64.0 First degree hemorrhoids; Z79.899 Other long term (current) drug therapy; Z79.84 Long term (current) use of oral hypoglycemic drugs; Z85.51 Personal history of malignant neoplasm of bladder
CPT/HCPCS: 44346; 82962; 85025; 87081; C1781; 36415

== ENCOUNTER 2020-02-22 08:53 | Inpatient (IN) | payer MEDICARE ==
[~2020-02-22] VITALS: Ht 165 cm; Wt 65.1 kg
[2020-02-22] MEDS ORDERED: fentaNYL INJECTION 100 MCG/2 ML AMP IVP STA ×2 (09:11→12:11)
[2020-02-22] MEDS ORDERED: LACTATED RINGERS 1,000 ML IV STA (09:11)
[2020-02-22] MEDS ORDERED: ONDANSETRON 4 MG/2 ML (SDV) Z0FRAN IVP ONE ×2 (09:15→12:15)
[2020-02-22 09:16] LABS: BASOPHILS % (AUTO) 0 % (0-10); EOSINOPHILS % (AUTO) 0 % (0-10); HEMATOCRIT 44 % (40-54); HEMOGLOBIN 14.8 g/dL (13.3-17.7); LYMPHOCYTES # (AUTO) 0.7 10^3/uL (1.0-4.0); LYMPHOCYTES % (AUTO) 5 % (12-44); MEAN CORPUSCULAR HEMOGLOBIN 28 pg (25-34); MEAN CORPUSCULAR HGB CONC 33 g/dL (32-36); MEAN CORPUSCULAR VOLUME 84 fL (80-99); MEAN PLATELET VOLUME 10.2 fL (9.0-12.2); MONOCYTES # (AUTO) 0.8 10^3/uL (0.0-1.0); MONOCYTES % (AUTO) 6 % (0-12); NEUTROPHILS # (AUTO) 12.2 10^3/uL (1.8-7.8); NEUTROPHILS % (AUTO) 88 % (42-75); PLATELET COUNT 429 10^3/uL (130-400); WHITE BLOOD COUNT 13.9 10^3/uL (4.3-11.0)
[2020-02-22 09:32] LABS: ALANINE AMINOTRANSFERASE 21 U/L (0-55); ALBUMIN 4.6 GM/DL (3.2-4.5); ALKALINE PHOSPHATASE 72 U/L (40-136); BILIRUBIN,TOTAL 1.1 MG/DL (0.1-1.0); BUN/CREATININE RATIO 27; CALCIUM 10.5 MG/DL (8.5-10.1); CARBON DIOXIDE 15 MMOL/L (21-32); CHLORIDE 98 MMOL/L (98-107); CREATININE SERUM 2.05 MG/DL (0.60-1.30); GFR ESTIMATED 33; GLUCOSE 248 MG/DL (70-105); POTASSIUM 3.8 MMOL/L (3.6-5.0); SODIUM 133 MMOL/L (135-145); TOTAL PROTEIN 8.7 GM/DL (6.4-8.2)
[2020-02-22 09:34] LABS: LYMPHOCYTES % (MANUAL) 10 %; MONOCYTES % (MANUAL) 7 %; NEUTROPHILS % (MANUAL) 83 %; RBC MORPH NORMAL
--- NOTE | 2020-02-22 09:54 | NUR ---
STATES PAIN IS A 11/21 ET WOULD LIKE SOMETHING ELSE. DR RUSS NOTIFIED.
[2020-02-22] MEDS ORDERED: HYDROmorphone 2 MG/ML VIAL (DILAUDID) IV ONE (10:00)
--- NOTE | 2020-02-22 10:04 | ED Abdominal Pain ---
General Chief Complaint: Abdominal/GI Problems Stated Complaint: N/V,INDEGESTION, DIFF PASSING BM, P/O HERNIA SX Nursing Triage Note: ARRIVED VIA AMB WITHOUT DIFFICULTY. COMPLAINS OF N/V, ABD PAIN AFTER HAVING FIRST BM SINCE HISHERNIA SURGERY. Sepsis Screen: No Definite Risk Source of Information: Patient Exam Limitations: No Limitations History of Present Illness Date Seen by Provider: Feb 22, 2020 Time Seen by Provider: 09:10 Initial Comments Here with report of severe abdominal pain, nausea and vomiting after having abdominal surgery last week. He had not had a BM until yesterday. He states that he tried for 2 to 3 hours intermittently pushing and trying to relieve it manually that he was able to have a large bowel movement followed by 2 smaller ones that were loose. The initial 1 was hard and large. Has not been able to take any medicine since yesterday due to nausea and vomiting and that includes his chronic pain medicines. Denies fever chills. Denies upper respiratory symptoms. Does report urine drainage to his urostomy bag. Timing/Duration: 24 Hours Severity/Quality: Moderate, Severe Location: Generalized Abdomen Radiation: Back, Flank Activities at Onset: None Modifying Factors: Improves With Defecating; Worsens With Eating, Worsens With Movement Associated Symptoms: Back Pain; No Chest Pain, No Fever/Chills, No Headache; Nausea/Vomiting; No Shortness of Air; Weakness Allergies and Home Medications Allergies Coded Allergies: No Known Drug Allergies (Verified , 02/09/20) Home Medications Allopurinol 100 Mg Tablet, 100 MG PO BID, (Reported) Atorvastatin Calcium 20 Mg Tablet, 20 MG PO DAILY, (Reported) Buspirone HCl 15 Mg Tablet, 15 MG PO BID, (Reported) Cetirizine HCl 10 Mg Tablet, 10 MG PO DAILY, (Reported) Citalopram Hydrobromide 40 Mg Tablet, 40 MG PO DAILY, (Reported) Diclofenac Sodium 50 Mg Tablet.dr, 50 MG PO BID, (Reported) Gabapentin 100 Mg Capsule, 100 MG PO TID, (Reported) Glipizide 10 Mg Tablet, 10 MG PO DAILY, (Reported) Hydrocodone Bit/Acetaminophen 1 Each Tablet, 1 TAB PO Q4H PRN for PAIN-MODERATE Prescribed by: ALLISON MACEDO on 02/16/20 1107 Insulin Determir 1,000 Units/10 Ml Soln, 50 UNITS SQ HS, (Reported) Insulin Glargine,Hum.rec.anlog 100 Unit/1 Ml Insuln.pen, 20 UNIT SQ PC, (Reported) Lactobacillus Acidophilus 460 Mg Capsule, 460 MG PO DAILY, (Reported) Lisinopril 5 Mg Tablet, 5 MG PO DAILY, (Reported) Patient Home Medication List Home Medication List Reviewed: Yes Review of Systems Review of Systems Constitutional: see HPI; No chills, No fever EENTM: No Nose Congestion, No Throat Pain Respiratory: Denies Cough, Denies Shortness of Air Cardiovascular: Denies Chest Pain, Denies Edema Gastrointestinal: Abdominal Pain, Constipated; Denies Diarrhea; Nausea, Vomiting Genitourinary: No Symptoms Reported Musculoskeletal: back pain; No neck pain Skin: lesions (Postop anterior abdomen) Psychiatric/Neurological: No Symptoms Reported All Other Systems Reviewed Negative Unless Noted: Yes Past Iffrytx-Yasxbr-Mmygnf Hx Past Med/Social Hx: Reviewed Nursing Past Med/Soc Hx Patient Social History Alcohol Use: Denies Use Recreational Drug Use: No Smoking Status: Never a Smoker 2nd Hand Smoke Exposure: No Recent Foreign Travel: No Contact w/Someone Who Travel: No Recent Infectious Disease Expo: No Recent Hopitalizations: Yes Immunizations Up To Date Tetanus Booster (TDap): Unknown PED Vaccines UTD: No Date of Pneumonia Vaccine: August 19, 2014 Date of Influenza Vaccine: Jan 17, 2020 Seasonal Allergies Seasonal Allergies: Yes Past Medical History Surgeries: Yes (UMB HERNIA,BLADDER & PROSTATE REMOVED W/ UROSTOMY;OPEN KIDNEY STONE,SHOULDE) Abdominal, Bladder Surgery, Cystectomy, Prostatectomy, Renal Respiratory: No Currently Using CPAP: No Currently Using BIPAP: No Cardiac: Yes High Cholesterol, Hypertension Neurological: No Reproductive Disorders: No Sexually Transmitted Disease: No HIV/AIDS: No Genitourinary: Yes Bladder Infection, Kidney Stones, UTI-Chronic Gastrointestinal: Yes Abdominal Hernia, Pancreatitis Musculoskeletal: Yes (ESPECIALLY KNEES AND SHOULDERS) Arthritis, Gout Endocrine: Yes Diabetes, Insulin dep HEENT: Yes (GLASSES) Loss of Vision: Denies Hearing Impairment: Denies Cancer: Yes (2013-S/P SURGERY ONLY-NO CHEMO/RADIATION OR ONCOLOGIST) Bladder, Prostate Did You Recieve Any Treatments: Yes What Type of Treatment Did You: Surgical Intervention Psychosocial: Yes Anxiety, Depression Integumentary: No Blood Disorders: No Adverse Reaction/Blood Tranf: No (N/A) Family Medical History Reviewed Nursing Family Hx Cancer 03 FATHER Family history: Asthma 09 BROTHER Stroke 09 SISTER Physical Exam Vital Signs Vital Signs - First Documented 02/22/20 08:53 Temp 35.9 Pulse 89 Resp 16 B/P (MAP) 163/70 (101) Pulse Ox 100 O2 Delivery Room Air Capillary Refill : Less Than 3 Seconds Height/Weight/BMI Height: 5'5.00" Weight: 168lbs. 0.0oz. [id number]; 26.00 BMI Method:Stated General Appearance: WD/WN, mild distress HEENT: PERRL/EOMI, pharynx normal Neck: full range of motion, supple Respiratory: lungs clear, normal breath sounds Cardiovascular: regular rate, rhythm, no murmur Gastrointestinal: soft, abnormal bowel sounds (Decreased), tenderness (Globally) Extremities: non-tender, normal inspection Back: normal inspection, no vertebral tenderness, CVA tenderness (R), CVA tenderness (L) Neurologic/Psychiatric: alert, oriented x 3 Skin: normal color, warm/dry, other (Postoperative wounds clean, dry and intact without induration or drainage) Focused Exam Lactate Level 02/22/20 10:00: Lactic Acid Level 2.17*H Lactic Acid Level Laboratory Tests Test 02/22/20 10:00 Lactic Acid Level 2.17 MMOL/L (0.50-2.00) *H Progress/Results/Core Measures Results/Orders Lab Results Laboratory Tests Test 02/22/20 09:08 02/22/20 09:59 02/22/20 10:00 Range/Units White Blood Count 13.9 H 4.3-11.0 10^3/uL Red Blood Count 5.26 4.30-5.52 10^6/uL Hemoglobin 14.8 13.3-17.7 g/dL Hematocrit 44 40-54 % Mean Corpuscular Volume 84 80-99 fL Mean Corpuscular Hemoglobin 28 25-34 pg Mean Corpuscular Hemoglobin Concent 33 32-36 g/dL Red Cell Distribution Width 13.4 10.0-14.5 % Platelet Count 429 H 130-400 10^3/uL Mean Platelet Volume 10.2 9.0-12.2 fL Immature Granulocyte % (Auto) 1 % Neutrophils (%) (Auto) 88 H 42-75 % Lymphocytes (%) (Auto) 5 L 12-44 % Monocytes (%) (Auto) 6 0-12 % Eosinophils (%) (Auto) 0 0-10 % Basophils (%) (Auto) 0 0-10 % Neutrophils # (Auto) 12.2 H 1.8-7.8 10^3/uL Lymphocytes # (Auto) 0.7 L 1.0-4.0 10^3/uL Monocytes # (Auto) 0.8 0.0-1.0 10^3/uL Eosinophils # (Auto) 0.0 0.0-0.3 10^3/uL Basophils # (Auto) 0.0 0.0-0.1 10^3/uL Immature Granulocyte # (Auto) 0.1 0.0-0.1 10^3/uL Neutrophils % (Manual) 83 % Lymphocytes % (Manual) 10 % Monocytes % (Manual) 7 % Blood Morphology Comment NORMAL Sodium Level 133 L 135-145 MMOL/L Potassium Level 3.8 3.6-5.0 MMOL/L Chloride Level 98 98-107 MMOL/L Carbon Dioxide Level 15 L 21-32 MMOL/L Anion Gap 20 H 5-14 MMOL/L Blood Urea Nitrogen 55 H 7-18 MG/DL Creatinine 2.05 H 0.60-1.30 MG/DL Estimat Glomerular Filtration Rate 33 BUN/Creatinine Ratio 27 Glucose Level 248 H 70-105 MG/DL Calcium Level 10.5 H 8.5-10.1 MG/DL Corrected Calcium 8.5-10.1 MG/DL Total Bilirubin 1.1 H 0.1-1.0 MG/DL Aspartate Amino Transf (AST/SGOT) 17 5-34 U/L Alanine Aminotransferase (ALT/SGPT) 21 0-55 U/L Alkaline Phosphatase 72 40-136 U/L C-Reactive Protein High Sensitivity 17.48 H 0.00-0.50 MG/DL Total Protein 8.7 H 6.4-8.2 GM/DL Albumin 4.6 H 3.2-4.5 GM/DL Urine Color YELLOW Urine Clarity CLEAR Urine pH 6.0 5-9 Urine Specific [place] 1.010 L 1.016-1.022 Urine Protein 2+ H NEGATIVE Urine Glucose (UA) 3+ H NEGATIVE Urine Ketones 1+ H NEGATIVE Urine Nitrite POSITIVE H NEGATIVE Urine Bilirubin NEGATIVE NEGATIVE Urine Urobilinogen 0.2 < = 1.0 MG/DL Urine Leukocyte Esterase 1+ H NEGATIVE Urine RBC (Auto) 1+ H NEGATIVE Urine RBC 2-5 H /HPF Urine WBC 50-100 H /HPF Urine Crystals NONE /LPF Urine Bacteria LARGE H /HPF Urine Casts NONE /LPF Urine Mucus NEGATIVE /LPF Urine Yeast LARGE H /HPF Urine Culture Indicated YES Lactic Acid Level 2.17 *H 0.50-2.00 MMOL/L My Orders Orders - JOSE MANUEL RUSS MD Fentanyl Injection (Sublimaze Injection (02/22/20 09:11) Ondansetron Injection (Zofran Injectio (02/22/20 09:15) Lactated Ringers (Lr 1000 Ml Iv Solution (02/22/20 09:11) Ed Iv/Invasive Line Start (02/22/20 09:11) Cbc With Automated Diff (02/22/20 09:11) Comprehensive Metabolic Panel (02/22/20 09:11) Hs C Reactive Protein (02/22/20 09:11) Manual Differential (02/22/20 09:08) Hydromorphone Injection (Dilaudid Inject (02/22/20 10:00) Lactic Acid Analyzer (02/22/20 09:57) Ua Culture If Indicated (02/22/20 09:57) Blood Culture (02/22/20 09:57) Ct Abdomen/Pelvis Wo (02/22/20 09:58) Urine Culture (02/22/20 09:59) Ceftriaxone For Iv Use (Rocephin For I (02/22/20 11:18) Fentanyl Injection (Sublimaze Injection (02/22/20 12:11) Medications Given in ED Current Medications Medications Dose Ordered Sig/Frankie Route Start Time Stop Time Status Last Admin Dose Admin Hydromorphone HCl 1 mg ONCE ONCE IV 02/22/20 10:00 02/22/20 10:01 DC 02/22/20 10:02 1 MG Ondansetron HCl 8 mg ONCE ONCE IVP 02/22/20 09:15 02/22/20 09:16 DC 02/22/20 09:14 8 MG Vital Signs/I&O 02/22/20 08:53 Temp 35.9 Pulse 89 Resp 16 B/P (MAP) 163/70 (101) Pulse Ox 100 O2 Delivery Room Air Blood Pressure Mean: 101 Progress Progress Note : Progress Note Seen and evaluated. IV, labs, LR 1 L bolus, fentanyl 75 mcg IV and Zofran 8 mg IV ordered. I did discuss the case with Dr. Macedo. We will await labs. 1005: I have rediscussed the case with Dr. Macedo. Patient has markedly elevated CRP and elevated white count. Pain returned. Dilaudid 1 mg IV ordered. We will get CT scan of the abdomen and pelvis without contrast as well as blood cultures, lactic acid and UA to evaluate for infection. Monitor patient. 1120 pain is a little improved. I did discuss the case with Dr. Macedo regarding fluid collection. He does believe that is a seroma and not the cause at this point. Patient does have findings for urinary tract infection with elevated lactic acid and nitrate positive UTI. This is in the setting of elevated white count. Also has creatinine dysfunction that is acute likely related to intractable nausea and vomiting and dehydration. For these reasons, patient does require admission. 1131: I did discuss the case with Dr. Cortes and he accepts patient for admission, inpatient status. We will continue antibiotics and fluids. He has asked for consult with Dr. Macedo which I have ordered. 04/15/2004: Pending admission. Patient's pain has returned as well as nausea. Fentanyl 50 mcg IV and Zofran 4 mg IV ordered. Admit, inpatient status. Patient agrees with plan. Diagnostic Imaging Diagonstic Imaging: CT Plain Films/CT/US/NM/MRI: abdomen, pelvis Comments [facility]. [place], [place] NAME: ELA VLADEZ [employer] REC#: [id number] PT STATUS: REG ER : 1955 PHYSICIAN: JOSE MANUEL RUSS MD ADMIT DATE: 02/22/20/ER Draft Date of Exam:02/22/20 CT ABDOMEN/PELVIS WO CT ABDOMEN/PELVIS WO TECHNIQUE: Unenhanced CT imaging of the abdomen and pelvis was performed. 2-D reformats are created and submitted for interpretation. Automatic exposure controls were utilized to optimize patient dose. INDICATION: Severe abdominal pain status post hernia repair one week prior. COMPARISON: CT abdomen and pelvis of 12/21/2019. FINDINGS: Evaluation of the abdominal viscera is mildly limited without contrast. Lower chest: The lung bases are clear. No pericardial or pleural effusion. Peritoneum: No free intraperitoneal air. Liver and biliary system: Unenhanced liver is normal. The gallbladder is normal. No biliary duct dilation. Spleen and Pancreas: Spleen is normal. Unenhanced pancreas is grossly normal. Adrenals: Normal. tract: Status post cystectomy with diverting ileal conduit. Asymmetric cortical atrophy in the left kidney is unchanged. No renal or ureteral stones. Expected mild dilation of the ureters status post ileal conduit diversion. GI tract: Stomach is decompressed. There is a new loculated intraperitoneal fluid collection beneath the right abdominal wall in the right lower quadrant associated with the loop ileostomy. There are few foci of gas surrounding the stoma. No gas within the intraperitoneal fluid collection. This collection measures 13 x 3 x 8 cm (width x height x AP). There does not appear to be a communication of a bowel loop with the fluid collection. No pericolonic inflammation. Vasculature and Lymph nodes: Normal caliber aorta. No abdominal or pelvic lymphadenopathy. Musculoskeletal: No concerning osseous lesion. IMPRESSION: 1. There is a new intraperitoneal elongated fluid collection just deep to the right abdominal wall associated with the loop ileostomy for the ileal conduit. This could represent a postoperative seroma, although imaging cannot determine if this is sterile or infected. This would be amenable to image-guided aspiration and potential drainage, if deemed clinically warranted. 2. There are a few droplets of air around the stoma that may be postoperative in nature from recent surgery. 3. No bowel obstruction. Dictated on workstation # [id number] Dict: 02/22/20 1041 Trans: 02/22/20 1057 [id number] Interpreted by: FREDI CHIN MD Electronically signed by: Reviewed: Reviewed by Tn Departure Communication (Admissions) Time/Spoke to Admitting Phy: 11:31 Time/Spoke to Consulting Phy: 11:20 Impression Primary Impression: Urinary tract infection Qualified Codes: N30.00 - Acute cystitis without hematuria Additional Impressions: Abdominal fluid collection Intractable abdominal pain Intractable nausea and vomiting Disposition: ADMITTED INPATIENT Condition: Stable Admissions Decision to Admit Reason: Admit from ER (General) Decision to Admit/Date: Feb 22, 2020 Time/Decision to Admit Time: 11:20 Departure-Patient Inst. Referrals: JOSEPH PEREZ MD (PCP/Family) Primary Care Physician JOSE MANUEL RUSS MD Feb 22, 2020 10:04
[2020-02-22 10:05] LABS: BILIRUBIN,URINE NEGATIVE (NEGATIVE); CLARITY,URINE CLEAR; COLOR,URINE YELLOW; GLUCOSE, URINE (UA) 3+ (NEGATIVE); KETONES,URINE 1+ (NEGATIVE); LEUKOCYTE ESTERASE ,URINE 1+ (NEGATIVE); NITRITE,URINE POSITIVE (NEGATIVE); PROTEIN,URINE 2+ (NEGATIVE)
--- NOTE | 2020-02-22 10:21 | NUR ---
TALKED WITH ON THE PHONE AND UPDATE GIVEN.
[2020-02-22 10:22] LABS: BACTERIA,URINE LARGE /HPF; WBC,URINE 50-100 /HPF; YEAST,URINE LARGE /HPF
--- NOTE | 2020-02-22 10:57 | Diagnostic Imaging Report ---
CT ABDOMEN/PELVIS WO TECHNIQUE: Unenhanced CT imaging of the abdomen and pelvis was performed. 2-D reformats are created and submitted for interpretation. Automatic exposure controls were utilized to optimize patient dose. INDICATION: Severe abdominal pain status post hernia repair one week prior. COMPARISON: CT abdomen and pelvis of 12/21/2019. FINDINGS: Evaluation of the abdominal viscera is mildly limited without contrast. Lower chest: The lung bases are clear. No pericardial or pleural effusion. Peritoneum: No free intraperitoneal air. Liver and biliary system: Unenhanced liver is normal. The gallbladder is normal. No biliary duct dilation. Spleen and Pancreas: Spleen is normal. Unenhanced pancreas is grossly normal. Adrenals: Normal. tract: Status post cystectomy with diverting ileal conduit. Asymmetric cortical atrophy in the left kidney is unchanged. No renal or ureteral stones. Expected mild dilation of the ureters status post ileal conduit diversion. GI tract: Stomach is decompressed. There is a new loculated intraperitoneal fluid collection beneath the right abdominal wall in the right lower quadrant associated with the loop ileostomy. There are few foci of gas surrounding the stoma. No gas within the intraperitoneal fluid collection. This collection measures 13 x 3 x 8 cm (width x height x AP). There does not appear to be a communication of a bowel loop with the fluid collection. No pericolonic inflammation. Vasculature and Lymph nodes: Normal caliber aorta. No abdominal or pelvic lymphadenopathy. Musculoskeletal: No concerning osseous lesion. IMPRESSION: 1. There is a new intraperitoneal elongated fluid collection just deep to the right abdominal wall associated with the loop ileostomy for the ileal conduit. This could represent a postoperative seroma, although imaging cannot determine if this is sterile or infected. This would be amenable to image-guided aspiration and potential drainage, if deemed clinically warranted. 2. There are a few droplets of air around the stoma that may be postoperative in nature from recent surgery. 3. No bowel obstruction. Dictated by: Dictated on workstation # [id number]
[2020-02-22] MEDS ORDERED: cefTRIAXone FOR IV USE 1,000 MG in WATER (STERILE) FOR INJECTION 10 ML IV STA (11:18)
--- NOTE | 2020-02-22 11:22 | NUR ---
LAB CONTACTED FOR BLOOD CULTURES.
--- NOTE | 2020-02-22 12:22 | NUR ---
UPDATED CONCERNING ADMSISSION.
--- NOTE | 2020-02-22 12:36 | NUR ---
ATTEPT TO CALL REPORT ET NO ANSWER.
--- NOTE | 2020-02-22 12:50 | NUR ---
ATTEMPT TO CALL REPORT ET NO ANSWER. [employer] CONTACTED.
--- NOTE | 2020-02-22 13:00 | NUR ---
ELA VALDEZ admitted to room 419-1, with an admitting diagnosis of UTI, on 02/22/20 from [place] via , accompanied by .ELA VALDEZ introduced to surroundings, call light, bed controls, phone, TV, temperature control, lights, meal times, smoking policy, visitor policy, side rail policy, bathrooms and showers. Patient Rights given to patient in the handbook. ELA VALDEZ verbalizes understanding that [facility] is not responsible for the loss or damage to any personal effects or valuables that are kept in the patients posession during their hospitalization. The following Patient Care Plans were discussed with the : Discharge Planning. ELA VALDEZ verbalizes understanding of Interdisciplinary Patient Education. Patient and/or family were informed about the Rapid Response Team and its purpose.
[2020-02-22] MEDS ORDERED: fentaNYL INJECTION 100 MCG/2 ML AMP IVP PRN (14:00)
[2020-02-22] MEDS ORDERED: HYDROcodone/APAP 10 MG/325 MG (LORTAB) TAB PO PRN (14:00)
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
--- NOTE | 2020-02-22 14:03 | History & Physical ---
SUSIE CAMARILLO MED STUDENT 02/22/20 1403: History of Present Illness History of Present Illness Reason for visit/HPI Pt is a 64y/o M who presented to the ED today with severe diffuse abdominal pain with nausea and vomiting since yesterday. The pt had a parastomal mesh repair last Friday which the pt had constipation following until yesterday, the pt passed a hard stool without blood or melena then. Pts abdominal pain is worse in the RUQ and RLQ though tender to palpation diffusely. Pain medication first helped but he has been unable to keep down due to persistent nausea. Nothing aggrevates pain. Pt has a urostomy bag, when asked about his UTI hx he said he gets 'constant UTIs', when asked if this abdominal pain in similiar to the pain hes had in the past from complicated UTIs he stated it 'seemed no different'. Pts VS are stable. Nausea responded to Zofran in ED but was returning during visit with pt. Date of Admission Feb 22, 2020 at 12:04 Time Seen by a Provider: 13:20 I consulted on this patient on 02/22/20 13:57 Attending Physician Juanita Paredes MD Admitting Physician Juanita Paredes MD Consult Joe White DO Allergies and Home Medications Allergies Coded Allergies: No Known Drug Allergies (Verified , 02/09/20) Home Medications Buspirone HCl 15 Mg Tablet, 30 MG PO BID, (Reported) TAKES 2 (15MG) TABS Carisoprodol 350 Mg Tablet, 350 MG PO DAILY, (Reported) Empagliflozin 25 Mg Tablet, 25 MG PO DAILY, (Reported) Ezetimibe 10 Mg Tablet, 10 MG PO DAILY, (Reported) Gabapentin 100 Mg Capsule, 100 MG PO TID, (Reported) Gemfibrozil 600 Mg Tablet, 600 MG PO BID, (Reported) Glipizide 10 Mg Tab.er.24, 10 MG PO DAILY, (Reported) Hydrocodone/Acetaminophen 1 Each Tablet, 1 EA PO Q4 -6H PRN for PAIN-MODERATE (5-7), (Reported) Ibuprofen 200 Mg Capsule, 200-400 MG PO Q8H PRN for PAIN-MILD (1-4), (Reported) Insulin Detemir 100 Unit/1 Ml Insuln.pen, 50 UNITS SC HS, (Reported) Insulin Glargine,Hum.rec.anlog 100 Unit/1 Ml Insuln.pen, 20 UNIT SQ PC, (Reported) Lactobacillus Combo No.10 1 Each Capsule, 2 EACH PO DAILY, (Reported) Lisinopril 5 Mg Tablet, 5 MG PO DAILY, (Reported) Past Gftpcyq-Lclwmy-Hgxwbf Hx Patient Social History Alcohol Use: Denies Use Recreational Drug Use: No Smoking Status: Never a Smoker 2nd Hand Smoke Exposure: No Recent Foreign Travel: No Contact w/other who traveled: No Recent Hopitalizations: Yes Recent Infectious Disease Expo: No Immunizations Up To Date Tetanus Booster (TDap): Unknown Pediatric: No Date of Pneumonia Vaccine: August 19, 2014 Date of Influenza Vaccine: Jan 17, 2020 Seasonal Allergies Seasonal Allergies: Yes Surgeries Yes (UMB HERNIA,BLADDER & PROSTATE REMOVED W/ UROSTOMY;OPEN KIDNEY STONE,SHOULDE) Abdominal, Bladder Surgery, Cystectomy, Prostatectomy, Renal Respiratory No Currently Using CPAP: No Currently Using BIPAP: No Cardiovascular Yes High Cholesterol, Hypertension Neurological No Reproductive System Hx Reproductive Disorders: No Sexually Transmitted Disease: No HIV/AIDS: No Genitourinary Yes Bladder Infection, Kidney Stones, UTI-Chronic Gastrointestinal Yes Abdominal Hernia, Pancreatitis Musculoskeletal Yes (ESPECIALLY KNEES AND SHOULDERS) Arthritis, Gout Endocrine History of Endocrine Disorders: Yes Endocrine Disorders: Diabetes, Insulin dep HEENT History of HEENT Disorders: Yes (GLASSES) Loss of Vision: Denies Hearing Impairment: Denies Cancer Yes (2013-S/P SURGERY ONLY-NO CHEMO/RADIATION OR ONCOLOGIST) Bladder, Prostate Did You Recieve Any Treatments: Yes Type of Treatment: Surgical Intervention Psychosocial History of Psychiatric Problem: Yes Behavioral Health Disorders: Anxiety, Depression Integumentary History of Skin or Integumenta: No Blood Transfusions History of Blood Disorders: No Adverse Reaction to a Blood Tr: No (N/A) Family Medical History Family Hx: Cancer 03 FATHER Family history: Asthma 09 BROTHER Stroke 09 SISTER Review of Systems Constitutional: dizziness (Pt had 2 episodes of dizziness following by falls yesterday); No fever Respiratory: No cough, No short of breath Cardiovascular: No chest pain, No palpitations Gastrointestinal: RUQ, LUQ, RLQ, LLQ, abdominal pain, constipation, nausea, vomiting Genitourinary: other (urostomy bag in place ) Physical Exam Vital Signs Vital Signs - First Documented 02/22/20 02/22/20 08:53 12:59 Temp 35.9 Pulse 89 Resp 16 B/P (MAP) 163/70 (101) Pulse Ox 100 O2 Delivery Room Air O2 Flow Rate 2.00 Capillary Refill : Less Than 3 Seconds Height, Weight, BMI Height: 5'5.00" Weight: 168lbs. 0.0oz. 76.495555uw; 26.00 BMI Method:Stated General Appearance: No Apparent Distress, Chronically ill, Mild Distress Eyes: Bilateral Eye Normal Inspection, Bilateral Eye PERRL, Bilateral Eye EOMI HEENT: PERRL/EOMI, Pharynx Normal Neck: Full Range of Motion, Normal Inspection Respiratory: Lungs Clear, Normal Breath Sounds, No Accessory Muscle Use, No Respiratory Distress Cardiovascular: Regular Rate, Rhythm, No Edema, No Gallop, No JVD, No Murmur, Normal Peripheral Pulses Gastrointestinal: No Organomegaly, No Pulsatile Mass, Guarding, Tenderness (diffuse, but most tender to palpation in RUQ and RLQ. ), Other (four incisional bolanos on L. 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 Pt meet 2 SIRS criteria with U/A today suggesting likely source is a UTI. Lactic acid in ED was 2.17, repeat lactic acid. Evidence of organ dysfunction, acute kidney injury. Order CXR. Complicated UTI Pt has chronic and recurrent hx of UTIs Order Urine Culture Order blood culture Start pt on Imipenem and Vancomycin until culture results come back. Possible Infected Seroma 2/2 Abdominal Sx UTI seemed more likely source of sepsis at this point Dr White consulted on case, appreciate the recommendations. Acute Kidney Injury Likely 2/2 sepsis BUN and creatinine was 55 and 2.05 respectively far exceeding pts baseline. Continue pt fluid replacement and repeat BMP tomorrow. T2DM Glucose was 248 at ED. Consider restarting home insulin regiment. HTN Currently controlled, hold home regiment. DVT Prophylaxis Start Lovenox Admission Diagnosis Admission Status: Inpatient Order (span 2 midnights) Reason for Inpatient Admission: COMPLICATED UTI, SEVERE SEPSIS JUANITA PAREDES MD 02/23/20 1720: History of Present Illness History of Present Illness Date Seen by a Provider: Feb 22, 2020 Allergies and Home Medications Allergies Coded Allergies: No Known Drug Allergies (Verified , 02/09/20) Home Medications Buspirone HCl 15 Mg Tablet, 30 MG PO BID, (Reported) TAKES 2 (15MG) TABS Carisoprodol 350 Mg Tablet, 350 MG PO DAILY, (Reported) Empagliflozin 25 Mg Tablet, 25 MG PO DAILY, (Reported) Ezetimibe 10 Mg Tablet, 10 MG PO DAILY, (Reported) Gabapentin 100 Mg Capsule, 100 MG PO TID, (Reported) Gemfibrozil 600 Mg Tablet, 600 MG PO BID, (Reported) Glipizide 10 Mg Tab.er.24, 10 MG PO DAILY, (Reported) Hydrocodone/Acetaminophen 1 Each Tablet, 1 EA PO Q4 -6H PRN for PAIN-MODERATE (5-7), (Reported) Ibuprofen 200 Mg Capsule, 200-400 MG PO Q8H PRN for PAIN-MILD (1-4), (Reported) Insulin Detemir 100 Unit/1 Ml Insuln.pen, 50 UNITS SC HS, (Reported) Insulin Glargine,Hum.rec.anlog 100 Unit/1 Ml Insuln.pen, 20 UNIT SQ PC, (Reported) Lactobacillus Combo No.10 1 Each Capsule, 2 EACH PO DAILY, (Reported) Lisinopril 5 Mg Tablet, 5 MG PO DAILY, (Reported) Patient Home Medication List Home Medication List Reviewed: Yes Past Emdrikx-Dcgwaw-Heueqi Hx Patient Social History Recreational Drug Use: No Smoking Status: Unknown if Ever Smoked Surgeries Abdominal Family Medical History Family Hx: Cancer 03 FATHER Family history: Asthma 09 BROTHER Stroke 09 SISTER Assessment/Plan Assessment and Plan Severe sepsis due to UTI Lactic acidosis Acute kidney injury SIRS+ with leukocytosis and Lactic acid 2.17, repeat normalized Cr 2, baseline ~1 UA consistent with UTI Await cultures Blood cultures pending Started on Rocephin Recent abdominal surgery Seroma Could be contributing to abdominal pain Unlikely infectious Dr White consulted, appreciate assistance T2DM Levemir SSI HTN Continue home meds DVT Prophylaxis: Lovenox Problems: (1) Severe sepsis Status: Acute (2) Lactic acidosis Status: Acute (3) Seroma after procedure Status: Acute (4) History of abdominal surgery Status: Acute (5) Acute kidney injury (nontraumatic) Onset Date: 11/08/2014 Status: Acute (6) Urinary tract infection Status: Acute Qualifiers: Qualified Codes: N30.00 - Acute cystitis without hematuria Admission Diagnosis Severe sepsis due to UTI Admission Status: Inpatient Order (span 2 midnights) Reason for Inpatient Admission: Sepsis/UTI requiring IV antibiotics Supervisory-Addendum Brief Verification & Attestation Participated in pt care: history, MDM, physical Personally performed: exam, history, MDM, supervision of care Care discussed with: Medical Student Procedures: n/a Results interpretation: Verified all documentation Verification and Attestation of Medical Student E/M Service A medical student performed and documented this service in my presence. I reviewed and verified all information documented by the medical student and made modifications to such information, when appropriate. I personally performed the physical exam and medical decision making. Juanita Paredes, Feb 23, 2020,17:18 SUSIE CAMARILLO MED STUDENT Feb 22, 2020 14:03 JUANITA PAREDES MD Feb 23, 2020 17:20
[2020-02-22 14:23] VITALS: BP 154/88
[2020-02-22] MEDS ORDERED: PROMETHAZINE INJ 25 MG/ML (PHENERGAN) AMP IVP PRN (15:00)
[2020-02-22] MEDS: PANTOPRAZOLE 40 MG (PROTONIX) VIAL IV SCH (15:20)
[2020-02-22] MEDS: LACTATED RINGERS 1,000 ML IV SCH ×2 (15:20→23:55)
[2020-02-22 15:41] VITALS: BP 129/63
[2020-02-22] MEDS ORDERED: GLIP10TA24 PO (15:47)
[2020-02-22] MEDS ORDERED: GEMF600T8 PO (15:47)
[2020-02-22] MEDS ORDERED: EZET10TA49 PO (15:47)
[2020-02-22] MEDS ORDERED: EMPA25TA PO (15:47)
[2020-02-22] MEDS ORDERED: IBUP-2185 PO (15:47)
[2020-02-22] MEDS ORDERED: CARI350T27 PO (15:47)
[2020-02-22] MEDS ORDERED: HYDR-3820 PO (15:47)
[2020-02-22] MEDS ORDERED: INSU100I29 SC (15:47)
[2020-02-22] MEDS ORDERED: LACT1CAP72 PO (15:47)
--- NOTE | 2020-02-22 16:22 | NUR ---
SPOKE WITH THE PT (HE HAD A PARTIAL MED LIST ON HIS PHONE) AND WENT THRU THE EXT MED HISTORY TO COMPLETE THE MED REC MEDICATIONS (THAT WERENT LISTED ON THE PTS PHONE) HE WAS HAVING DIFFICULTY TELLING ME HOW HE TAKES THEM. GEMFIBROZIL 600MG PT SAID HE TAKES IN THE MORNING (EXT MED HISTORY SHOWS #60/30DS) I LET HIM KNOW HOW [facility] FILLED THEM AND HE THEN SAID YES THAT IS RIGHT. SOMA 350MG- DIRECTIONS SAY 350MG TID HOWEVER PT SAYS HE JUST TAKES 1 TAB DAILY OTC MEDS: IBUPROFEN PROBIOTIC
--- NOTE | 2020-02-22 16:47 | Consultation - Surgery ---
HIEU DIANA MED STUDENT 02/22/20 4557: History of Present Illness History of Present Illness Patient Consulted On(claudette/time) 02/22/20 16:42 Date Seen by Provider: Feb 22, 2020 Time Seen by Provider: 04:30 History of Present Illness surgery consult for N/V 64 y/o M had hernia mesh repair 1 wk ago. Friday night, pt felt constipated and sat on toilet for 2 hrs before passing BM. Pt felt he was pushing too hard. Pt denies blood. After BM, he felt pain from his waist to his neck. It felt like his abdomen would blow up, 10/10 pain. Pt had N/V all day yesterday and night before. Pt fell down 3x between yesterday and today. He felt dizzy and said he got up too quick. Pt couldn't eat and was vomiting this morning from even just water. Pt went to ED 7:30AM today. They took imaging and found pockets of gas. Laying still made the pain worse. Being on fluids, abx and in the hospital helped. Pt states he feels better today, 3/10 pain, only in abdomen. Pt passed gas and had BM yesterday. Pt states he constantly gets UTI's. Allergies and Home Medications Allergies Coded Allergies: No Known Drug Allergies (Verified , 02/09/20) Home Medications Buspirone HCl 15 Mg Tablet, 30 MG PO BID, (Reported) TAKES 2 (15MG) TABS Carisoprodol 350 Mg Tablet, 350 MG PO DAILY, (Reported) Empagliflozin 25 Mg Tablet, 25 MG PO DAILY, (Reported) Ezetimibe 10 Mg Tablet, 10 MG PO DAILY, (Reported) Gabapentin 100 Mg Capsule, 100 MG PO TID, (Reported) Gemfibrozil 600 Mg Tablet, 600 MG PO BID, (Reported) Glipizide 10 Mg Tab.er.24, 10 MG PO DAILY, (Reported) Hydrocodone/Acetaminophen 1 Each Tablet, 1 EA PO Q4 -6H PRN for PAIN-MODERATE (5-7), (Reported) Ibuprofen 200 Mg Capsule, 200-400 MG PO Q8H PRN for PAIN-MILD (1-4), (Reported) Insulin Detemir 100 Unit/1 Ml Insuln.pen, 50 UNITS SC HS, (Reported) Insulin Glargine,Hum.rec.anlog 100 Unit/1 Ml Insuln.pen, 20 UNIT SQ PC, (Reported) Lactobacillus Combo No.10 1 Each Capsule, 2 EACH PO DAILY, (Reported) Lisinopril 5 Mg Tablet, 5 MG PO DAILY, (Reported) Past Ktefwdp-Knrdnf-Fsuumd Hx Patient Social History Alcohol Use: Denies Use Recreational Drug Use: No Smoking Status: Never a Smoker 2nd Hand Smoke Exposure: No Recent Foreign Travel: No Contact w/Someone Who Travel: No Recent Infectious Disease Expo: No Recent Hopitalizations: Yes Immunizations Up To Date Tetanus Booster (TDap): Unknown PED Vaccines UTD: No Date of Pneumonia Vaccine: August 19, 2014 Date of Influenza Vaccine: Jan 17, 2020 Seasonal Allergies Seasonal Allergies: Yes Surgeries History of Surgeries: Yes (UMB HERNIA,BLADDER & PROSTATE REMOVED W/ UROSTOMY;OPEN KIDNEY STONE,SHOULDE) Surgeries: Abdominal, Bladder Surgery, Cystectomy, Prostatectomy, Renal Respiratory History of Respiratory Disorde: No Cardiovascular History of Cardiac Disorders: Yes Cardiac Disorders: High Cholesterol, Hypertension Neurological History of Neurological Disord: No Reproductive System Hx Reproductive Disorders: No Sexually Transmitted Disease: No HIV/AIDS: No Genitourinary History of Genitourinary Disor: Yes Genitourinary Disorders: Bladder Infection, Kidney Stones, UTI-Chronic Gastrointestinal History of Gastrointestinal Di: Yes Gastrointestinal Disorders: Abdominal Hernia, Pancreatitis Musculoskeletal History of Musculoskeletal Dis: Yes (ESPECIALLY KNEES AND SHOULDERS) Musculoskeletal Disorders: Arthritis, Gout Endocrine History of Endocrine Disorders: Yes Endocrine Disorders: Diabetes, Insulin dep HEENT History of HEENT Disorders: Yes (GLASSES) Loss of Vision: Denies Hearing Impairment: Denies Cancer History of Cancer: Yes (2013-S/P SURGERY ONLY-NO CHEMO/RADIATION OR ONCOLOGIST) Cancer: Bladder, Prostate Psychosocial History of Psychiatric Problem: Yes Behavioral Health Disorders: Anxiety, Depression Integumentary History of Skin or Integumenta: No Blood Transfusions History of Blood Disorders: No Adverse Reaction to a Blood Tr: No (N/A) Family Medical History Family Medial History: Cancer 03 FATHER Family history: Asthma 09 BROTHER Stroke 09 SISTER Review of Systems-General Constitutional: dizziness, weakness EENTM: No hearing loss, No ear pain, No blurred vision, No double vision, No eye pain, No vision loss Respiratory: No cough, No dyspnea on exertion Cardiovascular: chest pain (pain from waist to neck) Gastrointestinal: abdominal pain, constipation, vomiting Psychiatric/Neurological: Denies Numbness Physical Exam-General Problems Physical Exam Vital Signs Vital Signs - First Documented 02/22/20 02/22/20 08:53 12:59 Temp 35.9 Pulse 89 Resp 16 B/P (MAP) 163/70 (101) Pulse Ox 100 O2 Delivery Room Air O2 Flow Rate 2.00 Capillary Refill : Less Than 3 Seconds General Appearance: WD/WN, no apparent distress HEENT: PERRL/EOMI Respiratory: lungs clear, normal breath sounds, no respiratory distress, no accessory muscle use Cardiovascular: regular rate, rhythm, no murmur Gastrointestinal: soft, tenderness Extremities: no calf tenderness, normal capillary refill Neurologic/Psychiatric: alert, normal mood/affect, oriented x 3 Skin: normal color, warm/dry Data Review Labs Laboratory Tests 02/22/20 09:08: White Blood Count 13.9H, Red Blood Count 5.26, Hemoglobin 14.8, Hematocrit 44, Mean Corpuscular Volume 84, Mean Corpuscular Hemoglobin 28, Mean Corpuscular Hemoglobin Concent 33, Red Cell Distribution Width 13.4, Platelet Count 429H, Mean Platelet Volume 10.2, Immature Granulocyte % (Auto) 1, Neutrophils (%) (Auto) 88H, Lymphocytes (%) (Auto) 5L, Monocytes (%) (Auto) 6, Eosinophils (%) (Auto) 0, Basophils (%) (Auto) 0, Neutrophils # (Auto) 12.2H, Lymphocytes # (Auto) 0.7L, Monocytes # (Auto) 0.8, Eosinophils # (Auto) 0.0, Basophils # (Auto) 0.0, Immature Granulocyte # (Auto) 0.1, Neutrophils % (Manual) 83, Lymphocytes % (Manual) 10, Monocytes % (Manual) 7, Blood Morphology Comment NORMAL, Sodium Level 133L, Potassium Level 3.8, Chloride Level 98, Carbon Dioxide Level 15L, Anion Gap 20H, Blood Urea Nitrogen 55H, Creatinine 2.05H, Estimat Glomerular Filtration Rate 33, BUN/Creatinine Ratio 27, Glucose Level 248H, Calcium Level 10.5H, Corrected Calcium , Total Bilirubin 1.1H, Aspartate Amino Transf (AST/SGOT) 17, Alanine Aminotransferase (ALT/SGPT) 21, Alkaline Phosphatase 72, C-Reactive Protein High Sensitivity 17.48H, Total Protein 8.7H, Albumin 4.6H 02/22/20 09:59: Urine Color YELLOW, Urine Clarity CLEAR, Urine pH 6.0, Urine Specific [place] 1.010L, Urine Protein 2+H, Urine Glucose (UA) 3+H, Urine Ketones 1+H, Urine Nitrite POSITIVEH, Urine Bilirubin NEGATIVE, Urine Urobilinogen 0.2, Urine Leukocyte Esterase 1+H, Urine RBC (Auto) 1+H, Urine RBC 2-5H, Urine WBC 50-100H, Urine Crystals NONE, Urine Bacteria LARGEH, Urine Casts NONE, Urine Mucus NEGATIVE, Urine Yeast LARGEH, Urine Culture Indicated YES 02/22/20 10:00: Lactic Acid Level 2.17*H 02/22/20 12:09: Lactic Acid Level 1.13 Assessment/Plan Assessment/Plan Assessment/Plan intractable N/V abdominal pain UTI seroma at urostomy -IV fluids, IV abx, antiemetic meds. observe for changes Clinical Quality Measures DVT/VTE Risk/Contraindication: Risk Factor Score Per Nursin RFS Level Per Nursing on Admit: 4+=Very High ALLISON WHITE DO 02/22/20 1701: History of Present Illness History of Present Illness Time Seen by Provider: 16:32 History of Present Illness Pt seen and examined, was supposed to see me in the office today. Had N/V and decided to go to ER instead; states he was actually feeling better after his BM (better than before he had it). Allergies and Home Medications Allergies Coded Allergies: No Known Drug Allergies (Verified , 02/09/20) Home Medications Buspirone HCl 15 Mg Tablet, 30 MG PO BID, (Reported) TAKES 2 (15MG) TABS Carisoprodol 350 Mg Tablet, 350 MG PO DAILY, (Reported) Empagliflozin 25 Mg Tablet, 25 MG PO DAILY, (Reported) Ezetimibe 10 Mg Tablet, 10 MG PO DAILY, (Reported) Gabapentin 100 Mg Capsule, 100 MG PO TID, (Reported) Gemfibrozil 600 Mg Tablet, 600 MG PO BID, (Reported) Glipizide 10 Mg Tab.er.24, 10 MG PO DAILY, (Reported) Hydrocodone/Acetaminophen 1 Each Tablet, 1 EA PO Q4 -6H PRN for PAIN-MODERATE (5-7), (Reported) Ibuprofen 200 Mg Capsule, 200-400 MG PO Q8H PRN for PAIN-MILD (1-4), (Reported) Insulin Detemir 100 Unit/1 Ml Insuln.pen, 50 UNITS SC HS, (Reported) Insulin Glargine,Hum.rec.anlog 100 Unit/1 Ml Insuln.pen, 20 UNIT SQ PC, (Reported) Lactobacillus Combo No.10 1 Each Capsule, 2 EACH PO DAILY, (Reported) Lisinopril 5 Mg Tablet, 5 MG PO DAILY, (Reported) Patient Home Medication List Home Medication List Reviewed: Yes Past Gzhrlpg-Hifplj-Jszsbi Hx Patient Social History Alcohol Use: Denies Use Recreational Drug Use: No Smoking Status: Never a Smoker Surgeries History of Surgeries: Yes Surgeries: Abdominal Cardiovascular History of Cardiac Disorders: Yes Cardiac Disorders: High Cholesterol, Hypertension Genitourinary History of Genitourinary Disor: Yes Genitourinary Disorders: Kidney Stones, UTI-Chronic Musculoskeletal History of Musculoskeletal Dis: Yes Musculoskeletal Disorders: Arthritis, Gout Endocrine History of Endocrine Disorders: Yes Endocrine Disorders: Diabetes, Non-Insulin dep HEENT History of HEENT Disorders: Yes Cancer History of Cancer: Yes Cancer: Bladder, Prostate Psychosocial History of Psychiatric Problem: Yes Behavioral Health Disorders: Anxiety, Depression Family Medical History Significant Family History: Asthma, Cancer, CVA Family Medial History: Cancer 03 FATHER Family history: Asthma 09 BROTHER Stroke 09 SISTER Review of Systems-General Constitutional: dizziness, weakness EENTM: No hearing loss, No ear pain, No blurred vision, No double vision Respiratory: No cough, No dyspnea on exertion Cardiovascular: chest pain (pain from waist to neck); No palpitations Gastrointestinal: abdominal pain, constipation, nausea, vomiting Musculoskeletal: gout, joint pain, joint swelling, muscle pain Skin: No change in color, No change in hair/nails Psychiatric/Neurological: Anxiety, Depressed; Denies Numbness, Denies Tremors Physical Exam-General Problems Physical Exam General Appearance: WD/WN, no apparent distress Eyes: Bilateral Eye PERRL, Bilateral Eye EOMI HEENT: pharynx normal; No scleral icterus (R), No scleral icterus (L) Respiratory: lungs clear, normal breath sounds, no respiratory distress, no accessory muscle use Cardiovascular: regular rate, rhythm, no murmur Gastrointestinal: soft, tenderness (mostly around stoma) Extremities: normal capillary refill Neurologic/Psychiatric: alert, normal mood/affect, oriented x 3 Skin: normal color, warm/dry Lymphatic: no adenopathy (neck, axilla or groin) Data Review Radiology Date of Exam:02/22/20 CT ABDOMEN/PELVIS WO CT ABDOMEN/PELVIS WO TECHNIQUE: Unenhanced CT imaging of the abdomen and pelvis was performed. 2-D reformats are created and submitted for interpretation. Automatic exposure controls were utilized to optimize patient dose. INDICATION: Severe abdominal pain status post hernia repair one week prior. COMPARISON: CT abdomen and pelvis of 12/21/2019. FINDINGS: Evaluation of the abdominal viscera is mildly limited without contrast. Lower chest: The lung bases are clear. No pericardial or pleural effusion. Peritoneum: No free intraperitoneal air. Liver and biliary system: Unenhanced liver is normal. The gallbladder is normal. No biliary duct dilation. Spleen and Pancreas: Spleen is normal. Unenhanced pancreas is grossly normal. Adrenals: Normal. tract: Status post cystectomy with diverting ileal conduit. Asymmetric cortical atrophy in the left kidney is unchanged. No renal or ureteral stones. Expected mild dilation of the ureters status post ileal conduit diversion. GI tract: Stomach is decompressed. There is a new loculated intraperitoneal fluid collection beneath the right abdominal wall in the right lower quadrant associated with the loop ileostomy. There are few foci of gas surrounding the stoma. No gas within the intraperitoneal fluid collection. This collection measures 13 x 3 x 8 cm (width x height x AP). There does not appear to be a communication of a bowel loop with the fluid collection. No pericolonic inflammation. Vasculature and Lymph nodes: Normal caliber aorta. No abdominal or pelvic lymphadenopathy. Musculoskeletal: No concerning osseous lesion. IMPRESSION: 1. There is a new intraperitoneal elongated fluid collection just deep to the right abdominal wall associated with the loop ileostomy for the ileal conduit. This could represent a postoperative seroma, although imaging cannot determine if this is sterile or infected. This would be amenable to image-guided aspiration and potential drainage, if deemed clinically warranted. 2. There are a few droplets of air around the stoma that may be postoperative in nature from recent surgery. 3. No bowel obstruction. Dictated on workstation # [id number] Dict: 02/22/20 1041 Trans: 02/22/20 1057 [id number] [id number] Interpreted by: KATER,FREDI A MD Assessment/Plan Assessment/Plan Assessment/Plan Intractable N/V - improved with meds and actually able to eat sandwich Abdominal pain - pain meds, possibly due to seroma UTI - IV ABX, until can switch to oral Seroma at Urostomy - this is normal post-operative does not appear to be infected, monitor labs, no eyrthema surrounding ostomy Supervisory-Addendum Brief Verification & Attestation Participated in pt care: history, MDM, physical Personally performed: exam, history, MDM Care discussed with: Medical Student Procedures: n/a Verification and Attestation of Medical Student E/M Service A medical student performed and documented this service. I then reviewed and verified all information documented by the medical student and made modifications to such information, when appropriate. I personally performed a physical exam, medical decision making and then discussed any differences between the notes and made revisions as necessary to create one note. Allison White , 02/22/20 , 17:05 HIEU DIANA MED STUDENT Feb 22, 2020 16:47 ALLISON WHITE DO Feb 22, 2020 17:01
[2020-02-22] MEDS: ENOXAPARIN 40 MG/0.4 ML (LOVENOX) SYR SQ SCH (19:01)
[2020-02-22 19:53] VITALS: BP 135/65
[2020-02-22] MEDS: inSUlin ASPART (NovoLOG) 1 UNIT/0.01 ML (CHARGE PER UNIT) SC SCH (20:36)
[2020-02-22] MEDS: GABAPENTIN 100 MG (NEURONTIN) CAP PO SCH (20:37)
[2020-02-22] MEDS: GEMFIBROZIL 600 MG (LOPID) TAB PO SCH (20:37)
[2020-02-22] MEDS: busPIRone 15 MG (BUSPAR) TABLET PO SCH (20:37)
[2020-02-22 23:47] VITALS: BP 130/71
[2020-02-23 04:01] VITALS: BP 124/71
[2020-02-23 05:59] LABS: BASOPHILS % (AUTO) 0 % (0-10); EOSINOPHILS % (AUTO) 1 % (0-10); HEMATOCRIT 35 % (40-54); HEMOGLOBIN 11.4 g/dL (13.3-17.7); LYMPHOCYTES # (AUTO) 1.4 10^3/uL (1.0-4.0); LYMPHOCYTES % (AUTO) 16 % (12-44); MEAN CORPUSCULAR HEMOGLOBIN 28 pg (25-34); MEAN CORPUSCULAR HGB CONC 33 g/dL (32-36); MEAN CORPUSCULAR VOLUME 86 fL (80-99); MEAN PLATELET VOLUME 10.5 fL (9.0-12.2); MONOCYTES # (AUTO) 0.9 10^3/uL (0.0-1.0); MONOCYTES % (AUTO) 10 % (0-12); NEUTROPHILS # (AUTO) 6.4 10^3/uL (1.8-7.8); NEUTROPHILS % (AUTO) 72 % (42-75); PLATELET COUNT 331 10^3/uL (130-400); WHITE BLOOD COUNT 8.8 10^3/uL (4.3-11.0)
[2020-02-23 06:08] LABS: ALBUMIN 3.6 GM/DL (3.2-4.5); POTASSIUM 3.5 MMOL/L (3.6-5.0)
[2020-02-23 06:09] LABS: CALCIUM 9.2 MG/DL (8.5-10.1)
[2020-02-23 06:10] LABS: TOTAL PROTEIN 6.6 GM/DL (6.4-8.2)
[2020-02-23 06:12] LABS: BILIRUBIN,TOTAL 0.5 MG/DL (0.1-1.0)
[2020-02-23 06:14] LABS: CREATININE SERUM 1.52 MG/DL (0.60-1.30)
[2020-02-23 08:00] VITALS: BP 155/74
[2020-02-23] MEDS ORDERED: KCL 20 MEQ TAB (K-DUR) PO NR (08:00)
[2020-02-23] MEDS: inSUlin ASPART (NovoLOG) 1 UNIT/0.01 ML (CHARGE PER UNIT) SC SCH ×8 (08:15→21:48)
--- NOTE | 2020-02-23 08:25 | Progress Note - Surgery ---
HEIU DIANA MED STUDENT 02/23/20 0825: Subjective Date Seen by a Provider: Feb 23, 2020 Time Seen by a Provider: 07:30 Subjective/Events-last exam Pt states he feels better than yesterday at 100%. Pt denies N/V since yesterday morning and is tolerating solid diet well. heartburn yesterday morning but better since meds. Last BM was 2d ago which caused him to come to ED. Pt denies troubles w/ urination. Pt states glucose levels have dropped significantly to a normal range. Review of Systems General: No Chills, No Night Sweats HEENT: No Head Aches; Visual Changes (blurry vision d/t DM (not new)); No Eye Pain Pulmonary: No Dyspnea, No Cough Cardiovascular: No: Chest Pain Gastrointestinal: Abdominal Pain (on R, slightly tender), Other (heartburn yesterday morning); No: Nausea, Vomiting Musculoskeletal: No: arm pain, leg pain Neurological: No: Weakness, Numbness Focused Exam Lactate Level 02/22/20 10:00: Lactic Acid Level 2.17*H 02/22/20 12:09: Lactic Acid Level 1.13 Objective Exam Vital Signs Date Time Temp Pulse Resp B/P (MAP) Pulse Ox O2 Delivery O2 Flow Rate FiO2 02/23/20 04:01 36.8 84 15 124/71 (88) 97 Room Air 02/22/20 23:47 36.4 77 16 130/71 (90) 97 Room Air 02/22/20 20:35 Room Air 02/22/20 19:53 36.4 96 18 135/65 (88) 97 Room Air 02/22/20 17:41 Room Air 02/22/20 15:41 36.4 93 18 129/63 (85) 95 Room Air 02/22/20 14:23 35.9 86 20 154/88 97 Room Air 02/22/20 12:59 86 20 154/88 97 Nasal Cannula 2.00 02/22/20 08:53 35.9 89 16 163/70 (101) 100 Room Air I & O 02/23/20 07:00 Intake Total 3850 ml Output Total 1950 ml Balance 1900 ml Capillary Refill : Less Than 3 Seconds General Appearance: No Apparent Distress, Chronically ill HEENT: PERRL/EOMI Respiratory: Lungs Clear, Normal Breath Sounds, No Accessory Muscle Use, No Respiratory Distress Cardiovascular: Regular Rate, Rhythm, No Murmur Gastrointestinal: soft, tenderness (mostly around stoma) Extremity: Non Tender, No Pedal Edema Neurologic/Psychiatric: Alert, Oriented x3, Normal Mood/Affect Skin: Normal Color, Warm/Dry Results Lab Laboratory Tests 02/22/20 09:08: White Blood Count 13.9H, Red Blood Count 5.26, Hemoglobin 14.8, Hematocrit 44, Mean Corpuscular Volume 84, Mean Corpuscular Hemoglobin 28, Mean Corpuscular Hemoglobin Concent 33, Red Cell Distribution Width 13.4, Platelet Count 429H, Mean Platelet Volume 10.2, Immature Granulocyte % (Auto) 1, Neutrophils (%) (Auto) 88H, Lymphocytes (%) (Auto) 5L, Monocytes (%) (Auto) 6, Eosinophils (%) (Auto) 0, Basophils (%) (Auto) 0, Neutrophils # (Auto) 12.2H, Lymphocytes # (Auto) 0.7L, Monocytes # (Auto) 0.8, Eosinophils # (Auto) 0.0, Basophils # (Auto) 0.0, Immature Granulocyte # (Auto) 0.1, Neutrophils % (Manual) 83, Lymphocytes % (Manual) 10, Monocytes % (Manual) 7, Blood Morphology Comment NORMAL, Sodium Level 133L, Potassium Level 3.8, Chloride Level 98, Carbon Dioxide Level 15L, Anion Gap 20H, Blood Urea Nitrogen 55H, Creatinine 2.05H, Estimat Glomerular Filtration Rate 33, BUN/Creatinine Ratio 27, Glucose Level 248H, Calcium Level 10.5H, Corrected Calcium , Total Bilirubin 1.1H, Aspartate Amino Transf (AST/SGOT) 17, Alanine Aminotransferase (ALT/SGPT) 21, Alkaline Phosphatase 72, C-Reactive Protein High Sensitivity 17.48H, Total Protein 8.7H, Albumin 4.6H 02/22/20 09:59: Urine Color YELLOW, Urine Clarity CLEAR, Urine pH 6.0, Urine Specific [place] 1.010L, Urine Protein 2+H, Urine Glucose (UA) 3+H, Urine Ketones 1+H, Urine Nitrite POSITIVEH, Urine Bilirubin NEGATIVE, Urine Urobilinogen 0.2, Urine Leukocyte Esterase 1+H, Urine RBC (Auto) 1+H, Urine RBC 2-5H, Urine WBC 50-100H, Urine Crystals NONE, Urine Bacteria LARGEH, Urine Casts NONE, Urine Mucus NEGATIVE, Urine Yeast LARGEH, Urine Culture Indicated YES 02/22/20 10:00: Lactic Acid Level 2.17*H 02/22/20 12:09: Lactic Acid Level 1.13 02/22/20 20:11: Glucometer 309H 02/23/20 05:18: Glucometer 106 02/23/20 05:20: White Blood Count 8.8, Red Blood Count 4.05L, Hemoglobin 11.4#L, Hematocrit 35L, Mean Corpuscular Volume 86, Mean Corpuscular Hemoglobin 28, Mean Corpuscular Hemoglobin Concent 33, Red Cell Distribution Width 13.6, Platelet Count 331, Mean Platelet Volume 10.5, Immature Granulocyte % (Auto) 1, Neutrophils (%) (Au to) 72, Lymphocytes (%) (Auto) 16, Monocytes (%) (Auto) 10, Eosinophils (%) (Auto) 1, Basophils (%) (Auto) 0, Neutrophils # (Auto) 6.4, Lymphocytes # (Auto) 1.4, Monocytes # (Auto) 0.9, Eosinophils # (Auto) 0.0, Basophils # (Auto) 0.0, Immature Granulocyte # (Auto) 0.1, Sodium Level 139, Potassium Level 3.5L, Chloride Level 104, Carbon Dioxide Level 20L, Anion Gap 15H, Blood Urea Nitrogen 45H, Creatinine 1.52H, Estimat Glomerular Filtration Rate 46, BUN/Creatinine Ratio 30, Glucose Level 104, Calcium Level 9.2, Corrected Calcium 9.5, Total Bilirubin 0.5, Aspartate Amino Transf (AST/SGOT) 19, Alanine Aminotransferase (ALT/SGPT) 17, Alkaline Phosphatase 58, Total Protein 6.6, Albumin 3.6 Assessment/Plan Assessment/Plan Assessment/Plan intractable N/V - continue meds. tolerated diet w/o N/V. abdominal pain - continue meds. UTI - continue abx seroma at urostomy - monitor labs. Clinical Quality Measures DVT/VTE Risk/Contraindication: Risk Factor Score Per Nursin RFS Level Per Nursing on Admit: 4+=Very High JOE WHITE DO 02/24/20 1156: Subjective Time Seen by a Provider: 15:31 Subjective/Events-last exam Pt seen and examined, states he is nauseous and that started around 8am. He was very sleepy when I came in and hard to arouse. Stated he had a BM today. Review of Systems General: No Chills, No Night Sweats Pulmonary: No Dyspnea, No Cough Cardiovascular: No: Chest Pain Gastrointestinal: Nausea, Vomiting, Abdominal Pain (on R, slightly tender) Objective Exam General Appearance: No Apparent Distress, WD/WN HEENT: PERRL/EOMI Respiratory: Lungs Clear, Normal Breath Sounds, No Accessory Muscle Use Cardiovascular: Regular Rate, Rhythm, No Murmur Gastrointestinal: soft, tenderness (mostly around stoma) Assessment/Plan Assessment/Plan Assessment/Plan Intractable N/V - will change diet back to clears, anti-emetics as needed UTI - continue ABX Supervisory-Addendum Brief Verification & Attestation Participated in pt care: history, MDM, physical Personally performed: exam, history, MDM Care discussed with: Medical Student Procedures: n/a Verification and Attestation of Medical Student E/M Service A medical student performed and documented this service. I then reviewed and verified all information documented by the medical student and made modifications to such information, when appropriate. I personally performed a physical exam, medical decision making and then discussed any differences between the notes and made revisions as necessary to create one note. Joe White , 02/24/20 , 11:56 HIEU DIANA MED STUDENT Feb 23, 2020 08:25 JOE WHITE DO Feb 24, 2020 11:56
[2020-02-23] MEDS: ONDANSETRON 4 MG/2 ML (SDV) Z0FRAN IVP PRN ×2 (08:42→17:34)
[2020-02-23] MEDS: GEMFIBROZIL 600 MG (LOPID) TAB PO SCH ×3 (08:44→21:48)
[2020-02-23] MEDS: busPIRone 15 MG (BUSPAR) TABLET PO SCH ×3 (08:45→21:48)
[2020-02-23] MEDS: eZETimibe 10 MG (ZETIA) TABLET PO SCH ×2 (08:45→11:34)
[2020-02-23] MEDS: PANTOPRAZOLE 40 MG (PROTONIX) VIAL IV SCH ×2 (08:45→11:15)
[2020-02-23] MEDS: lisINopril 5 MG (PRINIVIL) TABLET PO SCH ×2 (08:46→11:34)
[2020-02-23] MEDS: GABAPENTIN 100 MG (NEURONTIN) CAP PO SCH ×4 (08:46→21:48)
[2020-02-23] MEDS: CARISOPRODOL 350 MG (SOMA) TAB PO SCH ×2 (08:46→11:34)
[2020-02-23] MEDS: LACTATED RINGERS 1,000 ML IV SCH ×2 (09:58→17:30)
[2020-02-23] MEDS: cefTRIAXone FOR IV USE 1,000 MG in WATER (STERILE) FOR INJECTION 10 ML IV SCH (11:15)
[2020-02-23] MEDS ORDERED: LORazepam INJ 2 MG/ML (ATIVAN) VIAL IVP PRN (11:30)
[2020-02-23 12:00] VITALS: BP 161/76
--- NOTE | 2020-02-23 12:05 | Progress Note ---
Subjective Subjective Date Seen by Provider: Feb 23, 2020 Time Seen by Provider: 11:15 at 08:30. Pt alert and fully oriented. Pt overall is improved. Nausea is his main complaint at this time, though its improved since admission. Pt just got done eating roughly half of this breakfest without change in nausea. Pt states abdominal pain this morning when he woke up was non-existent, 0/10, but has come back some at this time and has increased after eating. While the pain is diffuse, he states its worst in this RLQ. Pt has no new complaints at this time. VS stable. WBC dropped from 13.9 yesterday to 8.8 today. at 11:10 while re-visiting pt with Dr. Paredes. Pt states he threw up his breakfest right after I left this morning. Nausea has since increased. Pt clearly in more distress than when I visited him earlier today. Described abd pain as diffuse. Review of Systems General: No Chills, No Night Sweats Pulmonary: No Dyspnea, No Cough, No Pleuritic Chest Pain Cardiovascular: No: Chest Pain, Palpitations Gastrointestinal: Nausea, Vomiting, Abdominal Pain (diffuse, worse in RLQ ) Genitourinary: Other (urostomy bag ) All Other Systems Reviewed All Other Systems Reviewed: Yes Objective Exam Vital Signs Vital Signs - First Documented 02/22/20 02/22/20 08:53 12:59 Temp 35.9 Pulse 89 Resp 16 B/P (MAP) 163/70 (101) Pulse Ox 100 O2 Delivery Room Air O2 Flow Rate 2.00 Capillary Refill : Less Than 3 Seconds General Appearance: No Apparent Distress, Chronically ill Eyes: Bilateral Eye Normal Inspection, Bilateral Eye PERRL, Bilateral Eye EOMI HEENT: PERRL/EOMI, Normal ENT Inspection Neck: Full Range of Motion, Normal Inspection Respiratory: Lungs Clear, Normal Breath Sounds, No Accessory Muscle Use, No Respiratory Distress Cardiovascular: Regular Rate, Rhythm, No Murmur, Normal Peripheral Pulses Gastrointestinal: Normal Bowel Sounds, No Organomegaly, No Pulsatile Mass, Guarding, Tenderness (diffuse, but most tender to palpation in RUQ and RLQ. ), Other (four incisional bolanos on L. 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 Skin: Normal Color, Warm/Dry Results Lab Laboratory Tests 02/22/20 12:09: Lactic Acid Level 1.13 02/22/20 20:11: Glucometer 309H 02/23/20 05:18: Glucometer 106 02/23/20 05:20: White Blood Count 8.8, Red Blood Count 4.05L, Hemoglobin 11.4#L, Hematocrit 35L, Mean Corpuscular Volume 86, Mean Corpuscular Hemoglobin 28, Mean Corpuscular Hemoglobin Concent 33, Red Cell Distribution Width 13.6, Platelet Count 331, Mean Platelet Volume 10.5, Immature Granulocyte % (Auto) 1, Neutrophils (%) (Auto) 72, Lymphocytes (%) (Auto) 16, Monocytes (%) (Auto) 10, Eosinophils (%) (Auto) 1, Basophils (%) (Auto) 0, Neutrophils # (Auto) 6.4, Lymphocytes # (Auto) 1.4, Monocytes # (Auto) 0.9, Eosinophils # (Auto) 0.0, Basophils # (Auto) 0.0, Immature Granulocyte # (Auto) 0.1, Sodium Level 139, Potassium Level 3.5L, Chloride Level 104, Carbon Dioxide Level 20L, Anion Gap 15H, Blood Urea Nitrogen 45H, Creatinine 1.52H, Estimat Glomerular Filtration Rate 46, BUN/Creatinine Ratio 30, Glucose Level 104, Calcium Level 9.2, Corrected Calcium 9.5, Total Bilirubin 0.5, Aspartate Amino Transf (AST/SGOT) 19, Alanine Aminotransferase (ALT/SGPT) 17, Alkaline Phosphatase 58, Total Protein 6.6, Albumin 3.6 02/23/20 10:53: Glucometer 153H Microbiology 02/22/20 Urine Culture - Preliminary, Resulted Escherichia coli Assessment/Plan Assessment/Plan Assessment and Plan UTI Acute kidney injury UA consistent with UTI Cultures growing E coli Continue Rocephin Creatinine improving Continue IV fluids Recent abdominal surgery Seroma Surgery following, appreciate assistance T2DM Levemir Novolog with meals SSI HTN Continue home meds DVT Prophylaxis: Lovenox Severe sepsis, resolved Lactic acidosis, resolved Admission Dx Severe Sepsis Likely complicated UTI, versus infection of seroma which developing 2/2 abdominal sx last Friday, versus mesenteric ischemia. Pt meet 2 SIRS criteria with U/A today suggesting likely source is a UTI. Lactic acid in ED was 2.17, repeat lactic acid. Evidence of organ dysfunction, acute kidney injury. Order CXR. Complicated UTI Pt has chronic and recurrent hx of UTIs Order Urine Culture Order blood culture Start pt on Imipenem and Vancomycin until culture results come back. Possible Infected Seroma 2/2 Abdominal Sx UTI seemed more likely source of sepsis at this point Dr White consulted on case, appreciate the recommendations. Acute Kidney Injury Likely 2/2 sepsis BUN and creatinine was 55 and 2.05 respectively far exceeding pts baseline. Continue pt fluid replacement and repeat BMP tomorrow. T2DM Glucose was 248 at ED. Consider restarting home insulin regiment. HTN Currently controlled, hold home regiment. DVT Prophylaxis Start Lovenox Clinical Quality Measures Admission Status Admission Dx Severe Sepsis Likely complicated UTI, versus infection of seroma which developing 2/2 abdominal sx last Friday, versus mesenteric ischemia. Pt meet 2 SIRS criteria with U/A today suggesting likely source is a UTI. Lactic acid in ED was 2.17, repeat lactic acid. Evidence of organ dysfunction, acute kidney injury. Order CXR. Complicated UTI Pt has chronic and recurrent hx of UTIs Order Urine Culture Order blood culture Start pt on Imipenem and Vancomycin until culture results come back. Possible Infected Seroma 2/2 Abdominal Sx UTI seemed more likely source of sepsis at this point Dr White consulted on case, appreciate the recommendations. Acute Kidney Injury Likely 2/2 sepsis BUN and creatinine was 55 and 2.05 respectively far exceeding pts baseline. Continue pt fluid replacement and repeat BMP tomorrow. T2DM Glucose was 248 at ED. Consider restarting home insulin regiment. HTN Currently controlled, hold home regiment. DVT Prophylaxis Start Lovenox DVT/VTE Risk/Contraindication: Risk Factor Score Per Nursin RFS Level Per Nursing on Admit: 4+=Very High Supervisory-Addendum Brief Verification & Attestation Participated in pt care: history, MDM, physical Personally performed: exam, history, MDM, supervision of care Care discussed with: Medical Student Procedures: n/a Results interpretation: Verified all documentation Verification and Attestation of Medical Student E/M Service A medical student performed and documented this service in my presence. I reviewed and verified all information documented by the medical student and made modifications to such information, when appropriate. I personally performed the physical exam and medical decision making. Juanita Paredes, Feb 23, 2020,17:30 SUSIE CAMARILLO MED STUDENT Feb 23, 2020 12:05 JUANITA PAERDES MD Feb 23, 2020 17:14
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
[2020-02-23 16:11] VITALS: BP 131/75
[2020-02-23] MEDS: ENOXAPARIN 40 MG/0.4 ML (LOVENOX) SYR SQ SCH (17:30)
[2020-02-23 19:39] VITALS: BP 126/61
[2020-02-24 00:22] VITALS: BP 105/52
[2020-02-24 05:25] LABS: BASOPHILS % (AUTO) 0 % (0-10); EOSINOPHILS # (AUTO) 0.1 10^3/uL (0.0-0.3); EOSINOPHILS % (AUTO) 1 % (0-10); HEMATOCRIT 34 % (40-54); HEMOGLOBIN 10.9 g/dL (13.3-17.7); LYMPHOCYTES # (AUTO) 1.5 10^3/uL (1.0-4.0); LYMPHOCYTES % (AUTO) 22 % (12-44); MEAN CORPUSCULAR HEMOGLOBIN 28 pg (25-34); MEAN CORPUSCULAR HGB CONC 32 g/dL (32-36); MEAN CORPUSCULAR VOLUME 87 fL (80-99); MEAN PLATELET VOLUME 10.1 fL (9.0-12.2); MONOCYTES # (AUTO) 0.7 10^3/uL (0.0-1.0); MONOCYTES % (AUTO) 10 % (0-12); NEUTROPHILS # (AUTO) 4.6 10^3/uL (1.8-7.8); NEUTROPHILS % (AUTO) 66 % (42-75); PLATELET COUNT 324 10^3/uL (130-400)
[2020-02-24 05:29] LABS: CHLORIDE 105 MMOL/L (98-107); POTASSIUM 3.4 MMOL/L (3.6-5.0); SODIUM 141 MMOL/L (135-145)
[2020-02-24 05:30] LABS: CALCIUM 8.9 MG/DL (8.5-10.1)
[2020-02-24 05:31] LABS: GLUCOSE 103 MG/DL (70-105)
[2020-02-24 05:32] LABS: CARBON DIOXIDE 23 MMOL/L (21-32)
[2020-02-24 05:34] LABS: CREATININE SERUM 1.16 MG/DL (0.60-1.30); GFR ESTIMATED > 60
[2020-02-24 05:35] LABS: BUN/CREATININE RATIO 24
[2020-02-24] MEDS: inSUlin ASPART (NovoLOG) 1 UNIT/0.01 ML (CHARGE PER UNIT) SC SCH ×6 (05:52→18:16)
[2020-02-24] MEDS: LACTATED RINGERS 1,000 ML IV SCH ×2 (05:52→16:04)
[2020-02-24 08:00] VITALS: BP 125/63
[2020-02-24] MEDS: GEMFIBROZIL 600 MG (LOPID) TAB PO SCH (08:14)
[2020-02-24] MEDS: PANTOPRAZOLE 40 MG (PROTONIX) VIAL IV SCH (08:14)
[2020-02-24] MEDS: eZETimibe 10 MG (ZETIA) TABLET PO SCH (08:14)
[2020-02-24] MEDS: lisINopril 5 MG (PRINIVIL) TABLET PO SCH (08:14)
[2020-02-24] MEDS: busPIRone 15 MG (BUSPAR) TABLET PO SCH (08:14)
[2020-02-24] MEDS: CARISOPRODOL 350 MG (SOMA) TAB PO SCH (08:15)
[2020-02-24] MEDS: GABAPENTIN 100 MG (NEURONTIN) CAP PO SCH ×2 (08:15→14:04)
--- NOTE | 2020-02-24 08:41 | Progress Note - Surgery ---
HIEU DIANA MED STUDENT 02/24/20 0840: Subjective Date Seen by a Provider: Feb 24, 2020 Time Seen by a Provider: 07:20 Subjective/Events-last exam Pt states he feels better today but he vomited yesterday immediately after I spoke w/ him. He vomited 3-4x w/in a couple of minutes and had nausea for hours. Pt stated he felt like a piece of meat was stuck in his throat and causing him to spit up. Pt was changed to a liquid diet and given a sleeping pill yesterday but pt didn't know the name. Pt slept through the evening and night. Pt denies h aving BM but passed gas yesterday. Pt denies trouble w/ urination and is walking around. Pt had an EGD w/in the past 3 yrs. Last colonoscopy was around 2 yrs ago. Pt states he has some R abdominal pain and is spitting up every few hrs. Review of Systems General: No Chills, No Night Sweats, No Fatigue HEENT: No Head Aches, No Visual Changes, No Eye Pain, No Ear Pain Pulmonary: No Cough Cardiovascular: No: Chest Pain Gastrointestinal: Nausea (yesterday), Vomiting (yesterday), Abdominal Pain (R side around stoma) Musculoskeletal: No: arm pain, leg pain Neurological: No: Weakness Focused Exam Lactate Level 02/22/20 10:00: Lactic Acid Level 2.17*H 02/22/20 12:09: Lactic Acid Level 1.13 Objective Exam Vital Signs Date Time Temp Pulse Resp B/P (MAP) Pulse Ox O2 Delivery O2 Flow Rate FiO2 02/24/20 00:22 36.1 75 16 105/52 (69) 95 Room Air 02/23/20 20:00 Room Air 02/23/20 19:39 36.6 84 18 126/61 (82) 96 Room Air 02/23/20 16:11 36.6 83 18 131/75 (93) 98 Room Air 02/23/20 12:00 36.4 86 18 161/76 (104) 98 Room Air I & O 02/24/20 06:59 Intake Total 3230 ml Output Total 2850 ml Balance 380 ml Capillary Refill : Less Than 3 Seconds General Appearance: No Apparent Distress, Chronically ill HEENT: PERRL/EOMI Neck: Non Tender, Supple Respiratory: Lungs Clear, Normal Breath Sounds, No Accessory Muscle Use, No Respiratory Distress Cardiovascular: Regular Rate, Rhythm, No Murmur Gastrointestinal: soft, tenderness (mostly around stoma) Extremity: No Pedal Edema Neurologic/Psychiatric: Alert, Oriented x3, Normal Mood/Affect Skin: Normal Color, Warm/Dry Results Lab Laboratory Tests 02/23/20 10:53: Glucometer 153H 02/23/20 17:40: Glucometer 151H 02/23/20 20:05: Glucometer 204H 02/24/20 04:50: White Blood Count 7.0, Red Blood Count 3.92L, Hemoglobin 10.9L, Hematocrit 34L, Mean Corpuscular Volume 87, Mean Corpuscular Hemoglobin 28, Mean Corpuscular Hemoglobin Concent 32, Red Cell Distribution Width 13.4, Platelet Count 324, Mean Platelet Volume 10.1, Immature Granulocyte % (Auto) 1, Neutrophils (%) (Auto) 66, Lymphocytes (%) (Auto) 22, Monocytes (%) (Auto) 10, Eosinophils (%) (Auto) 1, Basophils (%) (Auto) 0, Neutrophils # (Auto) 4.6, Lymphocytes # (Auto) 1.5, Monocytes # (Auto) 0.7, Eosinophils # (Auto) 0.1, Basophils # (Auto) 0.0, Immature Granulocyte # (Auto) 0.0, Sodium Level 141, Potassium Level 3.4L, Chloride Level 105, Carbon Dioxide Level 23, Anion Gap 13, Blood Urea Nitrogen 28H, Creatinine 1.16, Estimat Glomerular Filtration Rate > 60, BUN/Creatinine Ratio 24, Glucose Level 103, Calcium Level 8.9 02/24/20 05:36: Glucometer 104 Microbiology 02/22/20 Blood Culture - Preliminary, Resulted No growth 02/22/20 Urine Culture - Preliminary, Resulted Escherichia coli Assessment/Plan Assessment/Plan Assessment/Plan intractable N/V abdominal pain - switched to liquid diet. continue anti-nausea medications. monitor for N/V. Clinical Quality Measures DVT/VTE Risk/Contraindication: Risk Factor Score Per Nursin RFS Level Per Nursing on Admit: 4+=Very High JOE WHITE DO 02/24/20 1200: Subjective Time Seen by a Provider: 11:38 Subjective/Events-last exam Pt seen and examined, states he has not had nausea or vomiting since yesterday. Pain is controlled. Review of Systems General: No Chills, No Night Sweats HEENT: No Head Aches, No Visual Changes Pulmonary: No Cough Cardiovascular: No: Chest Pain Gastrointestinal: Abdominal Pain (R side around stoma); No: Nausea (yesterday), Vomiting (yesterday) Objective Exam General Appearance: No Apparent Distress, WD/WN Respiratory: Lungs Clear, Normal Breath Sounds, No Accessory Muscle Use, No Respiratory Distress Cardiovascular: Regular Rate, Rhythm, No Murmur Gastrointestinal: soft, tenderness (mostly around stoma) Assessment/Plan Assessment/Plan Assessment/Plan Intractable N/V - resolving Will try to increase diet again and see how he does UTI - continue ABX Supervisory-Addendum Brief Verification & Attestation Participated in pt care: history, MDM, physical Personally performed: exam, history, MDM Care discussed with: Medical Student Procedures: n/a Verification and Attestation of Medical Student E/M Service A medical student performed and documented this service. I then reviewed and verified all information documented by the medical student and made modifications to such information, when appropriate. I personally performed a physical exam, medical decision making and then discussed any differences between the notes and made revisions as necessary to create one note. Joe White , 02/24/20 , 11:59 HIEU DIANA MED STUDENT Feb 24, 2020 08:40 JOE WHITE DO Feb 24, 2020 12:00
[2020-02-24] MEDS ORDERED: PANTOPRAZOLE 40 MG (PROTONIX) TAB PO SCH (09:00)
--- NOTE | 2020-02-24 10:57 | Progress Note ---
Subjective Subjective Date Seen by Provider: Feb 24, 2020 Time Seen by Provider: 10:00 Pt feeling much better today. Pt has not had nausea or vomiting since roughly 12:00 yesterday. Pt slept most of the day yesterday and feels well rested. Pt tolerated liquid breakfest well this morning, no increased nausea or post- prandial pain afterward. Pt denies diffuse abd pain since that time yesterday too, only light pain localized to prior sx location (RLQ). Pt has no new cc at this time. VS stable. Denies palpitations, chest pain, cough or dyspnea. Review of Systems General: No Chills, No Night Sweats, No Fatigue Pulmonary: No Dyspnea, No Cough Cardiovascular: No: Chest Pain, Palpitations Gastrointestinal: Abdominal Pain (light; localized to RLQ at sx site. ); No: Nausea (yesterday), Vomiting Genitourinary: Other (urostomy bag ) Neurological: No: Weakness All Other Systems Reviewed All Other Systems Reviewed: Yes Objective Exam Vital Signs Vital Signs - First Documented 02/22/20 02/22/20 08:53 12:59 Temp 35.9 Pulse 89 Resp 16 B/P (MAP) 163/70 (101) Pulse Ox 100 O2 Delivery Room Air O2 Flow Rate 2.00 Capillary Refill : Less Than 3 Seconds General Appearance: No Apparent Distress, WD/WN Eyes: Bilateral Eye Normal Inspection, Bilateral Eye PERRL, Bilateral Eye EOMI HEENT: PERRL/EOMI Neck: Non Tender, Supple Respiratory: Lungs Clear, Normal Breath Sounds, No Accessory Muscle Use, No Respiratory Distress Cardiovascular: Regular Rate, Rhythm, No Murmur, Normal Peripheral Pulses Gastrointestinal: Normal Bowel Sounds, No Organomegaly, No Pulsatile Mass, Tenderness (localized to right side ), Other (four incisional bolanos on L. 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 Skin: Normal Color, Warm/Dry Results Lab Laboratory Tests 02/23/20 10:53: Glucometer 153H 02/23/20 17:40: Glucometer 151H 02/23/20 20:05: Glucometer 204H 02/24/20 04:50: White Blood Count 7.0, Red Blood Count 3.92L, Hemoglobin 10.9L, Hematocrit 34L, Mean Corpuscular Volume 87, Mean Corpuscular Hemoglobin 28, Mean Corpuscular Hemoglobin Concent 32, Red Cell Distribution Width 13.4, Platelet Count 324, Mean Platelet Volume 10.1, Immature Granulocyte % (Auto) 1, Neutrophils (%) (Auto) 66, Lymphocytes (%) (Auto) 22, Monocytes (%) (Auto) 10, Eosinophils (%) (Auto) 1, Basophils (%) (Auto) 0, Neutrophils # (Auto) 4.6, Lymphocytes # (Auto) 1.5, Monocytes # (Auto) 0.7, Eosinophils # (Auto) 0.1, Basophils # (Auto) 0.0, Immature Granulocyte # (Auto) 0.0, Sodium Level 141, Potassium Level 3.4L, Chloride Level 105, Carbon Dioxide Level 23, Anion Gap 13, Blood Urea Nitrogen 28H, Creatinine 1.16, Estimat Glomerular Filtration Rate > 60, BUN/Creatinine Ratio 24, Glucose Level 103, Calcium Level 8.9 02/24/20 05:36: Glucometer 104 Microbiology 02/22/20 Blood Culture - Preliminary, Resulted No growth 02/22/20 Urine Culture - Preliminary, Resulted Escherichia coli Assessment/Plan Assessment/Plan Admission Dx Severe Sepsis Assessment and Plan Intractable nausea and vomiting Appears resolved as of 02/22 at 12:00 Pt tolerated liquid diet well this morning Advance to soft diet this afternoon, then solids if nausea remains resolved. Complicated UTI Continue Ceftriaxone AB sensitivity of urine culture still pending. Start oral AB based on sensitivity once in. Seroma 2/2 Abdominal Sx Consider as potential source of N/Ving. Dr White consulted on case, appreciate the recommendations. Acute Kidney Injury Likely 2/2 sepsis BUN and creatinine continues to move toward baseline. T2DM Home insulin regiment held. Controlled on reduced unit regiment. HTN Continue home regiment. DVT Prophylaxis Lovenox Problems: (1) Severe sepsis (2) Lactic acidosis (3) Seroma after procedure (4) History of abdominal surgery (5) Acute kidney injury (nontraumatic) (6) Urinary tract infection Qualifiers: Qualified Codes: N30.00 - Acute cystitis without hematuria Admission Dx Intractable nausea and vomiting Etiology at this point uncertain; if it was related to the UTI I would have expected his nausea to improve with his WBC but its persisted, may be related to sx complication. Consider repeat abd/pelvic CT Start Ativan in addition to pts current anti-emetic regiment. Complicated UTI Pt has chronic and recurrent hx of UTIs Urine Culture grew 100k CFU of E. Coli Continue Ceftriaxone: WBC improved today to 8.8 from 13.9. Seroma 2/2 Abdominal Sx Consider as potential source of N/Ving. Dr White consulted on case, appreciate the recommendations. Acute Kidney Injury Likely 2/2 sepsis BUN and creatinine improved today compare to 02/21 T2DM Home insulin regiment held. Controlled on reduced unit regiment. HTN Continue home regiment. DVT Prophylaxis Lovenox Clinical Quality Measures Admission Status Admission Dx severe sepsis DVT/VTE Risk/Contraindication: Risk Factor Score Per Nursin RFS Level Per Nursing on Admit: 4+=Very High Supervisory-Addendum Brief Verification & Attestation Participated in pt care: history, MDM, physical Personally performed: exam, history, MDM, supervision of care Care discussed with: Medical Student Procedures: n/a Results interpretation: Verified all documentation Verification and Attestation of Medical Student E/M Service A medical student performed and documented this service in my presence. I reviewed and verified all information documented by the medical student and made modifications to such information, when appropriate. I personally performed the physical exam and medical decision making. Juanita Paredes, Feb 26, 2020,17:47 SUSIE CAMARILLO MED STUDENT Feb 24, 2020 10:57 JUANITA PAREDES MD Feb 26, 2020 17:47
[2020-02-24] MEDS: cefTRIAXone FOR IV USE 1,000 MG in WATER (STERILE) FOR INJECTION 10 ML IV SCH (11:15)
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
[2020-02-24 11:54] VITALS: BP 117/57
[2020-02-24] MEDS ORDERED: CEFD300C3 PO (12:46)
--- NOTE | 2020-02-24 12:56 | Discharge Summary ---
Discharge Summary Hospital Course Was the Problem List Reviewed?: Yes Problems/Dx: (1) Severe sepsis Status: Acute (2) Lactic acidosis Status: Acute (3) Seroma after procedure Status: Acute (4) History of abdominal surgery Status: Acute (5) Acute kidney injury (nontraumatic) Status: Acute (6) Urinary tract infection Status: Acute Qualifiers: Qualified Codes: N30.00 - Acute cystitis without hematuria Hospital Course Date of Admission: Feb 22, 2020 at 12:04 Admission Diagnosis: severe sepsis due to UTI Family Physician/Provider: Joseph Perez MD Date of Discharge: 02/24/20 Discharge Diagnosis: severe sepsis due to UTI Hospital Course: Cisco Rondon is a 64-year-old male who was admitted with severe sepsis due to urinary tract infection. He was started on IV Rocephin and responded well. His course is complicated by an acute kidney injury with resolved with IV fluids. He recently had an abdominal surgery with a peristomal hernia repair. A CT revealed a seroma. Gen. surgery was consulted and assisted with his care. He was discharged home in stable condition. Labs and Pending Lab Test: Laboratory Tests 02/23/20 17:40: Glucometer 151H 02/23/20 20:05: Glucometer 204H 02/24/20 04:50: White Blood Count 7.0, Red Blood Count 3.92L, Hemoglobin 10.9L, Hematocrit 34L, Mean Corpuscular Volume 87, Mean Corpuscular Hemoglobin 28, Mean Corpuscular Hemoglobin Concent 32, Red Cell Distribution Width 13.4, Platelet Count 324, Mean Platelet Volume 10.1, Immature Granulocyte % (Auto) 1, Neutrophils (%) (Auto) 66, Lymphocytes (%) (Auto) 22, Monocytes (%) (Auto) 10, Eosinophils (%) (Auto) 1, Basophils (%) (Auto) 0, Neutrophils # (Auto) 4.6, Lymphocytes # (Auto) 1.5, Monocytes # (Auto) 0.7, Eosinophils # (Auto) 0.1, Basophils # (Auto) 0.0, Immature Granulocyte # (Auto) 0.0, Sodium Level 141, Potassium Level 3.4L, Chloride Level 105, Carbon Dioxide Level 23, Anion Gap 13, Blood Urea Nitrogen 28H, Creatinine 1.16, Estimat Glomerular Filtration Rate > 60, BUN/Creatinine Ratio 24, Glucose Level 103, Calcium Level 8.9 02/24/20 05:36: Glucometer 104 02/24/20 10:51: Glucometer 172H Microbiology 02/22/20 Blood Culture - Preliminary, Resulted No growth 02/22/20 Urine Culture - Preliminary, Resulted Escherichia coli Home Meds Active Cefdinir 300 Mg Capsule 300 Mg PO BID 10 Days Reported Ibuprofen 200 Mg Capsule 200-400 Mg PO Q8H PRN Probiotic (Lactobacillus Combo No.10) 1 Each Capsule 2 Each PO DAILY Ezetimibe 10 Mg Tablet 10 Mg PO DAILY Glipizide ER (Glipizide) 10 Mg Tab.er.24 10 Mg PO DAILY Hydrocodone-Acetamin 10-325 mg (Hydrocodone/Acetaminophen) 1 Each Tablet 1 Ea PO Q4 -6H PRN Carisoprodol 350 Mg Tablet 350 Mg PO DAILY Jardiance (Empagliflozin) 25 Mg Tablet 25 Mg PO DAILY Gemfibrozil 600 Mg Tablet 600 Mg PO BID Levemir Flextouch (Insulin Detemir) 100 Unit/1 Ml Insuln.pen 50 Units SC HS Basaglar Kwikpen U-100 (Insulin Glargine,Hum.rec.anlog) 100 Unit/1 Ml Insuln.pen 20 Unit SQ PC Lisinopril 5 Mg Tablet 5 Mg PO DAILY Gabapentin 100 Mg Capsule 100 Mg PO TID Buspirone HCl 15 Mg Tablet 30 Mg PO BID TAKES 2 (15MG) TABS Assessment/Pt Instructions Take medications as prescribed. Complete here course of antibiotics even if you're feeling better. Follow-up with her primary care physician. Return with worsening pain or if you feel like you're getting worse. Discharge Planning: <30 minutes discharge planning Discharge Instructions Discharge Diet: No Restrictions Activity as Tolerated: Yes Consultations Gen. surgery Discharge Physical Examination Vital Signs Vital Signs Date Time Temp Pulse Resp B/P (MAP) Pulse Ox O2 Delivery O2 Flow Rate FiO2 02/24/20 11:54 36.0 74 18 117/57 (77) 97 Room Air 02/22/20 12:59 2.00 General Appearance: No Apparent Distress, WD/WN Respiratory: Lungs Clear, Normal Breath Sounds, No Respiratory Distress Cardiovascular: Regular Rate, Rhythm, No Edema, No Murmur Gastrointestinal: Normal Bowel Sounds, Non Tender, Soft Extremity: Normal Inspection, Non Tender Skin: Normal Color, Warm/Dry Neurologic/Psychiatric: Alert, Oriented x3, No Motor/Sensory Deficits, Normal Mood/Affect Allergies: Coded Allergies: No Known Drug Allergies (Verified , 02/09/20) Copy Copies To 1: JOSEPH PEREZ MD Discharge Summary Date of Admission Feb 22, 2020 at 12:04 Date of Discharge Discharge Date: Feb 24, 2020 Discharge Time: 12:55 Admission Diagnosis severe sepsis due to UTI Consults/Procedures Consulations general surgery Discharge Diagnosis (1) Severe sepsis Status: Acute (2) Lactic acidosis Status: Acute (3) Seroma after procedure Status: Acute (4) History of abdominal surgery Status: Acute (5) Acute kidney injury (nontraumatic) Onset Date: 11/08/2014 Status: Acute (6) Urinary tract infection Status: Acute Qualifiers: Qualified Codes: N30.00 - Acute cystitis without hematuria Clinical Quality Measures DVT/VTE Risk/Contraindication: Risk Factor Score Per Nursin RFS Level Per Nursing on Admit: 4+=Very High WALDO PAREDES MD Feb 24, 2020 12:56
--- NOTE | 2020-02-24 14:34 | NUR ---
"RD ASSESSMENT PMHx: hypercholesterolemia; HTN; chronic UTI; pancreatitis; gout; DM; CA(bladder,prostate); PT INTERACTION: Pt was awake and pleasant during dietary consult for MST score. Pt states current appetite is good. Note avg PO intake 55% x2d, per chart review. Pt states following a regular diet at home, and has no issues with chewing/swallowing food. Pt states no recent issues with nausea, vomiting, or diarrhea. Note episodes of nausea and vomiting on 02/22, per chart review. Pt states some issues with constipation, and that his last BM was 02/23. Note pt not currently on bowel regimen per chart review. Pt states recent wt loss, but is unsure of amount/timeframe. Pt states UBW of 167#. Note current wt of 143#, per chart review. Note unable to determine recent wt hx, per chart review. Pt states current DM management is good. Note unable to determine recent HbA1c, per chart review. Upon visual assessment, pt appears to be adequately nourished with no visible signs of muscle/fat loss and a BMI of 23.9 (Normal BMI for age). Given PO intake, wt hx, and visual assessment, pt does not meet criteria for malnutrition per ASPEN guidelines. ABNORMAL NUTRITION-RELATED LAB VALUES LOW: K 3.4; HIGH: BUN 28 Est. kcal needs: 5160-6069 kcal | 20-25 kcal/kg Est. Pro needs: 52-65 g Pro | 0.8-1.0 g Pro/kg PES STATEMENT: Inadequate oral intake (NI-2.1) related to loss of appetite, nausea, vomiting, and constipation, as evidenced by pt interview, chart review, and avg PO intake 55% x2d. INTERVENTION: Continue with current diet order of DYS2 Mechanically Altered diet. If pt tolerates current diet well, would recommend advancing to consistent CHO diet. Pt may benefit from nutrition supplementation if PO intake declines. Offered diet education on DM management, but pt declined at this time. Will offer again prior to discharge. Will continue to follow and reassess as pt needs, intake, and status change. David Mccartney, MS RD LD"
[2020-02-24 16:01] VITALS: BP 119/72
[2020-02-24] MEDS ORDERED: CEFDINIR 300 MG (OMNICEF) CAP PO ONE (18:11)
[2020-02-24] MEDS: ENOXAPARIN 40 MG/0.4 ML (LOVENOX) SYR SQ SCH (18:16)
[2020-02-24 18:26] VITALS: BP 119/72
--- NOTE | 2020-02-28 10:48 | Physician Query Clarification ---
PQ-Link Infection to Dev/Proc Admission/Discharge Admission Date: Feb 22, 2020 at 12:04 Discharge Date: Feb 24, 2020 at 18:30 Dr. Paredes, The medical record reflects the following clinical scenario: History/Risk Factors: Sepsis, UTI, postop seroma, acute renal failure, diabetes, hx bladder and prostate removed w/urostomy Clinical Findings: WBC 13.9, Lactic acid 2.17, Nitrate positive UA, Large bacteria UA, urine culture - E Coli Treatment: IV Ceftriaxone Question: Can you specify if the UTI is due to/associated with the urostomy? Please document a response in Progress Note or Discharge Summary. 1. Yes - UTI is due to/associated with the urostomy. 2. No - UTI is not due to/associated with the urostomy. 3. Other, with explanation of the clinical findings. 4. Clinically undetermined, no explanation for the clinical findings. PHYSICIAN RESPONSE Specify if infection: 1 Please remember a lack of response to the above will prompt a phone page by [facility] staff. In responding to this query, please exercise your independent professional judgment. The purpose of this communication is to more accurately reflect the complexity of your patients condition. The fact that a question is asked does not imply that any particular answer is desired or expected. Thank you for your timely response to this clarification. Requestors name: Brooke THIS PHYSICIAN QUERY FORM IS A PERMANENT PART OF THE MEDICAL RECORD BROOKE LYNCH Feb 28, 2020 10:48 WALDO PAREDES MD Feb 29, 2020 09:51
== END 2020-02-24 18:30 | disposition home or self-care (01) | DRG 698 ==
LOC: EDUNIT# 08:53 → ER 08:56 → 4TH 12:04
PROVIDERS: ADMIT Internal Medicine; ATTEND Internal Medicine
DX: N99.521 Infection of incontinent external stoma of urinary tract (principal); A41.9 Sepsis, unspecified organism; R65.20 Severe sepsis without septic shock; N39.0 Urinary tract infection, site not specified; E87.2 Acidosis; K91.873 Postprocedural seroma of a digestive system organ or structure following other procedure; N17.9 Acute kidney failure, unspecified; E11.9 Type 2 diabetes mellitus without complications; I10 Essential (primary) hypertension; E78.00 Pure hypercholesterolemia, unspecified; M10.9 Gout, unspecified; M19.91 Primary osteoarthritis, unspecified site; R11.2 Nausea with vomiting, unspecified; J30.2 Other seasonal allergic rhinitis; F41.9 Anxiety disorder, unspecified; F32.9 Major depressive disorder, single episode, unspecified; Z79.4 Long term (current) use of insulin; Z90.6 Acquired absence of other parts of urinary tract; Z87.19 Personal history of other diseases of the digestive system; Z90.79 Acquired absence of other genital organ(s); B96.20 Unspecified Escherichia coli [E. coli] as the cause of diseases classified elsewhere
CPT/HCPCS: 36415; 74176; 80048; 80053; 81000; 82962; 83605; 85007; 85025; 85027; 86141; 87040; 87088; 87186; 96361; 96374; 96375; 96376